=== PATIENT | male | born 1950 | race Caucasian/White ===

== ENCOUNTER 2019-06-02 05:45 | Outpatient (RCR) | payer MEDICARE, MEDICAID, SELFPAY | END 2019-06-15 00:01 | LOC: ONCRAD 05:45 | PROVIDERS: Family Provider Nurse Practitioner; Visit Provider Internal Medicine Hematology & Oncology | DX: Z51.12 Encounter for antineoplastic immunotherapy (principal); C34.11 Malignant neoplasm of upper lobe, right bronchus or lung; C78.7 Secondary malignant neoplasm of liver and intrahepatic bile duct; C77.0 Secondary and unspecified malignant neoplasm of lymph nodes of head, face and neck; C79.51 Secondary malignant neoplasm of bone; J43.9 Emphysema, unspecified; F17.210 Nicotine dependence, cigarettes, uncomplicated | CPT/HCPCS: 36591; 80053; 85025; 96413; 99214; J1642 ×2; J7050 ×2; J9022 ==

== ENCOUNTER 2019-06-23 05:31 | Outpatient (RCR) | payer MEDICARE, MEDICAID, SELFPAY ==
--- NOTE | 2019-06-17 11:19 | CT_ITS ---
WS: [id number] CT CHEST WITH INTRAVENOUS CONTRAST HISTORY: LUNG CA 6 WKS POST RADIATION THERAPY TECHNIQUE: Contiguous 5 mm axial imaging performed on the thorax. Coronal and sagittal reformats are submitted. All CT scans at [facility] use at least one of these dose optimization techniq ues: automated exposure control; mA and/or kV adjustment per patient size (includes targeted exams wh ere dose is matched to clinical indication); or iterative reconstruction. CONTRAST: Omnipaque 300; 95 mL IV. DLP: 648.27 mGy-cm. COMPARISON: 10/12/[address] 01/30/2019 Lungs and central airway: Severe paraseptal and centrilobular emphysema. Significant decrease in size of the RIGHT upper lobe pulmonary mass previously described since 10/12/2018. There is an area of ez ear increased opacification measuring 9 mm now present. No new mass. Pleura: Normal. No pleural effusion. Heart and pericardium: Moderate enlargement the cardiac chambers. There is a diffuse circumferential pericardial effusion which is new since 10/12/2018 and increased since 11/28/2018. Maximum diameter of the effusion along the posterior LEFT ventricle is 14 mm. Mediastinum and michaela: Significant improvement in the mediastinal and hilar adenopathy as described on prior studies. Essentially resolved lymph nodes. There is increased soft tissue thickening in the RI GHT paratracheal and RIGHT hilar and subcarinal region along with fluid in the pericardial recesses. Vessels: Mild atherosclerosis aorta. Origin of the great vessels is normal with mild plaque. Chest wall and lower neck: LEFT subclavian Port-A-Cath. 10 mm lymph node in the RIGHT axilla was not present on prior studies. Margins are slightly irregular. Upper abdomen: No metastatic disease within the liver. No adrenal gland mass. Osseous structures: No osteoblastic or osteolytic bone disease. CT/CT chest w con* [id number] IMPRESSION: 1. Significant decrease in size of the RIGHT upper lobe pulmonary neoplasm wit h near complete resolution. Remaining 9 mm opacification may be residual scar v ersus tumor. 2. Resolved adenopathy in the hilar/mediastinal regions. 3. Severe emphysema. 4. New and slightly enlarged RIGHT axillary lymph node which will need to be c losely followed. Possible metastatic involvement should be considered. 5. No metastatic disease in the liver or adrenal glands. 6. Enlarging pericardial effusion.
[2019-06-17] MEDS: iohexol 300 mg/mL 100 mL Btl IV (11:43)
[2019-06-22] MEDS: sodium chloride 0.9% 100 ML 75 ML (12:10)
[2019-06-23 10:49] LABS: Basophils % 0.4 %; Eosinophils # 0.1 10^3/uL (0.0-0.8); Eosinophils % 1.5 %; Hematocrit 45.9 % (42.0-52.0); Hemoglobin 15.2 g/dL (11.7-16.6); Lymphocytes # 0.7 10^3/uL (0.8-4.8); Lymphocytes % 15.3 %; Mean Corpuscular HGB Conc 33.1 g/dL (30.0-36.0); Mean Corpuscular Hemoglobin 30.5 pg (28.0-34.0); Mean Corpuscular Volume 92.2 fL (80-94); Mean Platelet Volume 9.4 fL (7.4-10.4); Monocytes % 21.8 %; Neutrophils # 2.9 10^3/uL (1.8-7.7); Nucleated Red Blood Cells % 0 %; Platelet Count 274 10^3/cmm (130-400); Red Blood Count 4.98 10^6/uL (4.1-5.3); Red Cell Distribution Width 14.2 % (12.1-15.1); White Blood Count 4.8 10^3/uL (4.0-10.0)
[2019-06-23 11:03] LABS: Alanine Aminotransferase 9 U/L (0-41); Albumin Level 4.7 g/dL (3.5-5.2); Alkaline Phosphatase 53 IU/L (40-130); Anion Gap 15.7 (5-19); Aspartate Amino Transferase 13 U/L (0-40); Blood Urea Nitrogen 11 mg/dL (8-23); Calcium 10.7 mg/Dl (8.8-10.2); Carbon Dioxide 24 mmol/L (22-29); Chloride 103 mmol/L (98-107); Globulin 1.9 g/dL (1.3-4.6); Glomerular Filtration Rate 96.1 mL/min (90-130); Glucose 97 mg/dL (74-106); Potassium 4.7 mmol/L (3.5-5.1); Sodium 138 mmol/L (136-145); Total Bilirubin 0.3 mg/dL (0.15-1.2); Total Protein 6.6 g/dL (6.6-8.7)
[2019-06-23 12:55] LABS: Thyroid Stimulating Hormone 2.49 uIU/mL (0.27-4.20)
--- NOTE | 2019-06-23 15:27 | ONC FU_ITS ---
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 He is a 69-year-old gentleman with recent history of progressive right neck mass. He underwent CT scan of chest on 10/12/2018 showed multifocal neoplasm of right upper lobe and extensive bulky right paratracheal, superior mediastinal, right suprahilar, right supraclavicular lymphadenopathy associated with mild compression of severe vena cava and the right internal jugular vein and additional involvement of AP window and subcarinal azygoesophageal recess. No liver or adrenal involvement. Patient was referred to Dr. 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 And immunohistochemistry was positive for NSE, synaptophysin, CD 56. CT PET scan done on 11/28/2018 showed extensive disease e.g. single metastases to the liver and MRI scan of brain done on 11/25/2018 showed left frontal subcortical metastatic lesion and is any enhancing metastatic lesion in the inferior subcortical white matter of right frontal lobe He began treatment with carboplatin/etoposide and Tecentriq on 11/24/2018. 55+ year history of smoking still active, Follow-up CT PET scan done after3 cycles of carboplatin and etoposide and Tecentriq done On 01/30/2019 Showed good response, marked interval improvement in right upper lobe carcinoma Interval improvement in mediastinal lymphadenopathy Interval improvement in right level IV cervical lymph node Resolution of hepatic metastatic disease MRI head done on 01/15/2019 showed decrease in size left frontal subcortical white matter metastatic lesion when compared with scan done on 11/25/2018 No new enhancing metastatic lesion seen. On 03/12/2019 patient Completed 5 cycles of chemotherapy with carboplatin and etoposide with last two , tecentriq was added. consolidation with radiation therapy to rt chest Was given from 04/07/2019 to 05/04/2019 Followed by brainSRS x1 on 05/06/2019. Came for follow-up, denies any specific complaints, no fever or chills, no nausea vomiting, no headaches blurred vision double vision, no hemoptysis hematemesis, no shortness of breath. Patient has tolerated consolidation radiation therapy to right lung well and recently completed brainSRS ???1. Maintenance therapy with atezolizumab was recommended and he began his first cycle on 06/02/2019. He has tolerated it well. Mr. He is here today for follow-up. He is due for cycle 2 atezolizumab. He is tolerated the first dose well. He states that he is been having some severe lower back pains. He states is a dull pain that radiates towards both hips. He describes it as the middle of the lumbar area. He denies any leg tingling or numbness. He has had no gait changes. He denies any recent falls. His bowel and bladder functions are normal. He states the pain does bother him enough that impairs his mobility at times. He states he has tried aspirin and Tylenol which both dull the pain but did not relieve it completely. He has had no lower extremity edema. He denies any shortness of breath or orthopnea. He denies any fever or chills. His ECOG is 2 due to the back pain. Past Medical History: Ashd Chronic obstructive pulmonary disease History of colon polyps History of [place] Hypertension Osteoarthritis Right bundle branch block Tmj Vitamin D deficiency Past Surgical History: Cataract excision Hernia repair Portacatheter placement dr. muniz in 2019 Colonoscopy in 2018 Allergies: No Known Allergies. Medications: [facility] Tablet, effervescent Oral daily Aspirin 2 (325 mg) Tablet Oral daily Chantix Tablet Oral daily Citalopram Hydrobromide 1 (10 mg) Tablet Oral daily Lisinopril 1 Tablet (of 30 mg) Oral daily Melatonin 1 (10 mg) Capsule Oral at bedtime Nitroglycerin 1 Tablet (of 0.4 mg) Tablet, sublingual Sublingual PRN Prochlorperazine Maleate 1 Tablet (of 10 mg) Oral q 4 hours PRN traZODone HCl 1 (50 mg) Tablet Oral at bedtime PRN Family History: Mr. He's mother at age 75: congestive heart failure. Mr. He's father at age 75: heart disease, and lung cancer. Social History: Mr. He is single and he is retired. He is an occasional smoker who has smoked 1.5 packs/day for 60 years. He is an active drinker.He consumes 3 drinks/day 7 days/week. He has indicated exposure to the following products: cigarettes. Used to smoke 3 packs per day for about 20 years and went down to 2 packs per day until recently. Took the last Chantix yesterday pt is trying to quit smoking, Pt has decreased from 2-3 packs per day to about 2 cigarettes per day. Review Of Symptoms: Constitutional Denies fevers, chills, night sweats, excessive fatigue or weight loss. Intermittent headaches-worse when reading. Allergic/Immunologic No reactions. Eyes Denies significant visual changes. No diplopia. No amaurosis. ENMT Denies changes in hearing, sore throat, mouth sores, difficulty or changes in swallowing ability, and/or sinus drainage. Hematologic/Lymphatic Denies easy bruising or bleeding. The patient denies any tender or palpable lymph nodes. Respiratory Denies worsening dyspnea on exertion. Denies chest pain, cough or hemoptysis. Denies orthopnea. Cardiovascular Denies anginal chest pain, palpitations or orthopnea. Gastrointestinal Denies persistent nausea, vomiting, diarrhea, GI bleeding, or constipation. Denies change in bowel habits and/or stool color, no heartburn or early satiety. Genitourinary (M) Denies hematuria. Musculoskeletal Denies joint pain, swelling or redness. No decreased range of motion. He states he's had some leg cramps when walking. They do ease with rest. He's also had some leg cramps at night. They too resolve with getting up and walking. He is complaining of back pain in the lower part of his back. He indicates lumbar and lower thoracic. He states that there most of the time. He states it is worse if he is trying to do activities. He is not had any numbness or tingling in his lower extremities or bowel or bladder changes. But he states the pain seems to be getting worse. The aspirin and Tylenol dulls the pain but does not relieve it completely. He denies any recent trauma. Integumentary Denies chronic rashes, inflammation, ulcerations or skin changes. Neurologic Denies focal weakness or numbness. Normal gait. No persistent sensory problems Psychiatric Denies insomnia, depression, geovany or mood swings. Constitutional Complains of lack of appetite. Complains of moderate fatigue. Denies fever and night sweats. Eyes Complains of blurred vision with small print. Denies double vision and photophobia. ENMT Complains of dysphagia which occurs later in the day and tinnitus occasionally. Denies ear pain, mouth dryness, stomatitis and altered taste. Neck Denies neck pain. Integumentary Denies rash. Cardiovascular Complains of chest pain in the anterior right chest wall which happens occasionally. Denies arrhythmias and edema. Respiratory Complains of cough which is productive and is worse in the morning. Complains of wheezing occasionally. Denies hemoptysis. Gastrointestinal Complains of nausea which happens once in awhile. Denies abdominal pain, constipation, diarrhea, heartburn / dyspepsia, satiety and vomiting. Genitourinary (M) Complains of nocturia gets up about 3 times per night and urgency. Denies dysuria and frequency. Musculoskeletal Complains of arthritis and joint pain. Denies bone pain. Neurologic Complains of intermittent dizziness. Complains of severe headaches off and on. Complains of sensory problems in a few of his fingertips. Denies abnormal gait. Endocrine Denies diabetes and thyroid disease. Hematologic/Lymphatic Denies tender or enlarged lymph nodes. Vital Signs: Performed on Jun 23, 2019 11:30 Height - 68.00 in Weight - 138.0 lbs BSA - 1.75 sq.m BMI - 20.98 Temperature - 98.4 F Pulse - 84 /min Respiration - 20 /min BP - 143/90 mm(hg) (HIGH) O2 Sat - 97 % Pain - 0 Fatigue - 4 Performed on Jun 23, 2019 11:00 Height - 68.00 in Weight - 138.0 lbs Temperature - 98.4 F Pulse - 84 Respiration - 20 BP - 143/90 mm(hg) (HIGH) O2 Sat - 97 % Pain - 0 Performed on Jun 23, 2019 11:00 BMI - 20.983 kg/m2,1 - No physically strenuous activity, but ambulatory and able to carry out light or sedentary work (e.g. office work, light house work). (ECOG) Physical Examination: Constitutional Alert, oriented, no acute distress. Skin pink, warm and dry. Head Normocephalic; atraumatic. Eyes Conjunctivae and sclerae are clear and without icterus. Pupils are reactive and equal. ENMT No oral exudates, ulcers, masses, thrush or mucositis. Oropharynx clear. Tongue normal. Neck Supple without masses or thyromegaly. No jugular venous distension. Hematologic/Lymphatic No petechiae or purpura. No tender or palpable lymph nodes in the cervical or supraclavicular areas. Respiratory Lungs are clear to auscultation without rhonchi or wheezing. Cardiovascular Regular rate and rhythm of heart without murmurs,clicks, gallops or rubs. Abdomen Non-tender, non-distended, no masses, ascites. Good bowel sounds noted in all quads. No guarding or rebound tenderness. No pulsatile masses. Back/Spine Non-tender to palpation. Extremities No visible deformities, no cyanosis, clubbing or edema. Pulses 4+ and equal bilaterally. Musculoskeletal No tenderness or swelling, normal range of motion without obvious weakness. Integumentary No rashes or lesions. Neurologic No sensory or motor deficits, normal cerebellar function, normal gait. Psychiatric Alert and oriented times three. Coherent speech. Verbalizes understanding of our discussions today. Laboratory:Test performed on Jun 23, 2019 10:18 Sodium 138 mmol/L Potassium 4.7 mmol/L Chloride 103 mmol/L CO2 24 mmol/L Anion Gap 15.7 BUN 11 mg/dL Creatinine 0.8 mg/dL Cr Clearance (Est) 78.25 mL/min eGFR 96.1 mL/min Glucose 97 mg/dL Calcium 10.7 mg/dL Protein, Total 6.6 g/dL Albumin 4.7 g/dL Globulin 1.9 g/dL Bilirubin, Total 0.3 mg/dL ALT (SGPT) 9 Units/L AST (SGOT) 13 Units/L Alkaline Phosphatase 53 IU/L WBC 4.8 10^3/uL RBC 4.98 10^6/uL HGB 15.2 g/dL HCT 45.9 % MCV 92.2 fl MCH 30.5 pg MCHC 33.1 g/dL RDW 14.2 % Platelet Count 274 10^3/uL MPV 9.4 fl Neutrophils 2.9 10^3/uL Lymphocytes 0.7 10^3/uL Monocytes 1.0 10^3/uL Eosinophils 0.1 10^3/uL Basophils 0.0 10^3/uL Neutrophil % 61.0 % Lymphocyte % 15.3 % Monocyte % 21.8 % Eosinophil % 1.5 % Basophils % 0.4 % Test performed on Feb 08, 2019 13:46 Magnesium 2.3 mg/dL Test performed on Jan 11, 2019 08:46 TSH 2.24 uIU/mL Test performed on Jan 05, 2019 08:39 Manual Segs % 28 % Manual Bands % 13.0 % Manual Lymphs % 30.0 % Manual Monos % 19.0 % Metamyelocytes % 9.0 % Myelocytes % 1.0 % CBC Slide Review SLIDE REVIEW PERFORM Platelet Estimate DECREASED Manual Neutrophils Abs 2.1 10 3/cmm Manual Lymphocytes Abs 1.5 10 3/cmm Manual Monocytes Abs 1.0 10 3/cmm Impression: 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 Next CT scan of chest done on 10/12/2018 showed when compared to CT scan done on 10/02/2018, multiple nodular densities are in the posterior segment right upper lobe extending anteriorly and inferiorly towards the right hilum. And the most posterior superior nodular density is in the posterior subpleural region measuring 1.7 x 2.5 x 1.5 cm and elongated nodule extends anteriorly and inferiorly towards the right hilum measures 3.3 x 1.2 x 1.2 cm Bulky, confluent right paratracheal, right suprahilar and precarinal lymphadenopathy measures up to 5.8 cm x 3.5 cm x 10 cm. The adenopathy causes significant narrowing of right upper lobe pulmonary artery branch and a partially compresses the superior vena cava no acute bony abnormality seen no lytic or blastic bony destruction seen. Additional adenopathy extends into AP window and anterior superior mediastinum. And right supraclavicular lymphadenopathy measures 3.1 x 3.6 x 3.5 cm causes severe compression of inferior aspect of right internal jugular vein. No axillary lymphadenopathy. No other pulmonary mass or nodule seen. Liver is normal no adrenal involvement Emphysema COPD, so chronic smoking e.g. 55 year plus history history of myocardial infarction at age 43. Elevated PSA Essential hypertension Mr. He had PET/CT imaging on 11/28/2018. He had hypermetabolic activity in the right upper lobe nodule which measured to be 1.3 cm with SUV of 4.1 there are no other significant pulmonary nodules present there was a 2 widespread lung cyst formation upper lobes consistent with COPD changes matted malignant lymph nodes are present in the mediastinum time him consistent with local metastatic disease also present in the right paratracheal anterior mediastinal, precarinal and right hilar territories the SUV up to 6.2. In the right neck a 4.6 x 2.8 cm nodular mass in the level IV distribution has SUV of 6.8 representing metastasis. There is a solitary hypodensity in the medial right hepatic lobe measuring 2.0 x 1.6 cm with an SUV of 4.5. There are no findings to indicate osseous metastatic disease. MRI of the head from 11/25/2018 reports a oval circumscribed ring-enhancing lesion measuring 7.6 x 8.8 x 10 mm in the right frontal lobe subcortical white matter inferiorly. Per MRI report it is likely metastatic disease. No other Ms. sick lesions were seen and no significant stenosis and with white matter edema. 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 Mr. He was offered treatment with carboplatin/etoposide and Tecentriq. He began his first cycle on 11/24/2018. Completed total 5 cycles of chemotherapy on 03/12/2019. He remained on observation. He completed SRS to the brain to total dose of 2000 cGy on 05/06/2019. He began maintenance Tecentriq on 06/02/2019. Plan: 1. Proceed with cycle 2 Tecentriq (atezolizumab). 2. No premeds required currently. 3. Labs from today were reviewed in detail and discussed with Mr. He and a copy was given to him. WBC 4.8, hemoglobin 15.2, platelets 224,000 ANC is 2900. Potassium 4.7 creatinine 0.8 LFTs are normal alk phos is 53. A TSH was requested on blood in lab. 4. Requested x-rays of the thoracic lumbar sacral spine for evaluation of his back pain. 5. We will plan to see him back in 3 weeks with CBC CMP and follow-up TSH. 6. He was instructed to contact us in the interim should questions or problems arise. Signed By: Nahomy Buitrago-, [facility] Ky Perez MD <<Signature on File>>
== END 2019-06-23 23:59 | disposition home or self-care (01) ==
LOC: ONCMED 05:31
PROVIDERS: Family Provider Nurse Practitioner; PCP Nurse Practitioner; Referring Provider Radiology Radiation Oncology; Visit Provider Nurse Practitioner
DX: Z51.12 Encounter for antineoplastic immunotherapy (principal); C34.11 Malignant neoplasm of upper lobe, right bronchus or lung; C77.1 Secondary and unspecified malignant neoplasm of intrathoracic lymph nodes; C79.31 Secondary malignant neoplasm of brain; J43.9 Emphysema, unspecified; I31.3 Pericardial effusion (noninflammatory); F17.210 Nicotine dependence, cigarettes, uncomplicated; M54.5 Low back pain; I25.2 Old myocardial infarction; I10 Essential (primary) hypertension; M19.90 Unspecified osteoarthritis, unspecified site; E55.9 Vitamin D deficiency, unspecified; Z92.3 Personal history of irradiation; Z79.899 Other long term (current) drug therapy
CPT/HCPCS: 71260; 80053; 84443; 85025; 96413; 99214; J7050; J9022; Q9967

== ENCOUNTER 2019-06-23 13:05 | Outpatient (CLI) | payer MEDICARE, MEDICAID, SELFPAY ==
--- NOTE | 2019-06-23 13:26 | XR_ITS ---
WS: [id number] LUMBAR SPINE TECHNIQUE: 3 views of the lumbar spine CLINICAL INFORMATION: LOWER BACK PAIN/NON SMALL CELL LUNG CANCER COMPARISON: None. FINDINGS: Osteopenia. 5 nonrib-bearing lumbar vertebral bodies. Mild lumbar curve convex left. Slight retrolist hesis L2 on L3. Grade 1 anterolisthesis L5 on S1 measuring 9.5 mm with chronic spondylolysis.. Modera te facet arthropathy L4-L5 and L5-S1. Chronic anterior wedging in the lower thoracic spine. Aortic ca lcification. XR/XR lumbar spine 2-3V* [id number] IMPRESSION: 1. Mild lumbar curve. No acute appearing compression fractures. 2. Grade 1 anterolisthesis L5 on S1 measuring 9.5 mm with chronic spondylolysi s.. 3. Slight retrolisthesis L2 on L3 with disc space narrowing. 4. No visualized lytic or blastic lesions.
--- NOTE | 2019-06-23 13:26 | XR_ITS ---
WS: [id number] THORACIC SPINE TECHNIQUE: 3 views of the thoracic spine CLINICAL INFORMATION: LOWER BACK PAIN/NONSMALL CELL LUNG CANCER COMPARISON: None. FINDINGS: Left Port-A-Cath with tip in SVC. No pneumothorax. Aortic calcification. Visualized lungs are well ae rated. Chronic emphysematous changes. Thoracic curve convex right. Osteopenia. No acute appearing compression fractures. No visualized lytic or blastic lesions indicate metastatic disease. XR/XR thoracic spine 3V* [id number] IMPRESSION: 1. Left Port-A-Cath with tip in the SVC. 2. Mild thoracic curve convex right. No acute appearing compression fractures. 3. No definite evidence of bony metastatic disease.
== END 2019-06-23 13:06 | disposition home or self-care (01) ==
PROVIDERS: Family Provider Nurse Practitioner; PCP Nurse Practitioner; Visit Provider Nurse Practitioner
DX: M43.8X4 Other specified deforming dorsopathies, thoracic region (principal); M54.5 Low back pain; C34.11 Malignant neoplasm of upper lobe, right bronchus or lung
CPT/HCPCS: 72072; 72100

== ENCOUNTER 2019-07-12 05:43 | Outpatient (RCR) | payer MEDICARE, MEDICAID, SELFPAY ==
--- NOTE | 2019-06-25 08:30 | MR_ITS ---
WS: [id number] MRI HEAD WITH CONTRAST TECHNIQUE: Sagittal T1, T2 axial, T2 axial FLAIR, axial susceptibility weighted imaging, axial diffus ion weighted images, and coronal T2 images were obtained. Pre and post-T1 axial and post T1 coronal i mages. ADC and FSPGR images. CLINICAL INFORMATION: RE-STAGING EVAL;PERSISTENT HEADACHE;LUNG CA COMPARISON: MRI FINDINGS: No evidence of restricted diffusion to suggest acute ischemia. Ventricular system and basal cisterns are patent. Significant interval improvement in the previous described metastatic lesion in the right frontal lobe. Today this measures approximately 6 mm significantly improved from previous. Small taina unt of T1 hyperintensity and enhancement. Significant interval improvement in the T2 signal abnormali ty with resolution of the edema. No hemosiderin on the susceptibility weighted images. No new enhancing intracranial metastatic lesion s. No evidence of increasing edema or mass effect. Normal optic chiasm and pituitary infundibulum. No rmal cavernous sinuses. Normal dural venous sinuses. MR/MR head wo/w con [id number] IMPRESSION: 1. Significant interval improvement in the right frontal enhancing metastatic lesion with resolution of the edema. This measures 6 mm today. 2. No new enhancing intracranial metastatic lesions. 3. No restricted diffusion to suggest acute ischemia. 4. No hydrocephalus or mass effect.
--- NOTE | 2019-07-12 | CT_ITS ---
Radation Therapy Planning CT images; total exam DLP: 1776.20 and 474.39 mGy-cm MTDD
--- NOTE | 2019-07-12 | CT_ITS ---
Radation Therapy Planning CT images; total exam DLP: 1776.20 mGy-cm and 474.39 mGy-cm MTDD
== END 2019-07-16 23:59 | disposition home or self-care (01) ==
LOC: ONCMED 05:43
PROVIDERS: Family Provider Nurse Practitioner; PCP Nurse Practitioner; Referring Provider Nurse Practitioner; Visit Provider Radiology Radiation Oncology
DX: C34.11 Malignant neoplasm of upper lobe, right bronchus or lung (principal); C78.7 Secondary malignant neoplasm of liver and intrahepatic bile duct; C79.31 Secondary malignant neoplasm of brain; C77.3 Secondary and unspecified malignant neoplasm of axilla and upper limb lymph nodes; R51 Headache; M54.5 Low back pain; I31.3 Pericardial effusion (noninflammatory); Z79.899 Other long term (current) drug therapy; Z92.21 Personal history of antineoplastic chemotherapy; Z92.3 Personal history of irradiation
CPT/HCPCS: 70553; 77290; 77334; 77470; 99215; A9579; Q9967

== ENCOUNTER 2019-08-03 05:38 | Outpatient (RCR) | payer MEDICARE, MEDICAID, SELFPAY ==
--- NOTE | 2019-07-23 13:14 | ONCRAD TMN_ITS ---
Radiation Oncology Weekly Treatment Management Patient: Jean He MR#: [id number] : 1950> Age: 69> Sex: Male Dictated by: Dr. Terrell Ram Date of Service: 07/23/2019 Referring Physician(s): Ky Perez M.D. Primary Diagnosis: C34.11 - Malignant neoplasm of upper lobe, right bronchus or lung, Diagnosed 10/28/2018 (Active) Radiotherapy to date: Course: Axilla [id number], Treatment Site: R Axilla SBRT, Ref. ID: [id number], Energy: 6X, Dose/Fx (cGy): 1,400, #Fx: 2 / 3, Dose Correction (cGy): 0, Total Dose (cGy): 2,800, Start Date: 07/21/2019, Elapsed Days: 2 Current Complaints/Interval History: Constitutional Complains of moderate fatigue. Complains of rigors / chills. Denies lack of appetite, fever and night sweats. Integumentary No redness or skin irritation to the right axilla Respiratory Moderate productive cough, dyspnea associated with rest or normal activity and wheezing are unchanged from his baseline. Denies hemoptysis. Current Medications: [facility], allopurinol, aspirin, atezolizumab, chantix, chantix, chantix Starting Month , citalopram Hydrobromide, dexamethasone, eMLA, lisinopril, magic Mouthwash, melatonin, nitroglycerin, prochlorperazine Maleate, prochlorperazine Maleate, traZODone HCl. Allergies: No Known Allergies Vital Signs: Performed on 07/23/2019 10:49 AM BMI - 21.317 kg/m2, Height - 68.00 in, Weight - 140.2 lbs, Temperature - 98.4 f, Pulse - 73, Respiration - 18, O2 Sat - 98 %, Pain - 0 and BP - 139/ 93 mm(hg)(/high). Physical Exam: Appears stable, no skin erythema or desquamation. Performance Status: 2 - Ambulatory/capable of all self-care, unable to perform any work activities. Up and about more than 50% of waking hours. (ECOG) Lab: None pending in Radiation Oncology. Imaging: No new diagnostic imaging was performed since the last weekly treatment visit. All radiation therapy related imaging (including but not limited to CBCT generated images) was reviewed. Appropriate changes, if any, were made to assure accurate target localization. Impression/Plan: Tolerating treatment well. Continue treatment as planned. CPT: 97647 Signed by: Dr. Terrell Ram>07/23/2019 1:12:13 PM <<Signature on File>>
--- NOTE | 2019-08-03 14:50 | ONCRAD TMN_ITS ---
Radiation Oncology Weekly Treatment Management/ Summary Patient: Jean He MR#: [id number] : 1950> Age: 69> Sex: Male Dictated by: Dr. 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 ID: AxillaSBRT, Energy: 6X, Dose/Fx (cGy): 1,400, #Fx: 3 / 3, Dose Correction (cGy): 0, Total Dose (cGy): 4,200, Start Date: 07/21/2019, End Date: 07/26/2019, Elapsed Days: 5 Treatment Site: Liver SBRT, Ref. ID: LiverSBRT, Energy: 6X, Dose/Fx (cGy): 1,400, #Fx: 3 / 3, Dose Correction (cGy): 0, Total Dose (cGy): 4,200, Start Date: 07/28/2019, End Date: 08/03/2019, Elapsed Days: 6 Current Complaints/Interval History: Constitutional Complains of lack of appetite and mild fatigue. Denies fever and night sweats. Gastrointestinal Complains of nausea and occasional vomiting. Denies abdominal pain, diarrhea, heartburn / dyspepsia and melena / GI bleeding. Current Medications: [facility], allopurinol, aspirin, atezolizumab, chantix, chantix, chantix Starting Month , citalopram Hydrobromide, dexamethasone, eMLA, lisinopril, magic Mouthwash, melatonin, nitroglycerin, prochlorperazine Maleate, prochlorperazine Maleate, traZODone HCl. Allergies: No Known Allergies Vital Signs: Performed on 08/03/2019 2:26 PM BMI - 20.861 kg/m2, Height - 68.00 in, Weight - 137.2 lbs, Temperature - 97.8 f, Pulse - 88, Respiration - 18, O2 Sat - 97 %, Pain - 0 and BP - 123/ 88 mm(hg). Physical Exam: Appears stable, no skin erythema or desquamation. Performance Status: 2 - Ambulatory/capable of all self-care, unable to perform any work activities. Up and about more than 50% of waking hours. (ECOG) Lab: None pending in Radiation Oncology. Imaging: No new diagnostic imaging was performed since the last weekly treatment visit. All radiation therapy related imaging (including but not limited to CBCT generated images) was reviewed. Appropriate changes, if any, were made to assure accurate target localization. Impression/Plan: Tolerating treatment well with expected side effects. End of treatment today. The patient will undergo a CT of chest/abdomen/pelvis in 6 weeks and follow up with us afterwards. He will follow up with Dr. Perez to discuss about systemic therapy. CPT: 97504 Signed by: Dr. Terrell Ram>08/03/2019 2:48:30 PM <<Signature on File>>
== END 2019-08-14 23:59 | disposition home or self-care (01) ==
LOC: ONCMED 05:38
PROVIDERS: Family Provider Nurse Practitioner; PCP Nurse Practitioner; Referring Provider Nurse Practitioner; Visit Provider Radiology Radiation Oncology
DX: Z51.0 Encounter for antineoplastic radiation therapy (principal); C34.11 Malignant neoplasm of upper lobe, right bronchus or lung; C77.3 Secondary and unspecified malignant neoplasm of axilla and upper limb lymph nodes
CPT/HCPCS: 77014; 77280; 77295; 77300; 77334; 77370; 77373

== ENCOUNTER → 2019-08-24 14:08 | Outpatient (BNVA) | payer MEDICARE, MEDICAID, SELFPAY | PROVIDERS: Family Provider Nurse Practitioner; PCP Nurse Practitioner; Visit Provider Nurse Practitioner Family | DX: I10 Essential (primary) hypertension (principal); G47.00 Insomnia, unspecified; R07.9 Chest pain, unspecified; C34.90 Malignant neoplasm of unspecified part of unspecified bronchus or lung; I25.10 Atherosclerotic heart disease of native coronary artery without angina pectoris | CPT/HCPCS: 80053; 80061; 82550; 84443; 84484; 85025; 85027 ==

== ENCOUNTER 2019-09-10 13:30 | Outpatient (RCR) | payer MEDICARE, MEDICAID, SELFPAY ==
[2019-08-19 09:36] LABS: Basophils % 0.5 %; Eosinophils # 0.1 10^3/uL (0.0-0.8); Eosinophils % 0.8 %; Hematocrit 40.2 % (42.0-52.0); Hemoglobin 13.6 g/dL (11.7-16.6); Lymphocytes # 0.8 10^3/uL (0.8-4.8); Lymphocytes % 13.2 %; Mean Corpuscular HGB Conc 33.8 g/dL (30.0-36.0); Mean Corpuscular Hemoglobin 30.1 pg (28.0-34.0); Mean Corpuscular Volume 88.9 fL (80-94); Mean Platelet Volume 9.3 fL (7.4-10.4); Monocytes # 1.4 10^3/uL (0.2-0.9); Monocytes % 23.4 %; Neutrophils # 3.8 10^3/uL (1.8-7.7); Neutrophils % 61.8 %; Nucleated Red Blood Cells % 0 %; Platelet Count 197 10^3/cmm (130-400); Red Blood Count 4.52 10^6/uL (4.1-5.3); Red Cell Distribution Width 13.4 % (12.1-15.1); White Blood Count 6.1 10^3/uL (4.0-10.0)
[2019-08-19 09:47] LABS: Alanine Aminotransferase 9 U/L (0-41); Albumin Level 4.2 g/dL (3.5-5.2); Alkaline Phosphatase 56 IU/L (40-130); Anion Gap 14.6 (5-19); Aspartate Amino Transferase 12 U/L (0-40); Blood Urea Nitrogen 17 mg/dL (8-23); Calcium 9.9 mg/dL (8.5-10.5); Carbon Dioxide 26 mmol/L (22-29); Chloride 98 mmol/L (98-107); Globulin 2.7 g/dL (1.3-4.6); Glomerular Filtration Rate 96.1 mL/min (90-130); Glucose 101 mg/dL (65-115); Potassium 4.6 mmol/L (3.5-5.1); Sodium 134 mmol/L (136-145); Total Bilirubin 0.2 mg/dL (0.15-1.2); Total Protein 6.9 g/dL (6.6-8.7)
--- NOTE | 2019-08-19 14:13 | ONC FU_ITS ---
Dr. Perez follow up note Patient: Jean He Unit #: [id number]: 1950 Dicatated By: Ky Perez M.D.Date of Visit:Aug 19, 2019 Onc Med Follow-up/Prog Note History of Present Illness: Mr. He is a 69-year-old gentleman with recent history of progressive right neck mass. He underwent CT scan of chest on 10/12/2018 showed multifocal neoplasm of right upper lobe and extensive bulky right paratracheal, superior mediastinal, right suprahilar, right supraclavicular lymphadenopathy associated with mild compression of severe vena cava and the right internal jugular vein and additional involvement of AP window and subcarinal azygoesophageal recess. No liver or adrenal involvement. Patient was referred to Dr. 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 And immunohistochemistry was positive for NSE, synaptophysin, CD 56. CT PET scan done on 11/28/2018 showed extensive disease e.g. single metastases to the liver and MRI scan of brain done on 11/25/2018 showed left frontal subcortical metastatic lesion and is any enhancing metastatic lesion in the inferior subcortical white matter of right frontal lobe He began treatment with carboplatin/etoposide and Tecentriq on 11/24/2018. 55+ year history of smoking still active, Follow-up CT PET scan done after3 cycles of carboplatin and etoposide and Tecentriq done On 01/30/2019 Showed good response, marked interval improvement in right upper lobe carcinoma Interval improvement in mediastinal lymphadenopathy Interval improvement in right level IV cervical lymph node Resolution of hepatic metastatic disease MRI head done on 01/15/2019 showed decrease in size left frontal subcortical white matter metastatic lesion when compared with scan done on 11/25/2018 No new enhancing metastatic lesion seen. On 03/12/2019 patient Completed 5 cycles of chemotherapy with carboplatin and etoposide with last two , tecentriq was added. consolidation with radiation therapy to rt chest Was given from 04/07/2019 to 05/04/2019 Followed by brainSRS x1 on 05/06/2019. Came for follow-up, denies any specific complaints, no fever or chills, no nausea vomiting, no headaches blurred vision double vision, no hemoptysis hematemesis, no shortness of breath. Patient has tolerated consolidation radiation therapy to right lung well and recently completed brainSRS ???1. Maintenance therapy with atezolizumab was recommended and he began his first cycle on 06/02/2019. He has tolerated it well.CT PET scan done on 07/03/2019 showed no change in the FDG negative right upper lobe nodule, consistent with treated primary. Interval resolution of right supra clavicular and mediastinal lymph nodes New malignant appearing right axilla lymph node and recurrence of unifocal hepatic metastatic disease. Patient was seen by radiation oncology at that time radiation recommended SB RT to right axilla which he received from 07/21/2019 till 07/26/2019 and also received SB RT to this solitary liver metastases from 07/28/2019 through 08/03/2019, immunotherapy with any tecentriq was put on hold after second dose which was given on 06/23/2019 because of risk of increased toxicity with concurrent radiation therapy e.g. SB RT. as per radiation oncology recommendation. Next Came for follow-up, denies any specific complaints except generalized weakness and fatigue but no nausea vomiting no fevers chills no headaches no blurred vision no double vision no hemoptysis or hematemesis no jaundice Medications: [facility] Tablet, effervescent Oral daily, Aspirin 2 (325 mg) Tablet Oral daily, Chantix Tablet Oral daily, Citalopram Hydrobromide 1 (10 mg) Tablet Oral daily, Lisinopril 1 Tablet (of 30 mg) Oral daily, Melatonin 1 (10 mg) Capsule Oral at bedtime, Nitroglycerin 1 Tablet (of 0.4 mg) Tablet, sublingual Sublingual PRN, Prochlorperazine Maleate 1 Tablet (of 10 mg) Oral q 4 hours PRN, traZODone HCl 1 (50 mg) Tablet Oral at bedtime PRN Allergies: No Known Allergies. Review of Systems: Review of Systems is not available for this patient. Vital Signs: Performed on Aug 19, 2019 11:11 Height - 68.00 in Weight - 139.6 lbs (HIGH) BSA - 1.75 sq.m BMI - 21.23 Temperature - 97.3 F (LOW) Pulse - 80 /min BP - 120/71 mm(hg) O2 Sat - 99 % Pain - 5 Fatigue - 5 Performance Status: 0 - Fully active, able to carry on all predisease activities without restrictions. (ECOG) Physical Examination: ENMT - No oral exudates, ulcers, masses, thrush or mucositis. Oropharynx clear. Tongue normal, Respiratory - Lungs are clear to auscultation without rhonchi or wheezing, Cardiovascular - Regular rate and rhythm of heart, Abdomen - Non-tender, non-distended, Good bowel sounds. No guarding or rebound tenderness. No pulsatile masses, Extremities - no edema. Lab/Imaging: Test performed on Jun 23, 2019 10:18 Sodium 138 mmol/L Potassium 4.7 mmol/L Chloride 103 mmol/L CO2 24 mmol/L Anion Gap 15.7 BUN 11 mg/dL Creatinine 0.8 mg/dL Cr Clearance (Est) 78.25 mL/min eGFR 96.1 mL/min Glucose 97 mg/dL Calcium 10.7 mg/dL Protein, Total 6.6 g/dL Albumin 4.7 g/dL Globulin 1.9 g/dL Bilirubin, Total 0.3 mg/dL ALT (SGPT) 9 Units/L AST (SGOT) 13 Units/L Alkaline Phosphatase 53 IU/L WBC 4.8 10^3/uL RBC 4.98 10^6/uL HGB 15.2 g/dL HCT 45.9 % MCV 92.2 fl MCH 30.5 pg MCHC 33.1 g/dL RDW 14.2 % Platelet Count 274 10^3/uL MPV 9.4 fl Neutrophils 2.9 10^3/uL Lymphocytes 0.7 10^3/uL Monocytes 1.0 10^3/uL Eosinophils 0.1 10^3/uL Basophils 0.0 10^3/uL Neutrophil % 61.0 % Lymphocyte % 15.3 % Monocyte % 21.8 % Eosinophil % 1.5 % Basophils % 0.4 % Impression: 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 Next CT scan of chest done on 10/12/2018 showed when compared to CT scan done on 10/02/2018, multiple nodular densities are in the posterior segment right upper lobe extending anteriorly and inferiorly towards the right hilum. And the most posterior superior nodular density is in the posterior subpleural region measuring 1.7 x 2.5 x 1.5 cm and elongated nodule extends anteriorly and inferiorly towards the right hilum measures 3.3 x 1.2 x 1.2 cm Bulky, confluent right paratracheal, right suprahilar and precarinal lymphadenopathy measures up to 5.8 cm x 3.5 cm x 10 cm. The adenopathy causes significant narrowing of right upper lobe pulmonary artery branch and a partially compresses the superior vena cava no acute bony abnormality seen no lytic or blastic bony destruction seen. Additional adenopathy extends into AP window and anterior superior mediastinum. And right supraclavicular lymphadenopathy measures 3.1 x 3.6 x 3.5 cm causes severe compression of inferior aspect of right internal jugular vein. No axillary lymphadenopathy. No other pulmonary mass or nodule seen. Liver is normal no adrenal involvement Emphysema COPD, so chronic smoking e.g. 55 year plus history history of myocardial infarction at age 43. Elevated PSA Essential hypertension Mr. He had PET/CT imaging on 11/28/2018. He had hypermetabolic activity in the right upper lobe nodule which measured to be 1.3 cm with SUV of 4.1 there are no other significant pulmonary nodules present there was a 2 widespread lung cyst formation upper lobes consistent with COPD changes matted malignant lymph nodes are present in the mediastinum time him consistent with local metastatic disease also present in the right paratracheal anterior mediastinal, precarinal and right hilar territories the SUV up to 6.2. In the right neck a 4.6 x 2.8 cm nodular mass in the level IV distribution has SUV of 6.8 representing metastasis. There is a solitary hypodensity in the medial right hepatic lobe measuring 2.0 x 1.6 cm with an SUV of 4.5. There are no findings to indicate osseous metastatic disease. MRI of the head from 11/25/2018 reports a oval circumscribed ring-enhancing lesion measuring 7.6 x 8.8 x 10 mm in the right frontal lobe subcortical white matter inferiorly. Per MRI report it is likely metastatic disease. No other Ms. sick lesions were seen and no significant stenosis and with white matter edema. 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 Mr. He was offered treatment with carboplatin/etoposide and Tecentriq. He began his first cycle on 11/24/2018. Completed total 5 cycles of chemotherapy on 03/12/2019. He remained on observation. He completed SRS to the brain to total dose of 2000 cGy on 05/06/2019. He began maintenance Tecentriq on 06/02/2019. Plan: Discussed with patient regarding his labs white blood count 6.1 hemoglobin 13.6 crit 40.2, platelets 197,000 CMP within normal limits Clinically, patient is doing well, now recovering from SB RT to the liver and to the right axilla. At this point treatment options including observation, or continue with maintenance immunotherapy with tecentriq was discussed, patient opted for maintenance immunotherapy. He will return to clinic in 1 week to restart his immunotherapy with tecentriq and as far as generalized weakness and fatigue is concern, his hemoglobin is within normal range other possibility could be low testosterone level or thyroid malfunctioning, we will check his TSH and testosterone level and if needed supplement. Signed By: Ky Perez M.D. <<Signature on File>>
[2019-08-25 08:31] LABS: Basophils % 0.6 %; Eosinophils # 0.1 10^3/uL (0.0-0.8); Eosinophils % 1.1 %; Hematocrit 39.1 % (42.0-52.0); Hemoglobin 13.1 g/dL (11.7-16.6); Lymphocytes # 0.6 10^3/uL (0.8-4.8); Lymphocytes % 10.2 %; Mean Corpuscular HGB Conc 33.5 g/dL (30.0-36.0); Mean Corpuscular Hemoglobin 30.2 pg (28.0-34.0); Mean Corpuscular Volume 90.1 fL (80-94); Mean Platelet Volume 10.2 fL (7.4-10.4); Monocytes # 1.3 10^3/uL (0.2-0.9); Monocytes % 20.6 %; Neutrophils # 4.2 10^3/uL (1.8-7.7); Neutrophils % 67.2 %; Nucleated Red Blood Cells % 0 %; Platelet Count 194 10^3/cmm (130-400); Red Blood Count 4.34 10^6/uL (4.1-5.3); Red Cell Distribution Width 13.4 % (12.1-15.1); White Blood Count 6.3 10^3/uL (4.0-10.0)
[2019-08-25 08:58] LABS: Alanine Aminotransferase 10 U/L (0-41); Albumin Level 4.2 g/dL (3.5-5.2); Alkaline Phosphatase 54 IU/L (40-130); Anion Gap 13.7 (5-19); Aspartate Amino Transferase 11 U/L (0-40); Blood Urea Nitrogen 19 mg/dL (8-23); Calcium 10.2 mg/dL (8.5-10.5); Carbon Dioxide 25 mmol/L (22-29); Chloride 101 mmol/L (98-107); Globulin 2.1 g/dL (1.3-4.6); Glomerular Filtration Rate 112.1 mL/min (90-130); Glucose 90 mg/dL (65-115); Osmolality Calculated 276 mOsm/kg (285-295); Potassium 4.7 mmol/L (3.5-5.1); Sodium 135 mmol/L (136-145); Thyroid Stimulating Hormone 2.45 uIU/mL (0.27-4.20); Total Bilirubin 0.2 mg/dL (0.15-1.2); Total Protein 6.3 g/dL (6.6-8.7)
[2019-08-25 09:17] LABS: Slide Review Slide Review Perform
[2019-08-25] MEDS: sodium chloride 0.9% 250 ML 75 ML IV (10:25)
[2019-08-25] MEDS: pantoprazole 40 mg SDV IV (10:35)
--- NOTE | 2019-08-25 10:54 | ONC FU_ITS ---
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 He is a 69-year-old gentleman with recent history of progressive right neck mass. He underwent CT scan of chest on 10/12/2018 showed multifocal neoplasm of right upper lobe and extensive bulky right paratracheal, superior mediastinal, right suprahilar, right supraclavicular lymphadenopathy associated with mild compression of severe vena cava and the right internal jugular vein and additional involvement of AP window and subcarinal azygoesophageal recess. No liver or adrenal involvement. Patient was referred to Dr. 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 And immunohistochemistry was positive for NSE, synaptophysin, CD 56. CT PET scan done on 11/28/2018 showed extensive disease e.g. single metastases to the liver and MRI scan of brain done on 11/25/2018 showed left frontal subcortical metastatic lesion and is any enhancing metastatic lesion in the inferior subcortical white matter of right frontal lobe He began treatment with carboplatin/etoposide and Tecentriq on 11/24/2018. 55+ year history of smoking still active, Follow-up CT PET scan done after3 cycles of carboplatin and etoposide and Tecentriq done On 01/30/2019 Showed good response, marked interval improvement in right upper lobe carcinoma Interval improvement in mediastinal lymphadenopathy Interval improvement in right level IV cervical lymph node Resolution of hepatic metastatic disease MRI head done on 01/15/2019 showed decrease in size left frontal subcortical white matter metastatic lesion when compared with scan done on 11/25/2018 No new enhancing metastatic lesion seen. On 03/12/2019 patient Completed 5 cycles of chemotherapy with carboplatin and etoposide with last two , tecentriq was added. consolidation with radiation therapy to rt chest Was given from 04/07/2019 to 05/04/2019 Followed by brainSRS x1 on 05/06/2019. Maintenance therapy with atezolizumab was recommended and he began his first cycle on 06/02/2019. He has tolerated it well. CT PET scan done on 07/03/2019 showed no change in the FDG negative right upper lobe nodule, consistent with treated primary; Interval resolution of right supra clavicular and mediastinal lymph nodes; New malignant appearing right axilla lymph node and recurrence of unifocal hepatic metastatic disease. Mr He was seen by radiation oncology in regards to the right axilla lymph node and radiation was recommended- SB RT to right axilla. He received SBRT from 07/21/2019 till 07/26/2019 and also received SB RT to this solitary liver metastases from 07/28/2019 through 08/03/2019. The immunotherapy with any tecentriq was put on hold after second dose which was given on 06/23/2019 because of risk of increased toxicity with concurrent radiation therapy e.g. SB RT. as per radiation oncology recommendation. Mr. He is here post radiation therapy to resume his immunotherapy with Tecentriq. He states overall he is doing pretty good. His appetite is marginal and he kind of eats because I know I need to . However describing what he eats he sounds as if he is eating multiple small meals throughout the day. He states his throat still irritated at times and causes him to cough a little bit but is never productive. He denies any fever or chills. He states his bowels are normal. His activity is good and that he stays busy around the house but does not do a whole lot of manual labor. He states he has been having chest pains . He is has an appointment to see his [employer] programmer analyst this afternoon. He describes the pain is mid epigastric area that comes and goes. He states it does ease with Kaopectate. It is not been severe enough that he is tried nitroglycerin for that pain. He does have a history of MN. He does state that he has been having increased heartburn and had actually had to take a Compazine tablet 1 night because he had such queasiness from what felt like something backing up in my throat . The Compazine did take away the queasiness. He states occasionally with these chest pains that he will take 2 adult aspirins and about for 10 to 15 minutes later his pain is better. He does see the [employer] programmer analyst this afternoon. I discussed with him holding the Tecentriq until he had visited with his [employer] programmer analyst but Mr. He wanted to proceed with the treatment today. We did discuss that immunotherapy can cause myocarditis or pericarditis although I think this is unlikely to be the cause of his current chest pain given the description of his pain. He has not had immunotherapy since June 23, 2019. At that time he only had 2 doses 3 weeks apart. He has symptoms suggestive of gastritis as well. He has no other concerns today. His ECOG is 1. Past Medical History: Ashd Chronic obstructive pulmonary disease History of colon polyps History of MN Hypertension Osteoarthritis Right bundle branch block Tmj Vitamin D deficiency Past Surgical History: Cataract excision Hernia repair Portacatheter placement dr. muniz in 2019 Colonoscopy in 2018 Allergies: No Known Allergies. Medications: [place] Comfort Tablet, effervescent Oral daily Aspirin 2 (325 mg) Tablet Oral daily Chantix Tablet Oral daily Citalopram Hydrobromide 1 (10 mg) Tablet Oral daily Lisinopril 1 Tablet (of 30 mg) Oral daily Melatonin 1 (10 mg) Capsule Oral at bedtime Nitroglycerin 1 Tablet (of 0.4 mg) Tablet, sublingual Sublingual PRN Prochlorperazine Maleate 1 Tablet (of 10 mg) Oral q 4 hours PRN traZODone HCl 1 (100 mg) Tablet Oral at bedtime PRN Family History: Mr. He's mother at age 75: congestive heart failure. Mr. He's father at age 75: heart disease, and lung cancer. Social History: Mr. He is single and he is retired. He is an occasional smoker who has smoked 1.5 packs/day for 60 years. He is an active drinker.He consumes 3 drinks/day 7 days/week. He has indicated exposure to the following products: cigarettes. Used to smoke 3 packs per day for about 20 years and went down to 2 packs per day until recently. Took the last Chantix yesterday pt is trying to quit smoking, Pt has decreased from 2-3 packs per day to about 2 cigarettes per day. Review Of Symptoms: Constitutional Denies fevers, chills, night sweats, excessive fatigue or weight loss. Appetite is marginal. Allergic/Immunologic No reactions. Eyes Denies significant visual changes. No diplopia. No amaurosis. ENMT Denies changes in hearing, sore throat, mouth sores, difficulty or changes in swallowing ability, and/or sinus drainage. Endocrine No diabetes, thyroid disease or hormone replacement. Denies hot flashes or night sweats. Hematologic/Lymphatic Denies easy bruising or bleeding. The patient denies any tender or palpable lymph nodes. Respiratory Denies worsening dyspnea on exertion. Denies chest pain, cough or hemoptysis. Denies orthopnea. Cardiovascular Denies palpitations or orthopnea. Has has some chest pain and seeing [employer] programmer analyst this afternoon. See above for details. Gastrointestinal Denies persistent nausea, vomiting, diarrhea, GI bleeding, or constipation. Denies change in bowel habits and/or stool color or early satiety. Genitourinary (M) Denies hematuria. Musculoskeletal Denies joint pain, swelling or redness. No decreased range of motion. Integumentary Denies chronic rashes, inflammation, ulcerations or skin changes. Neurologic Denies focal weakness or numbness. Normal gait. No persistent sensory problems Psychiatric Denies insomnia, depression, geovany or mood swings. Vital Signs: Performed on Aug 25, 2019 09:25 Height - 68.00 in Weight - 140.8 lbs (HIGH) BSA - 1.76 sq.m BMI - 21.41 Temperature - 98.3 F (LOW) Pulse - 84 /min Respiration - 22 /min BP - 125/86 mm(hg) O2 Sat - 96 % Pain - 0 Fatigue - 5,1 - No physically strenuous activity, but ambulatory and able to carry out light or sedentary work (e.g. office work, light house work). (ECOG) Physical Examination: Constitutional Alert, oriented, no acute distress. Skin pink, warm and dry. Head Normocephalic; atraumatic. Eyes Conjunctivae and sclerae are clear and without icterus. Pupils are reactive and equal. Neck Supple without masses or thyromegaly. No jugular venous distension. Hematologic/Lymphatic No petechiae or purpura. No tender or palpable lymph nodes in the cervical or supraclavicular areas. Respiratory Lungs are clear to auscultation without rhonchi or wheezing. Cardiovascular Regular rate and rhythm of heart without murmurs,clicks, gallops or rubs. Abdomen Non-tender, non-distended, no masses, ascites. Good bowel sounds noted in all quads. No guarding or rebound tenderness. No pulsatile masses. Back/Spine Non-tender to palpation. Extremities No visible deformities, no cyanosis, clubbing or edema. Musculoskeletal No tenderness or swelling, normal range of motion without obvious weakness. Integumentary No rashes or lesions. Neurologic No sensory or motor deficits, normal cerebellar function, normal gait. Psychiatric Alert and oriented times three. Coherent speech. Verbalizes understanding of our discussions today. Laboratory:Test performed on Aug 25, 2019 08:10 Sodium 135 mmol/L Testosterone, Total 687.0 ng/dL TSH 2.45 uIU/mL Potassium 4.7 mmol/L Chloride 101 mmol/L CO2 25 mmol/L Anion Gap 13.7 BUN 19 mg/dL Creatinine 0.7 mg/dL Cr Clearance (Est) 91.24 mL/min eGFR 112.1 mL/min Glucose 90 mg/dL Calcium 10.2 mg/dL Protein, Total 6.3 g/dL Albumin 4.2 g/dL Globulin 2.1 g/dL Bilirubin, Total 0.2 mg/dL ALT (SGPT) 10 U/L AST (SGOT) 11 U/L Alkaline Phosphatase 54 IU/L WBC 6.3 10 3/uL RBC 4.34 10 6/uL HGB 13.1 g/dL HCT 39.1 % MCV 90.1 fL MCH 30.2 pg MCHC 33.5 g/dL RDW 13.4 % Platelet Count 194 10 3/cmm MPV 10.2 fL Neutrophils 4.2 10 3/uL Lymphocytes 0.6 10 3/uL Monocytes 1.3 10 3/uL Eosinophils 0.1 10 3/uL Basophils 0.0 10 3/uL Neutrophil % 67.2 % Lymphocyte % 10.2 % Monocyte % 20.6 % Eosinophil % 1.1 % Basophils % 0.6 % CBC Slide Review Slide Review Perform SLIDE REVIEW AGREES WITH AUTOMATED RESULTS ST Impression: 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 Next CT scan of chest done on 10/12/2018 showed when compared to CT scan done on 10/02/2018, multiple nodular densities are in the posterior segment right upper lobe extending anteriorly and inferiorly towards the right hilum. And the most posterior superior nodular density is in the posterior subpleural region measuring 1.7 x 2.5 x 1.5 cm and elongated nodule extends anteriorly and inferiorly towards the right hilum measures 3.3 x 1.2 x 1.2 cm Bulky, confluent right paratracheal, right suprahilar and precarinal lymphadenopathy measures up to 5.8 cm x 3.5 cm x 10 cm. The adenopathy causes significant narrowing of right upper lobe pulmonary artery branch and a partially compresses the superior vena cava no acute bony abnormality seen no lytic or blastic bony destruction seen. Additional adenopathy extends into AP window and anterior superior mediastinum. And right supraclavicular lymphadenopathy measures 3.1 x 3.6 x 3.5 cm causes severe compression of inferior aspect of right internal jugular vein. No axillary lymphadenopathy. No other pulmonary mass or nodule seen. Liver is normal no adrenal involvement Emphysema COPD, so chronic smoking e.g. 55 year plus history history of myocardial infarction at age 43. Elevated PSA Essential hypertension Mr. He had PET/CT imaging on 11/28/2018. He had hypermetabolic activity in the right upper lobe nodule which measured to be 1.3 cm with SUV of 4.1 there are no other significant pulmonary nodules present there was a 2 widespread lung cyst formation upper lobes consistent with COPD changes matted malignant lymph nodes are present in the mediastinum time him consistent with local metastatic disease also present in the right paratracheal anterior mediastinal, precarinal and right hilar territories the SUV up to 6.2. In the right neck a 4.6 x 2.8 cm nodular mass in the level IV distribution has SUV of 6.8 representing metastasis. There is a solitary hypodensity in the medial right hepatic lobe measuring 2.0 x 1.6 cm with an SUV of 4.5. There are no findings to indicate osseous metastatic disease. MRI of the head from 11/25/2018 reports a oval circumscribed ring-enhancing lesion measuring 7.6 x 8.8 x 10 mm in the right frontal lobe subcortical white matter inferiorly. Per MRI report it is likely metastatic disease. No other Ms. sick lesions were seen and no significant stenosis and with white matter edema. 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 Mr. He was offered treatment with carboplatin/etoposide and Tecentriq. He began his first cycle on 11/24/2018. Completed total 5 cycles of chemotherapy on 03/12/2019. He remained on observation. He completed SRS to the brain to total dose of 2000 cGy on 05/06/2019. He began maintenance Tecentriq on 06/02/2019. Followup PET/CT imaging from 07/03/2019 showed no change in the FDG negative right upper lobe nodule, consistent with treated primary; Interval resolution of right supra clavicular and mediastinal lymph nodes; New malignant appearing right axilla lymph node and recurrence of unifocal hepatic metastatic disease. Mr He was seen by radiation oncology in regards to the right axilla lymph node and radiation was recommended- SB RT to right axilla. He received SBRT from 07/21/2019 till 07/26/2019 and also received SB RT to this solitary liver metastases from 07/28/2019 through 08/03/2019. The immunotherapy with any tecentriq was put on hold after second dose which was given on 06/23/2019 because of risk of increased toxicity with concurrent radiation therapy e.g. SB RT. as per radiation oncology recommendation. After completion of the radiation therapy, Dr Perez discussed treatment options including observation, or continue with maintenance immunotherapy with tecentriq was discussed, patient opted for maintenance immunotherapy. Plan: 1. Proceed with cycle 3 atezolizumab (Tecentriq) @ 1,200 mg. His last dose prior to today was 06/23/2019. He only received 2 doses prior to starting radiation. 2. Add Protonix 40 mg IV today for suspected gastritis 3. Today's labs reviewed in detail discussed with Mr. He and a copy was given to him. WBC 6.3, hemoglobin 13.1, platelets 194,000 ANC is 4200. Creatinine 0.7 LFTs are normal. His TSH is 2.45 and testosterone is normal at 687. 4. I did send in a prescription for Prilosec 40 mg 1 daily to alternate drug for treatment of suspected gastritis. 5. We will have him plan to return in 3 weeks with CBC CMP and TSH. He will be due for cycle 4 Tecentriq at that time. 6. Mr. He was encouraged to contact us in the interim should questions or problems arise. 7. Specific side effects of immunotherapy discussed included but not limited to: ??? pneumonitis: new or worsening cough; chest pain; and shortness of breath. ??? Colitis: diarrhea or more bowel movements than usual; blood in stools or dark, tarry, sticky stools; and severe stomach area (abdomen) pain or tenderness. ??? hepatitis: jaundice; severe nausea or vomiting; pain on the right side of the abdomen; drowsiness; dark urine; bleeding or bruise more easily than normal. ??? nephritis and kidney failure: including decrease in the amount of urine; hematuria; lower extremity edema; and loss of appetite. ??? thyroid and pituitary changes that may include: headaches that will not go away or unusual headaches; extreme tiredness, weight gain or weight loss; changes in mood or behavior, such as decreased sex drive, irritability, or forgetfulness; dizziness or fainting; hair loss; feeling cold; constipation; and voice gets deeper. ???rash; changes in eyesight; severe or persistent muscle or joint pains; and severe muscle weakness. The majority of this visit was time spent face to face in review of plan of care, side effect identification and where to call for questions or concerns. Signed By: Nahomy Buitrago-, [facility] Ky Perez MD <<Signature on File>>
--- NOTE | 2019-09-10 13:19 | CT_ITS ---
WS: [id number] CT scan of the chest With IV contrast, CT scan of the abdomen and pelvis with IV contrast and witho ut oral contrast. Additional two-dimensional coronal and sagittal reconstruction was performed. 2019 Clinical Data: EVALUATION TO RADIATION/LUNG CA Comparison: CT chest, 06/17/2019. CT abdomen and pelvis, 03/25/2018. DLP: 1700.[address] scans at [facility] use at least one of these dose optimization techniques: automat ed exposure control; mA and/or kV adjustment per patient size (includes targeted exams where dose is matched to clinical indication); or iterative reconstruction. Findings: Chest: There is a small residual scar in the posterior aspect of the right upper lobe seen best on axial etienne ge 15 of 158. No new nodules or masses are seen. The changes of diffuse emphysema can be seen through out the lungs. The heart size is normal with no pericardial effusion. The trachea bifurcates normally into the bronc hi. The pulmonary arterial system and thoracic aorta demonstrate no abnormalities or dilatations. There is no axillary or significant mediastinal adenopathy. The thyroid gland is normal. Abdomen/pelvis: The liver, gallbladder, spleen, adrenal glands and pancreas are normal. The kidneys show equal bilateral contrast excretion with no cyst or masses. The abdominal aorta is normal in size with calcification in the wall. No appendicitis or diverticulitis is seen. The stomach, small bowel and colon show only a large amoun t of fecal material in the colon. No abscess, adenopathy, ascites, mass, obstruction or free air is seen. The bladder is unremarkable. The prostate is enlarged. No inguinal hernia is seen. There is osteoarthritic change of the lower thoracic to lower lumbar vertebral bodies. There is a josue ateral cholelithiasis with spondylolisthesis at L5-S1. CT/CT chest abd pel w con* Impression: 1. Right upper lobe lesion is probably residual scar. 2. Diffuse emphysema. 3. No acute intra-abdominal or pelvic abnormalities.
[2019-09-10] MEDS: iohexol 300 mg/mL 50 mL Btl PO (13:56)
[2019-09-10] MEDS: iohexol 300 mg/mL 100 mL Btl IV (15:16)
== END 2019-09-14 23:59 | disposition home or self-care (01) ==
LOC: ONCMED 13:30
PROVIDERS: Internal Medicine Hematology & Oncology; Absent Provider Radiology Radiation Oncology; Family Provider Nurse Practitioner; PCP Nurse Practitioner; Referring Provider Nurse Practitioner; Visit Provider Radiology Radiation Oncology
DX: Z51.12 Encounter for antineoplastic immunotherapy (principal); C34.11 Malignant neoplasm of upper lobe, right bronchus or lung; C78.7 Secondary malignant neoplasm of liver and intrahepatic bile duct; C79.31 Secondary malignant neoplasm of brain; C77.8 Secondary and unspecified malignant neoplasm of lymph nodes of multiple regions; R97.20 Elevated prostate specific antigen [PSA]; E55.9 Vitamin D deficiency, unspecified; K29.70 Gastritis, unspecified, without bleeding; F17.210 Nicotine dependence, cigarettes, uncomplicated; J43.9 Emphysema, unspecified; I10 Essential (primary) hypertension; M19.90 Unspecified osteoarthritis, unspecified site; M26.609 Unspecified temporomandibular joint disorder, unspecified side; I25.2 Old myocardial infarction; F10.20 Alcohol dependence, uncomplicated; Z79.899 Other long term (current) drug therapy; Z92.3 Personal history of irradiation; Z92.21 Personal history of antineoplastic chemotherapy
CPT/HCPCS: 36591; 71260; 74177; 80053; 84403; 84443; 85025; 96375; 96413; 99214; C9113; J7050; J9022; Q9967

== ENCOUNTER 2019-10-05 06:47 | Outpatient (RCR) | payer MEDICARE, MEDICAID, SELFPAY ==
[2019-09-15 08:40] LABS: Basophils % 0.3 %; Eosinophils # 0.1 10^3/uL (0.0-0.8); Hemoglobin 13.1 g/dL (11.7-16.6); Lymphocytes # 0.8 10^3/uL (0.8-4.8); Lymphocytes % 12.8 %; Mean Corpuscular HGB Conc 33.6 g/dL (30.0-36.0); Mean Corpuscular Hemoglobin 31.5 pg (28.0-34.0); Mean Corpuscular Volume 93.8 fL (80-94); Mean Platelet Volume 9.5 fL (7.4-10.4); Monocytes # 1.3 10^3/uL (0.2-0.9); Monocytes % 21.1 %; Neutrophils # 3.9 10^3/uL (1.8-7.7); Neutrophils % 64.3 %; Nucleated Red Blood Cells % 0 %; Platelet Count 187 10^3/cmm (130-400); Red Blood Count 4.16 10^6/uL (4.1-5.3); Red Cell Distribution Width 13.5 % (12.1-15.1)
[2019-09-15 09:09] LABS: Alanine Aminotransferase 18 U/L (0-41); Albumin Level 4.2 g/dL (3.5-5.2); Alkaline Phosphatase 56 IU/L (40-130); Anion Gap 14.7 (5-19); Aspartate Amino Transferase 18 U/L (0-40); Blood Urea Nitrogen 11 mg/dL (8-23); Calcium 9.9 mg/dL (8.5-10.5); Carbon Dioxide 26 mmol/L (22-29); Chloride 101 mmol/L (98-107); Globulin 1.7 g/dL (1.3-4.6); Glomerular Filtration Rate 96.1 mL/min (90-130); Glucose 84 mg/dL (65-115); Osmolality Calculated 279 mOsm/kg (285-295); Potassium 4.7 mmol/L (3.5-5.1); Sodium 137 mmol/L (136-145); Total Bilirubin 0.4 mg/dL (0.15-1.2); Total Protein 5.9 g/dL (6.6-8.7)
[2019-09-15 09:10] LABS: Thyroid Stimulating Hormone 2.22 uIU/mL (0.27-4.20)
[2019-09-15] MEDS: sodium chloride 0.9% 250 ML 75 ML IV (10:35)
[2019-09-15] MEDS: pantoprazole 40 mg SDV IV (10:35)
[2019-10-05 14:44] LABS: Basophils % 0.5 %; Eosinophils # 0.1 10^3/uL (0.0-0.8); Eosinophils % 1.7 %; Hematocrit 42.4 % (42.0-52.0); Lymphocytes # 0.8 10^3/uL (0.8-4.8); Lymphocytes % 12.6 %; Mean Platelet Volume 9.6 fL (7.4-10.4); Monocytes # 1.5 10^3/uL (0.2-0.9); Monocytes % 22.5 %; Neutrophils % 61.9 %; Nucleated Red Blood Cells % 0 %; Platelet Count 249 10^3/cmm (130-400); Red Blood Count 4.51 10^6/uL (4.1-5.3); Red Cell Distribution Width 13.9 % (12.1-15.1); White Blood Count 6.5 10^3/uL (4.0-10.0)
[2019-10-05 14:55] LABS: Alanine Aminotransferase 16 U/L (0-41); Albumin Level 4.7 g/dL (3.5-5.2); Alkaline Phosphatase 70 IU/L (40-130); Anion Gap 16.7 (5-19); Aspartate Amino Transferase 16 U/L (0-40); Blood Urea Nitrogen 21 mg/dL (8-23); Calcium 10.2 mg/dL (8.5-10.5); Carbon Dioxide 25 mmol/L (22-29); Chloride 103 mmol/L (98-107); Glomerular Filtration Rate 83.9 mL/min (90-130); Glucose 93 mg/dL (65-115); Osmolality Calculated 286 mOsm/kg (285-295); Potassium 4.7 mmol/L (3.5-5.1); Sodium 140 mmol/L (136-145); Total Bilirubin 0.3 mg/dL (0.15-1.2); Total Protein 6.7 g/dL (6.6-8.7)
[2019-10-05] MEDS: sodium chloride 0.9% 100 ML 75 ML (15:45)
--- NOTE | 2019-10-05 15:45 | ONC FU_ITS ---
Dr. Perez follow up note Patient: Jean He Unit #: [id number]: 1950 Dicatated By: Ky Perez M.D.Date of Visit:Oct 05, 2019 Onc Med Follow-up/Prog Note History of Present Illness: Mr. He is a 69-year-old gentleman with recent history of progressive right neck mass. He underwent CT scan of chest on 10/12/2018 showed multifocal neoplasm of right upper lobe and extensive bulky right paratracheal, superior mediastinal, right suprahilar, right supraclavicular lymphadenopathy associated with mild compression of severe vena cava and the right internal jugular vein and additional involvement of AP window and subcarinal azygoesophageal recess. No liver or adrenal involvement. Patient was referred to Dr. 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 And immunohistochemistry was positive for NSE, synaptophysin, CD 56. CT PET scan done on 11/28/2018 showed extensive disease e.g. single metastases to the liver and MRI scan of brain done on 11/25/2018 showed left frontal subcortical metastatic lesion and is any enhancing metastatic lesion in the inferior subcortical white matter of right frontal lobe He began treatment with carboplatin/etoposide and Tecentriq on 11/24/2018. 55+ year history of smoking still active, Follow-up CT PET scan done after3 cycles of carboplatin and etoposide and Tecentriq done On 01/30/2019 Showed good response, marked interval improvement in right upper lobe carcinoma Interval improvement in mediastinal lymphadenopathy Interval improvement in right level IV cervical lymph node Resolution of hepatic metastatic disease MRI head done on 01/15/2019 showed decrease in size left frontal subcortical white matter metastatic lesion when compared with scan done on 11/25/2018 No new enhancing metastatic lesion seen. On 03/12/2019 patient Completed 5 cycles of chemotherapy with carboplatin and etoposide with last two , tecentriq was added. consolidation with radiation therapy to rt chest Was given from 04/07/2019 to 05/04/2019 Followed by brainS x1 on 05/06/2019. Maintenance therapy with atezolizumab was recommended and he began his first cycle on 06/02/2019. He has tolerated it well. CT PET scan done on 07/03/2019 showed no change in the FDG negative right upper lobe nodule, consistent with treated primary; Interval resolution of right supra clavicular and mediastinal lymph nodes; New malignant appearing right axilla lymph node and recurrence of unifocal hepatic metastatic disease. Mr He was seen by radiation oncology in regards to the right axilla lymph node and radiation was recommended- SB RT to right axilla. He received SBRT from 07/21/2019 till 07/26/2019 and also received SB RT to this solitary liver metastases from 07/28/2019 through 08/03/2019. The immunotherapy with any tecentriq was put on hold after second dose which was given on 06/23/2019 because of risk of increased toxicity with concurrent radiation therapy e.g. SB RT. as per radiation oncology recommendation. resumed his immunotherapy with 3 weekly Tecentriq 1200 mg , on 08/25/2019. And follow-up CT scan of chest abdomen pelvis ordered by radiation oncology done on 09/10/2019 showed right upper lobe lesion is probably is residual scar. Diffuse emphysema. No acute intra-abdominal or pelvic abnormality. Came for follow-up, denies any specific complaints, no fever no chills, no nausea or vomiting, no diarrhea constipation, generalized weakness and fatigue is improving somewhat. No skin rash, no wheezing no diarrhea or melena hematochezia. Medications: [facility] Tablet, effervescent Oral daily, Aspirin 2 (325 mg) Tablet Oral daily, Chantix Tablet Oral daily, Citalopram Hydrobromide 1 (10 mg) Tablet Oral daily, Isosorbide Dinitrate 0.5 (30 mg) Tablet Oral b.i.d., Lisinopril 1 Tablet (of 30 mg) Oral daily, Melatonin 1 (10 mg) Capsule Oral at bedtime, Metoprolol Succinate 1 (25 mg) Capsule ER 24 Hr Sprinkle Oral daily, Nitroglycerin 1 Tablet (of 0.4 mg) Tablet, sublingual Sublingual PRN, Omeprazole 1 Capsule (of 40 mg) Capsule Delayed Release Oral daily, Pravastatin Sodium 1 Tablet (of 10 mg) Oral daily, Prochlorperazine Maleate 1 Tablet (of 10 mg) Oral q 4 hours PRN, traZODone HCl 1 (100 mg) Tablet Oral at bedtime PRN Allergies: No Known Allergies. Review of Systems: Constitutional - Appetite is fair and weight is stable. No fever, chills, hot flashes, or night sweats. Energy level is good, ENMT - Positive for sinus congestion/drainage and sore throat. No mouth sores. No difficulty swallowing, Hematologic/Lymphatic - No abnormal bruising or bleeding, Respiratory - Positive for shortness of breath and cough, especially in the mornings, Cardiovascular - No angina pain. No palpitations, Gastrointestinal - No nausea or vomiting. No heartburn, no acid reflux. No diarrhea or constipation. No blood in stool, Genitourinary (M) - Positive for urinary frequency, Musculoskeletal - Positive for joint and back pain, Neurologic - Positive for headaches, no dizziness. Positive for numbness/ tingling, Psychiatric - Positive for anxiety and insomnia. Vital Signs: Performed on Oct 05, 2019 15:12 Height - 68.00 in Weight - 146.8 lbs (LOW) BSA - 1.79 sq.m BMI - 22.32 Temperature - 98.4 F Pulse - 82 /min Respiration - 17 /min BP - 89/72 mm(hg) (LOW) O2 Sat - 96 % Pain - 0 Performance Status: 0 - Fully active, able to carry on all predisease activities without restrictions. (ECOG) Physical Examination: ENMT - no mouth sores or thrush, Respiratory - poor air entry, Cardiovascular - Regular rate and rhythm, Abdomen - bowel sounds present,and, nontender, Extremities - no edema or rash. Lab/Imaging: Test performed on Sep 15, 2019 08:15 Sodium 137 mmol/L TSH 2.22 uIU/mL Potassium 4.7 mmol/L Chloride 101 mmol/L CO2 26 mmol/L Anion Gap 14.7 BUN 11 mg/dL Creatinine 0.8 mg/dL Cr Clearance (Est) 83.35 mL/min eGFR 96.1 mL/min Glucose 84 mg/dL Calcium 9.9 mg/dL Protein, Total 5.9 g/dL Albumin 4.2 g/dL Globulin 1.7 g/dL Bilirubin, Total 0.4 mg/dL ALT (SGPT) 18 U/L AST (SGOT) 18 U/L Alkaline Phosphatase 56 IU/L WBC 6.0 10 3/uL RBC 4.16 10 6/uL HGB 13.1 g/dL HCT 39.0 % MCV 93.8 fL MCH 31.5 pg MCHC 33.6 g/dL RDW 13.5 % Platelet Count 187 10 3/cmm MPV 9.5 fL Neutrophils 3.9 10 3/uL Lymphocytes 0.8 10 3/uL Monocytes 1.3 10 3/uL Eosinophils 0.1 10 3/uL Basophils 0.0 10 3/uL Neutrophil % 64.3 % Lymphocyte % 12.8 % Monocyte % 21.1 % Eosinophil % 1.0 % Basophils % 0.3 % Test performed on Aug 25, 2019 08:10 Testosterone, Total 687.0 ng/dL CBC Slide Review Slide Review Perform SLIDE REVIEW AGREES WITH AUTOMATED RESULTS ST Impression: 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 Next CT scan of chest done on 10/12/2018 showed when compared to CT scan done on 10/02/2018, multiple nodular densities are in the posterior segment right upper lobe extending anteriorly and inferiorly towards the right hilum. And the most posterior superior nodular density is in the posterior subpleural region measuring 1.7 x 2.5 x 1.5 cm and elongated nodule extends anteriorly and inferiorly towards the right hilum measures 3.3 x 1.2 x 1.2 cm Bulky, confluent right paratracheal, right suprahilar and precarinal lymphadenopathy measures up to 5.8 cm x 3.5 cm x 10 cm. The adenopathy causes significant narrowing of right upper lobe pulmonary artery branch and a partially compresses the superior vena cava no acute bony abnormality seen no lytic or blastic bony destruction seen. Additional adenopathy extends into AP window and anterior superior mediastinum. And right supraclavicular lymphadenopathy measures 3.1 x 3.6 x 3.5 cm causes severe compression of inferior aspect of right internal jugular vein. No axillary lymphadenopathy. No other pulmonary mass or nodule seen. Liver is normal no adrenal involvement Emphysema COPD, so chronic smoking e.g. 55 year plus history history of myocardial infarction at age 43. Elevated PSA Essential hypertension Mr. He had PET/CT imaging on 11/28/2018. He had hypermetabolic activity in the right upper lobe nodule which measured to be 1.3 cm with SUV of 4.1 there are no other significant pulmonary nodules present there was a 2 widespread lung cyst formation upper lobes consistent with COPD changes matted malignant lymph nodes are present in the mediastinum time him consistent with local metastatic disease also present in the right paratracheal anterior mediastinal, precarinal and right hilar territories the SUV up to 6.2. In the right neck a 4.6 x 2.8 cm nodular mass in the level IV distribution has SUV of 6.8 representing metastasis. There is a solitary hypodensity in the medial right hepatic lobe measuring 2.0 x 1.6 cm with an SUV of 4.5. There are no findings to indicate osseous metastatic disease. MRI of the head from 11/25/2018 reports a oval circumscribed ring-enhancing lesion measuring 7.6 x 8.8 x 10 mm in the right frontal lobe subcortical white matter inferiorly. Per MRI report it is likely metastatic disease. No other Ms. sick lesions were seen and no significant stenosis and with white matter edema. 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 Mr. He was offered treatment with carboplatin/etoposide and Tecentriq. He began his first cycle on 11/24/2018. Completed total 5 cycles of chemotherapy on 03/12/2019. He remained on observation. He completed SRS to the brain to total dose of 2000 cGy on 05/06/2019. He began maintenance Tecentriq on 06/02/2019. Followup PET/CT imaging from 07/03/2019 showed no change in the FDG negative right upper lobe nodule, consistent with treated primary; Interval resolution of right supra clavicular and mediastinal lymph nodes; New malignant appearing right axilla lymph node and recurrence of unifocal hepatic metastatic disease. Mr He was seen by radiation oncology in regards to the right axilla lymph node and radiation was recommended- SB RT to right axilla. He received SBRT from 07/21/2019 till 07/26/2019 and also received SB RT to this solitary liver metastases from 07/28/2019 through 08/03/2019. The immunotherapy with any tecentriq was put on hold after second dose which was given on 06/23/2019 because of risk of increased toxicity with concurrent radiation therapy e.g. SB RT. as per radiation oncology recommendation. After completion of the radiation therapy, discussed treatment options including observation, or continue with maintenance immunotherapy with tecentriq was discussed, patient opted for maintenance immunotherapy. Which was started on 06/02/2019 and then it was held as patient was receiving SB RT to right axilla and to the solitary liver metastases from 07/21/2019 till 08/03/2019. Was restarted on 08/25/2019. Follow-up CT scan of chest abdomen pelvis ordered by radiation oncology done on 09/10/2019 showed no evidence of disease Plan: Discussed with patient regarding his labs white blood count 6.5 hemoglobin 14 crit 42.4 platelets 249,000 CMP within normal limits, TSH 2.22, testosterone level 687 Clinically, patient is doing well, tolerating maintenance therapy with tecentriq 1200 mg every 3 weeks well. We'll proceed with next 3 weekly dose of tecentriq and he will return to clinic in 3 weeks with CBC CMP. Signed By: Ky Perez M.D. <<Signature on File>>
[2019-10-05] MEDS: pantoprazole 40 mg SDV IV (16:47)
== END 2019-10-14 23:59 | disposition home or self-care (01) ==
LOC: ONCMED 06:47
PROVIDERS: Absent Provider Radiology Radiation Oncology; Family Provider Nurse Practitioner; PCP Nurse Practitioner; Referring Provider Nurse Practitioner; Visit Provider Internal Medicine Hematology & Oncology
DX: Z51.12 Encounter for antineoplastic immunotherapy (principal); C34.11 Malignant neoplasm of upper lobe, right bronchus or lung; C77.1 Secondary and unspecified malignant neoplasm of intrathoracic lymph nodes; J44.1 Chronic obstructive pulmonary disease with (acute) exacerbation; J43.8 Other emphysema; F17.210 Nicotine dependence, cigarettes, uncomplicated; I25.2 Old myocardial infarction; I10 Essential (primary) hypertension; R97.20 Elevated prostate specific antigen [PSA]; Z92.3 Personal history of irradiation; Z79.899 Other long term (current) drug therapy
CPT/HCPCS: 80053; 84443; 85025; 96375; 96413; 99214; C9113; J7050; J9022

== ENCOUNTER 2019-10-27 06:53 | Outpatient (RCR) | payer MEDICARE, MEDICAID, SELFPAY ==
[2019-10-27 12:24] LABS: Hematocrit 36.9 % (42.0-52.0); Hemoglobin 12.2 g/dL (11.7-16.6); Mean Corpuscular HGB Conc 33.1 g/dL (30.0-36.0); Mean Corpuscular Hemoglobin 31.9 pg (28.0-34.0); Mean Corpuscular Volume 96.3 fL (80-94); Mean Platelet Volume 9.6 fL (7.4-10.4); Platelet Count 169 10^3/cmm (130-400); Red Blood Count 3.83 10^6/uL (4.1-5.3); Red Cell Distribution Width 13.8 % (12.1-15.1); White Blood Count 4.5 10^3/uL (4.0-10.0)
[2019-10-27 12:52] LABS: Alanine Aminotransferase 13 U/L (0-41); Albumin Level 4.1 g/dL (3.5-5.2); Alkaline Phosphatase 57 IU/L (40-130); Anion Gap 11.6 (5-19); Aspartate Amino Transferase 15 U/L (0-40); Blood Urea Nitrogen 15 mg/dL (8-23); Calcium 9.7 mg/dL (8.5-10.5); Carbon Dioxide 25 mmol/L (22-29); Chloride 102 mmol/L (98-107); Globulin 2.1 g/dL (1.3-4.6); Glomerular Filtration Rate 96.1 mL/min (90-130); Glucose 103 mg/dL (65-115); Osmolality Calculated 275 mOsm/kg (285-295); Potassium 4.6 mmol/L (3.5-5.1); Sodium 134 mmol/L (136-145); Total Bilirubin 0.2 mg/dL (0.15-1.2); Total Protein 6.2 g/dL (6.6-8.7)
[2019-10-27 13:18] LABS: Absolute Segmented Neutrophil 3.2 10/cmm (1.6-7.1); Lymphocytes 9 %; Monocytes Absolute 0.8 10^3/cmm (0.1-0.6); Segmented Neutrophils 72 %; Total Cells Counted 100 (0-100)
[2019-10-27 13:19] LABS: Platelet Estimate Normal (Normal)
--- NOTE | 2019-10-27 13:56 | ONC FU_ITS ---
Dr. Perez follow up note Patient: Jean He Unit #: [id number]: 1950 Dicatated By: Ky Perez M.D.Date of Visit:October 27, 2019 Onc Med Follow-up/Prog Note History of Present Illness: Mr. He is a 69-year-old gentleman with recent history of progressive right neck mass. He underwent CT scan of chest on 10/12/2018 showed multifocal neoplasm of right upper lobe and extensive bulky right paratracheal, superior mediastinal, right suprahilar, right supraclavicular lymphadenopathy associated with mild compression of severe vena cava and the right internal jugular vein and additional involvement of AP window and subcarinal azygoesophageal recess. No liver or adrenal involvement. Patient was referred to Dr. 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 And immunohistochemistry was positive for NSE, synaptophysin, CD 56. CT PET scan done on 11/28/2018 showed extensive disease e.g. single metastases to the liver and MRI scan of brain done on 11/25/2018 showed left frontal subcortical metastatic lesion and is any enhancing metastatic lesion in the inferior subcortical white matter of right frontal lobe He began treatment with carboplatin/etoposide and Tecentriq on 11/24/2018. 55+ year history of smoking still active, Follow-up CT PET scan done after3 cycles of carboplatin and etoposide and Tecentriq done On 01/30/2019 Showed good response, marked interval improvement in right upper lobe carcinoma Interval improvement in mediastinal lymphadenopathy Interval improvement in right level IV cervical lymph node Resolution of hepatic metastatic disease MRI head done on 01/15/2019 showed decrease in size left frontal subcortical white matter metastatic lesion when compared with scan done on 11/25/2018 No new enhancing metastatic lesion seen. On 03/12/2019 patient Completed 5 cycles of chemotherapy with carboplatin and etoposide with last two , tecentriq was added. consolidation with radiation therapy to rt chest Was given from 04/07/2019 to 05/04/2019 Followed by [facility] x1 on 05/06/2019. Maintenance therapy with atezolizumab was recommended and he began his first cycle on 06/02/2019. He has tolerated it well. CT PET scan done on 07/03/2019 showed no change in the FDG negative right upper lobe nodule, consistent with treated primary; Interval resolution of right supra clavicular and mediastinal lymph nodes; New malignant appearing right axilla lymph node and recurrence of unifocal hepatic metastatic disease. Mr He was seen by radiation oncology in regards to the right axilla lymph node and radiation was recommended- SB RT to right axilla. He received SBRT from 07/21/2019 till 07/26/2019 and also received SB RT to this solitary liver metastases from 07/28/2019 through 08/03/2019. The immunotherapy with any tecentriq was put on hold after second dose which was given on 06/23/2019 because of risk of increased toxicity with concurrent radiation therapy e.g. SB RT. as per radiation oncology recommendation. resumed his immunotherapy with 3 weekly Tecentriq 1200 mg , on 08/25/2019. And follow-up CT scan of chest abdomen pelvis ordered by radiation oncology done on 09/10/2019 showed right upper lobe lesion is probably is residual scar. Diffuse emphysema. No acute intra-abdominal or pelvic abnormality. Came for follow-up, denies any specific complaints, no nausea no vomiting no fever or chills, no shortness of breath, no diarrhea or constipation, no skin rash, no jaundice. Tolerating maintenance immunotherapy with tecentriq well Medications: [facility] Tablet, effervescent Oral daily, Aspirin 2 (325 mg) Tablet Oral daily, Chantix Tablet Oral daily, Citalopram Hydrobromide 1 (10 mg) Tablet Oral daily, Isosorbide Dinitrate 0.5 (30 mg) Tablet Oral b.i.d., Lisinopril 1 Tablet (of 30 mg) Oral daily, Melatonin 1 (10 mg) Capsule Oral at bedtime, Metoprolol Succinate 1 (25 mg) Capsule ER 24 Hr Sprinkle Oral daily, Nitroglycerin 1 Tablet (of 0.4 mg) Tablet, sublingual Sublingual PRN, Omeprazole 1 Capsule (of 40 mg) Capsule Delayed Release Oral daily, Pravastatin Sodium 1 Tablet (of 10 mg) Oral daily, Prochlorperazine Maleate 1 Tablet (of 10 mg) Oral q 4 hours PRN, traZODone HCl 1 (100 mg) Tablet Oral at bedtime PRN Allergies: No Known Allergies. Review of Systems: Constitutional - Appetite is fair and weight is stable. No fever, chills, hot flashes, or night sweats. Energy level is good, ENMT - Positive for sinus congestion/drainage and sore throat. No mouth sores. No difficulty swallowing, Hematologic/Lymphatic - No abnormal bruising or bleeding, Respiratory - Positive for shortness of breath and cough, especially in the mornings, Cardiovascular - No angina pain. No palpitations, Gastrointestinal - No nausea or vomiting. No heartburn, no acid reflux. No diarrhea or constipation. No blood in stool, Genitourinary (M) - Positive for urinary frequency, Musculoskeletal - Positive for joint and back pain, Neurologic - Positive for headaches, no dizziness. Positive for numbness/ tingling, Psychiatric - Positive for anxiety and insomnia. Vital Signs: Performed on October 27, 2019 13:10 Height - 68.00 in Weight - 150.6 lbs (HIGH) BSA - 1.81 sq.m BMI - 22.90 Temperature - 98.3 F (LOW) Pulse - 64 /min Respiration - 17 /min BP - 162/92 mm(hg) (HIGH) O2 Sat - 98 % Pain - 8 Performance Status: 1 - No physically strenuous activity, but ambulatory and able to carry out light or sedentary work (e.g. office work, light house work). (ECOG) Physical Examination: ENMT - no mouth sores, Respiratory - Lungs are clear, Cardiovascular - Regular rate and rhythm of heart, Abdomen - soft, bowel sounds present, Extremities - no visible edema. Lab/Imaging: Test performed on October 27, 2019 12:00 Glucose 103 mg/dL BUN 15 mg/dL Creatinine 0.8 mg/dL Cr Clearance (Est) 85.3900 mL/min Sodium 134 mmol/L Potassium 4.6 mmol/L Chloride 102 mmol/L CO2 25 mmol/L Calcium 9.7 mg/dL Protein, Total 6.2 g/dL Albumin 4.1 g/dL Globulin 2.1 g/dL Bilirubin, Total 0.2 mg/dL Alkaline Phosphatase 57 IU/L AST (SGOT) 15 IU/L ALT (SGPT) 13 IU/L Test performed on Oct 05, 2019 14:30 Anion Gap 16.7 eGFR 83.9 mL/min WBC 6.5 10 3/uL RBC 4.51 10 6/uL HGB 14.0 g/dL HCT 42.4 % MCV 94.0 fL MCH 31.0 pg MCHC 33.0 g/dL RDW 13.9 % Platelet Count 249 10 3/cmm MPV 9.6 fL Neutrophils 4.0 10 3/uL Lymphocytes 0.8 10 3/uL Monocytes 1.5 10 3/uL Eosinophils 0.1 10 3/uL Basophils 0.0 10 3/uL Neutrophil % 61.9 % Lymphocyte % 12.6 % Monocyte % 22.5 % Eosinophil % 1.7 % Basophils % 0.5 % Test performed on Sep 15, 2019 08:15 TSH 2.22 uIU/mL Test performed on Aug 25, 2019 08:10 Testosterone, Total 687.0 ng/dL CBC Slide Review Slide Review Perform SLIDE REVIEW AGREES WITH AUTOMATED RESULTS ST Impression: 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 Next CT scan of chest done on 10/12/2018 showed when compared to CT scan done on 10/02/2018, multiple nodular densities are in the posterior segment right upper lobe extending anteriorly and inferiorly towards the right hilum. And the most posterior superior nodular density is in the posterior subpleural region measuring 1.7 x 2.5 x 1.5 cm and elongated nodule extends anteriorly and inferiorly towards the right hilum measures 3.3 x 1.2 x 1.2 cm Bulky, confluent right paratracheal, right suprahilar and precarinal lymphadenopathy measures up to 5.8 cm x 3.5 cm x 10 cm. The adenopathy causes significant narrowing of right upper lobe pulmonary artery branch and a partially compresses the superior vena cava no acute bony abnormality seen no lytic or blastic bony destruction seen. Additional adenopathy extends into AP window and anterior superior mediastinum. And right supraclavicular lymphadenopathy measures 3.1 x 3.6 x 3.5 cm causes severe compression of inferior aspect of right internal jugular vein. No axillary lymphadenopathy. No other pulmonary mass or nodule seen. Liver is normal no adrenal involvement Emphysema COPD, so chronic smoking e.g. 55 year plus history history of myocardial infarction at age 43. Elevated PSA Essential hypertension Mr. He had PET/CT imaging on 11/28/2018. He had hypermetabolic activity in the right upper lobe nodule which measured to be 1.3 cm with SUV of 4.1 there are no other significant pulmonary nodules present there was a 2 widespread lung cyst formation upper lobes consistent with COPD changes matted malignant lymph nodes are present in the mediastinum time him consistent with local metastatic disease also present in the right paratracheal anterior mediastinal, precarinal and right hilar territories the SUV up to 6.2. In the right neck a 4.6 x 2.8 cm nodular mass in the level IV distribution has SUV of 6.8 representing metastasis. There is a solitary hypodensity in the medial right hepatic lobe measuring 2.0 x 1.6 cm with an SUV of 4.5. There are no findings to indicate osseous metastatic disease. MRI of the head from 11/25/2018 reports a oval circumscribed ring-enhancing lesion measuring 7.6 x 8.8 x 10 mm in the right frontal lobe subcortical white matter inferiorly. Per MRI report it is likely metastatic disease. No other Ms. sick lesions were seen and no significant stenosis and with white matter edema. 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 Mr. He was offered treatment with carboplatin/etoposide and Tecentriq. He began his first cycle on 11/24/2018. Completed total 5 cycles of chemotherapy on 03/12/2019. He remained on observation. He completed SRS to the brain to total dose of 2000 cGy on 05/06/2019. He began maintenance Tecentriq on 06/02/2019. Followup PET/CT imaging from 07/03/2019 showed no change in the FDG negative right upper lobe nodule, consistent with treated primary; Interval resolution of right supra clavicular and mediastinal lymph nodes; New malignant appearing right axilla lymph node and recurrence of unifocal hepatic metastatic disease. Mr He was seen by radiation oncology in regards to the right axilla lymph node and radiation was recommended- SB RT to right axilla. He received SBRT from 07/21/2019 till 07/26/2019 and also received SB RT to this solitary liver metastases from 07/28/2019 through 08/03/2019. The immunotherapy with any tecentriq was put on hold after second dose which was given on 06/23/2019 because of risk of increased toxicity with concurrent radiation therapy e.g. SB RT. as per radiation oncology recommendation. After completion of the radiation therapy, discussed treatment options including observation, or continue with maintenance immunotherapy with tecentriq was discussed, patient opted for maintenance immunotherapy. Which was started on 06/02/2019 and then it was held as patient was receiving SB RT to right axilla and to the solitary liver metastases from 07/21/2019 till 08/03/2019. Was restarted on 08/25/2019. Follow-up CT scan of chest abdomen pelvis ordered by radiation oncology done on 09/10/2019 showed no evidence of disease Plan: Discussed with patient regarding his labs white blood count 4.5 hemoglobin 12.2 crit 36.9 platelets [id number], CMP within normal limits Clinically, patient is doing well, tolerating maintenance therapy with tecentriq well but with expected side effects needed we'll proceed with the next 3 weekly dose of tecentriq today and then he will return to clinic in 3 weeks with CBC CMP. And for treatment Signed By: Ky Perez M.D. <<Signature on File>>
[2019-10-27] MEDS: pantoprazole 40 mg SDV IVP (14:05)
[2019-10-27] MEDS: sodium chloride 0.9% 250 ML 75 ML IV (14:05)
== END 2019-11-14 23:59 | disposition home or self-care (01) ==
LOC: ONCMED 06:53
PROVIDERS: PCP Nurse Practitioner; Referring Provider Nurse Practitioner; Visit Provider Internal Medicine Hematology & Oncology
DX: Z51.12 Encounter for antineoplastic immunotherapy (principal); C34.11 Malignant neoplasm of upper lobe, right bronchus or lung; C77.1 Secondary and unspecified malignant neoplasm of intrathoracic lymph nodes; K21.9 Gastro-esophageal reflux disease without esophagitis; I25.10 Atherosclerotic heart disease of native coronary artery without angina pectoris; J44.9 Chronic obstructive pulmonary disease, unspecified; Z86.010 Personal history of colon polyps; I25.2 Old myocardial infarction; I10 Essential (primary) hypertension; M19.90 Unspecified osteoarthritis, unspecified site; I45.10 Unspecified right bundle-branch block; M26.609 Unspecified temporomandibular joint disorder, unspecified side; E55.9 Vitamin D deficiency, unspecified; Z79.899 Other long term (current) drug therapy
CPT/HCPCS: 80053; 85007; 85027; 96375; 96413; 99214; C9113; J7050; J9022

== ENCOUNTER 2019-12-14 06:53 | Outpatient (RCR) | payer MEDICARE, MEDICAID, SELFPAY ==
[2019-11-17 12:07] LABS: Basophils % 0.6 %; Eosinophils # 0.1 10^3/uL (0.0-0.8); Eosinophils % 1.2 %; Hematocrit 40.5 % (42.0-52.0); Hemoglobin 13.7 g/dL (11.7-16.6); Lymphocytes # 0.7 10^3/uL (0.8-4.8); Lymphocytes % 14.7 %; Mean Corpuscular HGB Conc 33.8 g/dL (30.0-36.0); Mean Corpuscular Hemoglobin 32.5 pg (28.0-34.0); Mean Corpuscular Volume 96.2 fL (80-94); Mean Platelet Volume 9.5 fL (7.4-10.4); Monocytes # 1.1 10^3/uL (0.2-0.9); Monocytes % 22.1 %; Nucleated Red Blood Cells % 0 %; Platelet Count 197 10^3/cmm (130-400); Red Blood Count 4.21 10^6/uL (4.1-5.3); Red Cell Distribution Width 13.2 % (12.1-15.1); White Blood Count 4.9 10^3/uL (4.0-10.0)
[2019-11-17 12:48] LABS: Alanine Aminotransferase 13 U/L (0-41); Albumin Level 4.5 g/dL (3.5-5.2); Alkaline Phosphatase 50 IU/L (40-130); Anion Gap 15.5 (5-19); Aspartate Amino Transferase 14 U/L (0-40); Blood Urea Nitrogen 16 mg/dL (8-23); Calcium 9.8 mg/dL (8.5-10.5); Carbon Dioxide 25 mmol/L (22-29); Chloride 102 mmol/L (98-107); Globulin 1.6 g/dL (1.3-4.6); Glomerular Filtration Rate 96.1 mL/min (90-130); Glucose 106 mg/dL (65-115); Osmolality Calculated 283 mOsm/kg (285-295); Potassium 4.5 mmol/L (3.5-5.1); Sodium 138 mmol/L (136-145); Thyroid Stimulating Hormone 0.99 uIU/mL (0.27-4.20); Total Bilirubin 0.3 mg/dL (0.15-1.2); Total Protein 6.1 g/dL (6.6-8.7)
[2019-11-17] MEDS: pantoprazole 40 mg SDV IV (14:15)
[2019-11-17] MEDS: sodium chloride 0.9% 250 ML 75 ML IV (14:15)
--- NOTE | 2019-11-21 16:47 | ONC FU_ITS ---
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 He is a 69-year-old gentleman with recent history of progressive right neck mass. He underwent CT scan of chest on 10/12/2018 showed multifocal neoplasm of right upper lobe and extensive bulky right paratracheal, superior mediastinal, right suprahilar, right supraclavicular lymphadenopathy associated with mild compression of severe vena cava and the right internal jugular vein and additional involvement of AP window and subcarinal azygoesophageal recess. No liver or adrenal involvement. Patient was referred to Dr. 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 And immunohistochemistry was positive for NSE, synaptophysin, CD 56. CT PET scan done on 11/28/2018 showed extensive disease e.g. single metastases to the liver and MRI scan of brain done on 11/25/2018 showed left frontal subcortical metastatic lesion and is any enhancing metastatic lesion in the inferior subcortical white matter of right frontal lobe He began treatment with carboplatin/etoposide and Tecentriq on 11/24/2018. 55+ year history of smoking still active, Follow-up CT PET scan done after3 cycles of carboplatin and etoposide and Tecentriq done On 01/30/2019 Showed good response, marked interval improvement in right upper lobe carcinoma Interval improvement in mediastinal lymphadenopathy Interval improvement in right level IV cervical lymph node Resolution of hepatic metastatic disease MRI head done on 01/15/2019 showed decrease in size left frontal subcortical white matter metastatic lesion when compared with scan done on 11/25/2018 No new enhancing metastatic lesion seen. On 03/12/2019 patient Completed 5 cycles of chemotherapy with carboplatin and etoposide with last two , tecentriq was added. consolidation with radiation therapy to rt chest Was given from 04/07/2019 to 05/04/2019 Followed by brainSRS x1 on 05/06/2019. Maintenance therapy with atezolizumab was recommended and he began his first cycle on 06/02/2019. He has tolerated it well. CT PET scan done on 07/03/2019 showed no change in the FDG negative right upper lobe nodule, consistent with treated primary; Interval resolution of right supra clavicular and mediastinal lymph nodes; New malignant appearing right axilla lymph node and recurrence of unifocal hepatic metastatic disease. Mr He was seen by radiation oncology in regards to the right axilla lymph node and radiation was recommended- SB RT to right axilla. He received SBRT from 07/21/2019 till 07/26/2019 and also received SB RT to this solitary liver metastases from 07/28/2019 through 08/03/2019. The immunotherapy with any tecentriq was put on hold after second dose which was given on 06/23/2019 because of risk of increased toxicity with concurrent radiation therapy e.g. SB RT. as per radiation oncology recommendation. resumed his immunotherapy with 3 weekly Tecentriq 1200 mg , on 08/25/2019. Follow-up CT scan of chest/abdomen/pelvis from 09/10/2019 showed right upper lobe lesion is probably residual scar. Diffuse emphysema. No acute intra-abdominal or pelvic abnormality. He has continued the Tecentriq and has now completed a total of 6 cycles. He is tolerating it well. Mr. He is here today for follow-up. He states overall he feels that he is doing pretty good. He states he has little shortness of breath when he walks or has to do an incline but states that is from minus emphysema . He states he has had some drippy nose of a morning but states that he thinks that seasonal allergies but this was not sure what he could take to help with this. He also states he had one episode of spinning dizziness last week. He states that he had been working around the house in the yard and had just gotten dizzy. He states it resolved within just a few minutes and has had no recurrent episodes. He denies any one-sided weakness, vision changes, headaches any kind of neurological symptoms with the dizziness. He did not feel nauseated or have diarrhea. He states once he rested the spinning/dizziness resolved. He states he is eating pretty good. He states I do not drink as much water as I probably should . He states his breathing is the same for him. He denies any diarrhea or constipation. He has had no UTI type symptoms. He denies any bladder symptoms. He denies any neuropathy. He has had no cough or hemoptysis. He denies any abdominal cramping or severe diarrhea. He denies any episodes of confusion or any altered mental status other than the dizziness he reported above. He states his energy is good. He is able to do all of his ADLs without assistance. His ECOG is 1. Past Medical History: Ashd Chronic obstructive pulmonary disease History of colon polyps History of ID Hypertension Osteoarthritis Right bundle branch block Tmj Vitamin D deficiency Past Surgical History: Cataract excision Hernia repair Portacatheter placement dr. muniz in 2019 Colonoscopy in 2018 Allergies: No Known Allergies. Medications: [facility] Tablet, effervescent Oral daily Aspirin 2 (325 mg) Tablet Oral daily Chantix Tablet Oral daily Citalopram Hydrobromide 1 (10 mg) Tablet Oral daily Isosorbide Dinitrate 0.5 (30 mg) Tablet Oral b.i.d. Lisinopril 1 Tablet (of 30 mg) Oral daily Melatonin 1 (10 mg) Capsule Oral at bedtime Metoprolol Succinate 1 (25 mg) Capsule ER 24 Hr Sprinkle Oral daily Nitroglycerin 1 Tablet (of 0.4 mg) Tablet, sublingual Sublingual PRN Omeprazole 1 Capsule (of 40 mg) Capsule Delayed Release Oral daily Pravastatin Sodium 1 Tablet (of 10 mg) Oral daily Prochlorperazine Maleate 1 Tablet (of 10 mg) Oral q 4 hours PRN traZODone HCl 1 (100 mg) Tablet Oral at bedtime PRN Family History: Mr. He's mother at age 75: congestive heart failure. Mr. He's father at age 75: heart disease, and lung cancer. Social History: Mr. He is single and he is retired. He is an occasional smoker who has smoked 1.0 pack/day for 60 years. He is an active drinker.He consumes 3 drinks/day 7 days/week. He has indicated exposure to the following products: cigarettes. Used to smoke 3 packs per day for about 20 years and went down to 2 packs per day until recently. Took the last Chantix yesterday Review Of Symptoms: Constitutional Denies fevers, chills, night sweats, excessive fatigue or weight loss. Appetite is marginal. He states he has had 1 episode of spinning/dizziness last week . NO syncope and no recurrence. Allergic/Immunologic No reactions. Eyes Denies significant visual changes. No diplopia. No amaurosis. ENMT Denies changes in hearing, sore throat, mouth sores, difficulty or changes in swallowing ability, and/or sinus drainage. Endocrine No diabetes, thyroid disease or hormone replacement. Denies hot flashes or night sweats. Hematologic/Lymphatic Denies easy bruising or bleeding. The patient denies any tender or palpable lymph nodes. Respiratory Denies worsening dyspnea on exertion. Denies chest pain, cough or hemoptysis. Denies orthopnea. He states he has shortness of breath and has to rest at times but states that due to my emphysema . Cardiovascular Denies chest pain, palpitations or orthopnea. Gastrointestinal Denies persistent nausea, vomiting, diarrhea, GI bleeding, or constipation. Denies change in bowel habits and/or stool color or early satiety. Genitourinary (M) Denies hematuria. Musculoskeletal Denies joint pain, swelling or redness. No decreased range of motion. Integumentary Denies chronic rashes, inflammation, ulcerations or skin changes. Neurologic Denies focal weakness or numbness. Normal gait. No persistent sensory problems Psychiatric Denies insomnia, depression, geovany or mood swings. Vital Signs: Performed on Nov 17, 2019 16:00 Height - 68.00 in Temperature - 97.8 F (LOW) Pulse - 68 /min Respiration - 18 /min BP - 146/84 mm(hg) (HIGH) O2 Sat - 98 % Pain - 0 Fatigue - 0 Performed on Nov 17, 2019 13:39 Height - 68.00 in Weight - 150.6 lbs BSA - 1.81 sq.m BMI - 22.90 Temperature - 98.1 F (LOW) Pulse - 75 /min Respiration - 16 /min BP - 116/66 mm(hg) O2 Sat - 98 % Pain - 0,1 - No physically strenuous activity, but ambulatory and able to carry out light or sedentary work (e.g. office work, light house work). (ECOG) Physical Examination: Constitutional Alert, oriented, no acute distress. Skin pink, warm and dry. Head Normocephalic; atraumatic. Eyes Conjunctivae and sclerae are clear and without icterus. Pupils are reactive and equal. ENMT No oral exudates, ulcers, masses, thrush or mucositis. Oropharynx clear. Tongue normal. Neck Supple without masses or thyromegaly. No jugular venous distension. Hematologic/Lymphatic No petechiae or purpura. No tender or palpable lymph nodes in the cervical or supraclavicular areas. Respiratory Lungs are clear to auscultation without rhonchi or wheezing. Cardiovascular Regular rate and rhythm of heart without murmurs,clicks, gallops or rubs. Abdomen Non-tender, non-distended, no masses, ascites. Good bowel sounds noted in all quads. No guarding or rebound tenderness. No pulsatile masses. Back/Spine Non-tender to palpation. Extremities No visible deformities, no cyanosis, clubbing or edema. Musculoskeletal No tenderness or swelling, normal range of motion without obvious weakness. Integumentary No rashes or lesions. Neurologic No sensory or motor deficits, normal cerebellar function, normal gait. Psychiatric Alert and oriented times three. Coherent speech. Verbalizes understanding of our discussions today. Laboratory:Test performed on Nov 17, 2019 11:44 Sodium 138 mmol/L TSH 0.99 uIU/mL Potassium 4.5 mmol/L Chloride 102 mmol/L CO2 25 mmol/L Anion Gap 15.5 BUN 16 mg/dL Creatinine 0.8 mg/dL Cr Clearance (Est) 85.3900 mL/min eGFR 96.1 mL/min Glucose 106 mg/dL Calcium 9.8 mg/dL Protein, Total 6.1 g/dL Albumin 4.5 g/dL Globulin 1.6 g/dL Bilirubin, Total 0.3 mg/dL ALT (SGPT) 13 U/L AST (SGOT) 14 U/L Alkaline Phosphatase 50 IU/L WBC 4.9 10 3/uL RBC 4.21 10 6/uL HGB 13.7 g/dL HCT 40.5 % MCV 96.2 fL MCH 32.5 pg MCHC 33.8 g/dL RDW 13.2 % Platelet Count 197 10 3/cmm MPV 9.5 fL Neutrophils 3.0 10 3/uL Lymphocytes 0.7 10 3/uL Monocytes 1.1 10 3/uL Eosinophils 0.1 10 3/uL Basophils 0.0 10 3/uL Neutrophil % 61.0 % Lymphocyte % 14.7 % Manual Lymphocytes 14.7 % Manual Monocytes 22.1 % Monocyte % 22.1 % Eosinophil % 1.2 % Manual Eosinophils 1.2 % Basophils % 0.6 % Manual Basophils 0.6 % Impression: 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 Next CT scan of chest done on 10/12/2018 showed when compared to CT scan done on 10/02/2018, multiple nodular densities are in the posterior segment right upper lobe extending anteriorly and inferiorly towards the right hilum. And the most posterior superior nodular density is in the posterior subpleural region measuring 1.7 x 2.5 x 1.5 cm and elongated nodule extends anteriorly and inferiorly towards the right hilum measures 3.3 x 1.2 x 1.2 cm Bulky, confluent right paratracheal, right suprahilar and precarinal lymphadenopathy measures up to 5.8 cm x 3.5 cm x 10 cm. The adenopathy causes significant narrowing of right upper lobe pulmonary artery branch and a partially compresses the superior vena cava no acute bony abnormality seen no lytic or blastic bony destruction seen. Additional adenopathy extends into AP window and anterior superior mediastinum. And right supraclavicular lymphadenopathy measures 3.1 x 3.6 x 3.5 cm causes severe compression of inferior aspect of right internal jugular vein. No axillary lymphadenopathy. No other pulmonary mass or nodule seen. Liver is normal no adrenal involvement Emphysema COPD, so chronic smoking e.g. 55 year plus history history of myocardial infarction at age 43. Elevated PSA Essential hypertension Mr. He had PET/CT imaging on 11/28/2018. He had hypermetabolic activity in the right upper lobe nodule which measured to be 1.3 cm with SUV of 4.1 there are no other significant pulmonary nodules present there was a 2 widespread lung cyst formation upper lobes consistent with COPD changes matted malignant lymph nodes are present in the mediastinum time him consistent with local metastatic disease also present in the right paratracheal anterior mediastinal, precarinal and right hilar territories the SUV up to 6.2. In the right neck a 4.6 x 2.8 cm nodular mass in the level IV distribution has SUV of 6.8 representing metastasis. There is a solitary hypodensity in the medial right hepatic lobe measuring 2.0 x 1.6 cm with an SUV of 4.5. There are no findings to indicate osseous metastatic disease. MRI of the head from 11/25/2018 reports a oval circumscribed ring-enhancing lesion measuring 7.6 x 8.8 x 10 mm in the right frontal lobe subcortical white matter inferiorly. Per MRI report it is likely metastatic disease. No other Ms. sick lesions were seen and no significant stenosis and with white matter edema. 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 Mr. He was offered treatment with carboplatin/etoposide and Tecentriq. He began his first cycle on 11/24/2018. Completed total 5 cycles of chemotherapy on 03/12/2019. He remained on observation. He completed SRS to the brain to total dose of 2000 cGy on 05/06/2019. He began maintenance Tecentriq on 06/02/2019. Followup PET/CT imaging from 07/03/2019 showed no change in the FDG negative right upper lobe nodule, consistent with treated primary; Interval resolution of right supra clavicular and mediastinal lymph nodes; New malignant appearing right axilla lymph node and recurrence of unifocal hepatic metastatic disease. Mr He was seen by radiation oncology in regards to the right axilla lymph node and radiation was recommended- SB RT to right axilla. He received SBRT from 07/21/2019 till 07/26/2019 and also received SB RT to this solitary liver metastases from 07/28/2019 through 08/03/2019. The immunotherapy with any tecentriq was put on hold after second dose which was given on 06/23/2019 because of risk of increased toxicity with concurrent radiation therapy e.g. SB RT. as per radiation oncology recommendation. After completion of the radiation therapy, Dr Perez discussed treatment options including observation, or continue with maintenance immunotherapy with tecentriq was discussed, patient opted for maintenance immunotherapy. He befgan atezolizumab on June 02, 2019. Plan: 1. Proceed with cycle 7 atezolizumab (Tecentriq) @ 1,200 mg. 2. He was advised he can use [id number] antihistamines for seasonal allergies if needed for the dripping nose every morning . 3. Today's labs reviewed in detail discussed with Mr. He and a copy was given to him. WBC 4.9, hemoglobin 13.7, platelets 197,000 ANC is 3000. Creatinine 0.7 LFTs are normal. 4. Encouraged him to drink extra water with the summer heat approaching. I suspect he was a little dehydrated with the dizziness spell. He was instructed to call us if he has recurrent dizziness or spinning spells. It is noted that his blood pressure is a little low for him today at 116/66. He may have been orthostatic hypotensive. 5. We will have him plan to return in 3 weeks with CBC CMP and TSH. He will be due for cycle 8 Tecentriq at that time. 6. Mr. He was encouraged to contact us in the interim should questions or problems arise. 7. Specific side effects of immunotherapy discussed included but not limited to: ??? pneumonitis: new or worsening cough; chest pain; and shortness of breath. ??? Colitis: diarrhea or more bowel movements than usual; blood in stools or dark, tarry, sticky stools; and severe stomach area (abdomen) pain or tenderness. ??? hepatitis: jaundice; severe nausea or vomiting; pain on the right side of the abdomen; drowsiness; dark urine; bleeding or bruise more easily than normal. ??? nephritis and kidney failure: including decrease in the amount of urine; hematuria; lower extremity edema; and loss of appetite. ??? thyroid and pituitary changes that may include: headaches that will not go away or unusual headaches; extreme tiredness, weight gain or weight loss; changes in mood or behavior, such as decreased sex drive, irritability, or forgetfulness; dizziness or fainting; hair loss; feeling cold; constipation; and voice gets deeper. ???rash; changes in eyesight; severe or persistent muscle or joint pains; and severe muscle weakness. . Signed By: Neftali Buitrago.-WILBUR, AOCNP [place] ePrez MD <<Signature on File>>
[2019-12-08 12:04] LABS: Basophils % 0.6 %; Eosinophils # 0.1 10^3/uL (0.0-0.8); Eosinophils % 1.6 %; Hematocrit 42.1 % (42.0-52.0); Hemoglobin 14.5 g/dL (11.7-16.6); Lymphocytes # 0.9 10^3/uL (0.8-4.8); Lymphocytes % 18.1 %; Mean Corpuscular HGB Conc 34.4 g/dL (30.0-36.0); Mean Corpuscular Hemoglobin 31.6 pg (28.0-34.0); Mean Corpuscular Volume 91.7 fL (80-94); Mean Platelet Volume 9.6 fL (7.4-10.4); Monocytes # 0.9 10^3/uL (0.2-0.9); Monocytes % 18.7 %; Nucleated Red Blood Cells % 0 %; Platelet Count 215 10^3/cmm (130-400); Red Blood Count 4.59 10^6/uL (4.1-5.3); Red Cell Distribution Width 12.7 % (12.1-15.1)
[2019-12-08 12:29] LABS: Alanine Aminotransferase 20 U/L (0-41); Alkaline Phosphatase 53 IU/L (40-130); Anion Gap 14.9 (5-19); Aspartate Amino Transferase 18 U/L (0-40); Blood Urea Nitrogen 16 mg/dL (8-23); Carbon Dioxide 23 mmol/L (22-29); Chloride 105 mmol/L (98-107); Globulin 1.7 g/dL (1.3-4.6); Glomerular Filtration Rate 74.3 mL/min (90-130); Glucose 79 mg/dL (65-115); Osmolality Calculated 283 mOsm/kg (285-295); Potassium 3.9 mmol/L (3.5-5.1); Sodium 139 mmol/L (136-145); Thyroid Stimulating Hormone 1.34 uIU/mL (0.27-4.20); Total Bilirubin 0.2 mg/dL (0.15-1.2); Total Protein 6.7 g/dL (6.6-8.7)
--- NOTE | 2019-12-08 13:54 | ONC FU_ITS ---
Dr. Perez follow up note Patient: Jean He Unit #: [id number]: 1950 Dicatated By: Ky Perez M.D.Date of Visit:Dec 08, 2019 Onc Med Follow-up/Prog Note History of Present Illness: Mr. He is a 69-year-old gentleman with recent history of progressive right neck mass. He underwent CT scan of chest on 10/12/2018 showed multifocal neoplasm of right upper lobe and extensive bulky right paratracheal, superior mediastinal, right suprahilar, right supraclavicular lymphadenopathy associated with mild compression of severe vena cava and the right internal jugular vein and additional involvement of AP window and subcarinal azygoesophageal recess. No liver or adrenal involvement. Patient was referred to Dr. 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 And immunohistochemistry was positive for NSE, synaptophysin, CD 56. CT PET scan done on 11/28/2018 showed extensive disease e.g. single metastases to the liver and MRI scan of brain done on 11/25/2018 showed left frontal subcortical metastatic lesion and is any enhancing metastatic lesion in the inferior subcortical white matter of right frontal lobe He began treatment with carboplatin/etoposide and Tecentriq on 11/24/2018. 55+ year history of smoking still active, Follow-up CT PET scan done after3 cycles of carboplatin and etoposide and Tecentriq done On 01/30/2019 Showed good response, marked interval improvement in right upper lobe carcinoma Interval improvement in mediastinal lymphadenopathy Interval improvement in right level IV cervical lymph node Resolution of hepatic metastatic disease MRI head done on 01/15/2019 showed decrease in size left frontal subcortical white matter metastatic lesion when compared with scan done on 11/25/2018 No new enhancing metastatic lesion seen. On 03/12/2019 patient Completed 5 cycles of chemotherapy with carboplatin and etoposide with last two , tecentriq was added. consolidation with radiation therapy to rt chest Was given from 04/07/2019 to 05/04/2019 [facility]. Maintenance therapy with atezolizumab was recommended and he began his first cycle on 06/02/2019. He has tolerated it well. CT PET scan done on 07/03/2019 showed no change in the FDG negative right upper lobe nodule, consistent with treated primary; Interval resolution of right supra clavicular and mediastinal lymph nodes; New malignant appearing right axilla lymph node and recurrence of unifocal hepatic metastatic disease. Mr He was seen by radiation oncology in regards to the right axilla lymph node and radiation was recommended- SB RT to right axilla. He received SBRT from 07/21/2019 till 07/26/2019 and also received SB RT to this solitary liver metastases from 07/28/2019 through 08/03/2019. The immunotherapy with any tecentriq was put on hold after second dose which was given on 06/23/2019 because of risk of increased toxicity with concurrent radiation therapy e.g. SB RT. as per radiation oncology recommendation. resumed his immunotherapy with 3 weekly Tecentriq 1200 mg , on 08/25/2019. Follow-up CT scan of chest/abdomen/pelvis from 09/10/2019 showed right upper lobe lesion is probably residual scar. Diffuse emphysema. No acute intra-abdominal or pelvic abnormality. He has continued the Tecentriq and has now completed a total of 6 cycles. He is tolerating it well. Came for follow-up, complaining of lightheaded dizziness for the last 2 weeks also off balance but no fall, off and on nausea vomiting, headache but no focal weakness, no fever chills, denies any trauma to his head. Denies any blurred vision or double vision. Denies any mouth sores or melena or hematochezia, denies any ear problem. Denies any sinus problem. Denies any skin rash, denies any shortness of breath or wheezing, denies any diarrhea or constipation Medications: [facility] Tablet, effervescent Oral daily, Aspirin 2 (325 mg) Tablet Oral daily, Chantix Tablet Oral daily, Citalopram Hydrobromide 1 (10 mg) Tablet Oral daily, Isosorbide Dinitrate 0.5 (30 mg) Tablet Oral b.i.d., Lisinopril 1 Tablet (of 30 mg) Oral daily, Melatonin 1 (10 mg) Capsule Oral at bedtime, Metoprolol Succinate 1 (25 mg) Capsule ER 24 Hr Sprinkle Oral daily, Nitroglycerin 1 Tablet (of 0.4 mg) Tablet, sublingual Sublingual PRN, Omeprazole 1 Capsule (of 40 mg) Capsule Delayed Release Oral daily, Pravastatin Sodium 1 Tablet (of 10 mg) Oral daily, Prochlorperazine Maleate 1 Tablet (of 10 mg) Oral q 4 hours PRN, traZODone HCl 1 (100 mg) Tablet Oral at bedtime PRN Allergies: No Known Allergies. Review of Systems: Constitutional - Appetite is poor and weight has decreased. No fever, chills, hot flashes, or night sweats. Energy level is extremely poor, ENMT - Positive for sinus congestion/drainage and sore throat. No mouth sores. No difficulty swallowing, Hematologic/Lymphatic - No abnormal bruising or bleeding, Respiratory - Positive for shortness of breath and cough, especially in the mornings, Cardiovascular - No angina pain. No palpitations, Gastrointestinal - Positive for nausea and vomiting. No heartburn, no acid reflux. No diarrhea or constipation. No blood in stool, Genitourinary (M) - Positive for urinary frequency, Musculoskeletal - Positive for joint and back pain, Neurologic - Positive for headaches and dizziness. Positive for numbness/ tingling. Pt states that he has been unsteady on his feet for the last couple weeks, Psychiatric - Positive for anxiety and insomnia. Vital Signs: Performed on Dec 08, 2019 13:17 Height - 68.00 in Weight - 143.0 lbs (LOW) BSA - 1.77 sq.m BMI - 21.74 Temperature - 98.3 F (LOW) Pulse - 70 /min Respiration - 24 /min BP - 164/94 mm(hg) (HIGH) O2 Sat - 98 % Pain - 0 Performance Status: 1 - No physically strenuous activity, but ambulatory and able to carry out light or sedentary work (e.g. office work, light house work). (ECOG) Physical Examination: ENMT - No mouth sores, no thrush or jaundice, Respiratory - Lungs are clear, Cardiovascular - Regular rate and rhythm of heart, Abdomen - Soft, bowel sounds present, Extremities - No visible edema or rash, Neurologic - Nonfocal, alert and oriented x3. Lab/Imaging: Test performed on Nov 17, 2019 11:44 Sodium 138 mmol/L TSH 0.99 uIU/mL Potassium 4.5 mmol/L Chloride 102 mmol/L CO2 25 mmol/L Anion Gap 15.5 BUN 16 mg/dL Creatinine 0.8 mg/dL Cr Clearance (Est) 85.3900 mL/min eGFR 96.1 mL/min Glucose 106 mg/dL Calcium 9.8 mg/dL Protein, Total 6.1 g/dL Albumin 4.5 g/dL Globulin 1.6 g/dL Bilirubin, Total 0.3 mg/dL ALT (SGPT) 13 U/L AST (SGOT) 14 U/L Alkaline Phosphatase 50 IU/L WBC 4.9 10 3/uL RBC 4.21 10 6/uL HGB 13.7 g/dL HCT 40.5 % MCV 96.2 fL MCH 32.5 pg MCHC 33.8 g/dL RDW 13.2 % Platelet Count 197 10 3/cmm MPV 9.5 fL Neutrophils 3.0 10 3/uL Lymphocytes 0.7 10 3/uL Monocytes 1.1 10 3/uL Eosinophils 0.1 10 3/uL Basophils 0.0 10 3/uL Neutrophil % 61.0 % Lymphocyte % 14.7 % Manual Lymphocytes 14.7 % Manual Monocytes 22.1 % Monocyte % 22.1 % Eosinophil % 1.2 % Manual Eosinophils 1.2 % Basophils % 0.6 % Manual Basophils 0.6 % Test performed on October 27, 2019 12:00 Manual Bands Abs 0.0 10 3/cmm Manual Monocytes Abs 0.8 10 3/cmm Manual Bands % 1.0 % Total Cells Counted 100 Test performed on Aug 25, 2019 08:10 Testosterone, Total 687.0 ng/dL CBC Slide Review Slide Review Perform SLIDE REVIEW AGREES WITH AUTOMATED RESULTS ST Impression: 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 Next CT scan of chest done on 10/12/2018 showed when compared to CT scan done on 10/02/2018, multiple nodular densities are in the posterior segment right upper lobe extending anteriorly and inferiorly towards the right hilum. And the most posterior superior nodular density is in the posterior subpleural region measuring 1.7 x 2.5 x 1.5 cm and elongated nodule extends anteriorly and inferiorly towards the right hilum measures 3.3 x 1.2 x 1.2 cm Bulky, confluent right paratracheal, right suprahilar and precarinal lymphadenopathy measures up to 5.8 cm x 3.5 cm x 10 cm. The adenopathy causes significant narrowing of right upper lobe pulmonary artery branch and a partially compresses the superior vena cava no acute bony abnormality seen no lytic or blastic bony destruction seen. Additional adenopathy extends into AP window and anterior superior mediastinum. And right supraclavicular lymphadenopathy measures 3.1 x 3.6 x 3.5 cm causes severe compression of inferior aspect of right internal jugular vein. No axillary lymphadenopathy. No other pulmonary mass or nodule seen. Liver is normal no adrenal involvement Emphysema COPD, so chronic smoking e.g. 55 year plus history history of myocardial infarction at age 43. Elevated PSA Essential hypertension Mr. He had PET/CT imaging on 11/28/2018. He had hypermetabolic activity in the right upper lobe nodule which measured to be 1.3 cm with SUV of 4.1 there are no other significant pulmonary nodules present there was a 2 widespread lung cyst formation upper lobes consistent with COPD changes matted malignant lymph nodes are present in the mediastinum time him consistent with local metastatic disease also present in the right paratracheal anterior mediastinal, precarinal and right hilar territories the SUV up to 6.2. In the right neck a 4.6 x 2.8 cm nodular mass in the level IV distribution has SUV of 6.8 representing metastasis. There is a solitary hypodensity in the medial right hepatic lobe measuring 2.0 x 1.6 cm with an SUV of 4.5. There are no findings to indicate osseous metastatic disease. MRI of the head from 11/25/2018 reports a oval circumscribed ring-enhancing lesion measuring 7.6 x 8.8 x 10 mm in the right frontal lobe subcortical white matter inferiorly. Per MRI report it is likely metastatic disease. No other Ms. sick lesions were seen and no significant stenosis and with white matter edema. 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 Mr. He was offered treatment with carboplatin/etoposide and Tecentriq. He began his first cycle on 11/24/2018. Completed total 5 cycles of chemotherapy on 03/12/2019. He remained on observation. He completed SRS to the brain to total dose of 2000 cGy on 05/06/2019. He began maintenance Tecentriq on 06/02/2019. Followup PET/CT imaging from 07/03/2019 showed no change in the FDG negative right upper lobe nodule, consistent with treated primary; Interval resolution of right supra clavicular and mediastinal lymph nodes; New malignant appearing right axilla lymph node and recurrence of unifocal hepatic metastatic disease. Mr He was seen by radiation oncology in regards to the right axilla lymph node and radiation was recommended- SB RT to right axilla. He received SBRT from 07/21/2019 till 07/26/2019 and also received SB RT to this solitary liver metastases from 07/28/2019 through 08/03/2019. The immunotherapy with any tecentriq was put on hold after second dose which was given on 06/23/2019 because of risk of increased toxicity with concurrent radiation therapy e.g. SB RT. as per radiation oncology recommendation. After completion of the radiation therapy, discussed treatment options including observation, or continue with maintenance immunotherapy with tecentriq was discussed, patient opted for maintenance immunotherapy. He befgan atezolizumab on June 02, 2019. Plan: Discussed with patient regarding his labs white blood count 5 hemoglobin 14.5 crit 42.1 platelets 215,000 CMP within normal limits TSH 1.34 Clinically, patient is doing reasonably well now with progressive lightheaded dizziness, headache, feeling off balance but no fall, there is a concern but possibility of brain mets or other neurological issue as no other biochemical abnormality e.g. electrolytes within normal range we will hold his immunotherapy today and then consider CT scan of head to rule out brain mets. If CT scan is normal, will consider this referral to neurology for evaluation and resume his immunotherapy most likely on Friday. On the other hand if CT scan shows brain mets, then will hold his immunotherapy and refer him to radiation oncology. Signed By: Ky Perez M.D. <<Signature on File>>
--- NOTE | 2019-12-08 14:29 | CTR_ITS ---
PROCEDURE INFORMATION: Exam: CT Head Without And With Contrast Exam date and time: 12/08/2019 2:30 PM Age: 69 years old Clinical indication: Pain; Patient HX: Headache with vomiting today. History of small cell lung cancer with metastasis to brain. ; Additional info: Headache/vomiting TECHNIQUE: Imaging protocol: Computed tomography of the head without and with intravenous contrast. Radiation optimization: All CT scans at this facility use at least one of these dose optimization techniques: automated exposure control; mA and/or kV adjustment per patient size (includes targeted exams where dose is matched to clinical indication); or iterative reconstruction. Contrast material: OMNI 300; Contrast volume: 95 ml; Contrast route: INTRAVENOUS (IV); COMPARISON: No relevant prior studies available. RADIATION DOSE METRICS: Total DLP (mGy-cm): 1173.89 FINDINGS: Brain: There are findings of intracranial metastatic disease, consistent with the reported clinical history. The largest lesions are in the cerebellum, largest in the left superior cerebellum measuring 4.5 x 3.7 x 2.4 cm. The right cerebellar lesion measures 2.7 x 2.5 x 2.3 cm. Smaller lesions are seen in the right frontal lobe, measuring 2.4 x 2.4 x 2.1 cm and at the left frontoparietal junction measuring 2.0 x 1.5 x 1.7 cm. Each of these lesions is peripherally enhancing, with central necrosis. Precontrast imaging demonstrates areas of mineralization within the larger lesions. There is no overt intracranial hemorrhage. The dominant lesion in the left cerebellum exhibits mass effect on the left dorsal lateral mark. There is a rightward shift of the cerebellum, with rightward displacement of the 4th ventricle. No abnormal extra-axial fluid collections are identified. Ventricles: No hydrocephalus is seen at this time. Bones/joints: Unremarkable. No acute fracture. Sinuses: The visualized sinuses are unremarkable. Mastoid air cells: There is no mastoid effusion detected. CT/CT head wo/w con [id number] IMPRESSION: Multiple intra-axial metastatic lesions, largest in the left cerebellum, as described above. Radiation Dose CTDIVOL = (mGy): DLP = 1173.89 (mGy-cm)
[2019-12-08] MEDS: iohexol 300 mg/mL 100 mL Btl IV (14:55)
--- NOTE | 2019-12-09 | CT_ITS ---
Radiation Therapy Planning CT images; total exam DLP: 522.38 mGy-cm MTDD
--- NOTE | 2019-12-13 09:03 | ONCRAD EPV_ITS ---
Radiation Oncology Established Patient Visit Patient: Tung MR#: [id number] : 1950> Age: 69> Sex: Male> Dictated by: Dr. Jacob Mccall Date of Service: 12/09/2019 Referring Physician(s) : Ky Perez M.D. Diagnosis: C77.1 - Secondary and unspecified malignant neoplasm of intrathoracic lymph nodes, Diagnosed 10/05/2019 (Active) C34.11 - Malignant neoplasm of upper lobe, right bronchus or lung, Diagnosed 10/28/2018 (Active) Radiotherapy to Date: Course: Axilla [id number], Treatment Site: R [facility] SBRT, Ref. ID: [id number], Energy: 6X, Dose/Fx (cGy): 1,400, #Fx: 3 / 3, Dose Correction (cGy): 0, Total Dose (cGy): 4,200,Start Date: 07/21/2019, End Date: 07/26/2019, Elapsed Days: 5 Treatment Site: BrainSRS, Ref. ID: [email or web address], Energy: 6X, Dose/Fx (cGy): 2,000, #Fx: 1 / 1, Dose Correction (cGy): 0, Total Dose (cGy): 2,000, Start Date: 05/06/2019, End Date: 05/06/2019, Elapsed Days: 0 Treatment Site: Liver SBRT, Ref. ID: [id number], Energy: 6X, Dose/Fx (cGy): 1,400, #Fx: 3 / 3, Dose Correction (cGy): 0, Total Dose (cGy): 4,200, Start Date: 07/28/2019, End Date: 08/03/2019, Elapsed Days: 6 Treatment Site: RT [id number], Ref. ID: [id number], Energy: 15X/6X, Dose/Fx (cGy): 250, #Fx: 20 / 20, Dose Correction (cGy): 0, Total Dose (cGy): 5,000, Start Date: 04/07/2019, End Date: 05/04/2019, Elapsed Days: 27 Chief Complaint / History of Present Illness: Mr. He is a 69-year-old man with extensive stage small cell carcinoma of the lung. He has had extensive treatment, both with chemotherapy and radiation therapy. He has received SRS to a single right frontal lobe brain metastasis, thorax radiation, SBRT to the liver, and SBRT to the axilla. About 2 weeks ago Mr. He began experiencing headaches, nausea, and altered gait. He had a CT of the head performed 12/08/2019. He has 4 brain metastases. There are 2 in the cerebellum, one measuring 4.5 x 3.7 x 2.4 cm and another measuring 2.7 x 2.5 x 2.3 cm. There is a lesion in the right frontal lobe that measures 2.4 x 2.4 x 2.1 cm. There is mass in the left frontoparietal area that measures 2.0 x 1.7 x 1.5 cm. In reviewing the patient's prior MR and the current CT, the right frontal lobe brain metastasis that was previously treated with SRS appears controlled. The lesion seen now appears new. A prescription for dexamethasone has been called to the patient's pharmacy. He has not picked up the medication yet. He comes in for discussion of the situation and simulation for whole brain treatment. Current Medications: [facility], allopurinol, aspirin, atezolizumab, chantix, chantix, chantix Starting Month , citalopram Hydrobromide, dexamethasone, eMLA, isosorbide Dinitrate, lisinopril, magic Mouthwash, melatonin, metoprolol Succinate, nitroglycerin, omeprazole, omeprazole, pravastatin Sodium, prochlorperazine Maleate, prochlorperazine Maleate, traZODone HCl. Allergies: No Known Allergies Current Complaints / Review of Systems: . Vital Signs: Performed on 12/09/2019 9:27 AM Height - 68.00 in, Weight - 143.8 lbs (high), BSA - 1.78 sq.m, BMI - 21.86, Temperature - 98.3 f (low), Pulse - 70 /min, Respiration - 17 /min, O2 Sat - 99 %, Pain - 2 and BP - 162/ 103 mm(hg)(high). Physical Exam: General: Alert and oriented x 3. No acute distress. HEENT: Normocephalic, atraumatic. Extraocular Movements Intact: Oral cavity is clear without lesions, masses or ulcers. NECK: Supple without supraclavicular or jugular lymphadenopathy. LUNGS: Clear to auscultation bilaterally without rales, rhonchi or wheeze. HEART: Regular rate and rhythm, normal S1 and S2 without murmur, gallop or rub. MUSCULOSKELETAL: No tenderness or percussion pain over the axial skeleton, scapulae or pelvis. Abdomen soft, nontender. No organomegaly or mass. NEUROLOGIC: Cranial nerves II ???XII are grossly intact. Normal sensation, strength 5/5 in all extremities, altered gait, using a walking stick. He needed assistance to get on the exam table.. Performance Status: KPS: 60 Lab: None pending. Test performed on 10/27/2019 12:00 PM Manual Monocytes Abs - 0.8 10 3/cmm (high), Test performed on 11/17/2019 11:44 AM HCT - 40.5 % (low), MCV - 96.2 fl (high), Lymphocytes - 0.7 10 3/ul (low), Monocytes - 1.1 10 3/ul (high), Manual Monocytes - 22.1 % (high) and Protein, Total - 6.1 g/dl (low). 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 Imaging: See HPI Impression: Multiple new brain metastases secondary to extensive stage small cell carcinoma of the lung. I emphasized to Mr. He that he needs to get started on the dexamethasone which was called to his pharmacy. He said he would get it today. I discussed palliative whole brain radiation. I discussed the side effects such as fatigue, decreased appetite, skin reaction, and hair loss. Also discussed with him loss of memory and delayed thought processing, such as being slower and making decisions. There is no evidence of radiation necrosis in the area where he had prior SRS. Therefore, adding whole brain radiation at this time should not increase the risk of complications. Mr. He wishes to proceed with treatment. Simulation will be formed performed today. He will get his dexamethasone from the drugstore and get started on it today. He may need assistance with transportation. Signed by: 12/13/2019 9:02:11 AM <<Signature on File>> Time spent with patient: CPT Code: CPT Code:
--- NOTE | 2019-12-14 16:15 | ONCRAD TMN_ITS ---
Radiation Oncology Weekly Treatment Management Patient: Jean He MR#: [id number] : 1950> Age: 69> Sex: Male Dictated by: Dr. Marck Mccall Date of Service: 12/14/2019 Referring Physician(s) : Ky Perez M.D. Diagnosis: C79.31 - Secondary malignant neoplasm of brain, Diagnosed 12/09/2019 (Active) C77.1 - Secondary and unspecified malignant neoplasm of intrathoracic lymph nodes, Diagnosed 10/05/2019 (Active) C34.11 - Malignant neoplasm of upper lobe, right bronchus or lung, Diagnosed 10/28/2018 (Active) Radiotherapy to date: Course: [id number], Treatment Site: WholeBrain, Ref. 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 got his dexamethasone and is taking it every 6 hours. He has had some improvement in his headaches. He is having some episodes of nausea, frequently in the morning. This may be related to the posterior fossa metastases. He has 2 different nausea medications to use if needed. He walks with a walking stick. He is off balance without it. He states he has no problem in his home because it is small and he can reach various items of furniture to help balance himself if needed. He is eating well since starting the steroids. His weight is up 3.2 pounds. He has had no sore mouth or sore throat. He mentioned to our nurse sadness and anger over the diagnosis. I discussed that with him. He does seem somewhat sad. His spiritual matters are private with God. He does not desire to be involved in orthodoxy. He has a friend less than 1/4 mile away that he talks to frequently. He has no family in the area. The only family he mentioned was his sister near [facility]. He is sad, but I do not feel that he needs any intervention at this time. Mr. He is a 69-year-old gentleman with recent history of progressive right neck mass. He underwent CT scan of chest on 10/12/2018 showed multifocal neoplasm of right upper lobe and extensive bulky right paratracheal, superior mediastinal, right suprahilar, right supraclavicular lymphadenopathy associated with mild compression of severe vena cava and the right internal jugular vein and additional involvement of AP window and subcarinal azygoesophageal recess. No liver or adrenal involvement. Patient was referred to Dr. 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 And immunohistochemistry was positive for NSE, synaptophysin, CD 56. CT PET scan done on 11/28/2018 showed extensive disease e.g. single metastases to the liver and MRI scan of brain done on 11/25/2018 showed left frontal subcortical metastatic lesion and is any enhancing metastatic lesion in the inferior subcortical white matter of right frontal lobe He began treatment with carboplatin/etoposide and Tecentriq on 11/24/2018. 55+ year history of smoking still active, Follow-up CT PET scan done after3 cycles of carboplatin and etoposide and Tecentriq done On 01/30/2019 Showed good response, marked interval improvement in right upper lobe carcinoma Interval improvement in mediastinal lymphadenopathy Interval improvement in right level IV cervical lymph node Resolution of hepatic metastatic disease MRI head done on 01/15/2019 showed decrease in size left frontal subcortical white matter metastatic lesion when compared with scan done on 11/25/2018 No new enhancing metastatic lesion seen. On 03/12/2019 patient Completed 5 cycles of chemotherapy with carboplatin and etoposide with last two , tecentriq was added. consolidation with radiation therapy to rt chest Was given from 04/07/2019 to 05/04/2019 [facility]. Maintenance therapy with atezolizumab was recommended and he began his first cycle on 06/02/2019. He has tolerated it well. CT PET scan done on 07/03/2019 showed no change in the FDG negative right upper lobe nodule, consistent with treated primary; Interval resolution of right supra clavicular and mediastinal lymph nodes; New malignant appearing right axilla lymph node and recurrence of unifocal hepatic metastatic disease. Mr He was seen by radiation oncology in regards to the right axilla lymph node and radiation was recommended- SB RT to right axilla. He received SBRT from 07/21/2019 till 07/26/2019 and also received SB RT to this solitary liver metastases from 07/28/2019 through 08/03/2019. The immunotherapy with any tecentriq was put on hold after second dose which was given on 06/23/2019 because of risk of increased toxicity with concurrent radiation therapy e.g. SB RT. as per radiation oncology recommendation. resumed his immunotherapy with 3 weekly Tecentriq 1200 mg , on 08/25/2019. Follow-up CT scan of chest/abdomen/pelvis from 09/10/2019 showed right upper lobe lesion is probably residual scar. Diffuse emphysema. No acute intra-abdominal or pelvic abnormality. He has continued the Tecentriq and has now completed a total of 6 cycles. He is tolerating it well. Came for follow-up, complaining of lightheaded dizziness for the last 2 weeks also off balance but no fall, off and on nausea vomiting, headache but no focal weakness, no fever chills, denies any trauma to his head. Denies any blurred vision or double vision. Denies any mouth sores or melena or hematochezia, denies any ear problem. Denies any sinus problem. Denies any skin rash, denies any shortness of breath or wheezing, denies any diarrhea or constipation Current Medications: [facility], allopurinol, aspirin, atezolizumab, chantix, chantix, chantix Starting Month [place], citalopram Hydrobromide, dexamethasone, eMLA, isosorbide Dinitrate, lisinopril, magic Mouthwash, melatonin, metoprolol Succinate, nitroglycerin, omeprazole, omeprazole, pravastatin Sodium, prochlorperazine Maleate, prochlorperazine Maleate, traZODone HCl. Allergies: No Known Allergies Current Complaints/Review of Systems: Constitutional - Complains of fatigue. Denies lack of appetite, fever, night sweats and rigors / chills. Eyes - Complains of blurred vision in both eyes off and on. Denies double vision. ENMT - Complains of altered taste. Denies stomatitis. Gastrointestinal - Complains of nausea and vomiting. Neurologic - Complains of intermittent dizziness. Complains of abnormal gait in which he feels off balanced with walking. Complains of headaches occurring intermittently throughout the day but they are improving. Complains of insomnia. Psychiatric - Complains of depression related to the CA diagnosis. Vital Signs: Performed on 12/14/2019 3:36 PM BMI - 22.351 kg/m2, Height - 68.00 in, Weight - 147.0 lbs, Temperature - 98.6 f, Pulse - 69, Respiration - 20, O2 Sat - 97 %, Pain - 2 and BP - 163/ 92 mm(hg)(high). Physical Exam: Appears stable, no skin erythema or desquamation. Alert oriented in no acute distress. He has no yeast in the oral cavity. He arises from a chair without difficulty and is steady walking with a walking stick. Performance Status: 1 - No physically strenuous activity, but ambulatory and able to carry out light or sedentary work (e.g. office work, light house work). (ECOG) Lab: None pending in Radiation Oncology. Test performed on 10/27/2019 12:00 PM Manual Monocytes Abs - 0.8 10 3/cmm (high), Test performed on 11/17/2019 11:44 AM Manual Monocytes - 22.1 % (high), Test performed on 12/08/2019 11:52 AM Cr Clearance (Est) - 65.23 ml/min (low) and eGFR - 74.3 ml/min (low). Imaging: No new diagnostic imaging was performed since the last weekly treatment visit. All radiation therapy related imaging (including but not limited to kV, MV, and CBCT generated images) was reviewed. Appropriate changes, if any, were made to assure accurate target localization. Impression/Plan: Tolerating treatment well with expected side effects. Continue treatment as planned. Continue the dexamethasone. He was told to speak up with the staff if he develops a sore mouth. He already has nausea medicine to take if needed. CPT: 61342 Signed by: Dr. Marck Mccall>12/14/2019 4:13:49 PM <<Signature on File>>
== END 2019-12-14 23:59 | disposition home or self-care (01) ==
LOC: ONCMED 06:53
PROVIDERS: Internal Medicine Hematology & Oncology; PCP Nurse Practitioner; Referring Provider Nurse Practitioner; Visit Provider Specialist
DX: Z51.12 Encounter for antineoplastic immunotherapy (principal); Z51.0 Encounter for antineoplastic radiation therapy; C34.11 Malignant neoplasm of upper lobe, right bronchus or lung; C77.1 Secondary and unspecified malignant neoplasm of intrathoracic lymph nodes; C79.31 Secondary malignant neoplasm of brain; E78.2 Mixed hyperlipidemia; G47.00 Insomnia, unspecified; I10 Essential (primary) hypertension; I25.10 Atherosclerotic heart disease of native coronary artery without angina pectoris
CPT/HCPCS: 36591; 70470; 77290; 77307; 77334; 77387; 77412; 80053; 84443; 85025; 96375; 96413; 99213; 99214; C9113; J7050; J9022

== ENCOUNTER 2019-12-28 06:49 | Outpatient (RCR) | payer MEDICARE, MEDICAID, SELFPAY ==
--- NOTE | 2019-12-15 | USCV_ITS ---
Jean He Age: 69 Gender: M : 1950 Exam Date: 12/15/2019 14:08 Ordering Phys: Karlee Jamil NP Technologist: Exam Location: [facility] [place]_ Indication: leg pain RIGHT LEFT Brachial 166.00 mmHg Brachial 153.00 mmHg Pressure (mmHg) Waveform Pressure (mmHg) Waveform 139.00 HOSPITAL FELLOW 142.00 136.00 DPA 131.00 0.84 Ankle/Brachial Index 0.86 0.39 Post-Exercise Ankle Brachial Index 0.51 FINDINGS Diminished resting ABIs bilaterally Significantly diminished post exercise ABIs bilaterally, more so on the right side CONCLUSIONS 1. Features of possibly severe peripheral artery disease on the right side 2. Features of moderate peripheral artery disease on the left side Dr Noel Pena MD [facility] (Electronically Signed) Final Date: 16 December 2019 09:19 S
--- NOTE | 2019-12-21 19:47 | ONCRAD TMN_ITS ---
Radiation Oncology Weekly Treatment Management Patient: Jean He MR#: [id number] : 1950 Age: 69 Sex: Male Dictated by: Dr. Ramy Cervantes Date of Service: 12/21/2019 Referring Physician(s) : Ky Perez M.D. Diagnosis: C79.31 - Secondary malignant neoplasm of brain, Diagnosed 12/09/2019 (Active) C77.1 - Secondary and unspecified malignant neoplasm of intrathoracic lymph nodes, Diagnosed 10/05/2019 (Active) C34.11 - Malignant neoplasm of upper lobe, right bronchus or lung, Diagnosed 10/28/2018 (Active) Radiotherapy to date: Course: [id number], Treatment Site: WholeBrain, Ref. ID: WholeBrain, Energy: 15X/6X, Dose/Fx (cGy): 300, #Fx: , Dose Correction (cGy): 0, Total Dose (cGy): 1,800, Start Date: 12/13/2019, Elapsed Days: 8 Chief Complaint/History of Present Illness: The patient reports persistent moderate fatigue, but no progressive headache or diminished vision. Current Medications: [facility], allopurinol, aspirin, atezolizumab, chantix Starting Month , citalopram Hydrobromide, dexamethasone, eMLA, isosorbide Dinitrate, lisinopril, magic Mouthwash, melatonin, metoprolol Succinate, nitroglycerin, omeprazole, omeprazole, pravastatin Sodium, prochlorperazine Maleate, prochlorperazine Maleate, traZODone HCl. Allergies: No Known Allergies Current Complaints/Review of Systems: Constitutional - Complains of moderate fatigue. Denies lack of appetite, fever and night sweats. Eyes - Complains of blurred vision occasionally in both eyes. Complains of photophobia associated with all bright light sources. Denies double vision. ENMT - Complains of altered taste. Denies ear pain and stomatitis. Gastrointestinal - Complains of nausea off and on. Denies heartburn / dyspepsia and vomiting. Neurologic - Complains of disorientation. Complains of intermittent dizziness. Complains of abnormal gait in which he feels unsteady with walking. Complains of mild headaches occurring intermittently throughout the day which is improving. Denies insomnia. Vital Signs: Performed on 12/21/2019 3:42 PM BMI - 22.747 kg/m2, Height - 68.00 in, Weight - 149.6 lbs, Temperature - 98.8 f, Pulse - 61, Respiration - 18, O2 Sat - 97 %, Pain - 2 and BP - 158/ 84 mm(hg)(high/). Physical Exam: Appears stable, no skin erythema or desquamation. Performance Status: 2 - Ambulatory/capable of all self-care, unable to perform any work activities. Up and about more than 50% of waking hours. (ECOG) Lab: None pending in Radiation Oncology. Imaging: No new diagnostic imaging was performed since the last weekly treatment visit. All radiation therapy related imaging (including but not limited to kV, MV, and CBCT generated images) was reviewed. Appropriate changes, if any, were made to assure accurate target localization. Impression/Plan: Tolerating treatment well with expected side effects. Continue treatment as planned. CPT: 79348 Signed by: Dr. Ramy Cervantes>12/21/2019 7:45:26 PM <<Signature on File>>
== END 2020-01-14 23:59 | disposition home or self-care (01) ==
LOC: ONCMED 06:49
PROVIDERS: PCP Nurse Practitioner; Referring Provider Nurse Practitioner; Visit Provider Radiology Radiation Oncology
DX: Z51.0 Encounter for antineoplastic radiation therapy (principal); C79.31 Secondary malignant neoplasm of brain; C77.1 Secondary and unspecified malignant neoplasm of intrathoracic lymph nodes; C34.11 Malignant neoplasm of upper lobe, right bronchus or lung; M79.604 Pain in right leg; I73.9 Peripheral vascular disease, unspecified
CPT/HCPCS: 77336; 77387; 77412; 93922

== ENCOUNTER → 2020-02-01 10:32 | Outpatient (BNVA) | payer MEDICARE, MEDICAID, SELFPAY | PROVIDERS: PCP Nurse Practitioner; Visit Provider Nurse Practitioner Family | DX: E78.2 Mixed hyperlipidemia (principal); I10 Essential (primary) hypertension; F41.9 Anxiety disorder, unspecified; F32.9 Major depressive disorder, single episode, unspecified; G47.00 Insomnia, unspecified; I25.10 Atherosclerotic heart disease of native coronary artery without angina pectoris; C34.90 Malignant neoplasm of unspecified part of unspecified bronchus or lung | CPT/HCPCS: 80053; 80061; 84443; 85025 ==

== ENCOUNTER 2020-02-02 05:56 | Outpatient (RCR) | payer MEDICARE, MEDICAID, SELFPAY ==
--- NOTE | 2020-01-26 15:39 | ONCRAD EPV_ITS ---
Radiation Oncology Established Patient Visit Patient: Neri Pena [id number] : 1950> Age: 69> Sex: Male> Dictated by: Dr. Ramy Cervantes Date of Service: 01/26/2020 Referring Physician(s) : Ky Perez M.D. Diagnosis: The patient has extensive stage anaplastic small cell lung cancer originating in the right upper lobe of lung (first diagnosed 10/2018). He is status post extensive chemotherapy and radiation therapy to multiple sites. Radiotherapy to Date: Treatment Site: R Axilla SBRT, Ref. ID: AxillaSBRT, Energy: 6X, Dose/Fx (cGy): 1,400, #Fx: 3 / 3, Dose, Total Dose (cGy): 4,200, Start Date: 07/21/2019, End Date: 07/26/2019, Elapsed Days: 5 Treatment Site: BrainSRS, Ref. ID: BrainSRS, Energy: 6X, Dose/Fx (cGy): 2,000, #Fx: 1 / 1, Total Dose (cGy): 2,000, Start Date: 05/06/2019, End Date: 05/06/2019, Elapsed Days: 0 Treatment Site: Liver SBRT, Ref. ID: LiverSBRT, Energy: 6X, Dose/Fx (cGy): 1,400, #Fx: 3 / 3, Total Dose (cGy): 4,200, Start Date: 07/28/2019, End Date: 08/03/2019, Elapsed Days: 6 Treatment Site: RT [id number], Ref. ID: [id number], Energy: 15X/6X, Dose/Fx (cGy): 250, #Fx: 20 / 20, Total Dose (cGy): 5,000, Start Date: 04/07/2019, End Date: 05/04/2019, Elapsed Days: 27 Treatment Site: WholeBrain, Ref. ID: WholeBrain, Energy: 15X/6X, Dose/Fx (cGy): 300, #Fx: 10 / 10, Total Dose (cGy): 3,000, Start Date: 12/13/2019, End Date: 12/28/2019,Elapsed Days: 15 Current History: The patient reports no progressive headaches, no seizures and no persistent blurred vision (i.e., only when reading). The patient noted no nausea, headaches, or numbness/tingling after discontinuing dexamethasone therapy last month. However, he does report nausea with his morning coffe (relieved with an izabella-seltzer tablet and +/- anti-emetics). Furthermore, he also has new low back pain after picking up is small lap dog. Current Medications: [place], allopurinol, aspirin, atezolizumab, chantix Starting Month , citalopram Hydrobromide, dexamethasone, eMLA, isosorbide Dinitrate, lisinopril, magic Mouthwash, melatonin, metoprolol Succinate, nitroglycerin, omeprazole, omeprazole, pravastatin Sodium, prochlorperazine Maleate, prochlorperazine Maleate, traZODone HCl. Allergies: No Known Allergies Current Complaints / Review of Systems: Constitutional - Complains of a moderate appetite Grazing appetite, not full meals.. Complains of fatigue and this condition is improving Rates 4 to 6 out of 10.. Denies fever, night sweats and rigors / chills. Eyes - Complains of blurred vision Blurred with reading only.. Denies double vision and photophobia. 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 Complains of mouth dryness Gums are tender with chewing, eating soft foods.. Denies dysphagia, ear pain, epistaxis, oral bleeding, sputum production, stomatitis, altered taste and tinnitus. Integumentary - Complains of bruising Bruises easily.. Complains of moderately dry skin. Complains of rash Rash to forehead since brain radiation started, rash is improving, flares up off and on, using Aquaphor cream.. Denies urticaria. Cardiovascular - Denies arrhythmias, chest pain, dyspnea, edema, orthopnea and palpitations. Gastrointestinal - Complains of heartburn / dyspepsia Managed with medication. and nausea Reports nausea most mornings with dry heaves while drinking his morning coffee.. Denies abdominal pain, change in bowel habits, constipation, diarrhea, hematochezia, hemorrhoids, melena / GI bleeding, pain / cramping and vomiting. Neurologic - Complains of dizziness Occurs off and on with activity and occasional upon standing., abnormal gait Gait is slow, unable to stand up straight today due to bakc discomfort started last night., headaches Occuring mild or moderate, two or three times per week., insomnia Reports taking evening medications plus melatonin to help with sleep. May also use a, shot of whiskey if I have it available. Sleeping 3 to 4 hours at a time, wakes up frequently. and motor weakness Numbness across the left hand first three digits.. Denies disorientation, sensory problems, paralysis, seizure and stroke.. Vital Signs: Performed on 01/26/2020 2:04 PM BMI - 21.713 kg/m2, Height - 68.00 in, Weight - 142.8 lbs, Temperature - 98.3 f, Pulse - 66, Respiration - 17, O2 Sat - 98 %, Pain - 6, Fatigue - 6 and BP - 119/ 82 mm(hg). Physical Exam: General: Alert and oriented x 3. No acute distress. HEENT: Normocephalic, atraumatic. Extraocular Movements Intact: Pupils Equal, Round, Reactive to Light and Accommodation: Sclerae anicteric. Oral cavity is clear without lesions, masses or ulcers. NECK: Supple without supraclavicular or jugular lymphadenopathy. LUNGS: Clear to auscultation bilaterally without rales, rhonchi or wheeze. Point tenderness in the L/S spine is appreciated. HEART: Regular rate and rhythm, normal S1 and S2 without murmur, gallop or rub. MUSCULOSKELETAL: No tenderness or percussion pain over the axial skeleton, scapulae or pelvis. ABDOMEN: Soft, nontender, nondistended without masses or organomegaly. Bowell sounds are present. EXTREMITIES: No peripheral edema is identified. Limited motor and sensory examination are grossly intact and symmetric bilaterally. NEUROLOGIC: Cranial nerves II ???XII are grossly intact. Normal sensation, strength 5/5 in all extremities, normal gait, no ataxia. Performance Status: 2 - Ambulatory/capable of all self-care, unable to perform any work activities. Up and about more than 50% of waking hours. (ECOG) Lab: None pending. Test performed on 10/27/2019 12:00 PM Manual Monocytes Abs - 0.8 10 3/cmm (high), Test performed on 11/17/2019 11:44 AM Manual Monocytes - 22.1 % (high), Test performed on 12/08/2019 11:52 AM Cr Clearance (Est) - 65.23 ml/min (low) and eGFR - 74.3 ml/min (low). 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 Imaging: See HPI Impression: The patient is a 69-year-old male with extensive stage anaplastic small cell carcinoma of the lung which was diagnosed 10/2018. He has had extension treatment with systemic therapy as well as receiving palliative radiation therapy to multiple site. Specifically, he has received SRS to a single right frontal lobe brain metastasis, consolidative radiation to the lung, SBRT to the liver, SBRT to the right axilla, and most recently he completed whole brain radiation therapy (see above for details). He was weaned off of dexamethasone without difficulty. His most prominent complaint today is back pain that he experienced while picking up his small dog. A pathologic fracture is suspected. I offered pain medication and the patient reluctantly accepted. Plan: -) MRI brain to evaluate treatment response. -) MRI L/S spine due to new pain in his low back - rule out metastasis. [place] 7.5/325 was prescribed. -) Follow up with Radiation Oncology after the above studies are complete. Signed by: 01/26/2020 3:37:51 PM <<Signature on File>> Time spent with patient: CPT Code: CPT Code:
--- NOTE | 2020-01-31 10:19 | MR_ITS ---
WS: [id number] MRI LUMBAR SPINE WITH AND WITHOUT CONTRAST HISTORY: Malignant NEOPLASM UPPER LOBE RT BRONCHUS LUNG, back pain. COMPARISON: None available. TECHNIQUE: Sagittal and axial multisequence imaging is submitted. Low signal in the superior endplate of T11 does not enhance. On the STIR sequence this is of low sign al and may be from a remote Schmorl's node. L5 anterolisthesis by 6 mm. L3 retrolisthesis by 4 mm. Mild disc space narrowing and osteophytes. Conus terminates normally at T12-L1. L1-L2: Mild osteophytic ridging and annular disc bulging. Mild subarticular recess encroachment with no significant stenosis. L2-L3: Mild osteophytic ridging and annular disc bulging. Mild ligamentum flavum arthritis and facet arthropathy. Mild encroachment upon the subarticular recesses and foramen. Mild facet joint arthritis . L3-L4: Diffuse annular disc bulging with a central disc protrusion and annular fissure. There is mild contact on the RIGHT L4 nerve root in the subarticular recess. Lesser contact on the LEFT L4 nerve r oot. Mild central and bilateral subarticular recess and foraminal stenosis. L4-L5: Mild facet arthritis. No significant stenosis. L5-S1: Mild annular disc bulging and facet arthritis. Facet joint arthritis and osteophytes encroach into the foramen bilaterally along with the anterolisthesis of L5. Moderate bilateral foraminal steno sis. Atherosclerosis throughout the abdominal aorta with no aneurysm. Postcontrast images are negative for enhancement in the vertebral bodies. No epidural abscess. No met astatic disease is identified within the bones. There is mild facet joint arthritis on the LEFT at L1 -2 with enhancement. Mild LEFT facet joint enhancement on the LEFT at L4-5. Prostate gland enlargement encroaching into the posterior urinary bladder is incompletely visualized. MR/MR lumbar spine wo/w con [id number] IMPRESSION: 1. There is no evidence for metastatic disease to the lumbar spine. 2. Mild synovial enhancement involving the LEFT facet joints at L1-2 and L4-5. 3. Grade 1 anterolisthesis of L5 resulting in moderate bilateral foraminal elizabeth nosis at L5-S1. 4. No significant central stenosis. 5. Mild central and bilateral subarticular recess and foraminal stenosis at L3 -4.
--- NOTE | 2020-01-31 10:19 | MR_ITS ---
WS: [id number] MRI BRAIN WITH AND WITHOUT CONTRAST HISTORY: Malignant NEOPLASM UPPER LOBE, RIGHT BRONCHUS/LUNG COMPARISON: 06/25/2019 and 12/08/2019 TECHNIQUE: Multiplanar imaging performed through the brain with Prohance 13 ml's IV. Significant improvement in the intracranial metastatic lesions since 2019 and 06/25/2019. The larges t metastatic lesion in the LEFT cerebellum is ovoid in shape and measures 2.8 x 1.6 x 3.1 cm. On the precontrast sequences there is there is increased signal in the periphery. On the postcontrast sequen ce there is enhancement within the wall/periphery most significant anteriorly. No significant progres poncho. There is a smaller lesion with increased signal on the precontrast examination with a maximum d iameter 1.0 cm in the RIGHT inferior cerebellum. Significant decrease in size since 12/08/2019. There is less mass effect upon the midline structures and the fourth ventricle. Additional area of very sub tle enhancement in the cortex of the posterior LEFT parietal occipital junction has significantly dec reased in size and there is very minimal enhancement in this lesion. Residual metastatic lesion witho ut enhancement cortex of the RIGHT frontal lobe. Minimal persistent enhancement 6 mm metastatic lesio n in the RIGHT frontal lobe, inferior. No acute infarcts. There is a small hemorrhagic components to the cerebellar lesions. Paranasal sinuses: Well aerated with no significant disease. Mastoid air cells: Normal. Calvarium and scalp: Normal. MR/MR head wo/w con [id number] IMPRESSION: 1. Overall there has been a significant improvement in the metastatic lesions bilaterally. 2. Mild peripheral enhancement in the LEFT cerebellar metastatic lesion remain s. No enhancement within the RIGHT cerebellar lesion. 3. Minimal enhancement but significant decrease in size of the LEFT parieto-oc cipital junction metastatic site. 4. Minimal persistent enhancement metastatic lesion inferior RIGHT frontal lob e measures 6 mm. 5. Significant decrease in size of the RIGHT frontal lobe metastatic lesion wi thout enhancement.
== END 2020-02-14 23:59 | disposition home or self-care (01) ==
LOC: ONCMED 05:56
PROVIDERS: PCP Nurse Practitioner; Referring Provider Nurse Practitioner; Visit Provider Radiology Radiation Oncology
DX: C79.31 Secondary malignant neoplasm of brain (principal); C34.11 Malignant neoplasm of upper lobe, right bronchus or lung; M48.07 Spinal stenosis, lumbosacral region
CPT/HCPCS: 70553; 72158; A9579

== ENCOUNTER 2020-05-05 09:03 | Outpatient (RCR) | payer MEDICARE, MEDICAID, SELFPAY ==
--- NOTE | 2020-05-05 09:07 | MR_ITS ---
WS: [id number] MRI BRAIN WITH AND WITHOUT CONTRAST HISTORY: RE-STAGING Evaluation; lung CA; malignant NEOPLASM OF BRAIN COMPARISON: 01/31/2020 TECHNIQUE: Multiplanar imaging performed through the brain with MultiHance 20 ml's IV. No acute infarcts are seen. Weavre-white matter differentiation is well preserved. RIGHT cerebellar mass is unchanged in size. No enhancement. There is increased signal in the peripher y on the T1 and T2 sequences. No enhancement. The large cystic mass with peripheral enhancement in th e LEFT cerebellum is unchanged in size. The extent of the peripheral enhancement has decreased. There is also a small amount of peripheral nodularity with the largest nodule medially measuring 8 mm. Persistent and peripheral enhancement in the RIGHT frontal lobe metastatic lesion measures 7 mm. Very minimal increase in size since 01/31/2020. Mild persistent enhancement in the posterior LEFT parietal cortex but overall decreased in intensity. No mass effect. No new lesions are identified. No enhance ment within the previously described necrotic metastatic lesion towards the RIGHT frontal vertex. Paranasal sinuses: Well aerated with no significant disease. Mastoid air cells: Mild bilateral mastoid air cell effusions. Calvarium and scalp: Normal. MR/MR head wo/w con [id number] IMPRESSION: 1. No new enhancing metastatic lesions. 2. Improved but persistent nodular peripheral enhancement in the LEFT cerebell ar metastatic lesion. 3. Minimal persistent enhancement in the RIGHT frontal lobe lesion with very s light increase in size since 01/31/2020. 4. Persistent but improved enhancement posterior LEFT parietal cortex metastat ic lesion.
== END 2020-05-15 23:59 | disposition home or self-care (01) ==
LOC: ONCMED 09:03
PROVIDERS: PCP Nurse Practitioner; Referring Provider Nurse Practitioner; Visit Provider Radiology Radiation Oncology
DX: C34.11 Malignant neoplasm of upper lobe, right bronchus or lung (principal); C79.31 Secondary malignant neoplasm of brain; C77.1 Secondary and unspecified malignant neoplasm of intrathoracic lymph nodes; Z45.2 Encounter for adjustment and management of vascular access device; Z79.899 Other long term (current) drug therapy
CPT/HCPCS: 70553; 96523

== ENCOUNTER 2020-06-06 11:44 | Inpatient (IN) | payer MEDICARE, MEDICAID, SELFPAY ==
[2020-06-06] VITALS (27 sets, daily range): BP systolic 93–125; BP diastolic 60–88; PULSE 77–111; RESP 15–27; TEMP 36.4–37.1; O2SAT 95–100; BMI 20.2
--- NOTE | 2020-06-06 11:53 | ECG_ITS ---
[facility] Test Date: 2020-06-06 Pat Name: Jean He Department: Room: Gender: Male [employer]: : 1950 Requested By: Brit Benitez Order Number: [id number] Tucker MD: Dusty Jara M.D. Measurements Intervals [place] Rate: 101 P: 68 NE: 178 QRS: 52 QRSD: 141 T: 1 QT: 350 QTc: 455 Interpretive Statements SINUS TACHYCARDIA INTRAVENTRICULAR CONDUCTION DELAY [130+ ms QRS DURATION] Compared to ECG 10/28/2018 08:28:40 Intraventricular conduction delay now present Sinus rhythm no longer present Right bundle-branch block no longer present Electronically Signed On 06-06-2020 18:35:32 SPOT WELDER LINE by Dusty Jara M.D. [id number]
--- NOTE | 2020-06-06 11:53 | XRR_ITS ---
PROCEDURE INFORMATION: Exam: XR Chest, 1 View Exam date and time: 06/06/2020 11:57 AM Age: 70 years old Clinical indication: Dyspnea TECHNIQUE: Imaging protocol: XR of the chest Views: 1 view. COMPARISON: CT chest abd pel w con* 09/10/2019 3:14 PM FINDINGS: Lungs: Emphysema and Lungs are well aerated without a focal area of consolidation. Pleural space: Unremarkable. No pleural effusion. No pneumothorax. Heart/Mediastinum: Unremarkable. No cardiomegaly. Vasculature: Chest port via the left subclavian approach with the tip overlying the superior vena cava. Bones/joints: Unremarkable. XR/XR chest 1V portable [id number] IMPRESSION: Lungs are well aerated without a focal area of consolidation.
--- NOTE | 2020-06-06 12:24 | W.ED.SOB ---
HPI - SOB/Dyspnea General: Chief Complaint: Shortness of Breath/Dyspnea Stated Complaint: SOB/ FATIGUE/ BACK PAIN Time Seen by Provider: 06/06/20 11:47 Source: patient and EMS Mode of arrival: EMS History of Present Illness: HPI Narrative: Jean is a nice 70-year-old male who comes in with fatigue, generalized malaise, shortness of breath and cough. Patient has known lung cancer but he states it has been quite sometime since he had any treatment for this. He is not in hospice and is not in remission. Patient states his cough is productive of ahumada to brown sputum but he denies any hemoptysis. He is having urinary symptoms with dysuria. Patient denies any fevers or chills. Denies chest pain or other complaint. Patient states he is overall very weak. It was because of the combination of all the symptoms that he elected to come into the hospital to be evaluated. Patient also complains of lower abdominal pain that is made worse when he walks. Associated symptoms: Deny abdominal pain, chest congestion, chest pain, diaphoresis, dizziness, extremity pain, fever(s), hemoptysis, lightheadedness, nausea, orthopnea, palpitations, syncope or vomiting Review of Systems Const: Reports: body aches, fatigue and malaise; Denies: fever(s), chills or diaphoresis Eyes: Denies: change in vision, blurry vision, photophobia, eye discomfort, eye discharge, eye redness or yellow eyes ENMT: Denies: throat pain, odynophagia, hoarseness, swelling of lips/tongue, ear or mastoid pain, ear discharge, change in hearing or nasal discharge Card: Denies: chest pain, palpitations, irregular heart rhythm, edema, lightheadedness, syncope, pre-syncope, dyspnea on exertion or orthopnea Resp: Reports: dyspnea and productive cough; Denies: non-productive cough, wheezing, hemoptysis or chest congestion GI: Denies: abdominal pain, nausea, vomiting, hematemesis, coffee ground emesis, heartburn, diarrhea, constipation, GI cramping, hematochezia or melena : Denies: flank pain, dysuria, urinary frequency, urinary urgency or hematuria Musc: Reports: back pain; Denies: neck pain, extremity pain, extremity swelling, joint pain, joint swelling, joint redness, joint warmth or joint stiffness Skin/Breast: Denies: rash, pruritus, erythema, skin pain or skin tenderness Neuro: Denies: headache(s), numbness in extremities, weakness in extremities, sensory changes, lack of coordination, difficulty walking, dizziness, vertigo, confusion, Slurred speech present or seizure-like activity Abdirizak/Lymph: Denies: easy bruising, easy bleeding, petechiae, purpura or enlarged lymph nodes All/Imm: Denies: urticaria, throat swelling, tongue swelling, facial swelling or acute wheezing PFSH ED PFSH: Medical History Anxiety and depression ASHD (arteriosclerotic heart disease) Essential hypertension Insomnia Lung cancer Mixed hyperlipidemia Surgical History History of ankle surgery History of cranial surgery S/P hernia surgery S/P PICC central line placement Social History Smoking and tobacco status: current every day smoker cigarettes Packs smoked per day: 1 Alcohol intake: never Lives independently: Yes Housing: House Marital status: History of recent travel: No Physical Exam Const: COMMON NORMALS: no acute distress, patient oriented x3, no limitations and alert GENERAL APPEARANCE: cooperative HENMT: COMMON NORMALS: normocephalic, atraumatic, external ears normal, EAC's normal and Normal external nose present HEAD & SCALP: normal to inspection, normocephalic and atraumatic FACE & SINUS: normal facial exam and face symmetric NOSE: Normal external nose present and Normal nares present EXTERNAL EAR: Yes external ears normal EXTERNAL AUDITORY CANAL: EAC's normal MOUTH: Normal oral and palatal mucosa present, lip normal and tongue normal Eye: COMMON NORMALS: Equal, round and reactive pupils present and conjunctivae normal GENERAL EYE: appearance normal, both eyes and all related structures ALIGNMENT: Yes alignment normal PERIORBITAL: periorbital findings normal EYELID: eyelids normal CONJUNCTIVA: Yes conjunctivae normal SCLERA: sclerae normal PUPIL: Yes Equal, round and reactive pupils present Neck/C-Spine: COMMON NORMALS: full ROM, no lymphadenopathy, supple, no meningeal signs and no JVD GENERAL: Yes normal visual inspection and Yes trachea midline Chest: COMMONS NORMALS: normal inspection of the chest and normal palpation of entire chest wall Resp: COMMON NORMALS: normal respiratory effort, No retractions and No use of accessory muscles EFFORT & INSPECTION: Yes able to speak in complete sentences and Yes symmetric chest movement AUSCULTATION: no crackles, no rales, rhonchi, wheezes and diminished lung sounds Cardio: COMMON NORMALS: no JVD, regular rate, regular rhythm, S1 normal heart sound present and S2 normal heart sound present RATE: regular rate RHYTHM: regular rhythm HEART SOUNDS: S1 normal heart sound present, S2 normal heart sound present, no click, no gallops, no murmurs and no rubs GI: COMMON NORMALS: No hepatosplenomegaly present PALPATION: Yes Tenderness to palpation present (GI) (Severe diffusely with signs of peritonitis.), No Guarding due to palpation present (GI), No Rigid due to palpation, Yes No hepatosplenomegaly present, No Hernia present, No Palpable mass present and No Pulsatile mass present : COMMON NORMALS: Yes no CVA tenderness BLADDER/KIDNEY EXAM: Yes no CVA tenderness Back/Pelvis: COMMON NORMALS: no CVA tenderness, thoracic and lumbar spine normal to inspection, no thoracic nor lumbar tenderness and thoraco-lumbar ROM normal Extremity: COMMON NORMALS: normal to inspection, full ROM, capillary refill normal, no joint enlargement, no clubbing, cyanosis or edema and no calf tenderness Neuro: COMMON NORMALS: patient oriented x3, CN's II-XII intact bilaterally, moves all extremities, no focal motor deficits and no sensory deficits noted SENSORIUM/ORIENTATION: Yes alert MENINGEAL SIGNS: Yes no meningeal signs SPEECH: speech normal Psych: COMMON NORMALS: mental status grossly normal, Normal thought process present, cooperative, normal affect, speech normal and activity/motor behavior normal SPEECH: Yes normal speech THOUGHT PROCESS: Normal thought process present Skin: COMMON NORMALS: no rashes or lesions noted, turgor normal, no jaundice, no petechiae and no mottling GENERAL SKIN EXAM: no rashes or lesions noted and turgor normal Course Vital Signs: Vital signs: Vital Signs Temperature 98.1 F 06/06/20 11:53 Pulse Rate 111 H 06/06/20 13:52 Respiratory Rate 18 06/06/20 13:52 Blood Pressure 93/60 06/06/20 11:53 Pulse Oximetry 98 06/06/20 13:52 MDM - SOB/Dyspnea MDM Narrative: Medical decision making narrative: Case reviewed with Drs. Herring and Shana, they will come and consult and admit respectively. Lab Data: Attestation: I reviewed the patient's lab results. Labs: Lab Results 06/06/20 06/06/20 06/06/20 Range/Units 12:17 12:25 12:25 WBC 9.9 (4.0-10.0) 10^3/ uL RBC 4.13 (4.1-5.3) 10^6/u L Hgb 12.8 (11.7-16.6) g/dL Hct 39.0 L (42.0-52.0) % MCV 94.4 H (80-94) fL MCH 31.0 (28.0-34.0) pg MCHC 32.8 (30.0-36.0) g/dL RDW 13.0 (12.1-15.1) % Plt Count 170 (130-400) 10^3/c mm MPV 10.2 (7.4-10.4) fL Neut % (Auto) 81.5 % Lymph % (Auto) 1.1 % Reynolds % (Auto) 16.8 % Eos % (Auto) 0.0 % Baso % (Auto) 0.1 % Neut # (Auto) 8.04 H (1.8-7.7) 10^3/u L Lymph # (Auto) 0.1 L (0.8-4.8) 10^3/u L Reynolds # (Auto) 1.7 H (0.2-0.9) 10^3/u L Eos # (Auto) 0.0 (0.0-0.8) 10^3/u L Baso # (Auto) 0.0 (0.0-0.1) 10^3/u L Nucleated RBC % (a uto) 0 % Nucleated RBCs # 0.0 /100WBC PT 15.60 H (12.1-14.9) SECO NDS INR 1.20 (0.8-1.2) APTT (23.9-36.7) SECO NDS D-Dimer 5.52 H (0-0.59) ug/mIFE U Specimen Type Arterial Sample Site Brachial, right ABG pH 7.45 (7.35-7.45) ABG pCO2 30.8 L (35-45) mmHg ABG pO2 76.4 L (80.0-100.0) mmH g ABG HCO3 21.4 L (22-26) mmol/L ABG Base Excess -1.7 (-2.0-2.0) mmol/ L John Test N/a Hematocrit 38.3 L (42-52) % O2 Delivery Device Room air FiO2 21.0 % Spray Drier Operator ID Amh Sodium (136-145) mmol/L Potassium (3.5-5.1) mmol/L Chloride (98-107) mmol/L Carbon Dioxide (22-29) mmol/L Anion Gap (5-19) BUN (8-23) mg/dL Creatinine (0.7-1.2) mg/dL GFR Calculation (90-130) mL/min Glucose (65-115) mg/dL Calculated Osmolal ity (285-295) mOsm/k g Lactic Acid (0.5-2.2) mmol/L Lactic Acid (Sepsi s) (0.5-2.2) mmol/L Calcium (8.5-10.5) mg/dL Magnesium (1.7-2.3) mg/dL Total Bilirubin (0.15-1.2) mg/dL AST (0-40) U/L ALT (0-41) U/L Alkaline Phosphata se (40-130) IU/L Troponin T Baselin e (0-15) ng/L Troponin T 120 Min [place] (0-15) ng/L Delta Troponin T (0-10) ABS# NT-Pro-B Natriuret Pep (0-125) pg/mL Total Protein (6.6-8.7) g/dL Albumin (3.5-5.2) g/dL Globulin (1.3-4.6) g/dL Urine Color (Yellow) Urine Appearance (CLEAR) Urine pH (5-7) Ur Specific Gravit y (1.005-1.030) Urine Protein (Negative) Urine Glucose (UA) (Normal) Urine Ketones (Negative) Urine Blood (Negative) Urine Nitrate (Negative) Urine Bilirubin (Negative) Urine Urobilinogen (Negative) mg/dL Ur Leukocyte Magda ase (Negative) Amorphous Sediment Acetaminophen (10-30) ug/mL Hepatitis A IgM Ab (Nonreactive) Hep Bs Antigen (Nonreactive) Hep Bs Antibody (0-8.5) Hep B Core Total A b (Nonreactive) Hepatitis C Antibo dy (Nonreactive) Influenza Type A A g (Negative) Influenza Type B A g (Negative) SARS-CoV-2 Ag (Rap id) (Negative) 06/06/20 06/06/20 06/06/20 Range/Units 12:25 12:25 12:25 WBC (4.0-10.0) 10^3/ uL RBC (4.1-5.3) 10^6/u L Hgb (11.7-16.6) g/dL Hct (42.0-52.0) % MCV (80-94) fL MCH (28.0-34.0) pg MCHC (30.0-36.0) g/dL RDW (12.1-15.1) % Plt Count (130-400) 10^3/c mm MPV (7.4-10.4) fL Neut % (Auto) % Lymph % (Auto) % Reynolds % (Auto) % Eos % (Auto) % Baso % (Auto) % Neut # (Auto) (1.8-7.7) 10^3/u L Lymph # (Auto) (0.8-4.8) 10^3/u L Reynolds # (Auto) (0.2-0.9) 10^3/u L Eos # (Auto) (0.0-0.8) 10^3/u L Baso # (Auto) (0.0-0.1) 10^3/u L Nucleated RBC % (a uto) % Nucleated RBCs # /100WBC PT (12.1-14.9) SECO NDS INR (0.8-1.2) APTT (23.9-36.7) SECO NDS D-Dimer (0-0.59) ug/mIFE U Specimen Type Sample Site ABG pH (7.35-7.45) ABG pCO2 (35-45) mmHg ABG pO2 (80.0-100.0) mmH g ABG HCO3 (22-26) mmol/L ABG Base Excess (-2.0-2.0) mmol/ L John Test Hematocrit (42-52) % O2 Delivery Device FiO2 % Spray Drier Operator ID Sodium 132 L (136-145) mmol/L Potassium 3.9 (3.5-5.1) mmol/L Chloride 96 L (98-107) mmol/L Carbon Dioxide 22 (22-29) mmol/L Anion Gap 17.9 (5-19) BUN 20 (8-23) mg/dL Creatinine 1.1 (0.7-1.2) mg/dL GFR Calculation 66.4 L (90-130) mL/min Glucose 81 (65-115) mg/dL Calculated Osmolal ity 276 L (285-295) mOsm/k g Lactic Acid 3.8 H (0.5-2.2) mmol/L Lactic Acid (Sepsi s) (0.5-2.2) mmol/L Calcium 9.0 (8.5-10.5) mg/dL Magnesium 1.9 (1.7-2.3) mg/dL Total Bilirubin 1.6 H (0.15-1.2) mg/dL AST 153 H (0-40) U/L ALT 93 H (0-41) U/L Alkaline Phosphata se 201 H (40-130) IU/L Troponin T Baselin e 17 H (0-15) ng/L Troponin T 120 Min [place] (0-15) ng/L Delta Troponin T (0-10) ABS# NT-Pro-B Natriuret Pep 336 H (0-125) pg/mL Total Protein 6.0 L (6.6-8.7) g/dL Albumin 3.7 (3.5-5.2) g/dL Globulin 2.3 (1.3-4.6) g/dL Urine Color (Yellow) Urine Appearance (CLEAR) Urine pH (5-7) Ur Specific Gravit y (1.005-1.030) Urine Protein (Negative) Urine Glucose (UA) (Normal) Urine Ketones (Negative) Urine Blood (Negative) Urine Nitrate (Negative) Urine Bilirubin (Negative) Urine Urobilinogen (Negative) mg/dL Ur Leukocyte Magda ase (Negative) Amorphous Sediment Acetaminophen (10-30) ug/mL Hepatitis A IgM Ab (Nonreactive) Hep Bs Antigen (Nonreactive) Hep Bs Antibody (0-8.5) Hep B Core Total A b (Nonreactive) Hepatitis C Antibo dy (Nonreactive) Influenza Type A A g (Negative) Influenza Type B A g (Negative) SARS-CoV-2 Ag (Rap id) (Negative) 06/06/20 06/06/20 06/06/20 Range/Units 12:25 12:25 12:25 WBC (4.0-10.0) 10^3/ uL RBC (4.1-5.3) 10^6/u L Hgb (11.7-16.6) g/dL Hct (42.0-52.0) % MCV (80-94) fL MCH (28.0-34.0) pg MCHC (30.0-36.0) g/dL RDW (12.1-15.1) % Plt Count (130-400) 10^3/c mm MPV (7.4-10.4) fL Neut % (Auto) % Lymph % (Auto) % Reynolds % (Auto) % Eos % (Auto) % Baso % (Auto) % Neut # (Auto) (1.8-7.7) 10^3/u L Lymph # (Auto) (0.8-4.8) 10^3/u L Reynolds # (Auto) (0.2-0.9) 10^3/u L Eos # (Auto) (0.0-0.8) 10^3/u L Baso # (Auto) (0.0-0.1) 10^3/u L Nucleated RBC % (a uto) % Nucleated RBCs # /100WBC PT (12.1-14.9) SECO NDS INR (0.8-1.2) APTT 32.8 (23.9-36.7) SECO NDS D-Dimer (0-0.59) ug/mIFE U Specimen Type Sample Site ABG pH (7.35-7.45) ABG pCO2 (35-45) mmHg ABG pO2 (80.0-100.0) mmH g ABG HCO3 (22-26) mmol/L ABG Base Excess (-2.0-2.0) mmol/ L John Test Hematocrit (42-52) % O2 Delivery Device FiO2 % Spray Drier Operator ID Sodium (136-145) mmol/L Potassium (3.5-5.1) mmol/L Chloride (98-107) mmol/L Carbon Dioxide (22-29) mmol/L Anion Gap (5-19) BUN (8-23) mg/dL Creatinine (0.7-1.2) mg/dL GFR Calculation (90-130) mL/min Glucose (65-115) mg/dL Calculated Osmolal ity (285-295) mOsm/k g Lactic Acid (0.5-2.2) mmol/L Lactic Acid (Sepsi s) (0.5-2.2) mmol/L Calcium (8.5-10.5) mg/dL Magnesium (1.7-2.3) mg/dL Total Bilirubin (0.15-1.2) mg/dL AST (0-40) U/L ALT (0-41) U/L Alkaline Phosphata se (40-130) IU/L Troponin T Baselin e (0-15) ng/L Troponin T 120 Min [place] (0-15) ng/L Delta Troponin T (0-10) ABS# NT-Pro-B Natriuret Pep (0-125) pg/mL Total Protein (6.6-8.7) g/dL Albumin (3.5-5.2) g/dL Globulin (1.3-4.6) g/dL Urine Color (Yellow) Urine Appearance (CLEAR) Urine pH (5-7) Ur Specific Gravit y (1.005-1.030) Urine Protein (Negative) Urine Glucose (UA) (Normal) Urine Ketones (Negative) Urine Blood (Negative) Urine Nitrate (Negative) Urine Bilirubin (Negative) Urine Urobilinogen (Negative) mg/dL Ur Leukocyte Magda ase (Negative) Amorphous Sediment Acetaminophen < 5.0 L (10-30) ug/mL Hepatitis A IgM Ab Non-reactive (Nonreactive) Hep Bs Antigen Non-reactive (Nonreactive) Hep Bs Antibody 10.2 H (0-8.5) Hep B Core Total A b Non-reactive (Nonreactive) Hepatitis C Antibo dy Non-reactive (Nonreactive) Influenza Type A A g (Negative) Influenza Type B A g (Negative) SARS-CoV-2 Ag (Rap id) (Negative) 06/06/20 06/06/20 06/06/20 Range/Units 12:28 12:28 13:48 WBC (4.0-10.0) 10^3/ uL RBC (4.1-5.3) 10^6/u L Hgb (11.7-16.6) g/dL Hct (42.0-52.0) % MCV (80-94) fL MCH (28.0-34.0) pg MCHC (30.0-36.0) g/dL RDW (12.1-15.1) % Plt Count (130-400) 10^3/c mm MPV (7.4-10.4) fL Neut % (Auto) % Lymph % (Auto) % Reynolds % (Auto) % Eos % (Auto) % Baso % (Auto) % Neut # (Auto) (1.8-7.7) 10^3/u L Lymph # (Auto) (0.8-4.8) 10^3/u L Reynolds # (Auto) (0.2-0.9) 10^3/u L Eos # (Auto) (0.0-0.8) 10^3/u L Baso # (Auto) (0.0-0.1) 10^3/u L Nucleated RBC % (a uto) % Nucleated RBCs # /100WBC PT (12.1-14.9) SECO NDS INR (0.8-1.2) APTT (23.9-36.7) SECO NDS D-Dimer (0-0.59) ug/mIFE U Specimen Type Sample Site ABG pH (7.35-7.45) ABG pCO2 (35-45) mmHg ABG pO2 (80.0-100.0) mmH g ABG HCO3 (22-26) mmol/L ABG Base Excess (-2.0-2.0) mmol/ L John Test Hematocrit (42-52) % O2 Delivery Device FiO2 % Spray Drier Operator ID Sodium (136-145) mmol/L Potassium (3.5-5.1) mmol/L Chloride (98-107) mmol/L Carbon Dioxide (22-29) mmol/L Anion Gap (5-19) BUN (8-23) mg/dL Creatinine (0.7-1.2) mg/dL GFR Calculation (90-130) mL/min Glucose (65-115) mg/dL Calculated Osmolal ity (285-295) mOsm/k g Lactic Acid (0.5-2.2) mmol/L Lactic Acid (Sepsi s) (0.5-2.2) mmol/L Calcium (8.5-10.5) mg/dL Magnesium (1.7-2.3) mg/dL Total Bilirubin (0.15-1.2) mg/dL AST (0-40) U/L ALT (0-41) U/L Alkaline Phosphata se (40-130) IU/L Troponin T Baselin e (0-15) ng/L Troponin T 120 Min [place] (0-15) ng/L Delta Troponin T (0-10) ABS# NT-Pro-B Natriuret Pep (0-125) pg/mL Total Protein (6.6-8.7) g/dL Albumin (3.5-5.2) g/dL Globulin (1.3-4.6) g/dL Urine Color Yellow (Yellow) Urine Appearance Clear (CLEAR) Urine pH 5.0 (5-7) Ur Specific Gravit y 1.015 (1.005-1.030) Urine Protein 1+ H (Negative) Urine Glucose (UA) Norm (Normal) Urine Ketones Negative (Negative) Urine Blood 2+ H (Negative) Urine Nitrate Negative (Negative) Urine Bilirubin 1+ H (Negative) Urine Urobilinogen 4 H (Negative) mg/dL Ur Leukocyte Magda ase Negative (Negative) Amorphous Sediment Not Reportable Acetaminophen (10-30) ug/mL Hepatitis A IgM Ab (Nonreactive) Hep Bs Antigen (Nonreactive) Hep Bs Antibody (0-8.5) Hep B Core Total A b (Nonreactive) Hepatitis C Antibo dy (Nonreactive) Influenza Type A A g Negative (Negative) Influenza Type B A g Negative (Negative) SARS-CoV-2 Ag (Rap id) Negative (Negative) 06/06/20 06/06/20 Range/Units 14:43 14:48 WBC (4.0-10.0) 10^3/ uL RBC (4.1-5.3) 10^6/u L Hgb (11.7-16.6) g/dL Hct (42.0-52.0) % MCV (80-94) fL MCH (28.0-34.0) pg MCHC (30.0-36.0) g/dL RDW (12.1-15.1) % Plt Count (130-400) 10^3/c mm MPV (7.4-10.4) fL Neut % (Auto) % Lymph % (Auto) % Reynolds % (Auto) % Eos % (Auto) % Baso % (Auto) % Neut # (Auto) (1.8-7.7) 10^3/u L Lymph # (Auto) (0.8-4.8) 10^3/u L Reynolds # (Auto) (0.2-0.9) 10^3/u L Eos # (Auto) (0.0-0.8) 10^3/u L Baso # (Auto) (0.0-0.1) 10^3/u L Nucleated RBC % (a uto) % Nucleated RBCs # /100WBC PT (12.1-14.9) SECO NDS INR (0.8-1.2) APTT (23.9-36.7) SECO NDS D-Dimer (0-0.59) ug/mIFE U Specimen Type Sample Site ABG pH (7.35-7.45) ABG pCO2 (35-45) mmHg ABG pO2 (80.0-100.0) mmH g ABG HCO3 (22-26) mmol/L ABG Base Excess (-2.0-2.0) mmol/ L John Test Hematocrit (42-52) % O2 Delivery Device FiO2 % Spray Drier Operator ID Sodium (136-145) mmol/L Potassium (3.5-5.1) mmol/L Chloride (98-107) mmol/L Carbon Dioxide (22-29) mmol/L Anion Gap (5-19) BUN (8-23) mg/dL Creatinine (0.7-1.2) mg/dL GFR Calculation (90-130) mL/min Glucose (65-115) mg/dL Calculated Osmolal ity (285-295) mOsm/k g Lactic Acid (0.5-2.2) mmol/L Lactic Acid (Sepsi s) 3.9 H (0.5-2.2) mmol/L Calcium (8.5-10.5) mg/dL Magnesium (1.7-2.3) mg/dL Total Bilirubin (0.15-1.2) mg/dL AST (0-40) U/L ALT (0-41) U/L Alkaline Phosphata se (40-130) IU/L Troponin T Baselin e (0-15) ng/L Troponin T 120 Min [place] 16.55 H (0-15) ng/L Delta Troponin T -0.45 L (0-10) ABS# NT-Pro-B Natriuret Pep (0-125) pg/mL Total Protein (6.6-8.7) g/dL Albumin (3.5-5.2) g/dL Globulin (1.3-4.6) g/dL Urine Color (Yellow) Urine Appearance (CLEAR) Urine pH (5-7) Ur Specific Gravit y (1.005-1.030) Urine Protein (Negative) Urine Glucose (UA) (Normal) Urine Ketones (Negative) Urine Blood (Negative) Urine Nitrate (Negative) Urine Bilirubin (Negative) Urine Urobilinogen (Negative) mg/dL Ur Leukocyte Magda ase (Negative) Amorphous Sediment Acetaminophen (10-30) ug/mL Hepatitis A IgM Ab (Nonreactive) Hep Bs Antigen (Nonreactive) Hep Bs Antibody (0-8.5) Hep B Core Total A b (Nonreactive) Hepatitis C Antibo dy (Nonreactive) Influenza Type A A g (Negative) Influenza Type B A g (Negative) SARS-CoV-2 Ag (Rap id) (Negative) Imaging Data^: CXR: Attestation: I personally reviewed and interpreted this imaging study as follows: My impression: No acute cardiopulmonary findings. EKG Data^: EKG 1: Attestation: I personally reviewed and interpreted this EKG as follows: EKG Interpretation Date: 06/06/20 EKG interpretation time: 12:06 Interpretation: Sinus tachycardia 101 beats a minute, right bundle branch block, no other acute ST or T wave changes. EKG 2: Attestation: I personally reviewed and interpreted this EKG as follows: EKG Interpretation Date: 06/06/20 EKG interpretation time: 14:45 Interpretation: Normal sinus rhythm 105 beats a minute, right bundle branch block. Unchanged from previous. Discharge Plan Discharge Patient Disposition: Admitted As Inpatient Condition: Stable Coding Level of Care Code ED Medical Claims Assistant for Chg Fwd Exam Comprehensive
[2020-06-06 12:28] LABS: ABG PCO2 30.8 mmHg (35-45); ABG PH Result 7.45 (7.35-7.45); Arterial Blood Gas Hematocrit 38.3 % (42-52); Base Excess ABG -1.7 mmol/L (-2.0-2.0); Blood Gas Operator Identificat AMH; Blood Gas Sample Site Brachial, right; Blood Gas Sample Type Arterial; HCO3 ABG 21.4 mmol/L (22-26); Oxygen Device ROOM AIR; PO2 ABG 76.4 mmHg (80.0-100.0)
[2020-06-06 12:52] LABS: Basophils % 0.1 %; Hemoglobin 12.8 g/dL (11.7-16.6); Lymphocytes # 0.1 10^3/uL (0.8-4.8); Lymphocytes % 1.1 %; Mean Corpuscular HGB Conc 32.8 g/dL (30.0-36.0); Mean Corpuscular Volume 94.4 fL (80-94); Mean Platelet Volume 10.2 fL (7.4-10.4); Monocytes # 1.7 10^3/uL (0.2-0.9); Monocytes % 16.8 %; Neutrophils # 8.04 10^3/uL (1.8-7.7); Neutrophils % 81.5 %; Nucleated Red Blood Cells % 0 %; Platelet Count 170 10^3/cmm (130-400); Red Blood Count 4.13 10^6/uL (4.1-5.3); White Blood Count 9.9 10^3/uL (4.0-10.0)
[2020-06-06 13:06] LABS: Troponin(5th) Baseline 17 ng/L (0-15)
[2020-06-06 13:13] LABS: Influenza A by IFA Negative (Negative); Influenza B by IFA Negative (Negative); SARS Covid-2 Antigen Negative (Negative)
[2020-06-06 13:14] LABS: Alanine Aminotransferase 93 U/L (0-41); Albumin Level 3.7 g/dL (3.5-5.2); Alkaline Phosphatase 201 IU/L (40-130); Aspartate Amino Transferase 153 U/L (0-40); Blood Urea Nitrogen 20 mg/dL (8-23); Carbon Dioxide 22 mmol/L (22-29); Chloride 96 mmol/L (98-107); Globulin 2.3 g/dL (1.3-4.6); Glomerular Filtration Rate 66.4 mL/min (90-130); Glucose 81 mg/dL (65-115); Magnesium 1.9 mg/dL (1.7-2.3); NT Pro B Type Natriuretic Pept 336 pg/mL (0-125); Osmolality Calculated 276 mOsm/kg (285-295); Sodium 132 mmol/L (136-145); Total Bilirubin 1.6 mg/dL (0.15-1.2)
[2020-06-06 13:19] LABS: Anion Gap 17.9 (5-19); Potassium 3.9 mmol/L (3.5-5.1)
--- NOTE | 2020-06-06 13:21 | US_ITS ---
WS: [id number] Complete ABDOMINAL ULTRASOUND HISTORY: Abdominal Pain COMPARISON: None available. Liver: 13.5 cm in length. Liver is normal size and echogenicity with no mass or intrahepatic dilatati on. Gallbladder: Normally distended with no gallstones, wall thickening or pericholecystic fluid. Gallbladder wall thickness: 0.3 cm. Pancreas: Normal size and echogenicity. CBD: 0.4 cm. Right kidney: 11.5 cm x 4.9 cm x 5.3 cm. No mass, cortical thickening or hydronephrosis. Left kidney: 12.0 cm x 4.7 cm x 5.0 cm. No mass, cortical thickening or hydronephrosis. Spleen: Normal size and echogenicity. Abdominal aorta and IVC are within normal limits. Small amount of free fluid adjacent to the liver. US/US abdomen complete* [id number] IMPRESSION: 1. No bile duct dilatation or cholelithiasis. 2. Negative liver. 3. Small amount of ascites.
[2020-06-06 13:34] LABS: Partial Thromboplastin Time 32.8 SECONDS (23.9-36.7)
[2020-06-06 13:38] LABS: Lactic Sepsis W/Reflex 3.8 mmol/L (0.5-2.2)
[2020-06-06] MEDS: piperacillin-tazobactam 3.375 GM in sodium chloride 0.9% (plus) 50 ML IV ×2 (13:42→22:17)
[2020-06-06 13:43] LABS: D Dimer 5.52 ug/mIFEU (0-0.59)
[2020-06-06] MEDS: ipratropium-albuterol 3 mL Neb INHALATION (13:46)
[2020-06-06] MEDS: ondansetron 2 mg/ML SDV 2 mL 4 MG IVP (13:49)
[2020-06-06] MEDS: morphine 4 mg/mL SDV 1 mL IVP ×2 (13:49→22:06)
--- NOTE | 2020-06-06 13:53 | ECG_ITS ---
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 Measurements Intervals [place] Rate: 105 P: 58 KS: 132 QRS: 52 QRSD: 138 T: 39 QT: 344 QTc: 455 Interpretive Statements SINUS TACHYCARDIA RIGHT BUNDLE BRANCH BLOCK [120+ ms QRS DURATION, UPRIGHT V1, 40+ ms S IN I/aVL/V4/V5/V6] Compared to ECG 06/06/2020 12:06:14 Right bundle-branch block now present Intraventricular conduction delay no longer present Electronically Signed On 06-06-2020 18:37:26 JOINERY PATTERNMAKER by Dusty Jara M.D. [id number]
--- NOTE | 2020-06-06 13:53 | CT_ITS ---
WS: [id number] CTA CHEST WITH CT ABDOMEN AND PELVIS. HISTORY: Short of breath with fatigue and back pain. TECHNIQUE: CT angiogram is performed through the chest. Additional imaging is performed through the a bdomen and pelvis with IV contrast. Sagittal and coronal reformats have been submitted. MIP imaging also reviewed. All CT scans at [facility] use at least one of these dose optimization tech niques: automated exposure control; mA and/or kV adjustment per patient size (includes targeted exams where dose is matched to clinical indication); or iterative reconstruction. Contrast: Omnipaque 350; 95 cc IV. DLP: 1138.37 mGy.cm COMPARISON: 09/10/2019 Chest CTA: Good opacification of the pulmonary artery. No filling defects or pulmonary emboli. Mild a therosclerosis aorta with no aneurysm. Enlargement of the heart. No pericardial or pleural effusions. There are a few small mediastinal and hilar lymph nodes which are slightly more prominent on the kg or study and may be reactive. Mild fluid distention of the distal esophagus. Chronic emphysema. Area of focal scarring in the posterior RIGHT upper lobe. No pneumonia. Dependent changes at the lung base s. Abdomen CT: Normal size liver and spleen. Normal gallbladder. Atrophied pancreas. No adrenal mass. No renal obstruction. Moderate atherosclerosis aorta. There is a small amount of free air in the peritoneal cavity. There is extensive inflammatory process throughout the abdomen. Pneumatosis is noted involving a large segment of the colon. Particularly th e RIGHT colon and transverse colon. Marked thickening and hyperemia of the distal small bowel. There are a few foci of free air and developing abscess in the RIGHT lower quadrant. Abscess measures at le ast 3.5 x 2.3 cm. There is free fluid and mesenteric edema. The remaining small bowel is also hyperem ic suggesting ischemia with wall thickening. Pelvic CT: Free fluid in the pelvis. Urinary bladder is minimally well distended. Prostate gland is e nlarged encroaching into the urinary bladder. Bladder wall is diffusely thickened. L5 anterolisthesis by 6 mm. Bilateral L5 pars defects. CT/CT angio chest w abd pel w con IMPRESSION: 1. Intraperitoneal free air with pneumatosis involving the significant portion of the RIGHT colon and transverse colon. There is a large inflammatory process centered in the RIGHT lower quadrant with an abscess formation and significant wall thickening involving the small bowel and adjacent colon. Suspect neoplast ic or infectious process. 2. No pulmonary embolism. 3. Chronic emphysema. Notified Brit Balderrama at 06/06/2020 2:40 PM.
[2020-06-06] MEDS: iohexol 350 mg/mL 100 mL Btl IV (14:22)
[2020-06-06 14:28] LABS: Reflex Lactate Order REFLEX LACTIC ORDERD
[2020-06-06 14:33] LABS: Acetaminophen < 5.0 ug/mL (10-30)
[2020-06-06 14:54] LABS: Hepatitis A Antibody IgM Non-Reactive (Nonreactive); Hepatitis B Core AB, Total Non-Reactive (Nonreactive); Hepatitis B Surface AB 10.2 (0-8.5); Hepatitis B Surface Antigen Non-Reactive (Nonreactive); Hepatitis C Virus Antibody Non-Reactive (Nonreactive)
[2020-06-06 15:26] LABS: Lactic Acid level (Lactate) 3.9 mmol/L (0.5-2.2)
[2020-06-06 15:30] LABS: Troponin 5 2HR 16.55 ng/L (0-15)
[2020-06-06 15:34] LABS: Troponin 5 2HR Delta -0.45 ABS# (0-10)
[2020-06-06 15:40] LABS: Bilirubin Urine 1+ (Negative); Blood Urine 2+ (Negative); Glucose Urine UA Norm (Normal); Ketones Urine Negative (Negative); Leukocyte Esterase Urine Negative (Negative); Nitrate Urine Negative (Negative); Protein Urine 1+ (Negative); Specific Gravity, Urine 1.015 (1.005-1.030); Urine Appearance Clear (CLEAR); Urine Color Yellow (Yellow); Urobilinogen Urine 4 mg/dL (Negative)
[2020-06-06 15:47] LABS: Add Urine Culture? No; Bacteria Urine 1+ /hpf; Hyaline Casts Urine 0-4 /lpf; Mucus Urine 3+ /hpf; RBC Urine 0-4 /hpf (0-2)
--- NOTE | 2020-06-06 16:30 | PM.CONSULT ---
Providers/Reason For Consult Consulting Physican/Specialty*: General Surgery Bienvenido Herring MD Reason for Consult*: Right lower quadrant abscess, peritonitis, pneumatosis intestinalis. Primary Care Provider: CHRISTIAN Quintana History of Present Illness History of Present Illness Jean He is a 70 year old male who says he began feeling poorly about a week and a half or 2 weeks ago. He describes abdominal discomfort, shortness of breath, some productivity to his cough, malaise, just not feeling well. He has had a poor appetite and says that his bowel movements have slowed down. He was not having any difficulty with bowel movements prior to this. He has had some chills but it does not sound like he ever really took his temperature. He has had some nausea but no vomiting. He finally came to the emergency room today after admitting that I do not really like to see doctors. A CAT scan revealed an abscess in the lower abdomen with some evidence of free air, most likely representing perforation of the appendix with pneumatosis intestinalis of the ascending and transverse colon. Of note, the patient has metastatic anaplastic small cell lung cancer for which she has been treated with immunotherapy/chemotherapy and radiation, but it sounds like it has been a while since the patient has had any specific treatment. Review of Systems General: Reports: 10 or more systems reviewed and unremarkable except in HPI and below Const: Reports: chills GI: Reports: abdominal pain, nausea and change in bowel habits Meds/Allergies Home Medications and Allergies Home Medications Medication Instructions Recorded Confirmed Last Taken Type aspirin 325 mg tablet 650 mg PO DAILY tab 08/25/19 06/06/20 Unknown History melatonin 10 mg capsule 10 mg PO DAILY 08/25/19 06/06/20 Unknown History prochlorperazine maleate 10 mg 10 mg PO Q4H PRN tab 08/25/19 06/06/20 Unknown History tablet miscellaneous medical supply 1 each MISCELLANEOUS DIRECTED 08/26/19 06/06/20 Unknown Rx 360 Days #1 each lisinopril 10 mg tablet 10 mg PO DAILY #90 tab 01/05/20 06/06/20 Unknown Rx metoprolol succinate 25 mg 37.5 mg PO DAILY #135 tab 01/05/20 06/06/20 Unknown Rx tablet,extended release 24 hr citalopram 10 mg tablet 10 mg PO DAILY 30 Days #30 tab 02/01/20 06/06/20 Unknown Rx nitroglycerin 0.4 mg sublingual 0.4 mg SUBLINGUAL Q5M PRN 30 Days 02/01/20 06/06/20 Unknown Rx tablet #30 tab pravastatin 10 mg tablet 10 mg PO DAILY 30 Days #30 tab 02/01/20 06/06/20 Unknown Rx trazodone 100 mg tablet 100 mg PO .hs 30 Days #30 tab 02/01/20 06/06/20 Unknown Rx isosorbide mononitrate 30 mg 30 mg PO BID #180 tab 03/23/20 06/06/20 Unknown Rx tablet,extended release 24 hr hydrocodone-acetaminophen 1 tab PO Q4H PRN 06/06/20 06/06/20 Unknown History lidocaine-prilocaine See Rx Instructions .ROUTE .COMPLEX 06/06/20 06/06/20 Unknown History omeprazole 40 mg PO DAILY 06/06/20 06/06/20 Unknown History Allergies Allergy/AdvReac Type Severity Reaction Status Date / Time No Known Allergies Allergy Unverified 06/06/20 10:32 PFSH Acute PFSH: Medical History (Updated 06/06/20 @ 16:37 by Bienvenido Herring MD) Anxiety and depression Arthritis ASHD (arteriosclerotic heart disease) / [place] / R bundle branch block Colon polyps COPD (chronic obstructive pulmonary disease) Essential hypertension Insomnia Lung cancer 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, right paratracheal, superior mediastinal, right suprahilar, right supraclavicular lymph nodes, single metastasis to liver and left frontal subcortical lesion Mixed hyperlipidemia Surgical History (Updated 06/06/20 @ 16:32 by Bienvenido Herring MD) History of ankle surgery L fracture History of bronchoscopy / Right neck mass biopsy History of colonoscopy 03/2018 -- polyps Hx of cataract surgery S/P hernia surgery S/P PICC central line placement Port-A-Cath placement left subclavian vein Family History (Updated 06/06/20 @ 16:34 by Bienvenido Herring MD) Father Lung disease Lung cancer Social History (Updated 06/06/20 @ 16:33 by Bienvenido Herring MD) Smoking and tobacco status: current every day smoker cigarettes Packs smoked per day: 0.5 Years cigarettes smoked: 52 [ Other cigarette details: Used to smoke 2 to 3 packs a day at one point ] Alcohol intake: current Alcohol intake frequency: few times a week Alcohol type: beer Lives independently: Yes Housing: House Marital status: History of recent travel: No Vitals/I&O/Wt Last Vital Signs Temp 98.1 F 06/06/20 11:53 Pulse 110 H 06/06/20 14:18 Resp 27 H 06/06/20 14:18 BP 116/76 06/06/20 14:18 Pulse Ox 99 06/06/20 14:18 Weight last 48 hrs Weight 133 lb Physical Exam Narrative: EXAM NARRATIVE: The patient was encountered in the his room in the emergency department. He does not appear to be in any acute distress and is sitting on the edge of his gurney. The pupils seem equal. No carotid bruits are heard. The lungs are clear. The heart seems regular. The abdomen reveals hypoactive bowel sounds but the patient has exquisite tenderness over the lower abdomen with peritoneal signs. No obvious masses are palpated. The extremities reveal no edema. Neurologically the patient appears to be grossly intact. Data Micro: Micro: Microbiology 06/06/20 14:43 Blood Culture - Pr eliminary Blood SPECIMEN [facility] 06/06/20 14:48 Blood Culture - Pr eliminary Blood SPECIMEN [facility] Imaging^: Other CT: Radiologist's impression: CT chest/abdomen/pelvis 06/06/2020 IMPRESSION: 1. Intraperitoneal free air with pneumatosis involving the significant portion of the RIGHT colon and transverse colon. There is a large inflammatory process centered in the RIGHT lower quadrant with an abscess formation and significant wall thickening involving the small bowel and adjacent colon. Suspect neoplastic or infectious process. 2. No pulmonary embolism. 3. Chronic emphysema. A&P Assessment and plan (1) Pelvic abscess: The patient has a significant inflammatory process involving the right lower quadrant and lower abdomen. Most of this seems to be centered around the right lower quadrant and this probably most consistent with a perforated appendix. The patient has been ill for about a week and a half. I discussed surgical and medical methods of management. Given the fact that the patient has peritonitis and some evidence of pneumatosis involving the ascending/transverse colon I have recommended that we consider exploration. Details of surgery surgery was discussed with the patient including the risks of bleeding, infection, internal organ injury, possible need for bowel resection, etc. He seems to understand and is agreeable to proceeding. Status: Acute (2) Perforated viscus: Status: Acute Consult Attestations Medical Necessity Statement: See admitting service's notation. Coding Level of Care Code Acute [employer] Equipment Operator for Kelle Maciel Diagnoses Pelvic abscess Perforated viscus R19.8
--- NOTE | 2020-06-06 17:07 | ANES.PREANE2 ---
Pre-Anesthetic Assessment Pre-Anesthetic Assessment: Height/Weight: Height 1.73 m Weight 60.328 kg Temp Pulse Resp BP Pulse Ox 98.1 F 102 H 19 H 116/84 100 06/06/20 11:53 06/06/20 16:18 06/06/20 16:18 06/06/20 16:18 06/06/20 16:18 Proposed Procedure: Operation Date: 06/06/20 17:45 Proposed Procedures p Exploratory Laparotomy(Not Applicable) - Bienvenido Herring MD s Colon Resection(Not Applicable) - Bienvenido Herring MD Social: Social History: Alcohol (3 x per week) and Tobacco Exam: Pre-Anes Outpt Exam: alert, oriented x 3, clear to auscultation bilaterally and regular rate & rhythm Airway: Submandibular: WNL Cervical ROM: WNL MP: 1 Dentition: False (upper and lower) History/ROS: No significant history except as noted Pulmonary: Pulmonary: COPD and HERNANDEZ Comments: small cell ca CV/HEM: CV/HEM: CAD, HTN and VA : : None reported Hepatic: Comments: liver mets GI: GI: GERD and None reported Metabolic: Metabolic: Hyperlipidemia Anesthetic Plan: ASA status: 4 Anesthesia: Anesthesia Evaluation and General Risk of > 500 ml blood loss (7ml/kg in children): Yes, adequate IV access and fluids planned PFSH Anesthesia PFSH: Medical History (Updated 06/06/20 @ 16:37 by Bienvenido Herring MD) Anxiety and depression Arthritis ASHD (arteriosclerotic heart disease) / [place] / R bundle branch block Colon polyps COPD (chronic obstructive pulmonary disease) Essential hypertension Insomnia Lung cancer 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, right paratracheal, superior mediastinal, right suprahilar, right supraclavicular lymph nodes, single metastasis to liver and left frontal subcortical lesion Mixed hyperlipidemia Surgical History (Updated 06/06/20 @ 16:32 by Bienvenido Herring MD) History of ankle surgery L fracture History of bronchoscopy / Right neck mass biopsy History of colonoscopy 03/2018 -- polyps Hx of cataract surgery S/P hernia surgery S/P PICC central line placement Port-A-Cath placement left subclavian vein Family History (Updated 06/06/20 @ 16:34 by Bienvenido Herring MD) Father Lung disease Lung cancer Social History (Updated 06/06/20 @ 16:33 by Bienvenido Herring MD) Smoking and tobacco status: current every day smoker cigarettes Packs smoked per day: 0.5 Years cigarettes smoked: 52 [ Other cigarette details: Used to smoke 2 to 3 packs a day at one point ] Alcohol intake: current Alcohol intake frequency: few times a week Alcohol type: beer Lives independently: Yes Housing: House Marital status: History of recent travel: No Data Anesthesia CBC & Chem 7: 06/06/20 12:25 06/06/20 12:25 Other Labs: Laboratory Results - last 48 hr 06/06/20 06/06/20 06/06/20 12:17 12:25 12:25 WBC 9.9 RBC 4.13 Hgb 12.8 Hct 39.0 L MCV 94.4 H MCH 31.0 MCHC 32.8 RDW 13.0 Plt Count 170 MPV 10.2 Neut % (Auto) 81.5 Lymph % (Auto) 1.1 [place] % (Auto) 16.8 Eos % (Auto) 0.0 Baso % (Auto) 0.1 Neut # (Auto) 8.04 H Lymph # (Auto) 0.1 L [place] # (Auto) 1.7 H Eos # (Auto) 0.0 Baso # (Auto) 0.0 Nucleated RBC % (auto) 0 Nucleated RBCs # 0.0 PT 15.60 H INR 1.20 APTT D-Dimer 5.52 H Specimen Type Arterial Sample Site Brachial, right ABG pH 7.45 ABG pCO2 30.8 L ABG pO2 76.4 L ABG HCO3 21.4 L ABG Base Excess -1.7 John Test N/a Hematocrit 38.3 L O2 Delivery Device Room air FiO2 21.0 Information Systems Project Manager ID Amh Sodium Potassium Chloride Carbon Dioxide Anion Gap BUN Creatinine GFR Calculation Glucose Calculated Osmolality Lactic Acid Lactic Acid (Sepsis) Calcium Magnesium Total Bilirubin AST ALT Alkaline Phosphatase Troponin T Baseline Troponin T 120 Minute Delta Troponin T NT-Pro-B Natriuret Pep Total Protein Albumin Globulin Urine Color Urine Appearance Urine pH Ur Specific [place] Urine Protein Urine Glucose (UA) Urine Ketones Urine Blood Urine Nitrate Urine Bilirubin Urine Urobilinogen Ur Leukocyte Esterase Urine RBC Urine WBC Ur Squamous Epith Cells Amorphous Sediment Urine Bacteria Hyaline Casts Urine Mucus Acetaminophen Hepatitis A IgM Ab Hep Bs Antigen Hep Bs Antibody Hep B Core Total Ab Hepatitis C Antibody Influenza Type A Ag Influenza Type B Ag SARS-CoV-2 Ag (Rapid) 06/06/20 06/06/20 06/06/20 12:25 12:25 12:25 WBC RBC Hgb Hct MCV MCH MCHC RDW Plt Count MPV Neut % (Auto) Lymph % (Auto) [place] % (Auto) Eos % (Auto) Baso % (Auto) Neut # (Auto) Lymph # (Auto) [place] # (Auto) Eos # (Auto) Baso # (Auto) Nucleated RBC % (auto) Nucleated RBCs # PT INR APTT D-Dimer Specimen Type Sample Site ABG pH ABG pCO2 ABG pO2 ABG HCO3 ABG Base Excess John Test Hematocrit O2 Delivery Device FiO2 Information Systems Project Manager ID Sodium 132 L Potassium 3.9 Chloride 96 L Carbon Dioxide 22 Anion Gap 17.9 BUN 20 Creatinine 1.1 GFR Calculation 66.4 L Glucose 81 Calculated Osmolality 276 L Lactic Acid 3.8 H Lactic Acid (Sepsis) Calcium 9.0 Magnesium 1.9 Total Bilirubin 1.6 H AST 153 H ALT 93 H Alkaline Phosphatase 201 H Troponin T Baseline 17 H Troponin T 120 Minute Delta Troponin T NT-Pro-B Natriuret Pep 336 H Total Protein 6.0 L Albumin 3.7 Globulin 2.3 Urine Color Urine Appearance Urine pH Ur Specific [place] Urine Protein Urine Glucose (UA) Urine Ketones Urine Blood Urine Nitrate Urine Bilirubin Urine Urobilinogen Ur Leukocyte Esterase Urine RBC Urine WBC Ur Squamous Epith Cells Amorphous Sediment Urine Bacteria Hyaline Casts Urine Mucus Acetaminophen Hepatitis A IgM Ab Hep Bs Antigen Hep Bs Antibody Hep B Core Total Ab Hepatitis C Antibody Influenza Type A Ag Influenza Type B Ag SARS-CoV-2 Ag (Rapid) 06/06/20 06/06/20 06/06/20 12:25 12:25 12:25 WBC RBC Hgb Hct MCV MCH MCHC RDW Plt Count MPV Neut % (Auto) Lymph % (Auto) [place] % (Auto) Eos % (Auto) Baso % (Auto) Neut # (Auto) Lymph # (Auto) [place] # (Auto) Eos # (Auto) Baso # (Auto) Nucleated RBC % (auto) Nucleated RBCs # PT INR APTT 32.8 D-Dimer Specimen Type Sample Site ABG pH ABG pCO2 ABG pO2 ABG HCO3 ABG Base Excess John Test Hematocrit O2 Delivery Device FiO2 Information Systems Project Manager ID Sodium Potassium Chloride Carbon Dioxide Anion Gap BUN Creatinine GFR Calculation Glucose Calculated Osmolality Lactic Acid Lactic Acid (Sepsis) Calcium Magnesium Total Bilirubin AST ALT Alkaline Phosphatase Troponin T Baseline Troponin T 120 Minute [place] Troponin T NT-Pro-B Natriuret Pep Total Protein Albumin Globulin Urine Color Urine Appearance Urine pH Ur Specific [place] Urine Protein Urine Glucose (UA) Urine Ketones Urine Blood Urine Nitrate Urine Bilirubin Urine Urobilinogen Ur Leukocyte Esterase Urine RBC Urine WBC Ur Squamous Epith Cells Amorphous Sediment Urine Bacteria Hyaline Casts Urine Mucus Acetaminophen < 5.0 L Hepatitis A IgM Ab Non-reactive Hep Bs Antigen Non-reactive Hep Bs Antibody 10.2 H Hep B Core Total Ab Non-reactive Hepatitis C Antibody Non-reactive Influenza Type A Ag Influenza Type B Ag SARS-CoV-2 Ag (Rapid) 06/06/20 06/06/20 06/06/20 12:28 12:28 13:48 WBC RBC Hgb Hct MCV MCH MCHC RDW Plt Count MPV Neut % (Auto) Lymph % (Auto) [place] % (Auto) Eos % (Auto) Baso % (Auto) Neut # (Auto) Lymph # (Auto) [place] # (Auto) Eos # (Auto) Baso # (Auto) Nucleated RBC % (auto) Nucleated RBCs # PT INR APTT D-Dimer Specimen Type Sample Site ABG pH ABG pCO2 ABG pO2 ABG HCO3 ABG Base Excess John Test Hematocrit O2 Delivery Device FiO2 Information Systems Project Manager ID Sodium Potassium Chloride Carbon Dioxide Anion Gap BUN Creatinine GFR Calculation Glucose Calculated Osmolality Lactic Acid Lactic Acid (Sepsis) Calcium Magnesium Total Bilirubin AST ALT Alkaline Phosphatase Troponin T Baseline Troponin T 120 Minute Delta Troponin T NT-Pro-B Natriuret Pep Total Protein Albumin Globulin Urine Color Yellow Urine Appearance Clear Urine pH 5.0 Ur Specific [place] 1.015 Urine Protein 1+ H Urine Glucose (UA) Norm Urine Ketones Negative Urine Blood 2+ H Urine Nitrate Negative Urine Bilirubin 1+ H Urine Urobilinogen 4 H Ur Leukocyte Esterase Negative Urine RBC 0-4 H Urine WBC None Ur Squamous Epith Cells 5-10 H Amorphous Sediment Not Reportable Urine Bacteria 1+ H Hyaline Casts 0-4 H Urine Mucus 3+ Acetaminophen Hepatitis A IgM Ab Hep Bs Antigen Hep Bs Antibody Hep B Core Total Ab Hepatitis C Antibody Influenza Type A Ag Negative Influenza Type B Ag Negative SARS-CoV-2 Ag (Rapid) Negative 06/06/20 06/06/20 14:43 14:48 WBC RBC Hgb Hct MCV MCH MCHC RDW Plt Count MPV Neut % (Auto) Lymph % (Auto) [place] % (Auto) Eos % (Auto) Baso % (Auto) Neut # (Auto) Lymph # (Auto) [place] # (Auto) Eos # (Auto) Baso # (Auto) Nucleated RBC % (auto) Nucleated RBCs # PT INR APTT D-Dimer Specimen Type Sample Site ABG pH ABG pCO2 ABG pO2 ABG HCO3 ABG Base Excess John Test Hematocrit O2 Delivery Device FiO2 Information Systems Project Manager ID Sodium Potassium Chloride Carbon Dioxide Anion Gap BUN Creatinine GFR Calculation Glucose Calculated Osmolality Lactic Acid Lactic Acid (Sepsis) 3.9 H Calcium Magnesium Total Bilirubin AST ALT Alkaline Phosphatase Troponin T Baseline Troponin T 120 Minute 16.55 H Delta Troponin T -0.45 L NT-Pro-B Natriuret Pep Total Protein Albumin Globulin Urine Color Urine Appearance Urine pH Ur Specific [place] Urine Protein Urine Glucose (UA) Urine Ketones Urine Blood Urine Nitrate Urine Bilirubin Urine Urobilinogen Ur Leukocyte Esterase Urine RBC Urine WBC Ur Squamous Epith Cells Amorphous Sediment Urine Bacteria Hyaline Casts Urine Mucus Acetaminophen Hepatitis A IgM Ab Hep Bs Antigen Hep Bs Antibody Hep B Core Total Ab Hepatitis C Antibody Influenza Type A Ag Influenza Type B Ag SARS-CoV-2 Ag (Rapid) Micro: Microbiology 06/06/20 14:43 Blood Culture - Preliminary Blood SPECIMEN COLLECTED 06/06/20 14:48 Blood Culture - Preliminary Blood SPECIMEN COLLECTED Cardiac Studies: No Data to Display
[2020-06-06] MEDS: sodium chloride 0.9% 1,809.84 ML 1809.8 ML IV (17:09)
[2020-06-06] MEDS: famotidine 20 mg/2 mL INJ IVP (17:11)
--- NOTE | 2020-06-06 17:46 | P.HP_ITS ---
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 Patient stated this has been progressivley worsening for past 3 days. Feel as if it started in right lower quadrants and radiated to left side and back. has been fairly constant with nausea and dry heaving. Has not been able to tolerate oral intake. Noted constipation as well. Denied fever or chills as well as chest pain. Did however not sightly worsening respiratory distess from baseline Upon arrival to ER his initial laboratory workup showed a WBC of 9.9, hemoglobin of 12.8, hematocrit 39.0 and a platelet count of 170. INR 1.2 and D-dimer of 5.52. Arterial blood gases showed a pH of 7.45, pCO2 of 30.8, PO2 of 76.4 and bicarb of 21.4. Sodium of 132, potassium 3.9, chloride 96, bicarb 22, BUN 20 and creatinine of 1.1. Lactic acid was elevated at 3.8. AST of 153, ALT of 93, alkaline phosphatase of 201 and a total bilirubin of 1.6. Delta troponin T was negative 0.45. ProBNP of 336. urinalysis showed negative nitrite and leukocyte esterase. HBsAb was 10.2, Influenza A/B and rapid CoV-2 ag was negative. Imaging studies included chest x-ray which showed no acute cardiopulmonary abnormality. Abdominal ultrasound was then performed which showed small amount of ascites without any acute abnormalities within the biliary system or liver. CT of chest abdomen pelvis with contrast was then performed which showed intraperitoneal free air with pneumatosis involving a significant portion of the right colon and transverse colon, large right lower quadrant inflammatory process with abscess formation and significant bowel wall thickening. No PE however chronic emphysema was noted. In ER patient was given IV fluids, Zosyn 3.375 g x 1, morphine 4 mg IV x1, Solu-Medrol 125 mg IV x1 and DuoNeb treatment. General surgery was consulted, kept npo and agreed to proceed with exploratory laparotomy. Review of Systems General: Reports: 10 or more systems reviewed and unremarkable except in HPI and below Medications/Allergies Home Medications Medication Instructions Recorded Confirmed Last Taken Type aspirin 325 mg tablet 650 mg PO DAILY tab 08/25/19 06/06/20 Unknown History melatonin 10 mg capsule 10 mg PO DAILY 08/25/19 06/06/20 Unknown History prochlorperazine maleate 10 mg 10 mg PO Q4H PRN tab 08/25/19 06/06/20 Unknown History tablet miscellaneous medical supply 1 each MISCELLANEOUS DIRECTED 08/26/19 06/06/20 Unknown Rx 360 Days #1 each lisinopril 10 mg tablet 10 mg PO DAILY #90 tab 01/05/20 06/06/20 Unknown Rx metoprolol succinate 25 mg 37.5 mg PO DAILY #135 tab 01/05/20 06/06/20 Unknown Rx tablet,extended release 24 hr citalopram 10 mg tablet 10 mg PO DAILY 30 Days #30 tab 02/01/20 06/06/20 Unknown Rx nitroglycerin 0.4 mg sublingual 0.4 mg SUBLINGUAL Q5M PRN 30 Days 02/01/20 06/06/20 Unknown Rx tablet #30 tab pravastatin 10 mg tablet 10 mg PO DAILY 30 Days #30 tab 02/01/20 06/06/20 Unknown Rx trazodone 100 mg tablet 100 mg PO .hs 30 Days #30 tab 02/01/20 06/06/20 Unknown Rx isosorbide mononitrate 30 mg 30 mg PO BID #180 tab 03/23/20 06/06/20 Unknown Rx tablet,extended release 24 hr hydrocodone-acetaminophen 1 tab PO Q4H PRN 06/06/20 06/06/20 Unknown History lidocaine-prilocaine See Rx Instructions .ROUTE .COMPLEX 06/06/20 06/06/20 Unknown History omeprazole 40 mg PO DAILY 06/06/20 06/06/20 Unknown History Allergies Allergy/AdvReac Type Severity Reaction Status Date / Time No Known Allergies Allergy Unverified 06/06/20 10:32 PFSH Acute PFSH: Medical History Anxiety and depression Arthritis ASHD (arteriosclerotic heart disease) / [place] / R bundle branch block Colon polyps COPD (chronic obstructive pulmonary disease) Essential hypertension Insomnia Lung cancer 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, right paratracheal, superior mediastinal, right suprahilar, right supraclavicular lymph nodes, single metastasis to liver and left frontal subcortical lesion Mixed hyperlipidemia Surgical History History of ankle surgery L fracture History of bronchoscopy / Right neck mass biopsy History of colonoscopy 03/2018 -- polyps Hx of cataract surgery S/P hernia surgery S/P PICC central line placement Port-A-Cath placement left subclavian vein Family History Father Lung disease Lung cancer Social History Smoking and tobacco status: current every day smoker cigarettes Packs smoked per day: 0.5 Years cigarettes smoked: 52 [ Other cigarette details: Used to smoke 2 to 3 packs a day at one point ] Alcohol intake: current Alcohol intake frequency: few times a week Alcohol type: beer Lives independently: Yes Housing: House Marital status: History of recent travel: No Vitals/I&O/Wt Last Vital Signs Temp 98.1 F 06/06/20 11:53 Pulse 102 H 06/06/20 16:18 Resp 19 H 06/06/20 16:18 BP 116/84 06/06/20 16:18 Pulse Ox 100 06/06/20 16:18 Weight last 48 hrs Weight 60.328 kg Physical Exam Narrative: EXAM NARRATIVE: General-chronically ill-appearing HEENT -grossly unremarkable Chest- non-labored respiration CVS- normal sinus rhythm Abdomen- guarding with diffuse tenderness Extremities-no edema Data : 06/06/20 12:25 06/06/20 12:25 Micro: Microbiology 06/06/20 14:43 Blood Culture - Preliminary Blood SPECIMEN COLLECTED 06/06/20 14:48 Blood Culture - Preliminary Blood SPECIMEN COLLECTED A&P Assessment and plan (1) Perforated viscus: Status: Acute (2) Pelvic abscess: Status: Acute (3) Transaminitis: Status: Acute (4) Elevated troponin: Status: Acute (5) Lung cancer: Status: Chronic Qualifiers: Laterality: unspecified laterality Lung location: unspecified part of lung Qualified Code(s): C34.90 - Malignant neoplasm of unspecified part of unspecified bronchus or lung (6) Essential hypertension: Status: Chronic (7) Mixed hyperlipidemia: Status: Acute (8) Anxiety and depression: Status: Chronic (9) COPD (chronic obstructive pulmonary disease): Status: Acute Abdominal pain with intra-peritoneal free air with pneumatosis and possible developing abscess / Peritonitis - NPO no exceptions - S/p Zosyn 3.375g IV x1 - continued q8hr - Blood culture x 2 obtained - Flagyl 500 mg IV x1 / Cefazolin 2g IV x 1 given pre-op - IV pain control and antiemetics - NS at 75 cc/hr - Further plan based on surgical findings - Lactic acid 3.8 - repeat in AM - General surgery on consult Transaminitis - AST 153 - ALT - 93 - Alk.phos - 201 - Total bili 1.6 - Hx of liver meds - RUQ US - normal liver/bilary - Hepatitis panel negative - Possibly due to sepsis / peritonitis - Continue to trend LFTs Elevated troponin with hx of CAD - Delta Troponin - negative 0.45 - Likely due to sepsis - No further cardiac work up - Chest pain free. Hyponatremia - NA 132 - Likely hypovolemic - Repeat BMP in am - Possible component of SIADH Advanced Anaplastic Small cell carcinoma with mets to Liver and brain - Competed chemoradiation however recent brain mri did show slight increase in side of right frontal lesion. - Follow up outpatient with radiation oncology - No neurological deficits. Chronic obstructive pulmonary disease w/o exacerbation - Noted baseline - S/p solu-medrol 125 mg iV x 1 in ER - Will hold off on additional steroids - DuoNeb q6hr PRN for dyspnea - CTA chest - no PE ( D-dimer 5.52) - Supplemental o2 as needed. Hypertension / Dyslipidemia - Holding meds for now - NPO GI ppx - Pepcid 20 mg IV BID DVT ppx - SCD only due to planned invasive procedure. Attestations Medical Necessity Statement*: Will likely require over 2 midnight stay in hospital for evaluation and treatment of intraperitoneal abscess requiring surgery and IV antibiotics Time Spent in Patient Care: Greater than 35 minutes (>than 50% of time spent in counselling and/or direct pt care on unit) . 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
--- NOTE | 2020-06-06 18:44 | P.OP_ITS ---
Operative Report Date of procedure: June 06, 2020 Pre-op Diagnosis: Right lower quadrant abscess, probable perforated appendicitis. Post-op Diagnosis: Perforated appendicitis with surrounding phlegmon, diffuse peritonitis. Procedure Done: Exploratory laparotomy with appendectomy. Specimens removed/disposition: 1. Aerobic and anaerobic cultures of peritoneal fluid. 2. Appendix. Surgeon: Bienvenido Herring Estimated blood loss (mL): 10 Complications: None. Condition: stable Disposition: PACU Procedure: The patient was brought to the operating room and was placed in a supine position on the operating room table. Some light sedation was initiated by anesthesia and they passed a nasogastric tube. General endotracheal anesthesia was then induced. A Chilel catheter was inserted. The abdomen was prepped and draped in the sterile fashion. A midline incision was carried out over the lower abdomen. Cautery was used to divide the subcutaneous tissue and the midline fascia and the peritoneal cavity was entered. The patient had some diffuse light yellow cloudy/purulent fluid throughout the pelvis. Both aerobic and anaerobic cultures were taken. The abdomen was then extensively irrigated. Palpation revealed a phlegmon in the right lower quadrant and was found at the appendix was surrounded with loops of small bowel as well as the cecum. Upon identifying the appendix, it was clearly necrotic about a third of the way from its base and had perforated with several fecaliths sitting in the phlegmon abscess. The distal portion of the appendix was simply freed from the surrounding tissue and was removed. The base of the appendix proximal to the perforation was then ligated with 2 separate ties of 2- 0 Vicryl. The excess stump was excised and the appendiceal mucosa at the stump was cauterized. The abdominal cavity was then extensively irrigated with saline, into every quadrant until the suctioned fluid was clear on return. A final look at the cecum revealed no issues. The ascending and transverse colon appeared normal other than being somewhat dilated consistent with an ileus. The nasogastric tube was confirmed to be in good position in the gastric lumen by palpation. Attention was directed towards closure. The midline fascia was closed using a running looped suture of 0 PDS. The subcutaneous tissue was irrigated and the skin was loosely approximated using skin rizwan. A sterile dressing was placed over the wound and the patient was taken to the recovery area in stable condition postoperatively.
--- NOTE | 2020-06-06 19:11 | ANE.PACU2 ---
Inpatient post-anesthesia follow up: Airway intact: Yes Vital signs: Temperature 98.1 F Pulse Rate [Left R adial] 104 Pulse Rate 102 Respiratory Rate 19 Blood Pressure [Ri ght Arm] 93/60 Blood Pressure 116/84 Pulse Oximetry 100 Oxygen Delivery Me thod Room Air Oxygen Flow Rate Fraction of Inspir ed Oxygen
--- NOTE | 2020-06-06 19:13 | PM.PACU ---
PACU note PACU note: Good resp effort, VSS Post-Anesthesia Exam: awake and vital signs stable Disposition: admitted
[2020-06-06] MEDS: heparin 5,000 unit/mL INJ 1 mL 5000 UNIT SUBCUT (22:06)
[2020-06-06] MEDS: D5-NS 0.45% + KCL 20 mEq 20 MEQ/1,000 ML BAG 100 MEQ IV ×2 (22:25→22:40)
[2020-06-06] MEDS: levalbuterol 0.63 mg/3 mL Neb INHALATION ×2 (23:58→23:59)
[2020-06-07] VITALS (16 sets, daily range): BP systolic 105–160; BP diastolic 67–88; PULSE 78–93; RESP 16–20; TEMP 36.3–36.7; O2SAT 94–98
--- NOTE | 2020-06-07 00:28 | PC.NURSE ---
The patient has a port placed to left chest that can be used for IV access. The patient said he would prefer the port be used for blood draws instead of venous blood draw. The patient said he uses lidocaine jelly over the access area. He prefers the lidocaine jelly be in place for one hour before blood draws.
[2020-06-07] MEDS: levalbuterol 0.63 mg/3 mL Neb INHALATION ×3 (03:18→15:32)
[2020-06-07] MEDS: piperacillin-tazobactam 3.375 GM in sodium chloride 0.9% (plus) 50 ML IV ×3 (05:00→20:15)
[2020-06-07] MEDS: famotidine 20 mg/2 mL INJ IVP ×2 (05:00→18:20)
[2020-06-07 07:53] LABS: Basophils % 0.1 %; Hematocrit 33.9 % (42.0-52.0); Hemoglobin 11.4 g/dL (11.7-16.6); Lymphocytes # 0.2 10^3/uL (0.8-4.8); Lymphocytes % 1.3 %; Mean Corpuscular HGB Conc 33.6 g/dL (30.0-36.0); Mean Corpuscular Hemoglobin 31.3 pg (28.0-34.0); Mean Corpuscular Volume 93.1 fL (80-94); Mean Platelet Volume 9.8 fL (7.4-10.4); Monocytes # 1.1 10^3/uL (0.2-0.9); Monocytes % 8.5 %; Neutrophils # 11.98 10^3/uL (1.8-7.7); Neutrophils % 89.6 %; Nucleated Red Blood Cells % 0 %; Platelet Count 167 10^3/cmm (130-400); Red Blood Count 3.64 10^6/uL (4.1-5.3); Red Cell Distribution Width 12.9 % (12.1-15.1); White Blood Count 13.4 10^3/uL (4.0-10.0)
--- NOTE | 2020-06-07 07:53 | PC.RESP ---
Pharmacy called about medication being unavailable, no pharmacist available either. Will return to schedule next treatment.
[2020-06-07 08:42] LABS: Alanine Aminotransferase 93 U/L (0-41); Albumin Level 3.3 g/dL (3.5-5.2); Alkaline Phosphatase 161 IU/L (40-130); Aspartate Amino Transferase 58 U/L (0-40); Blood Urea Nitrogen 14 mg/dL (8-23); Calcium 8.8 mg/dL (8.5-10.5); Carbon Dioxide 24 mmol/L (22-29); Chloride 103 mmol/L (98-107); Globulin 2.3 g/dL (1.3-4.6); Glomerular Filtration Rate 95.8 mL/min (90-130); Glucose 126 mg/dL (65-115); Osmolality Calculated 282 mOsm/kg (285-295); Sodium 135 mmol/L (136-145); Total Bilirubin 0.8 mg/dL (0.15-1.2); Total Protein 5.6 g/dL (6.6-8.7)
[2020-06-07 08:43] LABS: Lactate (Lactic Acid level) 1.3 mmol/L (0.5-2.2)
--- NOTE | 2020-06-07 09:56 | PM.PN ---
Subjective Subjective: Interval history: The patient says his abdomen feels much better today. He did not even recall that we did surgery last night. He would like to try to get up and sit in a chair. Vitals/I&O/Wt Last Vital Signs Temp 98.0 F 06/07/20 07:54 Pulse 80 06/07/20 07:54 Resp 17 06/07/20 07:54 BP 118/72 06/07/20 07:54 Pulse Ox 98 06/07/20 07:54 06/06/20 06/07/20 06/07/20 22:59 06:59 14:59 Intake Total 25 / 75 50 / 75 Output Total 525 / 1775 1250 / 1775 Balance -500 / -1700 -1200 / -1700 Weight last 48 hrs Weight 133 lb Physical Exam Narrative: EXAM NARRATIVE: The patient ran one low-grade fever last night. He actually has some bowel sounds already this morning. The dressing is intact. Urinary Catheter Management^: f: Cath Placed During This Visit: yes Reason for Continuing Indwelling Catheter: Acute Urinary Retention or Obstruction Urinary Catheter Date of Insertion: 06/06/20 Urinary Catheter Time of Insertion: 18:05 Data : 06/07/20 07:22 06/07/20 07:22 Micro: Microbiology 06/06/20 18:15 Gram Stain - Final Peritoneal Fluid 06/06/20 14:43 Blood Culture - Preliminary Blood SPECIMEN COLLECTED 06/06/20 14:48 Blood Culture - Preliminary Blood SPECIMEN COLLECTED A&P Assessment and plan (1) Perforated appendicitis: Status post exploratory laparotomy with appendectomy on 06/06/2020. The patient already feels better. The Gram stain of his peritoneal fluid shows gram-negative rods. Continue intravenous antibiotics. Up in chair today. Status: Acute Attestations Medical Necessity Statement*: See admitting service's notation. Coding Level of Care Code Acute Financial Business Analyst for [facility] Janell Diagnoses Perforated appendicitis K35.32
[2020-06-07] MEDS: D5-NS 0.45% + KCL 20 mEq 20 MEQ/1,000 ML BAG 100 MEQ IV ×2 (11:00→20:15)
[2020-06-07] MEDS: heparin 5,000 unit/mL INJ 1 mL 5000 UNIT SUBCUT ×2 (11:01→22:53)
--- NOTE | 2020-06-07 12:43 | P.PN_ITS ---
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 Patient stated this has been progressivley worsening for past 3 days. Feel as if it started in right lower quadrants and radiated to left side and back. has been fairly constant with nausea and dry heaving. Has not been able to tolerate oral intake. Noted constipation as well. Denied fever or chills as well as chest pain. Did however not sightly worsening respiratory distess from baseline Upon arrival to ER his initial laboratory workup showed a WBC of 9.9, hemoglobin of 12.8, hematocrit 39.0 and a platelet count of 170. INR 1.2 and D- dimer of 5.52. Arterial blood gases showed a pH of 7.45, pCO2 of 30.8, PO2 of 76.4 and bicarb of 21.4. Sodium of 132, potassium 3.9, chloride 96, bicarb 22, BUN 20 and creatinine of 1.1. Lactic acid was elevated at 3.8. AST of 153, ALT of 93, alkaline phosphatase of 201 and a total bilirubin of 1.6. Delta troponin T was negative 0.45. ProBNP of 336. urinalysis showed negative nitrite and leukocyte esterase. HBsAb was 10.2, Influenza A/B and rapid CoV-2 ag was negative. Imaging studies included chest x-ray which showed no acute cardiopulmonary abnormality. Abdominal ultrasound was then performed which showed small amount of ascites without any acute abnormalities within the biliary system or liver. CT of chest abdomen pelvis with contrast was then performed which showed intraperitoneal free air with pneumatosis involving a significant portion of the right colon and transverse colon, large right lower quadrant inflammatory process with abscess formation and significant bowel wall thickening. No PE however chronic emphysema was noted. In ER patient was given IV fluids, Zosyn 3.375 g x 1, morphine 4 mg IV x1, Solu- Medrol 125 mg IV x1 and DuoNeb treatment. General surgery was consulted and patient was taken emergent exploratory laparotomy. He was found to have perforated appendicitis with surrounding phlegmon and diffuse peritonitis. Operative peritoneal fluids were sent for cultures. He was continued on zosyn. Subjective: 06/07/2020 Overnight patient remained stable postoperatively. Stated pain was under control. Nasogastric tube was in place to suction. did not have any significant fever or chills. Medications: Reviewed: Yes Vitals/I&O/Wt Last Vital Signs Temp 98.7 F 06/08/20 15:28 Pulse 89 06/08/20 19:39 Resp 16 06/08/20 19:30 BP 148/88 06/08/20 15:28 Pulse Ox 98 06/08/20 19:30 06/08/20 06/08/20 06/08/20 06:59 14:59 22:59 Intake Total 1050 / 2085 410 / 410 Output Total 450 / 1350 600 / 600 Balance 600 / 735 -190 / -190 Physical Exam Narrative: EXAM NARRATIVE: Generally: Alert, awake in NAD HEENT Grossly unremarkable - NJ in place Chest : non-labored respiration CVS : NSR ABD : midline lower abdominal incision - C/D/i Ext : no edema Urinary Catheter Management^: f: Cath Placed During This Visit: yes Reason for Continuing Indwelling Catheter: Acute Urinary Retention or Obstruction Urinary Catheter Date of Insertion: 06/06/20 Urinary Catheter Time of Insertion: 18:05 Data : 06/08/20 05:16 06/08/20 05:16 Micro: Microbiology 06/06/20 18:15 Anaerobic Culture - Preliminary Peritoneal Fluid 06/06/20 18:15 Gram Stain - Final Peritoneal Fluid Body Fluid Culture - Preliminary Gram Negative Rods Gram Negative Rods#2 06/06/20 14:48 Blood Culture - Preliminary Blood NEGATIVE TO DATE 06/06/20 14:43 Blood Culture - Preliminary Blood NEGATIVE TO DATE A&P Assessment and plan (1) Perforated viscus: Status: Acute (2) Pelvic abscess: Status: Acute (3) Transaminitis: Status: Acute (4) Elevated troponin: Status: Acute (5) Lung cancer: Status: Chronic Qualifiers: Laterality: unspecified laterality Lung location: unspecified part of lung Qualified Code(s): C34.90 - Malignant neoplasm of unspecified part of unspecified bronchus or lung (6) Essential hypertension: Status: Chronic (7) Mixed hyperlipidemia: Status: Acute (8) Anxiety and depression: Status: Chronic (9) COPD (chronic obstructive pulmonary disease): Status: Acute Abdominal pain secondary to perforated appendicitis/phegmon/peritonitis - POD #1 - NG tube in place to LIS - Pain control - To remain NPO - 12/22 blood culture x 2 - NGTD - 12/22 peritoneal fluid culute - > Gram negative rods - Follow up on final organism and suseptabilities - Continue IV zosyn 3.375g I V q8hr - Increasing wbc today - will continue to trend - Continue maintence fluids Transaminitis - AST 153 -> 58 - ALT - 93 - > 93 - Alk.phos - 201 -> 161 - Total bili 1.6 - > 0.8 - Hx of liver meds - RUQ US - normal liver/bilary - Hepatitis panel negative - Possibly due to sepsis / peritonitis - Continue to trend LFTs - Improving Elevated troponin with hx of CAD - Delta Troponin - negative 0.45 - Likely due to sepsis - No further cardiac work up - Chest pain free. Hyponatremia - NA 132 - 135 - Likely hypovolemic - Repeat BMP in am - Possible component of SIADH - Continue IVF Advanced Anaplastic Small cell carcinoma with mets to Liver and brain - Competed chemoradiation however recent brain mri did show slight increase in side of right frontal lesion. - Follow up outpatient with radiation oncology - No neurological deficits. Chronic obstructive pulmonary disease w/o exacerbation - Noted baseline - S/p solu-medrol 125 mg iV x 1 in ER - Will hold off on additional steroids - DuoNeb q6hr PRN for dyspnea - CTA chest - no PE ( D-dimer 5.52) - Supplemental o2 as needed. Hypertension / Dyslipidemia - Holding meds for now - NPO GI ppx - Pepcid 20 mg IV BID DVT ppx - SCD only due to planned invasive procedure. Attestations Medical Necessity Statement*: Will require further hospitalization for post operative management and Iv abx Time Spent in Patient Care: Greater than 35 minutes (>than 50% of time spent in counselling and/or direct pt care on unit) . 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
--- NOTE | 2020-06-07 17:36 | PC.RESP ---
Smoking Cessation and Pulmonary Rehab information sent to patient.
[2020-06-07] MEDS: morphine 4 mg/mL SDV 1 mL IVP (23:16)
[2020-06-08] VITALS (15 sets, daily range): BP systolic 148–178; BP diastolic 88–98; PULSE 70–89; RESP 16–20; TEMP 36.3–37.4; O2SAT 94–99
[2020-06-08] MEDS: famotidine 20 mg/2 mL INJ IVP ×2 (05:32→19:19)
[2020-06-08] MEDS: piperacillin-tazobactam 3.375 GM in sodium chloride 0.9% (plus) 50 ML IV ×3 (05:50→21:55)
[2020-06-08 06:00] LABS: Basophils % 0.1 %; Hematocrit 36.4 % (42.0-52.0); Hemoglobin 12.3 g/dL (11.7-16.6); Lymphocytes # 0.2 10^3/uL (0.8-4.8); Lymphocytes % 1.6 %; Mean Corpuscular HGB Conc 33.8 g/dL (30.0-36.0); Mean Corpuscular Hemoglobin 31.3 pg (28.0-34.0); Mean Corpuscular Volume 92.6 fL (80-94); Mean Platelet Volume 10.1 fL (7.4-10.4); Monocytes # 1.7 10^3/uL (0.2-0.9); Monocytes % 11.5 %; Neutrophils # 12.66 10^3/uL (1.8-7.7); Neutrophils % 85.5 %; Nucleated Red Blood Cells % 0 %; Platelet Count 207 10^3/cmm (130-400); Red Blood Count 3.93 10^6/uL (4.1-5.3); Red Cell Distribution Width 13.3 % (12.1-15.1); White Blood Count 14.8 10^3/uL (4.0-10.0)
[2020-06-08 06:31] LABS: Alanine Aminotransferase 72 U/L (0-41); Albumin Level 3.4 g/dL (3.5-5.2); Alkaline Phosphatase 185 IU/L (40-130); Chloride 103 mmol/L (98-107); Potassium 4.3 mmol/L (3.5-5.1); Sodium 136 mmol/L (136-145)
[2020-06-08 07:33] LABS: Anion Gap 14.3 (5-19); Aspartate Amino Transferase 45 U/L (0-40); Blood Urea Nitrogen 14 mg/dL (8-23); Calcium 9.1 mg/dL (8.5-10.5); Carbon Dioxide 23 mmol/L (22-29); Globulin 2.4 g/dL (1.3-4.6); Glomerular Filtration Rate 133.6 mL/min (90-130); Glucose 104 mg/dL (65-115); Osmolality Calculated 283 mOsm/kg (285-295); Total Bilirubin 0.6 mg/dL (0.15-1.2); Total Protein 5.8 g/dL (6.6-8.7)
--- NOTE | 2020-06-08 08:15 | PM.PN ---
Subjective Subjective: Interval history: The patient says he is doing well. He feels like he is about to pass flatus. Vitals/I&O/Wt Last Vital Signs Temp 97.4 F L 06/08/20 07:40 Pulse 80 06/08/20 07:40 Resp 16 06/08/20 07:40 BP 162/92 06/08/20 07:40 Pulse Ox 99 06/08/20 07:40 06/07/20 06/08/20 06/08/20 22:59 06:59 14:59 Intake Total 975 / 1085 50 / 1085 Output Total 900 / 1450 450 / 1450 100 / 100 Balance 75 / -365 -400 / -365 -100 / -100 Weight last 48 hrs Weight 133 lb Physical Exam Narrative: EXAM NARRATIVE: The incision looks excellent. Bowel sounds are present. Urinary Catheter Management^: f: Cath Placed During This Visit: yes Reason for Continuing Indwelling Catheter: Acute Urinary Retention or Obstruction Urinary Catheter Date of Insertion: 06/06/20 Urinary Catheter Time of Insertion: 18:05 Data : 06/08/20 05:16 06/08/20 05:16 Micro: Microbiology 06/06/20 14:48 Blood Culture - Preliminary Blood NEGATIVE TO DATE 06/06/20 14:43 Blood Culture - Preliminary Blood NEGATIVE TO DATE A&P Assessment and plan (1) Perforated appendicitis: Status post exploratory laparotomy with appendectomy on 06/06/2020. Gram stain of peritoneal fluid shows a few gram-negative rods, identification pending. Discontinue nasogastric tube and Chilel catheter. Clear liquid diet. Ambulate. Continue intravenous antibiotics. Status: Acute Attestations Medical Necessity Statement*: See admitting service's notation. Coding Level of Care Code Acute Sleeping Car Porter for Kelle Maciel Diagnoses Perforated appendicitis K35.32
[2020-06-08] MEDS: levalbuterol 0.63 mg/3 mL Neb INHALATION ×4 (08:27→19:30)
[2020-06-08] MEDS: heparin 5,000 unit/mL INJ 1 mL 5000 UNIT SUBCUT ×2 (09:09→21:55)
[2020-06-08] MEDS: HYDROcodone-acetaminophen 5-325 mg Tablet PO ×2 (09:13→21:56)
[2020-06-08] MEDS: D5-NS 0.45% + KCL 20 mEq 20 MEQ/1,000 ML BAG 100 MEQ IV ×2 (09:18→21:55)
--- NOTE | 2020-06-08 14:01 | P.PN_ITS ---
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 Patient stated this has been progressivley worsening for past 3 days. Feel as if it started in right lower quadrants and radiated to left side and back. has been fairly constant with nausea and dry heaving. Has not been able to tolerate oral intake. Noted constipation as well. Denied fever or chills as well as chest pain. Did however not sightly worsening respiratory distess from baseline Upon arrival to ER his initial laboratory workup showed a WBC of 9.9, hemoglobin of 12.8, hematocrit 39.0 and a platelet count of 170. INR 1.2 and D- dimer of 5.52. Arterial blood gases showed a pH of 7.45, pCO2 of 30.8, PO2 of 76.4 and bicarb of 21.4. Sodium of 132, potassium 3.9, chloride 96, bicarb 22, BUN 20 and creatinine of 1.1. Lactic acid was elevated at 3.8. AST of 153, ALT of 93, alkaline phosphatase of 201 and a total bilirubin of 1.6. Delta troponin T was negative 0.45. ProBNP of 336. urinalysis showed negative nitrite and leukocyte esterase. HBsAb was 10.2, Influenza A/B and rapid CoV-2 ag was negative. Imaging studies included chest x-ray which showed no acute cardiopulmonary abnormality. Abdominal ultrasound was then performed which showed small amount of ascites without any acute abnormalities within the biliary system or liver. CT of chest abdomen pelvis with contrast was then performed which showed intraperitoneal free air with pneumatosis involving a significant portion of the right colon and transverse colon, large right lower quadrant inflammatory process with abscess formation and significant bowel wall thickening. No PE however chronic emphysema was noted. In ER patient was given IV fluids, Zosyn 3.375 g x 1, morphine 4 mg IV x1, Solu- Medrol 125 mg IV x1 and DuoNeb treatment. General surgery was consulted and patient was taken emergent exploratory laparotomy. He was found to have perforated appendicitis with surrounding phlegmon and diffuse peritonitis. Operative peritoneal fluids were sent for cultures. He was continued on zosyn. Subjective: 06/07/2020 Overnight patient remained stable postoperatively. Stated pain was under control. Nasogastric tube was in place to suction. did not have any significant fever or chills. 06/08/2020 Doing well overnight, Was seen by surgery, minimal output from NG awaiting for NG tube removal. no fever, chills overnight. Pain under control. Denied chest pain or dsypnea. Medications: Reviewed: Yes Vitals/I&O/Wt Last Vital Signs Temp 98.7 F 06/08/20 15:28 Pulse 89 06/08/20 19:39 Resp 16 06/08/20 19:30 BP 148/88 06/08/20 15:28 Pulse Ox 98 06/08/20 19:30 06/08/20 06/08/20 06/08/20 06:59 14:59 22:59 Intake Total 1050 / 2085 410 / 410 Output Total 450 / 1350 600 / 600 700 / 1300 Balance 600 / 735 -190 / -190 -700 / -890 Physical Exam Narrative: EXAM NARRATIVE: General : alert awake no distress. HEENT Grossly unremarkable - NJ in place Chest : non-labored respiration CVS : NSR ABD : midline lower abdominal incision - C/D/i Ext : no edema Urinary Catheter Management^: f: Cath Placed During This Visit: yes Reason for Continuing Indwelling Catheter: Acute Urinary Retention or Obstructi on Urinary Catheter Date of Insertion: 06/06/20 Urinary Catheter Time of Insertion: 18:05 Data : 06/08/20 05:16 06/08/20 05:16 Micro: Microbiology 06/06/20 18:15 Anaerobic Culture - Preliminary Peritoneal Fluid 06/06/20 18:15 Gram Stain - Final Peritoneal Fluid Body Fluid Culture - Preliminary Gram Negative Rods Gram Negative Rods#2 06/06/20 14:48 Blood Culture - Preliminary Blood NEGATIVE TO DATE 06/06/20 14:43 Blood Culture - Preliminary Blood NEGATIVE TO DATE A&P Assessment and plan (1) Perforated viscus: Status: Acute (2) Pelvic abscess: Status: Acute (3) Transaminitis: Status: Acute (4) Elevated troponin: Status: Acute (5) Lung cancer: Status: Chronic Qualifiers: Laterality: unspecified laterality Lung location: unspecified part of lung Qualified Code(s): C34.90 - Malignant neoplasm of unspecified part of unspecified bronchus or lung (6) Essential hypertension: Status: Chronic (7) Mixed hyperlipidemia: Status: Acute (8) Anxiety and depression: Status: Chronic (9) COPD (chronic obstructive pulmonary disease): Status: Acute Abdominal pain secondary to perforated appendicitis/phegmon/peritonitis - POD #2 - NG tube in place to LIS - Discontinued today - D/C briones - Voiding trials - Pain control - Advance diet per surgery - 06/06 blood culture x 2 - NGTD - 06/06 peritoneal fluid culute - > Gram negative rods - Follow up on final organism and susceptibilities - Continue IV Zosyn 3.375g I V q8hr - Increasing wbc today to 14.8 - may broaden coverage if continues ( also could be related to solu-medrol received in ER) - Trend procalcitonin - Continue maintenance fluids Transaminitis - AST 153 -> 58 -> 45 - ALT - 93 - > 93 -> 72 - Alk.phos - 201 -> 161 - 185 - Total bili 1.6 - > 0.8 - Hx of liver meds - RUQ US - normal liver/bilary - Hepatitis panel negative - Possibly due to sepsis / peritonitis - Continue to trend LFTs - Improving Elevated troponin with hx of CAD - Delta Troponin - negative 0.45 - Likely due to sepsis - No further cardiac work up - Chest pain free. Hyponatremia - Resolved - NA 132 - 135 - 136 - Likely hypovolemic - Repeat BMP in am - Possible component of SIADH - Continue IVF - decrease as diet is advanced. 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 - Follow up outpatient with radiation oncology - No neurological deficits. Chronic obstructive pulmonary disease w/o exacerbation - Noted baseline - S/p solu-medrol 125 mg iV x 1 in ER - Will hold off on additional steroids - DuoNeb q6hr PRN for dyspnea - CTA chest - no PE ( D-dimer 5.52) - Supplemental o2 as needed. - Stable respiratory status. Hypertension / Dyslipidemia - Holding meds for now - NPO GI ppx - Pepcid 20 mg IV BID DVT ppx - SCD only due to planned invasive procedure. Attestations Medical Necessity Statement*: Will require additional day in hospital for IV abx and post op management. Time Spent in Patient Care: Greater than 35 minutes (>than 50% of time spent in counselling and/or direct pt care on unit) . Coding Level of Care Code Acute Parts Specialist for Chg Fwd Diagnoses Perforated viscus R19.8 Pelvic abscess Transaminitis R74.01 Elevated troponin R77.8 Lung cancer C34.90 Laterality: unspecified laterality Lung location: unspecified part of lung Essential hypertension I10 Mixed hyperlipidemia E78.2 Anxiety and depression F41.9; F32.9 COPD (chronic obstructive pulmonary disease) J44.9
[2020-06-08] MEDS: lidocaine-prilocaine cream 5 gm 1 APPLIC TOPICAL (20:37)
[2020-06-09] VITALS (12 sets, daily range): BP systolic 163–170; BP diastolic 91–105; PULSE 68–105; RESP 16–18; TEMP 36.1–37.1; O2SAT 96–99
[2020-06-09 03:18] LABS: Basophils % 0.1 %; Hematocrit 35.8 % (42.0-52.0); Hemoglobin 12.2 g/dL (11.7-16.6); Lymphocytes # 0.3 10^3/uL (0.8-4.8); Lymphocytes % 2.6 %; Mean Corpuscular HGB Conc 34.1 g/dL (30.0-36.0); Mean Corpuscular Volume 91.1 fL (80-94); Mean Platelet Volume 9.8 fL (7.4-10.4); Monocytes # 1.5 10^3/uL (0.2-0.9); Monocytes % 12.6 %; Neutrophils # 10.15 10^3/uL (1.8-7.7); Neutrophils % 83.1 %; Nucleated Red Blood Cells % 0 %; Platelet Count 195 10^3/cmm (130-400); Red Blood Count 3.93 10^6/uL (4.1-5.3); Red Cell Distribution Width 13.2 % (12.1-15.1); White Blood Count 12.2 10^3/uL (4.0-10.0)
[2020-06-09 03:41] LABS: Alanine Aminotransferase 63 U/L (0-41); Albumin Level 3.2 g/dL (3.5-5.2); Alkaline Phosphatase 138 IU/L (40-130); Anion Gap 11.9 (5-19); Aspartate Amino Transferase 28 U/L (0-40); Blood Urea Nitrogen 9 mg/dL (8-23); Carbon Dioxide 23 mmol/L (22-29); Chloride 103 mmol/L (98-107); Globulin 2.3 g/dL (1.3-4.6); Glomerular Filtration Rate 133.6 mL/min (90-130); Glucose 102 mg/dL (65-115); Osmolality Calculated 277 mOsm/kg (285-295); Potassium 3.9 mmol/L (3.5-5.1); Sodium 134 mmol/L (136-145); Total Bilirubin 0.6 mg/dL (0.15-1.2); Total Protein 5.5 g/dL (6.6-8.7)
[2020-06-09] MEDS: famotidine 20 mg/2 mL INJ IVP (05:41)
[2020-06-09] MEDS: piperacillin-tazobactam 3.375 GM in sodium chloride 0.9% (plus) 50 ML IV ×2 (05:41→13:05)
[2020-06-09] MEDS: levalbuterol 0.63 mg/3 mL Neb INHALATION ×3 (07:26→16:00)
[2020-06-09] MEDS: D5-NS 0.45% + KCL 20 mEq 20 MEQ/1,000 ML BAG 100 MEQ IV (09:13)
[2020-06-09] MEDS: heparin 5,000 unit/mL INJ 1 mL 5000 UNIT SUBCUT (09:25)
[2020-06-09] MEDS: amoxicillin-clav 875-125 mg Tablet 1 TAB PO (10:39)
--- NOTE | 2020-06-09 10:56 | DCPLANNER ---
Pg 2 of IM updated and reviewed with pt. He doubts he'll ever use it but appreciates the information. Copy provided.
--- NOTE | 2020-06-09 10:56 | PM.PN ---
Subjective Subjective: Interval history: The patient says he is doing well, but got full very quickly when he drank some juice for breakfast. He continues to pass flatus. He is very anxious to try to go home today. Vitals/I&O/Wt Last Vital Signs Temp 98.0 F 06/09/20 07:52 Pulse 76 06/09/20 07:52 Resp 18 06/09/20 07:52 BP 170/91 06/09/20 04:00 Pulse Ox 96 06/09/20 07:52 06/08/20 06/09/20 06/09/20 22:59 06:59 14:59 Intake Total 1050 / 1510 50 / 1510 1360 / 1360 Output Total 800 / 2875 1475 / 2875 200 / 200 Balance 250 / -1365 -1425 / -1365 1160 / 1160 Physical Exam Narrative: EXAM NARRATIVE: The patient is afebrile. Bowel sounds are present. The incision looks good. Urinary Catheter Management^: f: Cath Placed During This Visit: yes Reason for Continuing Indwelling Catheter: Acute Urinary Retention or Obstruction Urinary Catheter Date of Insertion: 06/06/20 Urinary Catheter Time of Insertion: 18:05 Data : 06/09/20 03:03 06/09/20 03:03 Micro: Microbiology 06/06/20 18:15 Anaerobic Culture - Preliminary Peritoneal Fluid 06/06/20 18:15 Gram Stain - Final Peritoneal Fluid Body Fluid Culture - Preliminary Gram Negative Rods Gram Negative Rods#2 A&P Assessment and plan (1) Perforated appendicitis: Status post exploratory laparotomy with appendectomy on 06/06/2020. Gram stain of peritoneal fluid shows a few gram-negative rods, identification pending. Advance diet to see how he does. I discussed the peritoneal fluid cultures with the patient. I told him that I would like to see sensitivities on the gram-negative rods that are growing in his cultures presently, but we could cut a corner and to start him on some oral antibiotics to continue as an outpatient if he is very anxious to be discharged, if that is the only thing that is keeping him in the hospital. I told him I would return later today for discussions regarding discharge. I am going to start the patient on Augmentin in the interim in anticipation of discharge, to make sure it is tolerated. Status: Acute Attestations Medical Necessity Statement*: Patient requires continued inpatient care for intravenous antibiotics following surgery for perforated appendicitis. Coding Level of Care Code Acute Colorer Hides And Skins for [facility] Fwd Diagnoses Perforated appendicitis K35.32
--- NOTE | 2020-06-09 12:41 | PM.DCS ---
Discharge Providers Date of Admission: 06/06/20 19:19 Date of Discharge: June 09, 2020 Attending Provider at Admission: Bienvenido Herring MD Attending Provider at Discharge: Bienvenido Herring MD Primary Care Provider: CHRISTIAN Quintana Diagnoses at Discharge Discharge Diagnosis (1) Perforated appendicitis: Status: Acute Reason for Visit Reason for Visit: SOB/ FATIGUE/ BACK PAIN Hospital Course Hospital Course This is a 70-year-old white male who was feeling poorly for approximately 10 days before presenting to the emergency department where a CAT scan showed a right lower quadrant abdominal abscess consistent with perforated appendicitis. The patient was taken to the operating room the same day and a phlegmon was found surrounding a perforated appendix. He underwent extensive intraperitoneal irrigation. Cultures were taken of the peritoneal fluid which eventually grew some gram-negative rods, identification and sensitivities still pending at the time of discharge. The patient did well after surgery. The hospitalist team was consulted for medical management postoperatively. Broad-spectrum antibiotics were continued postoperatively. His white blood cell count defervesced. His nasogastric tube and [place] catheter were removed on the second postoperative day after his return of bowel function. He was started on a diet which was advanced and he tolerated this well. He was very anxious to go home by 06/09/2020. We discussed awaiting the culture results but he was willing to get started on a oral antibiotic and to follow-up or have that changed as needed. He was started on Augmentin in the hospital and was discharged on the same. The incision looked very good at the time of discharge. He was instructed with respect to wound care, activity limitations, diet, etc. Arrangements will be made for the patient to follow-up with me in the office as an outpatient. Physical Exam Urinary Catheter Management^: f: Cath Placed During This Visit: yes Reason for Continuing Indwelling Catheter: Acute Urinary Retention or Obstruction Urinary Catheter Date of Insertion: 06/06/20 Urinary Catheter Time of Insertion: 18:05 Discharge Data Data Completed and Pending: Completed Studies During Hospitalization Category Date Time Status CT angio chest w abd pel w con Stat Cat Scan 06/06/20 13:53 Completed XR chest 1V molly ble [id number] Stat Exams 06/06/20 11:53 Completed US abdomen comple te* [id number] Urgent Ultrasound 06/06/20 13:21 Completed Pending at discharge Category Date Time Status Anaerobic Culture Routine Lab 06/06/20 18:15 Results Blood Culture Sta t Lab 06/06/20 14:43 Results Body Fluid Cultur e & GS Routine Lab 06/06/20 18:15 Results Pathology: Surgic al [PTH] Routine Pth 06/06/20 18:53 Received Labs from last 24 hours 06/09/20 06/09/20 03:03 03:03 WBC 12.2 H RBC 3.93 L Hgb 12.2 Hct 35.8 L MCV 91.1 MCH 31.0 MCHC 34.1 RDW 13.2 Plt Count 195 MPV 9.8 Neut % (Auto) 83.1 Lymph % (Auto) 2.6 [place] % (Auto) 12.6 Eos % (Auto) 0.0 Baso % (Auto) 0.1 Neut # (Auto) 10.15 H Lymph # (Auto) 0.3 L [place] # (Auto) 1.5 H Eos # (Auto) 0.0 Baso # (Auto) 0.0 Nucleated RBC % (a uto) 0 Nucleated RBCs # 0.0 Sodium 134 L Potassium 3.9 Chloride 103 Carbon Dioxide 23 Anion Gap 11.9 BUN 9 Creatinine 0.6 L GFR Calculation 133.6 H Glucose 102 Calculated Osmolal ity 277 L Calcium 9.0 Total Bilirubin 0.6 AST 28 ALT 63 H Alkaline Phosphata se 138 H Total Protein 5.5 L Albumin 3.2 L Globulin 2.3 Vitals: Last Vital Signs Temp 98.1 F 06/09/20 11:30 Pulse 76 06/09/20 11:30 Resp 18 06/09/20 11:30 BP 164/100 06/09/20 11:30 Pulse Ox 98 06/09/20 11:30 Discharge Plan Discharge Patient Disposition: Home Condition: Stable Prescriptions: New hydrocodone-acetaminophen 5-325 mg tablet 1 - 2 tab PO Q5H PRN (Reason: pain) Qty: 30 RF: 0 amoxicillin-pot clavulanate 875-125 mg Tablet 1 tab PO BID Qty: 10 RF: 0 Continued melatonin 10 mg capsule 10 mg PO DAILY RF: 0 prochlorperazine maleate 10 mg tablet 10 mg PO Q4H PRN (Reason: nausea/vomiting) RF: 0 lisinopril 10 mg tablet 10 mg PO DAILY Qty: 90 RF: 3 metoprolol succinate 25 mg tablet extended release 24 hr 37.5 mg PO DAILY Qty: 135 RF: 3 pravastatin 10 mg tablet 10 mg PO DAILY 30 Days Qty: 30 RF: 5 citalopram [Celexa] 10 mg tablet 10 mg PO DAILY 30 Days Qty: 30 RF: 5 trazodone 100 mg tablet 100 mg PO .hs 30 Days Qty: 30 RF: 5 nitroglycerin [Nitrostat] 0.4 mg tablet, sublingual 0.4 mg SUBLINGUAL Q5M PRN (Reason: chest pain) 30 Days Qty: 30 RF: 5 aspirin 325 mg tablet 650 mg PO DAILY RF: 0 Blood Pressure Cuff Misc 1 each miscellaneous DIRECTED 360 Days Qty: 1 RF: 0 isosorbide mononitrate 30 mg tablet extended release 24 hr 30 mg PO BID Qty: 180 RF: 3 omeprazole 40 mg capsule,delayed release(DR/EC) 40 mg PO DAILY RF: 0 lidocaine-prilocaine 2.5-2.5 % cream See Rx Instructions .ROUTE .COMPLEX RF: 0 hydrocodone-acetaminophen 7.5-325 mg tablet 1 tab PO Q4H PRN (Reason: Pain) RF: 0 Discharge Orders: Discharge Order (Routine); Ordered 06/09/20 Ordered By: Bienvenido Herring Referrals: Bienvenido Herring MD [Physician] - 2 weeks (Nursing: Please have the patient / family call Dr. Herring's office on Friday ([phone]) and make an appointment for the patient to be seen in 7-10 days.) Haley Sánchez, CREATIVE ARTS THERAPIST-C [Primary Care Provider] - Discharge Diet: Advance as tolerated Discharge Activity: Limit activity as instructed Activity Restrictions/Additional Instructions: 1. Discharge to home today. 2. Appointment to see Dr. Herring in 10-14 days as above. 3. May shower at home, okay to get incision wet. 4. [place] 5/325 1-2 tablets by mouth every 5 hours as needed for pain. #30, no refills. No lifting over 20 pounds, no repetitive bending or twisting, no strenuous pushing / pulling or other heavy activity. Ambulate regularly. May go up and down steps if needed. Discharge Attestations Time Spent in Discharge Care*: less than 30 min Quality Metrics Clinical Quality Measures During this hospital stay, did patient experience: None Coding Level of Care Code Acute Cloth Weaver for Chg Fwd Diagnoses Perforated appendicitis K35.32
--- NOTE | 2020-06-09 13:25 | PC.PT ---
Pt states he is tired after already walking this mrning so he just wants to rest
--- NOTE | 2020-06-09 15:33 | PM.PN ---
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 Patient stated this has been progressivley worsening for past 3 days. Feel as if it started in right lower quadrants and radiated to left side and back. has been fairly constant with nausea and dry heaving. Has not been able to tolerate oral intake. Noted constipation as well. Denied fever or chills as well as chest pain. Did however not sightly worsening respiratory distess from baseline Upon arrival to ER his initial laboratory workup showed a WBC of 9.9, hemoglobin of 12.8, hematocrit 39.0 and a platelet count of 170. INR 1.2 and D-dimer of 5.52. Arterial blood gases showed a pH of 7.45, pCO2 of 30.8, PO2 of 76.4 and bicarb of 21.4. Sodium of 132, potassium 3.9, chloride 96, bicarb 22, BUN 20 and creatinine of 1.1. Lactic acid was elevated at 3.8. AST of 153, ALT of 93, alkaline phosphatase of 201 and a total bilirubin of 1.6. Delta troponin T was negative 0.45. ProBNP of 336. urinalysis showed negative nitrite and leukocyte esterase. HBsAb was 10.2, Influenza A/B and rapid CoV-2 ag was negative. Imaging studies included chest x-ray which showed no acute cardiopulmonary abnormality. Abdominal ultrasound was then performed which showed small amount of ascites without any acute abnormalities within the biliary system or liver. CT of chest abdomen pelvis with contrast was then performed which showed intraperitoneal free air with pneumatosis involving a significant portion of the right colon and transverse colon, large right lower quadrant inflammatory process with abscess formation and significant bowel wall thickening. No PE however chronic emphysema was noted. In ER patient was given IV fluids, Zosyn 3.375 g x 1, morphine 4 mg IV x1, Solu-Medrol 125 mg IV x1 and DuoNeb treatment. General surgery was consulted and patient was taken emergent exploratory laparotomy. He was found to have perforated appendicitis with surrounding phlegmon and diffuse peritonitis. Operative peritoneal fluids were sent for cultures. He was continued on zosyn. Subjective: 06/07/2020 Overnight patient remained stable postoperatively. Stated pain was under control. Nasogastric tube was in place to suction. did not have any significant fever or chills. 06/08/2020 Doing well overnight, Was seen by surgery, minimal output from NG awaiting for NG tube removal. no fever, chills overnight. Pain under control. Denied chest pain or dsypnea. 06/09/2020 No new clinical events overnight No fever, or chills No nausea or vomiting Tolerated CLD Wanting to go home Medications: Reviewed: Yes Vitals/I&O/Wt Last Vital Signs Temp 98.1 F 06/09/20 11:30 Pulse 76 06/09/20 11:30 Resp 18 06/09/20 11:30 BP 164/100 06/09/20 11:30 Pulse Ox 98 06/09/20 11:30 06/09/20 06/09/20 06/09/20 06:59 14:59 22:59 Intake Total 50 / 1510 1610 / 1610 Output Total 1475 / 2875 200 / 200 Balance -1425 / -1365 1410 / 1410 Physical Exam Narrative: EXAM NARRATIVE: General : alert awake no distress. HEENT Grossly unremarkable Chest : non-labored respiration CVS : NSR ABD : midline lower abdominal incision - C/D/i Ext : no edema Urinary Catheter Management^: f: Cath Placed During This Visit: yes Reason for Continuing Indwelling Catheter: Acute Urinary Retention or Obstruction Urinary Catheter Date of Insertion: 06/06/20 Urinary Catheter Time of Insertion: 18:05 Data : 06/09/20 03:03 06/09/20 03:03 Micro: Microbiology 06/06/20 18:15 Gram Stain - Final Peritoneal Fluid Body Fluid Culture - Final Escherichia coli Pseudo fluorescens/putida 06/06/20 18:15 Anaerobic Culture - Preliminary Peritoneal Fluid Anaerobic gram negative rods A&P Assessment and plan (1) Perforated viscus: Status: Acute (2) Pelvic abscess: Status: Acute (3) Transaminitis: Status: Acute (4) Elevated troponin: Status: Acute (5) Lung cancer: Status: Chronic Qualifiers: Laterality: unspecified laterality Lung location: unspecified part of lung Qualified Code(s): C34.90 - Malignant neoplasm of unspecified part of unspecified bronchus or lung (6) Essential hypertension: Status: Chronic (7) Mixed hyperlipidemia: Status: Acute (8) Anxiety and depression: Status: Chronic (9) COPD (chronic obstructive pulmonary disease): Status: Acute Abdominal pain secondary to perforated appendicitis/phegmon/peritonitis - NG removed - D/C briones - Voiding trials - Pain control - Advance diet per surgery - 06/06 blood culture x 2 - NGTD - 06/06 peritoneal fluid culute - > Gram negative rods - Follow up on final organism and susceptibilities - Continue IV Zosyn 3.375g I V q8hr - changed to augmentin at discharge Transaminitis - stable - AST 153 -> 58 -> 45 - ALT - 93 - > 93 -> 72 - Alk.phos - 201 -> 161 - 185 - Total bili 1.6 - > 0.8 - Hx of liver meds - RUQ US - normal liver/bilary - Hepatitis panel negative - Possibly due to sepsis / peritonitis - Continue to trend LFTs - Improving Elevated troponin with hx of CAD - Delta Troponin - negative 0.45 - Likely due to sepsis - No further cardiac work up - Chest pain free. Hyponatremia - Resolved - NA 132 - 135 - 136 - Likely hypovolemic - Repeat BMP in am - Possible component of SIADH - Continue IVF - decrease as diet is advanced. 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 - Follow up outpatient with radiation oncology - No neurological deficits. Chronic obstructive pulmonary disease w/o exacerbation - Noted baseline - S/p solu-medrol 125 mg iV x 1 in ER - Will hold off on additional steroids - DuoNeb q6hr PRN for dyspnea - CTA chest - no PE ( D-dimer 5.52) - Supplemental o2 as needed. - Stable respiratory status. Hypertension / Dyslipidemia - Holding meds for now - NPO Disposition: Ok to discharge from medical stand point. d/w Dr. Herring Hospitalist service will sign-off Attestations Medical Necessity Statement*: Per primary- plan to dc today Time Spent in Patient Care: Greater than 35 minutes Coding Level of Care Code Acute Pointing Machine Operator for g Fwd Diagnoses Perforated viscus R19.8 Pelvic abscess Transaminitis R74.01 Elevated troponin R77.8 Lung cancer C34.90 Laterality: unspecified laterality Lung location: unspecified part of lung Essential hypertension I10 Mixed hyperlipidemia E78.2 Anxiety and depression F41.9; F32.9 COPD (chronic obstructive pulmonary disease) J44.9
--- NOTE | 2020-06-09 16:55 | PC.NURSE ---
DC instruction given to patient, voiced full understanding. Port deacessed by Tee NEWSOME. Patient to main entrance via wheelchair to private vehicle with zero difficulty
== END 2020-06-09 16:55 | disposition home or self-care (01) | DRG 339 ==
LOC: ER 15:41 → OPS 17:36 → MEDSURG 19:20
PROVIDERS: Hospitalist; Admitting Provider Surgery; Emergency Provider Emergency Medicine; PCP Nurse Practitioner; Visit Provider Surgery
PROC: 0DTJ0ZZ Resection of Appendix, Open Approach (ICD-10-PCS; CPT 49000; principal; 2020-06-06 17:45)
PROC: 0DTJ0ZZ Resection of Appendix, Open Approach (ICD-10-PCS; CPT 44950; 2020-06-06 17:45)
DX: K35.33 Acute appendicitis with perforation, localized peritonitis, and gangrene, with abscess (principal); C34.11 Malignant neoplasm of upper lobe, right bronchus or lung; C78.7 Secondary malignant neoplasm of liver and intrahepatic bile duct; C77.1 Secondary and unspecified malignant neoplasm of intrathoracic lymph nodes; C79.31 Secondary malignant neoplasm of brain; R18.8 Other ascites; E87.1 Hypo-osmolality and hyponatremia; Z92.25 Personal history of immunosuppression therapy; Z92.3 Personal history of irradiation; Z92.21 Personal history of antineoplastic chemotherapy; F41.8 Other specified anxiety disorders; M19.90 Unspecified osteoarthritis, unspecified site; I25.10 Atherosclerotic heart disease of native coronary artery without angina pectoris; J43.9 Emphysema, unspecified; I10 Essential (primary) hypertension; G47.00 Insomnia, unspecified; F17.210 Nicotine dependence, cigarettes, uncomplicated; F10.10 Alcohol abuse, uncomplicated; E78.2 Mixed hyperlipidemia; Z79.891 Long term (current) use of opiate analgesic; Z79.82 Long term (current) use of aspirin
CPT/HCPCS: 12345; 36415; 36591; 36600; 51702; 71045; 71275; 74177; 76700; 80053; 80307; 81001; 82803; 83605; 83735; 83880; 84484; 85025; 85378; 85610; 85730; 86705; 86706; 86709; 86803; 87040; 87070; 87075; 87077; 87186; 87205; 87340; 87426; 87804; 88304; 93005; 94640; 96372; 96375; 97110; 97116; 97161; 97530; 99281; J0330; J1644; J2270; J2405; J2543; J2704; J2930; J3010; J3490; J7030; J7614; Q9967

== ENCOUNTER 2020-06-13 13:06 | Outpatient (RCR) | payer MEDICARE, MEDICAID, SELFPAY ==
[2020-06-13 13:51] LABS: Basophils % 0.4 %; Eosinophils % 0.3 %; Hematocrit 33.1 % (42.0-52.0); Hemoglobin 11.1 g/dL (11.7-16.6); Lymphocytes # 0.6 10^3/uL (0.8-4.8); Lymphocytes % 5.6 %; Mean Corpuscular HGB Conc 33.5 g/dL (30.0-36.0); Mean Corpuscular Volume 92.5 fL (80-94); Mean Platelet Volume 9.2 fL (7.4-10.4); Monocytes # 1.8 10^3/uL (0.2-0.9); Monocytes % 17.3 %; Neutrophils % 67.6 %; Nucleated Red Blood Cells % 0 %; Platelet Count 292 10^3/cmm (130-400); Red Blood Count 3.58 10^6/uL (4.1-5.3); Red Cell Distribution Width 13.6 % (12.1-15.1); White Blood Count 10.5 10^3/uL (4.0-10.0)
[2020-06-13 14:24] LABS: Alanine Aminotransferase 28 U/L (0-41); Albumin Level 3.4 g/dL (3.5-5.2); Alkaline Phosphatase 116 IU/L (40-130); Anion Gap 13.3 (5-19); Aspartate Amino Transferase 17 U/L (0-40); Blood Urea Nitrogen 9 mg/dL (8-23); Calcium 9.1 mg/dL (8.5-10.5); Carbon Dioxide 27 mmol/L (22-29); Chloride 100 mmol/L (98-107); Globulin 2.5 g/dL (1.3-4.6); Glomerular Filtration Rate 111.8 mL/min (90-130); Glucose 131 mg/dL (65-115); Osmolality Calculated 282 mOsm/kg (285-295); Potassium 4.3 mmol/L (3.5-5.1); Sodium 136 mmol/L (136-145); Total Bilirubin 0.4 mg/dL (0.15-1.2); Total Protein 5.9 g/dL (6.6-8.7)
[2020-06-13 14:30] LABS: Slide Review Slide Review Perform
== END 2020-06-15 23:59 | disposition home or self-care (01) ==
LOC: ONCMED 13:06
PROVIDERS: PCP Nurse Practitioner; Visit Provider Internal Medicine Hematology & Oncology
DX: C79.31 Secondary malignant neoplasm of brain (principal); C77.1 Secondary and unspecified malignant neoplasm of intrathoracic lymph nodes; C34.11 Malignant neoplasm of upper lobe, right bronchus or lung; Z79.899 Other long term (current) drug therapy; R59.9 Enlarged lymph nodes, unspecified
CPT/HCPCS: 36591; 80053; 85025

== ENCOUNTER → 2020-06-26 14:03 | Outpatient (BNVA) | payer MEDICARE, MEDICAID, SELFPAY | PROVIDERS: PCP Nurse Practitioner; Visit Provider Nurse Practitioner | DX: J44.9 Chronic obstructive pulmonary disease, unspecified (principal); Z90.49 Acquired absence of other specified parts of digestive tract; E78.2 Mixed hyperlipidemia; F41.9 Anxiety disorder, unspecified; F32.9 Major depressive disorder, single episode, unspecified; G47.00 Insomnia, unspecified | CPT/HCPCS: 74018; 80053; 85025 ==

== ENCOUNTER 2020-07-07 08:28 | Outpatient (RCR) | payer MEDICARE, MEDICAID, SELFPAY ==
[2020-07-07 09:07] LABS: Basophils % 0.7 %; Eosinophils % 0.7 %; Hematocrit 34.7 % (42.0-52.0); Hemoglobin 11.3 g/dL (11.7-16.6); Lymphocytes # 0.4 10^3/uL (0.8-4.8); Mean Corpuscular HGB Conc 32.6 g/dL (30.0-36.0); Mean Corpuscular Hemoglobin 30.6 pg (28.0-34.0); Mean Platelet Volume 9.7 fL (7.4-10.4); Monocytes # 0.9 10^3/uL (0.2-0.9); Monocytes % 34.2 %; Neutrophils % 48.4 %; Nucleated Red Blood Cells % 0 %; Platelet Count 216 10^3/cmm (130-400); Red Blood Count 3.69 10^6/uL (4.1-5.3); White Blood Count 2.7 10^3/uL (4.0-10.0)
[2020-07-07 09:34] LABS: Alanine Aminotransferase 8 U/L (0-41); Alkaline Phosphatase 90 IU/L (40-130); Anion Gap 11.2 (5-19); Aspartate Amino Transferase 12 U/L (0-40); Blood Urea Nitrogen 8 mg/dL (8-23); Calcium 9.4 mg/dL (8.5-10.5); Carbon Dioxide 28 mmol/L (22-29); Chloride 100 mmol/L (98-107); Globulin 2.2 g/dL (1.3-4.6); Glomerular Filtration Rate 111.8 mL/min (90-130); Glucose 122 mg/dL (65-115); Osmolality Calculated 280 mOsm/kg (285-295); Potassium 4.2 mmol/L (3.5-5.1); Sodium 135 mmol/L (136-145); Total Bilirubin 0.2 mg/dL (0.15-1.2); Total Protein 6.2 g/dL (6.6-8.7)
--- NOTE | 2020-07-07 12:21 | ONC FU_ITS ---
Dr. Perez follow up note Patient: Jean He Unit #: [id number]: 1950 Dicatated By: Ky Perez M.D.Date of Visit:Jul 07, 2020 Onc Med Follow-up/Prog Note History of Present Illness: Mr. He is a 69-year-old gentleman with recent history of progressive right neck mass. He underwent CT scan of chest on 10/12/2018 showed multifocal neoplasm of right upper lobe and extensive bulky right paratracheal, superior mediastinal, right suprahilar, right supraclavicular lymphadenopathy associated with mild compression of severe vena cava and the right internal jugular vein and additional involvement of AP window and subcarinal azygoesophageal recess. No liver or adrenal involvement. Patient was referred to Dr. 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 And immunohistochemistry was positive for NSE, synaptophysin, CD 56. CT PET scan done on 11/28/2018 showed extensive disease e.g. single metastases to the liver and MRI scan of brain done on 11/25/2018 showed left frontal subcortical metastatic lesion and is any enhancing metastatic lesion in the inferior subcortical white matter of right frontal lobe He began treatment with carboplatin/etoposide and Tecentriq on 11/24/2018. 55+ year history of smoking still active, Follow-up CT PET scan done after3 cycles of carboplatin and etoposide and Tecentriq done On 01/30/2019 Showed good response, marked interval improvement in right upper lobe carcinoma Interval improvement in mediastinal lymphadenopathy Interval improvement in right level IV cervical lymph node Resolution of hepatic metastatic disease MRI head done on 01/15/2019 showed decrease in size left frontal subcortical white matter metastatic lesion when compared with scan done on 11/25/2018 No new enhancing metastatic lesion seen. On 03/12/2019 patient Completed 5 cycles of chemotherapy with carboplatin and etoposide with last two , tecentriq was added. consolidation with radiation therapy to rt chest Was given from 04/07/2019 to 05/04/2019 Followed by brainSRS x1 on 05/06/2019. Maintenance therapy with atezolizumab was recommended and he began his first cycle on 06/02/2019. He has tolerated it well. CT PET scan done on 07/03/2019 showed no change in the FDG negative right upper lobe nodule, consistent with treated primary; Interval resolution of right supra clavicular and mediastinal lymph nodes; New malignant appearing right axilla lymph node and recurrence of unifocal hepatic metastatic disease. Mr He was seen by radiation oncology in regards to the right axilla lymph node and radiation was recommended- SB RT to right axilla. He received SBRT from 07/21/2019 till 07/26/2019 and also received SB RT to this solitary liver metastases from 07/28/2019 through 08/03/2019. The immunotherapy with any tecentriq was put on hold after second dose which was given on 06/23/2019 because of risk of increased toxicity with concurrent radiation therapy e.g. SB RT. as per radiation oncology recommendation. resumed his immunotherapy with 3 weekly Tecentriq 1200 mg , on 08/25/2019.Continued till November 17, 2019, Follow-up CT scan of chest/abdomen/pelvis from 09/10/2019 showed right upper lobe lesion is probably residual scar. Diffuse emphysema. No acute intra-abdominal or pelvic abnormality. at that time, he was complaining of headaches and balance problem, CT scan of head was ordered which was done in November 2019 which confirmed brain mets for which she was referred to radiation oncology and patient received whole brain radiation therapy from December 13, 2019 till December 28, 2019, then he was following radiation oncology had follow-up MRI scan of brain done on January 31, 2020 showed significant improvement in metastatic lesions and also had MRI scan of lumbar spine done on January 31, 2020 which showed no evidence of osseous metastatic disease and it was considered most likely due to grade 1 anterolisthesis of L5 resulting in moderate bilateral foraminal stenosis at L5 -S1, and mild foraminal stenosis at L3-L4. And again radiation oncology ordered follow-up MRI scan of brain which was done on May 05, 2020 shows no new enhancing metastatic lesions. Improved but persistent nodular peripheral enhancement of left cerebellar metastatic lesion. Minimal persistent enhancement in the right frontal lobe lesion with a very slight increase in size since January 31, 2020. Persistent but improved enhancement posterior left parietal cortex metastatic lesion. Patient did not make follow-up appointment with medical oncology as he was following radiation oncology on regular basis and also decided not to continue with immunotherapy at least for the time being. And then as per patient when he decided to come back in May 2020, he developed abdominal pain and was diagnosed with ruptured appendix on June 06, 2020 and underwent appendicectomy. Came for follow-up, denies any specific complaint except persistent chronic lower back pain not being controlled with the current pain medication but patient take hydrocodone 1 in the morning and 1 or 2 in the evening denies any pain radiating to lower extremity denies any lower extremity numbness or weakness, denies any urine or stool, incontinence. Denies any dysuria or hematuria denies any hemoptysis or hematemesis denies any headaches or blurred vision but poor appetite no fever chills, no nausea or vomiting, no diarrhea or constipation. Medications: Aspirin 2 (325 mg) Tablet Oral daily, Citalopram Hydrobromide 1 (10 mg) Tablet Oral daily, Isosorbide Dinitrate 1 (30 mg) Tablet Oral b.i.d., Lisinopril 1 Tablet (of 10 mg) Oral daily, Melatonin 1 (10 mg) Capsule Oral at bedtime, Metoprolol Succinate 1.5 Tablet Oral daily, Nitroglycerin 1 Tablet (of 0.4 mg) Tablet, sublingual Sublingual PRN, Omeprazole 1 Capsule (of 40 mg) Capsule Delayed Release Oral daily, Pravastatin Sodium 1 Tablet (of 10 mg) Oral daily, Prochlorperazine Maleate 1 Tablet (of 10 mg) Oral q 4 hours PRN, traZODone HCl 1 (100 mg) Tablet Oral at bedtime PRN Allergies: No Known Allergies. Review of Systems: Constitutional - Appetite is poor and weight has decreased. No fever, chills, hot flashes, or night sweats. Energy level is extremely poor, ENMT - Positive for sinus congestion/drainage and sore throat. No mouth sores. No difficulty swallowing, Hematologic/Lymphatic - No abnormal bruising or bleeding, Respiratory - Positive for shortness of breath and cough, especially in the mornings, Cardiovascular - No angina pain. No palpitations, Gastrointestinal - Positive for nausea and vomiting. No heartburn, no acid reflux. No diarrhea or constipation. No blood in stool, Genitourinary (M) - Positive for urinary frequency, Musculoskeletal - Positive for joint and back pain, Neurologic - Positive for headaches and dizziness. Positive for numbness/ tingling. Pt states that he has been unsteady on his feet for the last couple weeks, Psychiatric - Positive for anxiety and insomnia. Vital Signs: Performed on Jul 07, 2020 10:35 Height - 68.00 in Weight - 124.2 lbs (LOW) BSA - 1.67 sq.m BMI - 18.88 Temperature - 98 F (LOW) Pulse - 61 /min BP - 123/72 mm(hg) O2 Sat - 100 % Pain - 10 Performance Status: 2 - Ambulatory/capable of all self-care, unable to perform any work activities. Up and about more than 50% of waking hours. (ECOG) Physical Examination: ENMT - No mouth sores, no thrush, no jaundice but poor oral hygiene, Respiratory - Poor air entry otherwise clear, Cardiovascular - Regular rate and rhythm of heart, Abdomen - Soft, bowel sounds present, Extremities - No visible edema. Lab/Imaging: Test performed on Jun 13, 2020 13:07 Sodium 136 mmol/L Potassium 4.3 mmol/L Chloride 100 mmol/L CO2 27 mmol/L Anion Gap 13.3 BUN 9 mg/dL Creatinine 0.7 mg/dL Cr Clearance (Est) 90.7400 mL/min eGFR 111.8 mL/min Glucose 131 mg/dL Osmolality - Calculated 282 mOsm/kg Calcium 9.1 mg/dL Protein, Total 5.9 g/dL Albumin 3.4 g/dL Globulin 2.5 g/dL Bilirubin, Total 0.4 mg/dL ALT (SGPT) 28 U/L AST (SGOT) 17 U/L Alkaline Phosphatase 116 IU/L WBC 10.5 10 3/uL RBC 3.58 10 6/uL HGB 11.1 g/dL HCT 33.1 % MCV 92.5 fL MCH 31.0 pg MCHC 33.5 g/dL RDW 13.6 % Platelet Count 292 10 3/cmm MPV 9.2 fL Neutrophils 7.10 10 3/uL Lymphocytes 0.6 10 3/uL Monocytes 1.8 10 3/uL Eosinophils 0.0 10 3/uL Basophils 0.0 10 3/uL Neutrophil % 67.6 % Lymphocyte % 5.6 % Monocyte % 17.3 % Eosinophil % 0.3 % Basophils % 0.4 % NRBC % 0 % CBC Slide Review Slide Review Perform SLIDE REVIEW AGREES WITH AUTOMATED RESULTS ST Impression: 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 Next CT scan of chest done on 10/12/2018 showed when compared to CT scan done on 10/02/2018, multiple nodular densities are in the posterior segment right upper lobe extending anteriorly and inferiorly towards the right hilum. And the most posterior superior nodular density is in the posterior subpleural region measuring 1.7 x 2.5 x 1.5 cm and elongated nodule extends anteriorly and inferiorly towards the right hilum measures 3.3 x 1.2 x 1.2 cm Bulky, confluent right paratracheal, right suprahilar and precarinal lymphadenopathy measures up to 5.8 cm x 3.5 cm x 10 cm. The adenopathy causes significant narrowing of right upper lobe pulmonary artery branch and a partially compresses the superior vena cava no acute bony abnormality seen no lytic or blastic bony destruction seen. Additional adenopathy extends into AP window and anterior superior mediastinum. And right supraclavicular lymphadenopathy measures 3.1 x 3.6 x 3.5 cm causes severe compression of inferior aspect of right internal jugular vein. No axillary lymphadenopathy. No other pulmonary mass or nodule seen. Liver is normal no adrenal involvement Emphysema COPD, so chronic smoking e.g. 55 year plus history history of myocardial infarction at age 43. Elevated PSA Essential hypertension Mr. He had PET/CT imaging on 11/28/2018. He had hypermetabolic activity in the right upper lobe nodule which measured to be 1.3 cm with SUV of 4.1 there are no other significant pulmonary nodules present there was a 2 widespread lung cyst formation upper lobes consistent with COPD changes matted malignant lymph nodes are present in the mediastinum time him consistent with local metastatic disease also present in the right paratracheal anterior mediastinal, precarinal and right hilar territories the SUV up to 6.2. In the right neck a 4.6 x 2.8 cm nodular mass in the level IV distribution has SUV of 6.8 representing metastasis. There is a solitary hypodensity in the medial right hepatic lobe measuring 2.0 x 1.6 cm with an SUV of 4.5. There are no findings to indicate osseous metastatic disease. MRI of the head from 11/25/2018 reports a oval circumscribed ring-enhancing lesion measuring 7.6 x 8.8 x 10 mm in the right frontal lobe subcortical white matter inferiorly. Per MRI report it is likely metastatic disease. No other Ms. sick lesions were seen and no significant stenosis and with white matter edema. 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 Mr. He was offered treatment with carboplatin/etoposide and Tecentriq. He began his first cycle on 11/24/2018. Completed total 5 cycles of chemotherapy on 03/12/2019. He remained on observation. He completed SRS to the brain to total dose of 2000 cGy on 05/06/2019. He began maintenance Tecentriq on 06/02/2019. Followup PET/CT imaging from 07/03/2019 showed no change in the FDG negative right upper lobe nodule, consistent with treated primary; Interval resolution of right supra clavicular and mediastinal lymph nodes; New malignant appearing right axilla lymph node and recurrence of unifocal hepatic metastatic disease. Mr He was seen by radiation oncology in regards to the right axilla lymph node and radiation was recommended- SB RT to right axilla. He received SBRT from 07/21/2019 till 07/26/2019 and also received SB RT to this solitary liver metastases from 07/28/2019 through 08/03/2019. The immunotherapy with any tecentriq was put on hold after second dose which was given on 06/23/2019 because of risk of increased toxicity with concurrent radiation therapy e.g. SB RT. as per radiation oncology recommendation. After completion of the radiation therapy, discussed treatment options including observation, or continue with maintenance immunotherapy with tecentriq was discussed, patient opted for maintenance immunotherapy.Which she resumed on August 25, 2019, total November 17, 2019, at that time patient was diagnosed with progressive brain mets, he was referred to radiation oncology and patient underwent whole brain radiation therapy from December 13, 2019 through December 28, 2019 and follow-up MRI scan done on January 31, 2020 shows significant improvement in multiple brain mets, patient continue to follow with radiation oncology and another follow-up MRI scan of brain done on May 05, 2020 shows further improvement but persistent multiple brain lesion and no new lesion was seen, patient on his own decided not to continue with immunotherapy rather follow-up with radiation oncology History of chronic back pain MRI scan of the lumbar spine ordered by radiation oncology done on January 31, 2020 showed no evidence of osseous metastatic disease. At that time it was concluded his back pain was most likely due to grade 1 anterolisthesis of L5 resulting in moderate bilateral foraminal stenosis at L5-S1 and mild foraminal stenosis at L3-L4. Plan: Discussed with patient regarding his labs white blood count 2.7 hemoglobin 11.3 hematocrit 34.7 platelets 216,000 ANC 1300 CMP within normal limits Clinically, patient doing reasonably well except concerned about progressive lower back pain but not taking his pain medication as directed e.g. take hydrocodone 7.5 mg 1 in the morning and 1 or 2 in the evening. And his MRI scan of lumbar spine done in January 2020 showed no evidence of metastatic disease rather bilateral foraminal stenosis at L5-S1 and L3-L4. Patient was advised to take hydrocodone 7.5 mg/acetaminophen 1 to 2 tablet 4 to 6-hour. In the meantime we will consider follow-up CT PET scan to assess disease status and if there is no evidence of recurrence of disease then we will continue to monitor on the other hand if there is recurrence of disease, will consider treatment options. Patient return to clinic after CT PET scan Mild/moderate leukopenia etiology unclear, will monitor Signed By: Ky Perez M.D. <<Signature on File>>
== END 2020-07-16 23:59 | disposition home or self-care (01) ==
LOC: ONCMED 08:28
PROVIDERS: PCP Nurse Practitioner; Visit Provider Internal Medicine Hematology & Oncology
DX: C34.11 Malignant neoplasm of upper lobe, right bronchus or lung (principal); C79.31 Secondary malignant neoplasm of brain; C77.1 Secondary and unspecified malignant neoplasm of intrathoracic lymph nodes; J43.9 Emphysema, unspecified; F17.210 Nicotine dependence, cigarettes, uncomplicated; I25.2 Old myocardial infarction; R97.20 Elevated prostate specific antigen [PSA]; I10 Essential (primary) hypertension; D72.819 Decreased white blood cell count, unspecified; Z79.899 Other long term (current) drug therapy
CPT/HCPCS: 36591; 80053; 85025; 99214

== ENCOUNTER 2020-07-27 05:52 | Outpatient (RCR) | payer MEDICARE, MEDICAID, SELFPAY ==
[2020-07-27 09:04] LABS: Basophils % 0.3 %; Hematocrit 36.3 % (42.0-52.0); Hemoglobin 11.8 g/dL (11.7-16.6); Lymphocytes # 0.6 10^3/uL (0.8-4.8); Lymphocytes % 18.2 %; Mean Corpuscular HGB Conc 32.5 g/dL (30.0-36.0); Mean Corpuscular Hemoglobin 31.3 pg (28.0-34.0); Mean Corpuscular Volume 96.3 fL (80-94); Mean Platelet Volume 10.2 fL (7.4-10.4); Monocytes # 0.8 10^3/uL (0.2-0.9); Monocytes % 26.4 %; Neutrophils # 1.69 10^3/uL (1.8-7.7); Neutrophils % 53.8 %; Nucleated Red Blood Cells % 0 %; Platelet Count 176 10^3/cmm (130-400); Red Blood Count 3.77 10^6/uL (4.1-5.3); Red Cell Distribution Width 13.8 % (12.1-15.1); White Blood Count 3.1 10^3/uL (4.0-10.0)
[2020-07-27 09:30] LABS: Alanine Aminotransferase 9 U/L (0-41); Albumin Level 4.2 g/dL (3.5-5.2); Alkaline Phosphatase 60 IU/L (40-130); Anion Gap 11.2 (5-19); Aspartate Amino Transferase 9 U/L (0-40); Blood Urea Nitrogen 10 mg/dL (8-23); Calcium 9.3 mg/dL (8.5-10.5); Carbon Dioxide 28 mmol/L (22-29); Chloride 102 mmol/L (98-107); Globulin 1.8 g/dL (1.3-4.6); Glomerular Filtration Rate 111.8 mL/min (90-130); Glucose 87 mg/dL (65-115); Osmolality Calculated 282 mOsm/kg (285-295); Potassium 4.2 mmol/L (3.5-5.1); Sodium 137 mmol/L (136-145); Total Bilirubin 0.2 mg/dL (0.15-1.2)
--- NOTE | 2020-07-28 09:09 | ONC FU_ITS ---
Dr. Perez follow up note Patient: Jean He Unit #: [id number]: 1950 Dicatated By: Ky Perez M.D.Date of Visit:Jul 27, 2020 Onc Med Follow-up/Prog Note History of Present Illness: Mr. He is a 70-year-old gentleman with recent history of progressive right neck mass. He underwent CT scan of chest on 10/12/2018 showed multifocal neoplasm of right upper lobe and extensive bulky right paratracheal, superior mediastinal, right suprahilar, right supraclavicular lymphadenopathy associated with mild compression of severe vena cava and the right internal jugular vein and additional involvement of AP window and subcarinal azygoesophageal recess. No liver or adrenal involvement. Patient was referred to Dr. 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 And immunohistochemistry was positive for NSE, synaptophysin, CD 56. CT PET scan done on 11/28/2018 showed extensive disease e.g. single metastases to the liver and MRI scan of brain done on 11/25/2018 showed left frontal subcortical metastatic lesion and is any enhancing metastatic lesion in the inferior subcortical white matter of right frontal lobe He began treatment with carboplatin/etoposide and Tecentriq on 11/24/2018. 55+ year history of smoking still active, Follow-up CT PET scan done after3 cycles of carboplatin and etoposide and Tecentriq done On 01/30/2019 Showed good response, marked interval improvement in right upper lobe carcinoma Interval improvement in mediastinal lymphadenopathy Interval improvement in right level IV cervical lymph node Resolution of hepatic metastatic disease MRI head done on 01/15/2019 showed decrease in size left frontal subcortical white matter metastatic lesion when compared with scan done on 11/25/2018 No new enhancing metastatic lesion seen. On 03/12/2019 patient Completed 5 cycles of chemotherapy with carboplatin and etoposide with last two , tecentriq was added. consolidation with radiation therapy to rt chest Was given from 04/07/2019 to 05/04/2019 Followed by brainSRS x1 on 05/06/2019. Maintenance therapy with atezolizumab was recommended and he began his first cycle on 06/02/2019. He has tolerated it well. CT PET scan done on 07/03/2019 showed no change in the FDG negative right upper lobe nodule, consistent with treated primary; Interval resolution of right supra clavicular and mediastinal lymph nodes; New malignant appearing right axilla lymph node and recurrence of unifocal hepatic metastatic disease. Mr He was seen by radiation oncology in regards to the right axilla lymph node and radiation was recommended- SB RT to right axilla. He received SBRT from 07/21/2019 till 07/26/2019 and also received SB RT to this solitary liver metastases from 07/28/2019 through 08/03/2019. The immunotherapy with any tecentriq was put on hold after second dose which was given on 06/23/2019 because of risk of increased toxicity with concurrent radiation therapy e.g. SB RT. as per radiation oncology recommendation. resumed his immunotherapy with 3 weekly Tecentriq 1200 mg , on 08/25/2019.Continued till November 17, 2019, Follow-up CT scan of chest/abdomen/pelvis from 09/10/2019 showed right upper lobe lesion is probably residual scar. Diffuse emphysema. No acute intra-abdominal or pelvic abnormality. at that time, he was complaining of headaches and balance problem, CT scan of head was ordered which was done in November 2019 which confirmed brain mets for which she was referred to radiation oncology and patient received whole brain radiation therapy from December 13, 2019 till December 28, 2019, then he was following radiation oncology had follow-up MRI scan of brain done on January 31, 2020 showed significant improvement in metastatic lesions and also had MRI scan of lumbar spine done on January 31, 2020 which showed no evidence of osseous metastatic disease and it was considered most likely due to grade 1 anterolisthesis of L5 resulting in moderate bilateral foraminal stenosis at L5 -S1, and mild foraminal stenosis at L3-L4. And again radiation oncology ordered follow-up MRI scan of brain which was done on May 05, 2020 shows no new enhancing metastatic lesions. Improved but persistent nodular peripheral enhancement of left cerebellar metastatic lesion. Minimal persistent enhancement in the right frontal lobe lesion with a very slight increase in size since January 31, 2020. Persistent but improved enhancement posterior left parietal cortex metastatic lesion. Patient did not make follow-up appointment with medical oncology as he was following radiation oncology on regular basis and also decided not to continue with immunotherapy at least for the time being. And then as per patient when he decided to come back in May 2020, he developed abdominal pain and was diagnosed with ruptured appendix on June 06, 2020 and underwent appendicectomy. persistent chronic lower back pain not being controlled with the current pain medication but patient take hydrocodone 1 in the morning and 1 or 2 in the evening denies any pain radiating to lower extremity denies any lower extremity numbness or weakness, Follow-up CT PET scan done on July 22, 2020 showed posterior right upper lobe nodule seen previously now has SUV of 1.3 consistent with a minimal inflammatory uptake, indicating sterilized malignancy. The recurrent hepatic lesion in the segment 6 is now FDG negative. The right axillary lymph node seen on previous study is no longer present. Came for follow-up, denies any specific complaint except chronic persistent lower back pain which is being controlled with hydrocodone otherwise no nausea or vomiting no diarrhea or constipation, no fever chills no hemoptysis or hematemesis, no headaches or blurred vision, appetite is good. Medications: Aspirin 2 (325 mg) Tablet Oral daily, Citalopram Hydrobromide 1 (10 mg) Tablet Oral daily, Isosorbide Dinitrate 1 (30 mg) Tablet Oral b.i.d., Lisinopril 1 Tablet (of 10 mg) Oral daily, Melatonin 1 (10 mg) Capsule Oral at bedtime, Metoprolol Succinate 1.5 Tablet Oral daily, Nitroglycerin 1 Tablet (of 0.4 mg) Tablet, sublingual Sublingual PRN, Omeprazole 1 Capsule (of 40 mg) Capsule Delayed Release Oral daily, Pravastatin Sodium 1 Tablet (of 10 mg) Oral daily, Prochlorperazine Maleate 1 Tablet (of 10 mg) Oral q 4 hours PRN, traZODone HCl 1 (100 mg) Tablet Oral at bedtime PRN Allergies: No Known Allergies. Review of Systems: Constitutional - Appetite is poor and weight has decreased. No fever, chills, hot flashes, or night sweats. Energy level is extremely poor, ENMT - Positive for sinus congestion/drainage and sore throat. No mouth sores. No difficulty swallowing, Hematologic/Lymphatic - No abnormal bruising or bleeding, Respiratory - Positive for shortness of breath and cough, especially in the mornings, Cardiovascular - No angina pain. No palpitations, Gastrointestinal - Positive for nausea and vomiting. No heartburn, no acid reflux. No diarrhea or constipation. No blood in stool, Genitourinary (M) - Positive for urinary frequency, Musculoskeletal - Positive for joint and back pain, Neurologic - Positive for headaches and dizziness. Positive for numbness/ tingling. Pt states that he has been unsteady on his feet for the last couple weeks, Psychiatric - Positive for anxiety and insomnia. Vital Signs: Performed on Jul 27, 2020 09:11 Height - 68.00 in Weight - 124.8 lbs (HIGH) BSA - 1.67 sq.m BMI - 18.98 Temperature - 97.6 F (LOW) Pulse - 56 /min (LOW) Respiration - 18 /min BP - 125/75 mm(hg) O2 Sat - 100 % Pain - 3 Performance Status: 2 - Ambulatory/capable of all self-care, unable to perform any work activities. Up and about more than 50% of waking hours. (ECOG) Physical Examination: ENMT - No mouth sores, no thrush, no jaundice, Respiratory - Poor air entry otherwise clear, Cardiovascular - Regular rate and rhythm of heart, Abdomen - Soft, bowel sounds present, Extremities - No visible edema. Lab/Imaging: Test performed on Jun 13, 2020 13:07 Sodium 136 mmol/L Potassium 4.3 mmol/L Chloride 100 mmol/L CO2 27 mmol/L Anion Gap 13.3 BUN 9 mg/dL Creatinine 0.7 mg/dL Cr Clearance (Est) 90.7400 mL/min eGFR 111.8 mL/min Glucose 131 mg/dL Osmolality - Calculated 282 mOsm/kg Calcium 9.1 mg/dL Protein, Total 5.9 g/dL Albumin 3.4 g/dL Globulin 2.5 g/dL Bilirubin, Total 0.4 mg/dL ALT (SGPT) 28 U/L AST (SGOT) 17 U/L Alkaline Phosphatase 116 IU/L WBC 10.5 10 3/uL RBC 3.58 10 6/uL HGB 11.1 g/dL HCT 33.1 % MCV 92.5 fL MCH 31.0 pg MCHC 33.5 g/dL RDW 13.6 % Platelet Count 292 10 3/cmm MPV 9.2 fL Neutrophils 7.10 10 3/uL Lymphocytes 0.6 10 3/uL Monocytes 1.8 10 3/uL Eosinophils 0.0 10 3/uL Basophils 0.0 10 3/uL Neutrophil % 67.6 % Lymphocyte % 5.6 % Monocyte % 17.3 % Eosinophil % 0.3 % Basophils % 0.4 % NRBC % 0 % CBC Slide Review Slide Review Perform SLIDE REVIEW AGREES WITH AUTOMATED RESULTS ST Impression: 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 Next CT scan of chest done on 10/12/2018 showed when compared to CT scan done on 10/02/2018, multiple nodular densities are in the posterior segment right upper lobe extending anteriorly and inferiorly towards the right hilum. And the most posterior superior nodular density is in the posterior subpleural region measuring 1.7 x 2.5 x 1.5 cm and elongated nodule extends anteriorly and inferiorly towards the right hilum measures 3.3 x 1.2 x 1.2 cm Bulky, confluent right paratracheal, right suprahilar and precarinal lymphadenopathy measures up to 5.8 cm x 3.5 cm x 10 cm. The adenopathy causes significant narrowing of right upper lobe pulmonary artery branch and a partially compresses the superior vena cava no acute bony abnormality seen no lytic or blastic bony destruction seen. Additional adenopathy extends into AP window and anterior superior mediastinum. And right supraclavicular lymphadenopathy measures 3.1 x 3.6 x 3.5 cm causes severe compression of inferior aspect of right internal jugular vein. No axillary lymphadenopathy. No other pulmonary mass or nodule seen. Liver is normal no adrenal involvement Emphysema COPD, so chronic smoking e.g. 55 year plus history history of myocardial infarction at age 43. Elevated PSA Essential hypertension Mr. He had PET/CT imaging on 11/28/2018. He had hypermetabolic activity in the right upper lobe nodule which measured to be 1.3 cm with SUV of 4.1 there are no other significant pulmonary nodules present there was a 2 widespread lung cyst formation upper lobes consistent with COPD changes matted malignant lymph nodes are present in the mediastinum time him consistent with local metastatic disease also present in the right paratracheal anterior mediastinal, precarinal and right hilar territories the SUV up to 6.2. In the right neck a 4.6 x 2.8 cm nodular mass in the level IV distribution has SUV of 6.8 representing metastasis. There is a solitary hypodensity in the medial right hepatic lobe measuring 2.0 x 1.6 cm with an SUV of 4.5. There are no findings to indicate osseous metastatic disease. MRI of the head from 11/25/2018 reports a oval circumscribed ring-enhancing lesion measuring 7.6 x 8.8 x 10 mm in the right frontal lobe subcortical white matter inferiorly. Per MRI report it is likely metastatic disease. No other Ms. sick lesions were seen and no significant stenosis and with white matter edema. 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 Mr. He was offered treatment with carboplatin/etoposide and Tecentriq. He began his first cycle on 11/24/2018. Completed total 5 cycles of chemotherapy on 03/12/2019. He remained on observation. He completed SRS to the brain to total dose of 2000 cGy on 05/06/2019. He began maintenance Tecentriq on 06/02/2019. Followup PET/CT imaging from 07/03/2019 showed no change in the FDG negative right upper lobe nodule, consistent with treated primary; Interval resolution of right supra clavicular and mediastinal lymph nodes; New malignant appearing right axilla lymph node and recurrence of unifocal hepatic metastatic disease. Mr He was seen by radiation oncology in regards to the right axilla lymph node and radiation was recommended- SB RT to right axilla. He received SBRT from 07/21/2019 till 07/26/2019 and also received SB RT to this solitary liver metastases from 07/28/2019 through 08/03/2019. The immunotherapy with any tecentriq was put on hold after second dose which was given on 06/23/2019 because of risk of increased toxicity with concurrent radiation therapy e.g. SB RT. as per radiation oncology recommendation. After completion of the radiation therapy, discussed treatment options including observation, or continue with maintenance immunotherapy with tecentriq was discussed, patient opted for maintenance immunotherapy.Which she resumed on August 25, 2019, total November 17, 2019, at that time patient was diagnosed with progressive brain mets, he was referred to radiation oncology and patient underwent whole brain radiation therapy from December 13, 2019 through December 28, 2019 and follow-up MRI scan done on January 31, 2020 shows significant improvement in multiple brain mets, patient continue to follow with radiation oncology and another follow-up MRI scan of brain done on May 05, 2020 shows further improvement but persistent multiple brain lesion and no new lesion was seen, patient on his own decided not to continue with immunotherapy rather follow-up with radiation oncology History of chronic back pain MRI scan of the lumbar spine ordered by radiation oncology done on January 31, 2020 showed no evidence of osseous metastatic disease. At that time it was concluded his back pain was most likely due to grade 1 anterolisthesis of L5 resulting in moderate bilateral foraminal stenosis at L5-S1 and mild foraminal stenosis at L3-L4. Follow-up CT PET scan done in July 22, 2020 showed minimal inflammatory activity in the right upper lobe pulmonary nodule, consistent with sterilization of malignancy. Resolution of activity in the unifocal hepatic metastasis consistent with sterilization of malignancy. Resolution of right axillary lymph node. Plan: Discussed with patient regarding his labs white blood count 3.1 compared to 2.7 on July 07, 2020, hemoglobin 11.8 hematocrit 36.3 platelets 176,000, neutrophil 1690 Follow-up CT PET scan done on July 22, 2020 shows no evidence of disease Clinically, patient is doing well with no new signs symptom except persistent lower back pain which could be musculoskeletal or arthritis as CT PET scan done recently showed no abnormality in the lower spine. But his pain is under control with hydrocodone and at this point will refer him to pain clinic for pain management Mild leukopenia, etiology unclear could be multifactorial including considering his age underlying myelodysplasia but, now improving, will continue to monitor Mild anemia, now improving, will continue to monitor Patient still smoking actively, he was advised to quit and was offered any assistance he may need. At this point, patient preferred observation, will continue to monitor and he will return to clinic in 3 months with CBC CMP and CT scan of chest abdomen in the meantime continue with monthly port maintenance Signed By: Ky Perez M.D. <<Signature on File>>
== END 2020-08-13 23:59 | disposition home or self-care (01) ==
LOC: ONCMED 05:52
PROVIDERS: PCP Nurse Practitioner; Visit Provider Internal Medicine Hematology & Oncology
DX: C34.11 Malignant neoplasm of upper lobe, right bronchus or lung (principal); C77.1 Secondary and unspecified malignant neoplasm of intrathoracic lymph nodes; C79.31 Secondary malignant neoplasm of brain; J43.9 Emphysema, unspecified; F17.210 Nicotine dependence, cigarettes, uncomplicated; I25.2 Old myocardial infarction; R97.20 Elevated prostate specific antigen [PSA]; I10 Essential (primary) hypertension; M54.5 Low back pain; D64.9 Anemia, unspecified; Z79.899 Other long term (current) drug therapy
CPT/HCPCS: 36593; 80053; 85025; 96374; 99214; J2997

== ENCOUNTER → 2020-08-15 09:08 | Outpatient (BNVA) | payer MEDICARE, MEDICAID, SELFPAY | PROVIDERS: PCP Nurse Practitioner; Referring Provider Internal Medicine Hematology & Oncology; Visit Provider Anesthesiology Pain Medicine | DX: M54.9 Dorsalgia, unspecified (principal); C34.90 Malignant neoplasm of unspecified part of unspecified bronchus or lung; M51.16 Intervertebral disc disorders with radiculopathy, lumbar region; F17.210 Nicotine dependence, cigarettes, uncomplicated; Z79.891 Long term (current) use of opiate analgesic | CPT/HCPCS: 99205 ==

== ENCOUNTER 2020-08-25 05:53 | Outpatient (CLI) | payer MEDICARE, MEDICAID, SELFPAY | END 2020-08-25 05:54 | disposition home or self-care (01) | LOC: ONCMED 05:58 | PROVIDERS: PCP Nurse Practitioner; Visit Provider Nurse Practitioner | DX: Z45.2 Encounter for adjustment and management of vascular access device (principal) | CPT/HCPCS: 96523 ==

== ENCOUNTER 2020-09-29 10:06 | Outpatient (CLI) | payer MEDICARE, MEDICAID, SELFPAY | END 2020-09-29 10:07 | disposition home or self-care (01) | PROVIDERS: PCP Nurse Practitioner; Visit Provider Internal Medicine Hematology & Oncology | DX: Z45.2 Encounter for adjustment and management of vascular access device (principal) | CPT/HCPCS: 96523 ==

== ENCOUNTER → 2020-10-03 08:57 | Outpatient (BNVA) | payer MEDICARE, MEDICAID, SELFPAY | PROVIDERS: PCP Nurse Practitioner; Visit Provider Anesthesiology Pain Medicine | DX: C34.90 Malignant neoplasm of unspecified part of unspecified bronchus or lung (principal); M51.16 Intervertebral disc disorders with radiculopathy, lumbar region; M54.9 Dorsalgia, unspecified; F17.210 Nicotine dependence, cigarettes, uncomplicated; Z79.891 Long term (current) use of opiate analgesic | CPT/HCPCS: 99214 ==

== ENCOUNTER 2020-10-19 11:50 | Outpatient (CLI) | payer MEDICARE, MEDICAID, SELFPAY ==
--- NOTE | 2020-10-19 12:00 | CT_ITS ---
WS: [id number] CT CHEST AND ABDOMEN TECHNIQUE: Contrast-enhanced CT of the chest and abdomen with coronal and sagittal reformatted images . CLINICAL INFORMATION: RESTAGING EVALUATION-LUNG CA COMPARISON: PET/CT July 22, 2020, CTA June 06, 2020. CT chest abdomen pelvis September 10, 2019 DLP: 907.[address] scans at [facility] use at least one of these dose optimization techniques: automat ed exposure control; mA and/or kV adjustment per patient size (includes targeted exams where dose is matched to clinical indication); or iterative reconstruction. CT CHEST: Moderate chronic emphysematous changes with bulla formation in the lung apices. No acute pulmonary in filtrates. No consolidation or pleural fluid. Normal caliber thoracic aorta. Proximal main pulmonary arteries are normal. No mediastinal or hilar lymphadenopathy. No axillary lymphadenopathy. Semisolid right upper lobe posterior medial pulmonary opacity measuring 1.6 x 1.3 cm is unchanged since the kg or PET/CT. No other suspicious pulmonary parenchymal opacities. Mild narrowing of the right upper lob e bronchus is unchanged. CT ABDOMEN: Liver is normal in appearance. Normal portal vein and splenic vein. Previously described FDG active h epatic metastasis in the inferior right hepatic lobe is no longer visualized. No suspicious hepatic l esions. Adrenal glands are normal. Normal renal parenchymal enhancement. No hydronephrosis. Fatty atrophy of the pancreas. Normal spleen. Normal caliber abdominal aorta. Aortic calcification. Grade 1 anterolisthesis L5 on S1 bilateral pars defects. CT/CT chest abdomen w con* IMPRESSION: 1. No evidence of new or progressed disease in the chest or abdomen. 2. No adenopathy in the chest or abdomen. 3. Semisolid right upper lobe opacity is stable since the recent PET/CT 2020. 4. No suspicious hepatic lesions. 5. Grade 1 anterolisthesis L5 on S1 with spondylolysis.
[2020-10-19 12:51] LABS: Blood Urea Nitrogen 10 mg/dL (8-23); Glomerular Filtration Rate 95.8 mL/min (90-130)
[2020-10-19] MEDS: iohexol 300 mg/mL 100 mL Btl IV (13:52)
== END 2020-10-19 11:51 | disposition home or self-care (01) ==
LOC: RAD 11:52
PROVIDERS: PCP Nurse Practitioner; Visit Provider Internal Medicine Hematology & Oncology
DX: C34.11 Malignant neoplasm of upper lobe, right bronchus or lung (principal); M47.817 Spondylosis without myelopathy or radiculopathy, lumbosacral region
CPT/HCPCS: 36415; 71260; 74160; 82565; 84520

== ENCOUNTER 2020-10-25 12:48 | Outpatient (CLI) | payer MEDICARE, MEDICAID, SELFPAY ==
[2020-10-25 13:29] LABS: Basophils % 0.7 %; Eosinophils # 0.1 10^3/uL (0.0-0.8); Eosinophils % 1.4 %; Hematocrit 38.8 % (42.0-52.0); Hemoglobin 13.1 g/dL (11.7-16.6); Lymphocytes # 0.7 10^3/uL (0.8-4.8); Lymphocytes % 17.6 %; Mean Corpuscular HGB Conc 33.8 g/dL (30.0-36.0); Mean Corpuscular Hemoglobin 30.8 pg (28.0-34.0); Mean Corpuscular Volume 91.1 fL (80-94); Mean Platelet Volume 9.9 fL (7.4-10.4); Monocytes # 1.1 10^3/uL (0.2-0.9); Monocytes % 25.4 %; Neutrophils # 2.25 10^3/uL (1.8-7.7); Neutrophils % 54.4 %; Nucleated Red Blood Cells % 0 %; Platelet Count 183 10^3/cmm (130-400); Red Blood Count 4.26 10^6/uL (4.1-5.3); Red Cell Distribution Width 12.9 % (12.1-15.1); White Blood Count 4.1 10^3/uL (4.0-10.0)
--- NOTE | 2020-10-25 14:00 | ONC FU_ITS ---
Dr. Perez follow up note Patient: Jean He Unit #: [id number]: 1950 Dicatated By: Ky Perez M.D.Date of Visit:October 25, 2020 Onc Med Follow-up/Prog Note History of Present Illness: Mr. He is a 70-year-old gentleman with recent history of progressive right neck mass. He underwent CT scan of chest on 10/12/2018 showed multifocal neoplasm of right upper lobe and extensive bulky right paratracheal, superior mediastinal, right suprahilar, right supraclavicular lymphadenopathy associated with mild compression of severe vena cava and the right internal jugular vein and additional involvement of AP window and subcarinal azygoesophageal recess. No liver or adrenal involvement. Patient was referred to Dr. 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 And immunohistochemistry was positive for NSE, synaptophysin, CD 56. CT PET scan done on 11/28/2018 showed extensive disease e.g. single metastases to the liver and MRI scan of brain done on 11/25/2018 showed left frontal subcortical metastatic lesion and is any enhancing metastatic lesion in the inferior subcortical white matter of right frontal lobe He began treatment with carboplatin/etoposide and Tecentriq on 11/24/2018. 55+ year history of smoking still active, Follow-up CT PET scan done after3 cycles of carboplatin and etoposide and Tecentriq done On 01/30/2019 Showed good response, marked interval improvement in right upper lobe carcinoma Interval improvement in mediastinal lymphadenopathy Interval improvement in right level IV cervical lymph node Resolution of hepatic metastatic disease MRI head done on 01/15/2019 showed decrease in size left frontal subcortical white matter metastatic lesion when compared with scan done on 11/25/2018 No new enhancing metastatic lesion seen. On 03/12/2019 patient Completed 5 cycles of chemotherapy with carboplatin and etoposide with last two , tecentriq was added. consolidation with radiation therapy to rt chest Was given from 04/07/2019 to 05/04/2019 Followed by brainSRS x1 on 05/06/2019. Maintenance therapy with atezolizumab was recommended and he began his first cycle on 06/02/2019. He has tolerated it well. CT PET scan done on 07/03/2019 showed no change in the FDG negative right upper lobe nodule, consistent with treated primary; Interval resolution of right supra clavicular and mediastinal lymph nodes; New malignant appearing right axilla lymph node and recurrence of unifocal hepatic metastatic disease. Mr He was seen by radiation oncology in regards to the right axilla lymph node and radiation was recommended- SB RT to right axilla. He received SBRT from 07/21/2019 till 07/26/2019 and also received SB RT to this solitary liver metastases from 07/28/2019 through 08/03/2019. The immunotherapy with any tecentriq was put on hold after second dose which was given on 06/23/2019 because of risk of increased toxicity with concurrent radiation therapy e.g. SB RT. as per radiation oncology recommendation. resumed his immunotherapy with 3 weekly Tecentriq 1200 mg , on 08/25/2019.Continued till November 17, 2019, Follow-up CT scan of chest/abdomen/pelvis from 09/10/2019 showed right upper lobe lesion is probably residual scar. Diffuse emphysema. No acute intra-abdominal or pelvic abnormality. at that time, he was complaining of headaches and balance problem, CT scan of head was ordered which was done in November 2019 which confirmed brain mets for which she was referred to radiation oncology and patient received whole brain radiation therapy from December 13, 2019 till December 28, 2019, then he was following radiation oncology had follow-up MRI scan of brain done on January 31, 2020 showed significant improvement in metastatic lesions and also had MRI scan of lumbar spine done on January 31, 2020 which showed no evidence of osseous metastatic disease and it was considered most likely due to grade 1 anterolisthesis of L5 resulting in moderate bilateral foraminal stenosis at L5 -S1, and mild foraminal stenosis at L3-L4. And again radiation oncology ordered follow-up MRI scan of brain which was done on May 05, 2020 shows no new enhancing metastatic lesions. Improved but persistent nodular peripheral enhancement of left cerebellar metastatic lesion. Minimal persistent enhancement in the right frontal lobe lesion with a very slight increase in size since January 31, 2020. Persistent but improved enhancement posterior left parietal cortex metastatic lesion. Patient did not make follow-up appointment with medical oncology as he was following radiation oncology on regular basis and also decided not to continue with immunotherapy at least for the time being. And then as per patient when he decided to come back in May 2020, he developed abdominal pain and was diagnosed with ruptured appendix on June 06, 2020 and underwent appendicectomy. persistent chronic lower back pain not being controlled with the current pain medication but patient take hydrocodone 1 in the morning and 1 or 2 in the evening denies any pain radiating to lower extremity denies any lower extremity numbness or weakness, Follow-up CT PET scan done on July 22, 2020 showed posterior right upper lobe nodule seen previously now has SUV of 1.3 consistent with a minimal inflammatory uptake, indicating sterilized malignancy. The recurrent hepatic lesion in the segment 6 is now FDG negative. The right axillary lymph node seen on previous study is no longer present. Follow-up CT scan of chest abdomen done on October 19, 2020 showed no evidence of new or progressive disease in the chest or abdomen. No adenopathy in the chest or abdomen. Semisolid right upper lobe opacity stable since recent PET scan done in July 2020. Grade 1 anterolisthesis L5 on S1 with spondylosis Came for follow-up, denies any specific complaint except chronic back pain for which he is being evaluated by his physician and orthopedics. Otherwise no fever chills, no nausea or vomiting, no diarrhea constipation, no abdominal pain, no jaundice, no headaches blurred vision double vision, no hemoptysis or hematemesis. Medications: Aspirin 2 (325 mg) Tablet Oral daily, Citalopram Hydrobromide 1 (10 mg) Tablet Oral daily, Isosorbide Dinitrate 1 (30 mg) Tablet Oral b.i.d., Lisinopril 1 Tablet (of 10 mg) Oral daily, Melatonin 1 (10 mg) Capsule Oral at bedtime, Metoprolol Succinate 1.5 Tablet Oral daily, Nitroglycerin 1 Tablet (of 0.4 mg) Tablet, sublingual Sublingual PRN, Omeprazole 1 Capsule (of 40 mg) Capsule Delayed Release Oral daily, Pravastatin Sodium 1 Tablet (of 10 mg) Oral daily, Prochlorperazine Maleate 1 Tablet (of 10 mg) Oral q 4 hours PRN, traZODone HCl 1 (100 mg) Tablet Oral at bedtime PRN Allergies: No Known Allergies. Review of Systems: Review of Systems is not available for this patient. Vital Signs: Performed on October 25, 2020 13:26 Height - 68.00 in Weight - 127.4 lbs (HIGH) BSA - 1.69 sq.m BMI - 19.37 Temperature - 97.6 F (LOW) Pulse - 58 /min (LOW) Respiration - 18 /min BP - 138/69 mm(hg) O2 Sat - 99 % Pain - 6 Fatigue - 4 Performance Status: 1 - No physically strenuous activity, but ambulatory and able to carry out light or sedentary work (e.g. office work, light house work). (ECOG) Physical Examination: ENMT - No mouth sores, no thrush, no jaundice, Respiratory - Lungs are clear to auscultation, Cardiovascular - Regular rate and rhythm of heart, Abdomen - Soft, bowel sounds present, Extremities - No visible edema or rash. Lab/Imaging: Test performed on Jul 27, 2020 08:37 Sodium 137 mmol/L Potassium 4.2 mmol/L Chloride 102 mmol/L CO2 28 mmol/L Anion Gap 11.2 BUN 10 mg/dL Creatinine 0.7 mg/dL Cr Clearance (Est) 79.7500 mL/min eGFR 111.8 mL/min Glucose 87 mg/dL Osmolality - Calculated 282 mOsm/kg Calcium 9.3 mg/dL Protein, Total 6.0 g/dL Albumin 4.2 g/dL Globulin 1.8 g/dL Bilirubin, Total 0.2 mg/dL ALT (SGPT) 9 U/L AST (SGOT) 9 U/L Alkaline Phosphatase 60 IU/L WBC 3.1 10 3/uL RBC 3.77 10 6/uL HGB 11.8 g/dL HCT 36.3 % MCV 96.3 fL MCH 31.3 pg MCHC 32.5 g/dL RDW 13.8 % Platelet Count 176 10 3/cmm MPV 10.2 fL Neutrophils 1.69 10 3/uL Lymphocytes 0.6 10 3/uL Monocytes 0.8 10 3/uL Eosinophils 0.0 10 3/uL Basophils 0.0 10 3/uL Neutrophil % 53.8 % Lymphocyte % 18.2 % Monocyte % 26.4 % Eosinophil % 1.0 % Basophils % 0.3 % NRBC % 0 % Test performed on Jun 13, 2020 13:07 CBC Slide Review Slide Review Perform SLIDE REVIEW AGREES WITH AUTOMATED RESULTS ST Impression: 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 Next CT scan of chest done on 10/12/2018 showed when compared to CT scan done on 10/02/2018, multiple nodular densities are in the posterior segment right upper lobe extending anteriorly and inferiorly towards the right hilum. And the most posterior superior nodular density is in the posterior subpleural region measuring 1.7 x 2.5 x 1.5 cm and elongated nodule extends anteriorly and inferiorly towards the right hilum measures 3.3 x 1.2 x 1.2 cm Bulky, confluent right paratracheal, right suprahilar and precarinal lymphadenopathy measures up to 5.8 cm x 3.5 cm x 10 cm. The adenopathy causes significant narrowing of right upper lobe pulmonary artery branch and a partially compresses the superior vena cava no acute bony abnormality seen no lytic or blastic bony destruction seen. Additional adenopathy extends into AP window and anterior superior mediastinum. And right supraclavicular lymphadenopathy measures 3.1 x 3.6 x 3.5 cm causes severe compression of inferior aspect of right internal jugular vein. No axillary lymphadenopathy. No other pulmonary mass or nodule seen. Liver is normal no adrenal involvement Emphysema COPD, so chronic smoking e.g. 55 year plus history history of myocardial infarction at age 43. Elevated PSA Essential hypertension Mr. He had PET/CT imaging on 11/28/2018. He had hypermetabolic activity in the right upper lobe nodule which measured to be 1.3 cm with SUV of 4.1 there are no other significant pulmonary nodules present there was a 2 widespread lung cyst formation upper lobes consistent with COPD changes matted malignant lymph nodes are present in the mediastinum time him consistent with local metastatic disease also present in the right paratracheal anterior mediastinal, precarinal and right hilar territories the SUV up to 6.2. In the right neck a 4.6 x 2.8 cm nodular mass in the level IV distribution has SUV of 6.8 representing metastasis. There is a solitary hypodensity in the medial right hepatic lobe measuring 2.0 x 1.6 cm with an SUV of 4.5. There are no findings to indicate osseous metastatic disease. MRI of the head from 11/25/2018 reports a oval circumscribed ring-enhancing lesion measuring 7.6 x 8.8 x 10 mm in the right frontal lobe subcortical white matter inferiorly. Per MRI report it is likely metastatic disease. No other Ms. sick lesions were seen and no significant stenosis and with white matter edema. 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 Mr. He was offered treatment with carboplatin/etoposide and Tecentriq. He began his first cycle on 11/24/2018. Completed total 5 cycles of chemotherapy on 03/12/2019. He remained on observation. He completed SRS to the brain to total dose of 2000 cGy on 05/06/2019. He began maintenance Tecentriq on 06/02/2019. Followup PET/CT imaging from 07/03/2019 showed no change in the FDG negative right upper lobe nodule, consistent with treated primary; Interval resolution of right supra clavicular and mediastinal lymph nodes; New malignant appearing right axilla lymph node and recurrence of unifocal hepatic metastatic disease. Mr He was seen by radiation oncology in regards to the right axilla lymph node and radiation was recommended- SB RT to right axilla. He received SBRT from 07/21/2019 till 07/26/2019 and also received SB RT to this solitary liver metastases from 07/28/2019 through 08/03/2019. The immunotherapy with any tecentriq was put on hold after second dose which was given on 06/23/2019 because of risk of increased toxicity with concurrent radiation therapy e.g. SB RT. as per radiation oncology recommendation. After completion of the radiation therapy, discussed treatment options including observation, or continue with maintenance immunotherapy with tecentriq was discussed, patient opted for maintenance immunotherapy.Which she resumed on August 25, 2019, total November 17, 2019, at that time patient was diagnosed with progressive brain mets, he was referred to radiation oncology and patient underwent whole brain radiation therapy from December 13, 2019 through December 28, 2019 and follow-up MRI scan done on January 31, 2020 shows significant improvement in multiple brain mets, patient continue to follow with radiation oncology and another follow-up MRI scan of brain done on May 05, 2020 shows further improvement but persistent multiple brain lesion and no new lesion was seen, patient on his own decided not to continue with immunotherapy rather follow-up with radiation oncology History of chronic back pain MRI scan of the lumbar spine ordered by radiation oncology done on January 31, 2020 showed no evidence of osseous metastatic disease. At that time it was concluded his back pain was most likely due to grade 1 anterolisthesis of L5 resulting in moderate bilateral foraminal stenosis at L5-S1 and mild foraminal stenosis at L3-L4. Follow-up CT PET scan done in July 22, 2020 showed minimal inflammatory activity in the right upper lobe pulmonary nodule, consistent with sterilization of malignancy. Resolution of activity in the unifocal hepatic metastasis consistent with sterilization of malignancy. Resolution of right axillary lymph node. Follow-up CT scan of chest abdomen done on October 19, 2020 showed no evidence of new or progressive disease in the chest and abdomen. No adenopathy in the chest or abdomen. No suspicious hepatic lesions. Grade 1 anterolisthesis L5 on S1 with spondylosis Plan: Discussed with patient regarding his labs white blood count 4.1 hemoglobin 13.1 hematocrit 38.8 platelets 183,000 with a normal differential and CMP is pending, follow-up CT scan of chest which showed no evidence of recurrence of disease Clinically, patient doing well with no new signs symptom suggestive of progressive disease his follow-up CBC shows resolution of mild leukopenia. And follow-up CT scan chest shows no evidence of recurrence of disease. At this point we will continue to monitor, patient will return to clinic in 3 months with CBC CMP and follow-up CT scan of chest in the meantime he will continue monthly port maintenance Signed By: Ky Perez M.D. <<Signature on File>>
[2020-10-25 14:31] LABS: Alanine Aminotransferase 17 U/L (0-41); Albumin Level 4.5 g/dL (3.5-5.2); Alkaline Phosphatase 57 IU/L (40-130); Anion Gap 11.9 (5-19); Aspartate Amino Transferase 17 U/L (0-40); Blood Urea Nitrogen 9 mg/dL (8-23); Carbon Dioxide 28 mmol/L (22-29); Chloride 99 mmol/L (98-107); Globulin 1.6 g/dL (1.3-4.6); Glomerular Filtration Rate 111.8 mL/min (90-130); Glucose 98 mg/dL (65-115); Osmolality Calculated 277 mOsm/kg (285-295); Potassium 4.9 mmol/L (3.5-5.1); Sodium 134 mmol/L (136-145); Total Bilirubin 0.2 mg/dL (0.15-1.2); Total Protein 6.1 g/dL (6.6-8.7)
== END 2020-10-25 12:49 | disposition home or self-care (01) ==
LOC: ONCMED 12:50
PROVIDERS: PCP Nurse Practitioner; Visit Provider Internal Medicine Hematology & Oncology
DX: Z08 Encounter for follow-up examination after completed treatment for malignant neoplasm (principal); Z85.118 Personal history of other malignant neoplasm of bronchus and lung; J43.9 Emphysema, unspecified; F17.210 Nicotine dependence, cigarettes, uncomplicated; I25.2 Old myocardial infarction; R97.20 Elevated prostate specific antigen [PSA]; I10 Essential (primary) hypertension; Z79.899 Other long term (current) drug therapy; Z92.21 Personal history of antineoplastic chemotherapy
CPT/HCPCS: 36591; 80053; 85025; 99215

== ENCOUNTER → 2020-10-31 10:22 | Outpatient (BNVA) | payer MEDICARE, MEDICAID, SELFPAY | PROVIDERS: PCP Nurse Practitioner; Visit Provider Anesthesiology Pain Medicine | DX: M51.16 Intervertebral disc disorders with radiculopathy, lumbar region (principal); M47.816 Spondylosis without myelopathy or radiculopathy, lumbar region; M54.9 Dorsalgia, unspecified; C34.90 Malignant neoplasm of unspecified part of unspecified bronchus or lung; F17.210 Nicotine dependence, cigarettes, uncomplicated; Z79.891 Long term (current) use of opiate analgesic | CPT/HCPCS: 99214 ==

== ENCOUNTER → 2020-11-07 13:27 | Outpatient (BNVA) | payer MEDICARE, MEDICAID, SELFPAY | PROVIDERS: PCP Nurse Practitioner; Visit Provider Anesthesiology Pain Medicine | DX: M47.816 Spondylosis without myelopathy or radiculopathy, lumbar region (principal); M54.9 Dorsalgia, unspecified; F17.210 Nicotine dependence, cigarettes, uncomplicated; Z79.891 Long term (current) use of opiate analgesic | CPT/HCPCS: 64493; 64494; 64495; J3490 ==

== ENCOUNTER → 2020-11-21 10:19 | Outpatient (BNVA) | payer MEDICARE, MEDICAID, SELFPAY | PROVIDERS: PCP Nurse Practitioner; Visit Provider Anesthesiology Pain Medicine | DX: M51.16 Intervertebral disc disorders with radiculopathy, lumbar region (principal); M47.816 Spondylosis without myelopathy or radiculopathy, lumbar region; M54.9 Dorsalgia, unspecified; C34.90 Malignant neoplasm of unspecified part of unspecified bronchus or lung; M25.551 Pain in right hip; M25.552 Pain in left hip; M79.605 Pain in left leg; M79.661 Pain in right lower leg; M79.662 Pain in left lower leg; F17.210 Nicotine dependence, cigarettes, uncomplicated; Z79.891 Long term (current) use of opiate analgesic | CPT/HCPCS: 99214 ==

== ENCOUNTER 2020-12-01 09:31 | Outpatient (CLI) | payer MEDICARE, MEDICAID, SELFPAY | END 2020-12-01 09:32 | disposition home or self-care (01) | LOC: ONCMED 09:34 | PROVIDERS: PCP Nurse Practitioner; Visit Provider Internal Medicine Hematology & Oncology | DX: Z45.2 Encounter for adjustment and management of vascular access device (principal) | CPT/HCPCS: 96523 ==

== ENCOUNTER → 2020-12-13 09:37 | Outpatient (BNVA) | payer MEDICARE, MEDICAID, SELFPAY | PROVIDERS: PCP Nurse Practitioner; Visit Provider Nurse Practitioner Family | DX: I95.9 Hypotension, unspecified (principal); E86.0 Dehydration | CPT/HCPCS: 80053; 85025 ==

== ENCOUNTER → 2020-12-19 12:44 | Outpatient (BNVA) | payer MEDICARE, MEDICAID, SELFPAY | PROVIDERS: PCP Nurse Practitioner; Visit Provider Anesthesiology Pain Medicine | DX: M47.816 Spondylosis without myelopathy or radiculopathy, lumbar region (principal); M54.9 Dorsalgia, unspecified; F17.210 Nicotine dependence, cigarettes, uncomplicated; Z79.891 Long term (current) use of opiate analgesic | CPT/HCPCS: 64635; 64636; J1030 ==

== ENCOUNTER → 2020-12-25 09:32 | Outpatient (BNVA) | payer MEDICARE, MEDICAID, SELFPAY | PROVIDERS: PCP Nurse Practitioner; Visit Provider Nurse Practitioner | DX: C34.90 Malignant neoplasm of unspecified part of unspecified bronchus or lung (principal) | CPT/HCPCS: 85025 ==

== ENCOUNTER → 2021-01-02 12:53 | Outpatient (BNVA) | payer MEDICARE, MEDICAID, SELFPAY | PROVIDERS: PCP Nurse Practitioner; Visit Provider Anesthesiology Pain Medicine | DX: M47.816 Spondylosis without myelopathy or radiculopathy, lumbar region (principal); Z79.891 Long term (current) use of opiate analgesic | CPT/HCPCS: 64635; 64636; J1030 ==

== ENCOUNTER 2021-01-05 09:47 | Outpatient (CLI) | payer MEDICARE, MEDICAID, SELFPAY | END 2021-01-05 09:48 | disposition home or self-care (01) | LOC: ONCMED 09:52 | PROVIDERS: PCP Nurse Practitioner; Visit Provider Nurse Practitioner | DX: Z45.2 Encounter for adjustment and management of vascular access device (principal) | CPT/HCPCS: 96523 ==

== ENCOUNTER 2021-01-29 12:48 | Outpatient (CLI) | payer MEDICARE, MEDICAID, SELFPAY ==
--- NOTE | 2021-01-29 12:54 | CT_ITS ---
WS: [id number] CT CHEST TECHNIQUE: Contrast enhanced CT of the chest with coronal and sagittal reformatted images. CLINICAL INFORMATION: LUNG CANCER, BRAIN CANCER COMPARISON: CT chest October 19, 2020 and PET/CT December 03, 2020 and CTA chest June 06, 2020 DLP: 657.[address] scans at [facility] use at least one of these dose optimization techniques: automat ed exposure control; mA and/or kV adjustment per patient size (includes targeted exams where dose is matched to clinical indication); or iterative reconstruction. FINDINGS: Moderate chronic emphysematous changes with bulla formation lung apices. The previously described erick isolid right upper lobe opacity in the posterior medial right upper lobe measures 1.6 x 1.3 cm unchan ged from previous. This is stable in size the prior PET/CT. However, there is a more solid central no dular component today measuring 7 x 5 mm. Otherwise no new pulmonary parenchymal opacities. Mild narr owing of the right upper lobe bronchus is unchanged. Normal caliber thoracic aorta. Proximal pulmonary arteries are normal. No mediastinal or hilar lympha denopathy. No axillary lymphadenopathy. Adrenal glands are normal. Diffuse fatty infiltration the liver. Mild thoracic curve. Mild thoracic k yphosis with a few endplate Schmorl's nodes. CT/CT chest w con* [id number] IMPRESSION: 1. Right upper lobe opacity measuring 1.6 x 1.3 cm is unchanged in size but ap pears more solid today. Solid central component measures 7 x 5 mm Recommend 3 m onth follow-up chest CT. 2. No mediastinal or hilar lymphadenopathy. 3. No other change from previous.
[2021-01-29] MEDS: iohexol 300 mg/mL 100 mL Btl IV (13:20)
== END 2021-01-29 12:49 | disposition home or self-care (01) ==
PROVIDERS: PCP Nurse Practitioner; Visit Provider Internal Medicine Hematology & Oncology
DX: C34.11 Malignant neoplasm of upper lobe, right bronchus or lung (principal); C79.31 Secondary malignant neoplasm of brain
CPT/HCPCS: 71260; Q9967

== ENCOUNTER → 2021-01-30 09:15 | Outpatient (BNVA) | payer MEDICARE, MEDICAID, SELFPAY | PROVIDERS: PCP Nurse Practitioner; Visit Provider Anesthesiology Pain Medicine | DX: M51.16 Intervertebral disc disorders with radiculopathy, lumbar region (principal); M47.816 Spondylosis without myelopathy or radiculopathy, lumbar region; M25.551 Pain in right hip; M25.552 Pain in left hip; C34.91 Malignant neoplasm of unspecified part of right bronchus or lung; F17.210 Nicotine dependence, cigarettes, uncomplicated; Z79.891 Long term (current) use of opiate analgesic | CPT/HCPCS: 99214 ==

== ENCOUNTER 2021-02-01 14:33 | Outpatient (CLI) | payer MEDICARE, MEDICAID, SELFPAY ==
[2021-02-01 15:08] LABS: Basophils % 0.8 %; Eosinophils # 0.1 10^3/uL (0.0-0.8); Eosinophils % 1.5 %; Hematocrit 40.4 % (42.0-52.0); Hemoglobin 13.4 g/dL (11.7-16.6); Lymphocytes # 1.5 10^3/uL (0.8-4.8); Lymphocytes % 37.8 %; Mean Corpuscular HGB Conc 33.2 g/dL (30.0-36.0); Mean Corpuscular Hemoglobin 31.5 pg (28.0-34.0); Mean Corpuscular Volume 95.1 fl (80-94); Mean Platelet Volume 10.1 fL (7.4-10.4); Monocytes % 25.9 %; Neutrophils # 1.33 10^3/uL (1.8-7.7); Neutrophils % 33.5 %; Nucleated Red Blood Cells % 0 %; Platelet Count 198 10^3/cmm (130-400); Red Blood Count 4.25 10^6/uL (4.1-5.3); Red Cell Distribution Width 12.6 % (12.1-15.1)
[2021-02-01 15:36] LABS: Alanine Aminotransferase 10 U/L (0-41); Albumin Level 4.2 g/dL (3.5-5.2); Alkaline Phosphatase 57 IU/L (40-130); Anion Gap 9.6 (5-19); Aspartate Amino Transferase 12 U/L (0-40); Blood Urea Nitrogen 8 mg/dL (8-23); Calcium 8.7 mg/dL (8.5-10.5); Carbon Dioxide 25 mmol/L (22-29); Chloride 103 mmol/L (98-107); Globulin 1.7 g/dL (1.3-4.6); Glomerular Filtration Rate 111.8 mL/min (90-130); Glucose 82 mg/dL (65-115); Osmolality Calculated 273 mOsm/kg (285-295); Potassium 4.6 mmol/L (3.5-5.1); Sodium 133 mmol/L (136-145); Total Bilirubin 0.2 mg/dL (0.15-1.2); Total Protein 5.9 g/dL (6.6-8.7)
== END 2021-02-01 14:34 | disposition home or self-care (01) ==
PROVIDERS: PCP Nurse Practitioner; Visit Provider Internal Medicine Hematology & Oncology
DX: Z85.118 Personal history of other malignant neoplasm of bronchus and lung (principal)
CPT/HCPCS: 36591; 80053; 85025

== ENCOUNTER 2021-02-08 05:47 | Outpatient (CLI) | payer MEDICARE, MEDICAID, SELFPAY ==
--- NOTE | 2021-02-08 15:09 | ONC FU_ITS ---
Dr. Perez follow up note Patient: Jean He Unit #: [id number]: 1950 Dicatated By: Ky Perez M.D.Date of Visit:Feb 08, 2021 Onc Med Follow-up/Prog Note History of Present Illness: Mr. He is a 71-year-old gentleman with recent history of progressive right neck mass. He underwent CT scan of chest on 10/12/2018 showed multifocal neoplasm of right upper lobe and extensive bulky right paratracheal, superior mediastinal, right suprahilar, right supraclavicular lymphadenopathy associated with mild compression of severe vena cava and the right internal jugular vein and additional involvement of AP window and subcarinal azygoesophageal recess. No liver or adrenal involvement. Patient was referred to Dr. 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 And immunohistochemistry was positive for NSE, synaptophysin, CD 56. CT PET scan done on 11/28/2018 showed extensive disease e.g. single metastases to the liver and MRI scan of brain done on 11/25/2018 showed left frontal subcortical metastatic lesion and is any enhancing metastatic lesion in the inferior subcortical white matter of right frontal lobe He began treatment with carboplatin/etoposide and Tecentriq on 11/24/2018. 55+ year history of smoking still active, Follow-up CT PET scan done after3 cycles of carboplatin and etoposide and Tecentriq done On 01/30/2019 Showed good response, marked interval improvement in right upper lobe carcinoma Interval improvement in mediastinal lymphadenopathy Interval improvement in right level IV cervical lymph node Resolution of hepatic metastatic disease MRI head done on 01/15/2019 showed decrease in size left frontal subcortical white matter metastatic lesion when compared with scan done on 11/25/2018 No new enhancing metastatic lesion seen. On 03/12/2019 patient Completed 5 cycles of chemotherapy with carboplatin and etoposide with last two , tecentriq was added. consolidation with radiation therapy to rt chest Was given from 04/07/2019 to 05/04/2019 Followed by brainSRS x1 on 05/06/2019. Maintenance therapy with atezolizumab was recommended and he began his first cycle on 06/02/2019. He has tolerated it well. CT PET scan done on 07/03/2019 showed no change in the FDG negative right upper lobe nodule, consistent with treated primary; Interval resolution of right supra clavicular and mediastinal lymph nodes; New malignant appearing right axilla lymph node and recurrence of unifocal hepatic metastatic disease. Mr He was seen by radiation oncology in regards to the right axilla lymph node and radiation was recommended- SB RT to right axilla. He received SBRT from 07/21/2019 till 07/26/2019 and also received SB RT to this solitary liver metastases from 07/28/2019 through 08/03/2019. The immunotherapy with any tecentriq was put on hold after second dose which was given on 06/23/2019 because of risk of increased toxicity with concurrent radiation therapy e.g. SB RT. as per radiation oncology recommendation. resumed his immunotherapy with 3 weekly Tecentriq 1200 mg , on 08/25/2019.Continued till November 17, 2019, Follow-up CT scan of chest/abdomen/pelvis from 09/10/2019 showed right upper lobe lesion is probably residual scar. Diffuse emphysema. No acute intra-abdominal or pelvic abnormality. at that time, he was complaining of headaches and balance problem, CT scan of head was ordered which was done in November 2019 which confirmed brain mets for which she was referred to radiation oncology and patient received whole brain radiation therapy from December 13, 2019 till December 28, 2019, then he was following radiation oncology had follow-up MRI scan of brain done on January 31, 2020 showed significant improvement in metastatic lesions and also had MRI scan of lumbar spine done on January 31, 2020 which showed no evidence of osseous metastatic disease and it was considered most likely due to grade 1 anterolisthesis of L5 resulting in moderate bilateral foraminal stenosis at L5 -S1, and mild foraminal stenosis at L3-L4. And again radiation oncology ordered follow-up MRI scan of brain which was done on May 05, 2020 shows no new enhancing metastatic lesions. Improved but persistent nodular peripheral enhancement of left cerebellar metastatic lesion. Minimal persistent enhancement in the right frontal lobe lesion with a very slight increase in size since January 31, 2020. Persistent but improved enhancement posterior left parietal cortex metastatic lesion. Patient did not make follow-up appointment with medical oncology as he was following radiation oncology on regular basis and also decided not to continue with immunotherapy at least for the time being. And then as per patient when he decided to come back in May 2020, he developed abdominal pain and was diagnosed with ruptured appendix on June 06, 2020 and underwent appendicectomy. persistent chronic lower back pain not being controlled with the current pain medication but patient take hydrocodone 1 in the morning and 1 or 2 in the evening denies any pain radiating to lower extremity denies any lower extremity numbness or weakness, Follow-up CT PET scan done on July 22, 2020 showed posterior right upper lobe nodule seen previously now has SUV of 1.3 consistent with a minimal inflammatory uptake, indicating sterilized malignancy. The recurrent hepatic lesion in the segment 6 is now FDG negative. The right axillary lymph node seen on previous study is no longer present. Follow-up CT scan of chest abdomen done on October 19, 2020 showed no evidence of new or progressive disease in the chest or abdomen. No adenopathy in the chest or abdomen. Semisolid right upper lobe opacity stable since recent PET scan done in July 2020. Grade 1 anterolisthesis L5 on S1 with spondylosis Follow-up CT scan of chest done on January 29, 2021 showed right upper lobe opacity measuring 1.6 x 1.3 cm unchanged besides but appears more solid. Solid central component measures 5 x 7 mm. No mediastinal or hilar lymphadenopathy, no other changes from previous. Came for follow-up, denies any specific complaint except generalized weakness and fatigue, patient has chronic back pain for which is being managed by pain clinic, as per patient he received injection to his back but without much improvement now being treated with current pain medication, denies any hemoptysis or hematemesis denies any fever chills denies any nausea or vomiting denies any diarrhea or constipation Medications: Aspirin 2 (325 mg) Tablet Oral daily, Citalopram Hydrobromide 1 (10 mg) Tablet Oral daily, Isosorbide Dinitrate 1 (30 mg) Tablet Oral b.i.d., Melatonin 1 (10 mg) Capsule Oral at bedtime, Nitroglycerin 1 Tablet (of 0.4 mg) Tablet, sublingual Sublingual PRN, Omeprazole 1 Capsule (of 40 mg) Capsule Delayed Release Oral daily, Pravastatin Sodium 1 Tablet (of 10 mg) Oral daily, Prochlorperazine Maleate 1 Tablet (of 10 mg) Oral q 4 hours PRN, traZODone HCl 1 (100 mg) Tablet Oral at bedtime PRN Allergies: No Known Allergies. Review of Systems: Review of Systems is not available for this patient. Vital Signs: Performed on Feb 08, 2021 14:19 Height - 68.00 in Weight - 129.8 lbs (HIGH) BSA - 1.70 sq.m BMI - 19.74 Temperature - 98.9 F (HIGH) Pulse - 62 /min Respiration - 18 /min BP - 146/83 mm(hg) (HIGH) O2 Sat - 98 % Pain - 4 Fatigue - 8 Performance Status: 1 - No physically strenuous activity, but ambulatory and able to carry out light or sedentary work (e.g. office work, light house work). (ECOG) Physical Examination: ENMT - No mouth sores, no thrush, no jaundice, Respiratory - Lungs are clear to auscultation, Cardiovascular - Regular rate and rhythm of heart, Abdomen - Soft, bowel sounds present, Extremities - No visible edema. Lab/Imaging: Most recent lab results are not available for this patient. Impression: 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 Next CT scan of chest done on 10/12/2018 showed when compared to CT scan done on 10/02/2018, multiple nodular densities are in the posterior segment right upper lobe extending anteriorly and inferiorly towards the right hilum. And the most posterior superior nodular density is in the posterior subpleural region measuring 1.7 x 2.5 x 1.5 cm and elongated nodule extends anteriorly and inferiorly towards the right hilum measures 3.3 x 1.2 x 1.2 cm Bulky, confluent right paratracheal, right suprahilar and precarinal lymphadenopathy measures up to 5.8 cm x 3.5 cm x 10 cm. The adenopathy causes significant narrowing of right upper lobe pulmonary artery branch and a partially compresses the superior vena cava no acute bony abnormality seen no lytic or blastic bony destruction seen. Additional adenopathy extends into AP window and anterior superior mediastinum. And right supraclavicular lymphadenopathy measures 3.1 x 3.6 x 3.5 cm causes severe compression of inferior aspect of right internal jugular vein. No axillary lymphadenopathy. No other pulmonary mass or nodule seen. Liver is normal no adrenal involvement Emphysema COPD, so chronic smoking e.g. 55 year plus history history of myocardial infarction at age 43. Elevated PSA Essential hypertension Mr. He had PET/CT imaging on 11/28/2018. He had hypermetabolic activity in the right upper lobe nodule which measured to be 1.3 cm with SUV of 4.1 there are no other significant pulmonary nodules present there was a 2 widespread lung cyst formation upper lobes consistent with COPD changes matted malignant lymph nodes are present in the mediastinum time him consistent with local metastatic disease also present in the right paratracheal anterior mediastinal, precarinal and right hilar territories the SUV up to 6.2. In the right neck a 4.6 x 2.8 cm nodular mass in the level IV distribution has SUV of 6.8 representing metastasis. There is a solitary hypodensity in the medial right hepatic lobe measuring 2.0 x 1.6 cm with an SUV of 4.5. There are no findings to indicate osseous metastatic disease. MRI of the head from 11/25/2018 reports a oval circumscribed ring-enhancing lesion measuring 7.6 x 8.8 x 10 mm in the right frontal lobe subcortical white matter inferiorly. Per MRI report it is likely metastatic disease. No other Ms. sick lesions were seen and no significant stenosis and with white matter edema. 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 Mr. He was offered treatment with carboplatin/etoposide and Tecentriq. He began his first cycle on 11/24/2018. Completed total 5 cycles of chemotherapy on 03/12/2019. He remained on observation. He completed SRS to the brain to total dose of 2000 cGy on 05/06/2019. He began maintenance Tecentriq on 06/02/2019. Followup PET/CT imaging from 07/03/2019 showed no change in the FDG negative right upper lobe nodule, consistent with treated primary; Interval resolution of right supra clavicular and mediastinal lymph nodes; New malignant appearing right axilla lymph node and recurrence of unifocal hepatic metastatic disease. Mr He was seen by radiation oncology in regards to the right axilla lymph node and radiation was recommended- SB RT to right axilla. He received SBRT from 07/21/2019 till 07/26/2019 and also received SB RT to this solitary liver metastases from 07/28/2019 through 08/03/2019. The immunotherapy with any tecentriq was put on hold after second dose which was given on 06/23/2019 because of risk of increased toxicity with concurrent radiation therapy e.g. SB RT. as per radiation oncology recommendation. After completion of the radiation therapy, discussed treatment options including observation, or continue with maintenance immunotherapy with tecentriq was discussed, patient opted for maintenance immunotherapy.Which she resumed on August 25, 2019, total November 17, 2019, at that time patient was diagnosed with progressive brain mets, he was referred to radiation oncology and patient underwent whole brain radiation therapy from December 13, 2019 through December 28, 2019 and follow-up MRI scan done on January 31, 2020 shows significant improvement in multiple brain mets, patient continue to follow with radiation oncology and another follow-up MRI scan of brain done on May 05, 2020 shows further improvement but persistent multiple brain lesion and no new lesion was seen, patient on his own decided not to continue with immunotherapy rather follow-up with radiation oncology History of chronic back pain MRI scan of the lumbar spine ordered by radiation oncology done on January 31, 2020 showed no evidence of osseous metastatic disease. At that time it was concluded his back pain was most likely due to grade 1 anterolisthesis of L5 resulting in moderate bilateral foraminal stenosis at L5-S1 and mild foraminal stenosis at L3-L4. Follow-up CT PET scan done in July 22, 2020 showed minimal inflammatory activity in the right upper lobe pulmonary nodule, consistent with sterilization of malignancy. Resolution of activity in the unifocal hepatic metastasis consistent with sterilization of malignancy. Resolution of right axillary lymph node. Follow-up CT scan of chest abdomen done on October 19, 2020 showed no evidence of new or progressive disease in the chest and abdomen. No adenopathy in the chest or abdomen. No suspicious hepatic lesions. Grade 1 anterolisthesis L5 on S1 with spondylosis Plan: Discussed with patient regarding his labs white blood count four hemoglobin 13.4 hematocrit 40.4 platelets 198,000 CMP within normal limits and CT scan of chest which shows no evidence of disease progression but persistent right upper lobe nodule which is stable Clinically, patient doing well with no new signs symptoms history of recurrence of disease his follow-up CT scan chest shows no evidence of disease progression but persistent right upper lobe nodule which is stable, at this point we will continue to monitor his lab work-up is within normal range, patient will continue monthly port maintenance return to clinic in 3 months with CBC CMP and follow-up CT scan of chest Signed By: Ky Perez M.D. <<Signature on File>>
== END 2021-02-08 05:48 | disposition home or self-care (01) ==
PROVIDERS: PCP Nurse Practitioner; Visit Provider Internal Medicine Hematology & Oncology
DX: C34.11 Malignant neoplasm of upper lobe, right bronchus or lung (principal); C77.1 Secondary and unspecified malignant neoplasm of intrathoracic lymph nodes; C79.31 Secondary malignant neoplasm of brain; J43.9 Emphysema, unspecified; F17.210 Nicotine dependence, cigarettes, uncomplicated; R97.20 Elevated prostate specific antigen [PSA]; I10 Essential (primary) hypertension; I25.2 Old myocardial infarction; Z79.899 Other long term (current) drug therapy; Z92.21 Personal history of antineoplastic chemotherapy
CPT/HCPCS: 99214

== ENCOUNTER 2021-03-09 10:49 | Outpatient (CLI) | payer MEDICARE, MEDICAID, SELFPAY | END 2021-03-09 10:50 | disposition home or self-care (01) | PROVIDERS: PCP Nurse Practitioner; Visit Provider Internal Medicine Hematology & Oncology | DX: Z45.2 Encounter for adjustment and management of vascular access device (principal) | CPT/HCPCS: 96523 ==

== ENCOUNTER → 2021-04-04 08:32 | Outpatient (BNVA) | payer MEDICARE, MEDICAID, SELFPAY | PROVIDERS: PCP Nurse Practitioner; Visit Provider Anesthesiology Pain Medicine | DX: M47.816 Spondylosis without myelopathy or radiculopathy, lumbar region (principal); M51.16 Intervertebral disc disorders with radiculopathy, lumbar region; F41.9 Anxiety disorder, unspecified; F32.9 Major depressive disorder, single episode, unspecified; C34.90 Malignant neoplasm of unspecified part of unspecified bronchus or lung; M25.552 Pain in left hip; M25.551 Pain in right hip; M79.604 Pain in right leg; M79.605 Pain in left leg; F17.210 Nicotine dependence, cigarettes, uncomplicated; Z79.891 Long term (current) use of opiate analgesic | CPT/HCPCS: 99214 ==

== ENCOUNTER → 2021-04-30 08:58 | Outpatient (BNVA) | payer MEDICARE, MEDICAID, SELFPAY | PROVIDERS: PCP Nurse Practitioner; Visit Provider Anesthesiology Pain Medicine | DX: M51.16 Intervertebral disc disorders with radiculopathy, lumbar region (principal); M47.816 Spondylosis without myelopathy or radiculopathy, lumbar region; F41.9 Anxiety disorder, unspecified; M25.551 Pain in right hip; M25.552 Pain in left hip; F32.9 Major depressive disorder, single episode, unspecified; C34.90 Malignant neoplasm of unspecified part of unspecified bronchus or lung; Z79.891 Long term (current) use of opiate analgesic; F17.200 Nicotine dependence, unspecified, uncomplicated | CPT/HCPCS: 99214 ==

== ENCOUNTER 2021-05-03 10:07 | Outpatient (CLI) | payer MEDICARE, MEDICAID, SELFPAY ==
--- NOTE | 2021-05-03 10:39 | CT_ITS ---
WS: [id number] CT CHEST WITH INTRAVENOUS CONTRAST HISTORY: LUNG CANCER TECHNIQUE: Contiguous 5 mm axial imaging performed on the thorax. Coronal and sagittal reformats are submitted. All CT scans at [facility] use at least one of these dose optimization techniques: automated exposure control; mA and/or kV adjustment per patient size (includes targeted exams where dose is matched to clinical indication); or iterative reconstruction. CONTRAST: Visipaque 320; 95 mL IV. DLP: 652.02 mGycm COMPARISON: 01/29/2021, 10/19/2020, PET/CT 07/22/2020 Lungs and central airway: Continued slow increase in consolidation of the spiculated airspace disease in the posterior RIGHT upper lung field. This is in the area of a previously sterilized neoplasm as seen on a PET/CT from 07/22/2020. Soft tissue component measures 11 x 10 mm today surrounded by mild in terstitial thickening and groundglass opacification which may be scar. No additional pulmonary mass o r nodule. Extensive paraseptal emphysema. Pleura: Normal. No pleural effusion. Heart and pericardium: Mild enlargement of the heart. All 4 chambers are enlarged with no pericardial effusion. Mediastinum and michaela: No adenopathy or progression of lymphoid tissue in the hilar regions. There is mild diffuse thickening of the esophagus. Similar to prior studies. Vessels: Mildly ectatic thoracic aorta with mild atherosclerotic plaque. Pulmonary arteries are sligh tly prominent. Chest wall and lower neck: LEFT subclavian Port-A-Cath is present with tip in the distal SVC. Upper abdomen: Hepatic steatosis. No adrenal mass. Osseous structures: No destructive process. CT/CT chest w con* [id number] IMPRESSION: 1. Mild continued increase in size of the solid component of the posterior RIG HT upper lobe opacification. Solid component now measures 11 x 10 mm as compare d to 7 x 5 mm. Recommend continue close follow-up. Recurrence at the site of th e previously sterilized neoplasm is not completely excluded. 2. No adenopathy. 3. Mild diffuse esophageal wall thickening. 4. Chronic emphysema.
[2021-05-03 11:58] LABS: Blood Urea Nitrogen 6 mg/dL (8-23)
[2021-05-03 11:59] LABS: Glomerular Filtration Rate 111.5 mL/min (90-130)
[2021-05-03] MEDS: iodixanol 320 mg/mL 100mL Btl IV (12:01)
== END 2021-05-03 10:08 | disposition home or self-care (01) ==
PROVIDERS: PCP Nurse Practitioner; Visit Provider Internal Medicine Hematology & Oncology
DX: C34.11 Malignant neoplasm of upper lobe, right bronchus or lung (principal); J43.9 Emphysema, unspecified
CPT/HCPCS: 71260; 82565; 84520; Q9967

== ENCOUNTER 2021-05-04 11:01 | Outpatient (CLI) | payer MEDICARE, MEDICAID, SELFPAY | END 2021-05-04 11:02 | disposition home or self-care (01) | PROVIDERS: PCP Nurse Practitioner; Visit Provider Internal Medicine Hematology & Oncology | DX: Z45.2 Encounter for adjustment and management of vascular access device (principal) | CPT/HCPCS: 96523 ==

== ENCOUNTER 2021-05-15 11:01 | Outpatient (CLI) | payer MEDICARE, MEDICAID, SELFPAY ==
[2021-05-15 11:56] LABS: Basophils % 0.5 %; Hematocrit 37.5 % (42.0-52.0); Hemoglobin 13.1 g/dL (11.7-16.6); Lymphocytes # 1.3 10^3/uL (0.8-4.8); Lymphocytes % 31.2 %; Mean Corpuscular HGB Conc 34.9 g/dL (30.0-36.0); Mean Corpuscular Hemoglobin 31.3 pg (28.0-34.0); Mean Corpuscular Volume 89.7 fl (80-94); Mean Platelet Volume 9.9 fL (7.4-10.4); Monocytes # 0.7 10^3/uL (0.2-0.9); Monocytes % 16.1 %; Neutrophils # 2.07 10^3/uL (1.8-7.7); Neutrophils % 50.5 %; Nucleated Red Blood Cells % 0 %; Platelet Count 170 10^3/cmm (130-400); Red Blood Count 4.18 10^6/uL (4.1-5.3); Red Cell Distribution Width 13.1 % (12.1-15.1); White Blood Count 4.1 10^3/uL (4.0-10.0)
[2021-05-15 12:44] LABS: Alanine Aminotransferase 12 U/L (0-41); Albumin Level 4.6 g/dL (3.5-5.2); Alkaline Phosphatase 44 IU/L (40-130); Anion Gap 18.1 (5-19); Aspartate Amino Transferase 11 U/L (0-40); Blood Urea Nitrogen 12 mg/dL (8-23); Calcium 8.8 mg/dL (8.5-10.5); Carbon Dioxide 21 mmol/L (22-29); Chloride 102 mmol/L (98-107); Globulin 1.2 g/dL (1.3-4.6); Glomerular Filtration Rate 95.6 mL/min (90-130); Glucose 115 mg/dL (65-115); Osmolality Calculated 285 mOsm/kg (285-295); Potassium 4.1 mmol/L (3.5-5.1); Sodium 137 mmol/L (136-145); Total Bilirubin 0.3 mg/dL (0.15-1.2); Total Protein 5.8 g/dL (6.6-8.7)
--- NOTE | 2021-05-15 16:13 | ONC FU_ITS ---
Dr. Perez follow up note Patient: Jean He Unit #: [id number]: 1950 Dicatated By: Ky Perez M.D.Date of Visit:May 15, 2021 Onc Med Follow-up/Prog Note History of Present Illness: Mr. He is a 71-year-old gentleman with recent history of progressive right neck mass. He underwent CT scan of chest on 10/12/2018 showed multifocal neoplasm of right upper lobe and extensive bulky right paratracheal, superior mediastinal, right suprahilar, right supraclavicular lymphadenopathy associated with mild compression of severe vena cava and the right internal jugular vein and additional involvement of AP window and subcarinal azygoesophageal recess. No liver or adrenal involvement. Patient was referred to Dr. 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 And immunohistochemistry was positive for NSE, synaptophysin, CD 56. CT PET scan done on 11/28/2018 showed extensive disease e.g. single metastases to the liver and MRI scan of brain done on 11/25/2018 showed left frontal subcortical metastatic lesion and is any enhancing metastatic lesion in the inferior subcortical white matter of right frontal lobe He began treatment with carboplatin/etoposide and Tecentriq on 11/24/2018. 55+ year history of smoking still active, Follow-up CT PET scan done after3 cycles of carboplatin and etoposide and Tecentriq done On 01/30/2019 Showed good response, marked interval improvement in right upper lobe carcinoma Interval improvement in mediastinal lymphadenopathy Interval improvement in right level IV cervical lymph node Resolution of hepatic metastatic disease MRI head done on 01/15/2019 showed decrease in size left frontal subcortical white matter metastatic lesion when compared with scan done on 11/25/2018 No new enhancing metastatic lesion seen. On 03/12/2019 patient Completed 5 cycles of chemotherapy with carboplatin and etoposide with last two , tecentriq was added. consolidation with radiation therapy to rt chest Was given from 04/07/2019 to 05/04/2019 Followed by brainSRS x1 on 05/06/2019. Maintenance therapy with atezolizumab was recommended and he began his first cycle on 06/02/2019. He has tolerated it well. CT PET scan done on 07/03/2019 showed no change in the FDG negative right upper lobe nodule, consistent with treated primary; Interval resolution of right supra clavicular and mediastinal lymph nodes; New malignant appearing right axilla lymph node and recurrence of unifocal hepatic metastatic disease. Mr He was seen by radiation oncology in regards to the right axilla lymph node and radiation was recommended- SB RT to right axilla. He received SBRT from 07/21/2019 till 07/26/2019 and also received SB RT to this solitary liver metastases from 07/28/2019 through 08/03/2019. The immunotherapy with any tecentriq was put on hold after second dose which was given on 06/23/2019 because of risk of increased toxicity with concurrent radiation therapy e.g. SB RT. as per radiation oncology recommendation. resumed his immunotherapy with 3 weekly Tecentriq 1200 mg , on 08/25/2019.Continued till November 17, 2019, Follow-up CT scan of chest/abdomen/pelvis from 09/10/2019 showed right upper lobe lesion is probably residual scar. Diffuse emphysema. No acute intra-abdominal or pelvic abnormality. at that time, he was complaining of headaches and balance problem, CT scan of head was ordered which was done in November 2019 which confirmed brain mets for which she was referred to radiation oncology and patient received whole brain radiation therapy from December 13, 2019 till December 28, 2019, then he was following radiation oncology had follow-up MRI scan of brain done on January 31, 2020 showed significant improvement in metastatic lesions and also had MRI scan of lumbar spine done on January 31, 2020 which showed no evidence of osseous metastatic disease and it was considered most likely due to grade 1 anterolisthesis of L5 resulting in moderate bilateral foraminal stenosis at L5 -S1, and mild foraminal stenosis at L3-L4. And again radiation oncology ordered follow-up MRI scan of brain which was done on May 05, 2020 shows no new enhancing metastatic lesions. Improved but persistent nodular peripheral enhancement of left cerebellar metastatic lesion. Minimal persistent enhancement in the right frontal lobe lesion with a very slight increase in size since January 31, 2020. Persistent but improved enhancement posterior left parietal cortex metastatic lesion. Patient did not make follow-up appointment with medical oncology as he was following radiation oncology on regular basis and also decided not to continue with immunotherapy at least for the time being. And then as per patient when he decided to come back in May 2020, he developed abdominal pain and was diagnosed with ruptured appendix on June 06, 2020 and underwent appendicectomy. persistent chronic lower back pain not being controlled with the current pain medication but patient take hydrocodone 1 in the morning and 1 or 2 in the evening denies any pain radiating to lower extremity denies any lower extremity numbness or weakness, Follow-up CT PET scan done on July 22, 2020 showed posterior right upper lobe nodule seen previously now has SUV of 1.3 consistent with a minimal inflammatory uptake, indicating sterilized malignancy. The recurrent hepatic lesion in the segment 6 is now FDG negative. The right axillary lymph node seen on previous study is no longer present. Follow-up CT scan of chest abdomen done on October 19, 2020 showed no evidence of new or progressive disease in the chest or abdomen. No adenopathy in the chest or abdomen. Semisolid right upper lobe opacity stable since recent PET scan done in July 2020. Grade 1 anterolisthesis L5 on S1 with spondylosis Follow-up CT scan of chest done on January 29, 2021 showed right upper lobe opacity measuring 1.6 x 1.3 cm unchanged besides but appears more solid. Solid central component measures 5 x 7 mm. No mediastinal or hilar lymphadenopathy, no other changes from previous. Follow-up CT scan of chest done on May 03, 2021 showed mild continued increase in size of solid component of posterior right upper lobe opacification. Now 11 x 10 mm compared to 7 x 5 mm on previous scan. No lymphadenopathy, mild diffuse esophageal wall thickening. Chronic emphysema Came for follow-up, denies any specific complaint except generalized weakness and fatigue but no fever chills, no nausea or vomiting, no diarrhea or constipation, no hemoptysis hematemesis, no new bony pains, no weight loss, no headaches blurred vision or double vision. No jaundice. Still smoking about pack a day Medications: Aspirin 2 (325 mg) Tablet Oral daily, Citalopram Hydrobromide 1 (10 mg) Tablet Oral daily, Isosorbide Dinitrate 1 (30 mg) Tablet Oral b.i.d., Melatonin 1 (10 mg) Capsule Oral at bedtime, Nitroglycerin 1 Tablet (of 0.4 mg) Tablet, sublingual Sublingual PRN, Omeprazole 1 Capsule (of 40 mg) Capsule Delayed Release Oral daily, Pravastatin Sodium 1 Tablet (of 10 mg) Oral daily, Prochlorperazine Maleate 1 Tablet (of 10 mg) Oral q 4 hours PRN, traZODone HCl 1 (100 mg) Tablet Oral at bedtime PRN Allergies: No Known Allergies. Review of Systems: Review of Systems is not available for this patient. Vital Signs: Performed on May 15, 2021 15:18 Height - 68.00 in Weight - 131.2 lbs (HIGH) BSA - 1.71 sq.m BMI - 19.95 Temperature - 97.9 F (LOW) Pulse - 64 /min Respiration - 16 /min BP - 108/75 mm(hg) O2 Sat - 97 % Pain - 6 Fatigue - 6 Performance Status: 1 - No physically strenuous activity, but ambulatory and able to carry out light or sedentary work (e.g. office work, light house work). (ECOG) Physical Examination: ENMT - No mouth sores, no thrush, no jaundice, Respiratory - Poor air entry otherwise clear, Cardiovascular - Regular rate and rhythm of heart, Abdomen - Soft, bowel sounds present, Extremities - No visible edema. Lab/Imaging: Most recent lab results are not available for this patient. Impression: 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 Next CT scan of chest done on 10/12/2018 showed when compared to CT scan done on 10/02/2018, multiple nodular densities are in the posterior segment right upper lobe extending anteriorly and inferiorly towards the right hilum. And the most posterior superior nodular density is in the posterior subpleural region measuring 1.7 x 2.5 x 1.5 cm and elongated nodule extends anteriorly and inferiorly towards the right hilum measures 3.3 x 1.2 x 1.2 cm Bulky, confluent right paratracheal, right suprahilar and precarinal lymphadenopathy measures up to 5.8 cm x 3.5 cm x 10 cm. The adenopathy causes significant narrowing of right upper lobe pulmonary artery branch and a partially compresses the superior vena cava no acute bony abnormality seen no lytic or blastic bony destruction seen. Additional adenopathy extends into AP window and anterior superior mediastinum. And right supraclavicular lymphadenopathy measures 3.1 x 3.6 x 3.5 cm causes severe compression of inferior aspect of right internal jugular vein. No axillary lymphadenopathy. No other pulmonary mass or nodule seen. Liver is normal no adrenal involvement Emphysema COPD, so chronic smoking e.g. 55 year plus history history of myocardial infarction at age 43. Elevated PSA Essential hypertension Mr. He had PET/CT imaging on 11/28/2018. He had hypermetabolic activity in the right upper lobe nodule which measured to be 1.3 cm with SUV of 4.1 there are no other significant pulmonary nodules present there was a 2 widespread lung cyst formation upper lobes consistent with COPD changes matted malignant lymph nodes are present in the mediastinum time him consistent with local metastatic disease also present in the right paratracheal anterior mediastinal, precarinal and right hilar territories the SUV up to 6.2. In the right neck a 4.6 x 2.8 cm nodular mass in the level IV distribution has SUV of 6.8 representing metastasis. There is a solitary hypodensity in the medial right hepatic lobe measuring 2.0 x 1.6 cm with an SUV of 4.5. There are no findings to indicate osseous metastatic disease. MRI of the head from 11/25/2018 reports a oval circumscribed ring-enhancing lesion measuring 7.6 x 8.8 x 10 mm in the right frontal lobe subcortical white matter inferiorly. Per MRI report it is likely metastatic disease. No other Ms. sick lesions were seen and no significant stenosis and with white matter edema. 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 Mr. He was offered treatment with carboplatin/etoposide and Tecentriq. He began his first cycle on 11/24/2018. Completed total 5 cycles of chemotherapy on 03/12/2019. He remained on observation. He completed SRS to the brain to total dose of 2000 cGy on 05/06/2019. He began maintenance Tecentriq on 06/02/2019. Followup PET/CT imaging from 07/03/2019 showed no change in the FDG negative right upper lobe nodule, consistent with treated primary; Interval resolution of right supra clavicular and mediastinal lymph nodes; New malignant appearing right axilla lymph node and recurrence of unifocal hepatic metastatic disease. Mr He was seen by radiation oncology in regards to the right axilla lymph node and radiation was recommended- SB RT to right axilla. He received SBRT from 07/21/2019 till 07/26/2019 and also received SB RT to this solitary liver metastases from 07/28/2019 through 08/03/2019. The immunotherapy with any tecentriq was put on hold after second dose which was given on 06/23/2019 because of risk of increased toxicity with concurrent radiation therapy e.g. SB RT. as per radiation oncology recommendation. After completion of the radiation therapy, discussed treatment options including observation, or continue with maintenance immunotherapy with tecentriq was discussed, patient opted for maintenance immunotherapy.Which she resumed on August 25, 2019, total November 17, 2019, at that time patient was diagnosed with progressive brain mets, he was referred to radiation oncology and patient underwent whole brain radiation therapy from December 13, 2019 through December 28, 2019 and follow-up MRI scan done on January 31, 2020 shows significant improvement in multiple brain mets, patient continue to follow with radiation oncology and another follow-up MRI scan of brain done on May 05, 2020 shows further improvement but persistent multiple brain lesion and no new lesion was seen, patient on his own decided not to continue with immunotherapy rather follow-up with radiation oncology History of chronic back pain MRI scan of the lumbar spine ordered by radiation oncology done on January 31, 2020 showed no evidence of osseous metastatic disease. At that time it was concluded his back pain was most likely due to grade 1 anterolisthesis of L5 resulting in moderate bilateral foraminal stenosis at L5-S1 and mild foraminal stenosis at L3-L4. Follow-up CT PET scan done in July 22, 2020 showed minimal inflammatory activity in the right upper lobe pulmonary nodule, consistent with sterilization of malignancy. Resolution of activity in the unifocal hepatic metastasis consistent with sterilization of malignancy. Resolution of right axillary lymph node. Follow-up CT scan of chest abdomen done on October 19, 2020 showed no evidence of new or progressive disease in the chest and abdomen. No adenopathy in the chest or abdomen. No suspicious hepatic lesions. Grade 1 anterolisthesis L5 on S1 with spondylosis Plan: Discussed with patient regarding his labs white blood count 4.1 hemoglobin 13.1 hematocrit 37.5 platelets 170,000 CMP within normal limits and follow-up CT scan of chest which was done on May 03, 2021 showed no old mediastinal lymphadenopathy, solid component in the right upper lobe normalized 11 x 10 mm compared to 7 x 5 mm previously Clinically, patient doing well with no signs symptom suggestive of disease progression but his follow-up CT scan shows slight increase in solid component in the right upper lobe of the lung. At this point we will continue to monitor and repeat CT scan of chest in 3 months Patient return to clinic in 3 months with CBC CMP and follow-up CT scan of chest with special attention to right upper lobe abnormality in the meantime we will continue with monthly port maintenance Patient was advised to quit smoking and was offered any assistance he may need Signed By: Ky Perez M.D. <<Signature on File>>
== END 2021-05-15 11:02 | disposition home or self-care (01) ==
LOC: ONCMED 11:06
PROVIDERS: PCP Nurse Practitioner; Visit Provider Internal Medicine Hematology & Oncology
DX: Z08 Encounter for follow-up examination after completed treatment for malignant neoplasm (principal); Z85.89 Personal history of malignant neoplasm of other organs and systems; J43.9 Emphysema, unspecified; F17.210 Nicotine dependence, cigarettes, uncomplicated; I25.2 Old myocardial infarction; R97.20 Elevated prostate specific antigen [PSA]; I10 Essential (primary) hypertension; Z92.21 Personal history of antineoplastic chemotherapy; Z92.3 Personal history of irradiation
CPT/HCPCS: 36591; 80053; 85025; 99214

== ENCOUNTER → 2021-05-28 09:54 | Outpatient (BNVA) | payer MEDICARE, MEDICAID, SELFPAY | PROVIDERS: PCP Nurse Practitioner; Visit Provider Anesthesiology Pain Medicine | DX: M47.816 Spondylosis without myelopathy or radiculopathy, lumbar region (principal); M51.16 Intervertebral disc disorders with radiculopathy, lumbar region; M79.604 Pain in right leg; M79.605 Pain in left leg; M25.551 Pain in right hip; M25.552 Pain in left hip; C34.90 Malignant neoplasm of unspecified part of unspecified bronchus or lung; F41.9 Anxiety disorder, unspecified; F32.9 Major depressive disorder, single episode, unspecified; Z79.891 Long term (current) use of opiate analgesic | CPT/HCPCS: 99214 ==

== ENCOUNTER 2021-06-04 15:35 | Outpatient (CLI) | payer MEDICARE, MEDICAID, SELFPAY | END 2021-06-04 15:36 | disposition home or self-care (01) | PROVIDERS: PCP Nurse Practitioner; Visit Provider Internal Medicine Medical Oncology | DX: Z45.2 Encounter for adjustment and management of vascular access device (principal) | CPT/HCPCS: 96523 ==

== ENCOUNTER 2021-07-09 13:57 | Outpatient (CLI) | payer MEDICARE, MEDICAID, SELFPAY | END 2021-07-09 13:58 | disposition home or self-care (01) | LOC: ONCMED 14:02 | PROVIDERS: PCP Nurse Practitioner; Visit Provider Internal Medicine Hematology & Oncology | DX: Z45.2 Encounter for adjustment and management of vascular access device (principal) | CPT/HCPCS: 96523 ==

== ENCOUNTER 2021-08-22 10:50 | Outpatient (CLI) | payer MEDICARE, MEDICAID, SELFPAY ==
[2021-08-22 11:36] LABS: Basophils % 0.7 %; Eosinophils % 0.5 %; Hematocrit 40.4 % (42.0-52.0); Hemoglobin 13.4 g/dL (11.7-16.6); Lymphocytes # 1.2 10^3/uL (0.8-4.8); Lymphocytes % 21.5 %; Mean Corpuscular HGB Conc 33.2 g/dL (30.0-36.0); Mean Corpuscular Hemoglobin 30.9 pg (28.0-34.0); Mean Corpuscular Volume 93.3 fl (80-94); Mean Platelet Volume 9.4 fL (7.4-10.4); Monocytes # 1.6 10^3/uL (0.2-0.9); Monocytes % 26.9 %; Neutrophils # 2.85 10^3/uL (1.8-7.7); Neutrophils % 49.4 %; Nucleated Red Blood Cells % 0 %; Platelet Count 205 10^3/cmm (130-400); Red Blood Count 4.33 10^6/uL (4.1-5.3); White Blood Count 5.8 10^3/uL (4.0-10.0)
[2021-08-22 11:53] LABS: Alanine Aminotransferase 34 U/L (0-41); Albumin Level 4.7 g/dL (3.5-5.2); Alkaline Phosphatase 81 IU/L (40-130); Anion Gap 12.8 (5-19); Aspartate Amino Transferase 29 U/L (0-40); Blood Urea Nitrogen 14 mg/dL (8-23); Calcium 9.9 mg/dL (8.5-10.5); Carbon Dioxide 24 mmol/L (22-29); Chloride 103 mmol/L (98-107); Globulin 2.1 g/dL (1.3-4.6); Glomerular Filtration Rate 133.2 mL/min (90-130); Glucose 81 mg/dL (65-115); Osmolality Calculated 280 mOsm/kg (285-295); Potassium 4.8 mmol/L (3.5-5.1); Sodium 135 mmol/L (136-145); Total Bilirubin 0.2 mg/dL (0.15-1.2); Total Protein 6.8 g/dL (6.6-8.7)
== END 2021-08-22 10:51 | disposition home or self-care (01) ==
PROVIDERS: PCP Nurse Practitioner; Visit Provider Internal Medicine Hematology & Oncology
DX: C34.11 Malignant neoplasm of upper lobe, right bronchus or lung (principal); C79.31 Secondary malignant neoplasm of brain; C77.1 Secondary and unspecified malignant neoplasm of intrathoracic lymph nodes; Z79.899 Other long term (current) drug therapy; J43.9 Emphysema, unspecified; I51.7 Cardiomegaly
CPT/HCPCS: 36591; 71260; 80053; 85025

== ENCOUNTER 2021-08-22 11:45 | Outpatient (CLI) | payer MEDICARE, MEDICAID, SELFPAY ==
--- NOTE | 2021-08-22 11:53 | CT_ITS ---
WS: [id number] CT CHEST WITH INTRAVENOUS CONTRAST HISTORY: LUNG CANCER TECHNIQUE: Contiguous 5 mm axial imaging performed on the thorax. Coronal and sagittal reformats are submitted. All CT scans at [facility] use at least one of these dose optimization techniques: automated exposure control; mA and/or kV adjustment per patient size (includes targeted exams where dose is matched to clinical indication); or iterative reconstruction. CONTRAST: Omnipaque 300; 95 mL IV. DLP: 578.47 mGy.cm COMPARISON: 05/03/2021, 01/29/2021 Lungs and central airway: Hyperinflated lungs from emphysema. Paraseptal emphysematous changes. Some irregular nodule with adjacent groundglass attenuation in the posterior RIGHT upper lobe is reidentif ied. The solid component slightly more spiculated measuring 10 x 8 mm. No improvement. Continued very mild progression since 01/29/2021. Mild dependent changes at the RIGHT lung base. Pleura: Normal. No pleural effusion. Heart and pericardium: Moderate enlargement of all 4 chambers. No pericardial effusion. Mediastinum and michaela: Very mild increase in soft tissue in the inferior RIGHT paratracheal region. No nodules are identified. Vessels: Normal aorta with atherosclerotic plaque. Normal size pulmonary artery. LEFT subclavian Medi port with tip in the distal SVC. Chest wall and lower neck: Negative. Upper abdomen: Mild hyperplasia of the LEFT adrenal gland. Small hiatal hernia. No metastatic disease in the liver. 4 mm stable low-attenuation nodule in the LEFT lobe. Osseous structures: Small Schmorl's node at T8. CT/CT chest w con* [id number] IMPRESSION: 1. Very slight increase in the mixed consolidation with spiculated nodule in t he RIGHT upper lobe with adjacent groundglass attenuation. Not significantly in creased in size but does appear more consolidated and spiculated. This solid no dule measures 10 x 8 mm. Continued close follow-up to exclude slow-growing neop lasm. 2. Chronic emphysema. No adenopathy. 3. Cardiomegaly.
[2021-08-22] MEDS: iohexol 300 mg/mL 100 mL Btl IV (12:09)
== END 2021-08-22 11:46 | disposition home or self-care (01) ==
LOC: RAD 11:46
PROVIDERS: PCP Nurse Practitioner; Visit Provider Internal Medicine Hematology & Oncology
DX: C34.11 Malignant neoplasm of upper lobe, right bronchus or lung (principal); J43.9 Emphysema, unspecified; I51.7 Cardiomegaly
CPT/HCPCS: 71260

== ENCOUNTER 2021-08-24 09:00 | Outpatient (CLI) | payer MEDICARE, MEDICAID, SELFPAY ==
--- NOTE | 2021-08-24 11:33 | ONC FU_ITS ---
Dr. Perez follow up note Patient: Jean He Unit #: [id number]: 1950 Dicatated By: Ky Perez M.D.Date of Visit:Aug 24, 2021 Onc Med Follow-up/Prog Note History of Present Illness: Mr. He is a 71-year-old gentleman with recent history of progressive right neck mass. He underwent CT scan of chest on 10/12/2018 showed multifocal neoplasm of right upper lobe and extensive bulky right paratracheal, superior mediastinal, right suprahilar, right supraclavicular lymphadenopathy associated with mild compression of severe vena cava and the right internal jugular vein and additional involvement of AP window and subcarinal azygoesophageal recess. No liver or adrenal involvement. Patient was referred to Dr. 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 And immunohistochemistry was positive for NSE, synaptophysin, CD 56. CT PET scan done on 11/28/2018 showed extensive disease e.g. single metastases to the liver and MRI scan of brain done on 11/25/2018 showed left frontal subcortical metastatic lesion and is any enhancing metastatic lesion in the inferior subcortical white matter of right frontal lobe He began treatment with carboplatin/etoposide and Tecentriq on 11/24/2018. 55+ year history of smoking still active, Follow-up CT PET scan done after3 cycles of carboplatin and etoposide and Tecentriq done On 01/30/2019 Showed good response, marked interval improvement in right upper lobe carcinoma Interval improvement in mediastinal lymphadenopathy Interval improvement in right level IV cervical lymph node Resolution of hepatic metastatic disease MRI head done on 01/15/2019 showed decrease in size left frontal subcortical white matter metastatic lesion when compared with scan done on 11/25/2018 No new enhancing metastatic lesion seen. On 03/12/2019 patient Completed 5 cycles of chemotherapy with carboplatin and etoposide with last two , tecentriq was added. consolidation with radiation therapy to rt chest Was given from 04/07/2019 to 05/04/2019 Followed by brainSRS x1 on 05/06/2019. Maintenance therapy with atezolizumab was recommended and he began his first cycle on 06/02/2019. He has tolerated it well. CT PET scan done on 07/03/2019 showed no change in the FDG negative right upper lobe nodule, consistent with treated primary; Interval resolution of right supra clavicular and mediastinal lymph nodes; New malignant appearing right axilla lymph node and recurrence of unifocal hepatic metastatic disease. Mr He was seen by radiation oncology in regards to the right axilla lymph node and radiation was recommended- SB RT to right axilla. He received SBRT from 07/21/2019 till 07/26/2019 and also received SB RT to this solitary liver metastases from 07/28/2019 through 08/03/2019. The immunotherapy with any tecentriq was put on hold after second dose which was given on 06/23/2019 because of risk of increased toxicity with concurrent radiation therapy e.g. SB RT. as per radiation oncology recommendation. resumed his immunotherapy with 3 weekly Tecentriq 1200 mg , on 08/25/2019.Continued till November 17, 2019, Follow-up CT scan of chest/abdomen/pelvis from 09/10/2019 showed right upper lobe lesion is probably residual scar. Diffuse emphysema. No acute intra-abdominal or pelvic abnormality. at that time, he was complaining of headaches and balance problem, CT scan of head was ordered which was done in November 2019 which confirmed brain mets for which she was referred to radiation oncology and patient received whole brain radiation therapy from December 13, 2019 till December 28, 2019, then he was following radiation oncology had follow-up MRI scan of brain done on January 31, 2020 showed significant improvement in metastatic lesions and also had MRI scan of lumbar spine done on January 31, 2020 which showed no evidence of osseous metastatic disease and it was considered most likely due to grade 1 anterolisthesis of L5 resulting in moderate bilateral foraminal stenosis at L5 -S1, and mild foraminal stenosis at L3-L4. And again radiation oncology ordered follow-up MRI scan of brain which was done on May 05, 2020 shows no new enhancing metastatic lesions. Improved but persistent nodular peripheral enhancement of left cerebellar metastatic lesion. Minimal persistent enhancement in the right frontal lobe lesion with a very slight increase in size since January 31, 2020. Persistent but improved enhancement posterior left parietal cortex metastatic lesion. Patient did not make follow-up appointment with medical oncology as he was following radiation oncology on regular basis and also decided not to continue with immunotherapy at least for the time being. And then as per patient when he decided to come back in May 2020, he developed abdominal pain and was diagnosed with ruptured appendix on June 06, 2020 and underwent appendicectomy. persistent chronic lower back pain not being controlled with the current pain medication but patient take hydrocodone 1 in the morning and 1 or 2 in the evening denies any pain radiating to lower extremity denies any lower extremity numbness or weakness, Follow-up CT PET scan done on July 22, 2020 showed posterior right upper lobe nodule seen previously now has SUV of 1.3 consistent with a minimal inflammatory uptake, indicating sterilized malignancy. The recurrent hepatic lesion in the segment 6 is now FDG negative. The right axillary lymph node seen on previous study is no longer present. Follow-up CT scan of chest abdomen done on October 19, 2020 showed no evidence of new or progressive disease in the chest or abdomen. No adenopathy in the chest or abdomen. Semisolid right upper lobe opacity stable since recent PET scan done in July 2020. Grade 1 anterolisthesis L5 on S1 with spondylosis Follow-up CT scan of chest done on January 29, 2021 showed right upper lobe opacity measuring 1.6 x 1.3 cm unchanged besides but appears more solid. Solid central component measures 5 x 7 mm. No mediastinal or hilar lymphadenopathy, no other changes from previous. Follow-up CT scan of chest done on May 03, 2021 showed mild continued increase in size of solid component of posterior right upper lobe opacification. Now 11 x 10 mm compared to 7 x 5 mm on previous scan. No lymphadenopathy, mild diffuse esophageal wall thickening. Chronic emphysema Follow-up CT scan of chest done on August 22, 2021 showed very slight increase in the mixed consolidation with spiculated nodule in the right upper lobe with adjacent groundglass attenuation. Not significantly increased in size but does appear more consolidated and spiculated and measures 10 x 8 mm. Chronic emphysema. No lymphadenopathy. Cardiomegaly Came for follow-up, denies any specific complaint except chronic back pain for which she is being followed by orthopedics as per patient he underwent surgical procedure where 'they' put 'cement' in his vertebra. As per patient orthopedic physician was giving him hydrocodone 7.5 mg, initially as needed but later on told him to take 3 times a day, with which his back pain was under control but recently when he went back to see his orthopedic physician, as per patient he was not given another prescription as there was a misunderstanding about drug abuse. Now he is taking [id number] pain medication but without much relief. Denies any lower extremity numbness denies any focal weakness denies any dysuria or hematuria denies any fever chills denies any nausea or vomiting denies any hemoptysis hematemesis still smoking about a pack a day Medications: Aspirin 2 (325 mg) Tablet Oral daily, Citalopram Hydrobromide 1 (10 mg) Tablet Oral daily, Isosorbide Dinitrate 1 (30 mg) Tablet Oral b.i.d., Melatonin 1 (10 mg) Capsule Oral at bedtime, Nitroglycerin 1 Tablet (of 0.4 mg) Tablet, sublingual Sublingual PRN, Omeprazole 1 Capsule (of 40 mg) Capsule Delayed Release Oral daily, Pravastatin Sodium 1 Tablet (of 10 mg) Oral daily, Prochlorperazine Maleate 1 Tablet (of 10 mg) Oral q 4 hours PRN, traZODone HCl 1 (100 mg) Tablet Oral at bedtime PRN Allergies: No Known Allergies. Review of Systems: Review of Systems is not available for this patient. Vital Signs: Performed on Aug 24, 2021 08:16 Height - 68.00 in Weight - 137.2 lbs (HIGH) BSA - 1.74 sq.m BMI - 20.86 Temperature - 97.4 F (LOW) Pulse - 69 /min Respiration - 18 /min BP - 143/79 mm(hg) (HIGH) O2 Sat - 98 % Pain - 3 Fatigue - 8 Performance Status: 1 - No physically strenuous activity, but ambulatory and able to carry out light or sedentary work (e.g. office work, light house work). (ECOG) Physical Examination: ENMT - No mouth sores, no thrush, no jaundice, Respiratory - Poor air entry otherwise clear, Cardiovascular - Regular rate and rhythm of heart, Abdomen - Soft, bowel sounds present, Extremities - No visible edema. Lab/Imaging: Most recent lab results are not available for this patient. Impression: 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 Next CT scan of chest done on 10/12/2018 showed when compared to CT scan done on 10/02/2018, multiple nodular densities are in the posterior segment right upper lobe extending anteriorly and inferiorly towards the right hilum. And the most posterior superior nodular density is in the posterior subpleural region measuring 1.7 x 2.5 x 1.5 cm and elongated nodule extends anteriorly and inferiorly towards the right hilum measures 3.3 x 1.2 x 1.2 cm Bulky, confluent right paratracheal, right suprahilar and precarinal lymphadenopathy measures up to 5.8 cm x 3.5 cm x 10 cm. The adenopathy causes significant narrowing of right upper lobe pulmonary artery branch and a partially compresses the superior vena cava no acute bony abnormality seen no lytic or blastic bony destruction seen. Additional adenopathy extends into AP window and anterior superior mediastinum. And right supraclavicular lymphadenopathy measures 3.1 x 3.6 x 3.5 cm causes severe compression of inferior aspect of right internal jugular vein. No axillary lymphadenopathy. No other pulmonary mass or nodule seen. Liver is normal no adrenal involvement Emphysema COPD, so chronic smoking e.g. 55 year plus history history of myocardial infarction at age 43. Elevated PSA Essential hypertension Mr. He had PET/CT imaging on 11/28/2018. He had hypermetabolic activity in the right upper lobe nodule which measured to be 1.3 cm with SUV of 4.1 there are no other significant pulmonary nodules present there was a 2 widespread lung cyst formation upper lobes consistent with COPD changes matted malignant lymph nodes are present in the mediastinum time him consistent with local metastatic disease also present in the right paratracheal anterior mediastinal, precarinal and right hilar territories the SUV up to 6.2. In the right neck a 4.6 x 2.8 cm nodular mass in the level IV distribution has SUV of 6.8 representing metastasis. There is a solitary hypodensity in the medial right hepatic lobe measuring 2.0 x 1.6 cm with an SUV of 4.5. There are no findings to indicate osseous metastatic disease. MRI of the head from 11/25/2018 reports a oval circumscribed ring-enhancing lesion measuring 7.6 x 8.8 x 10 mm in the right frontal lobe subcortical white matter inferiorly. Per MRI report it is likely metastatic disease. No other Ms. sick lesions were seen and no significant stenosis and with white matter edema. 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 Mr. He was offered treatment with carboplatin/etoposide and Tecentriq. He began his first cycle on 11/24/2018. Completed total 5 cycles of chemotherapy on 03/12/2019. He remained on observation. He completed SRS to the brain to total dose of 2000 cGy on 05/06/2019. He began maintenance Tecentriq on 06/02/2019. Followup PET/CT imaging from 07/03/2019 showed no change in the FDG negative right upper lobe nodule, consistent with treated primary; Interval resolution of right supra clavicular and mediastinal lymph nodes; New malignant appearing right axilla lymph node and recurrence of unifocal hepatic metastatic disease. Mr He was seen by radiation oncology in regards to the right axilla lymph node and radiation was recommended- SB RT to right axilla. He received SBRT from 07/21/2019 till 07/26/2019 and also received SB RT to this solitary liver metastases from 07/28/2019 through 08/03/2019. The immunotherapy with any tecentriq was put on hold after second dose which was given on 06/23/2019 because of risk of increased toxicity with concurrent radiation therapy e.g. SB RT. as per radiation oncology recommendation. After completion of the radiation therapy, discussed treatment options including observation, or continue with maintenance immunotherapy with tecentriq was discussed, patient opted for maintenance immunotherapy.Which she resumed on August 25, 2019, total November 17, 2019, at that time patient was diagnosed with progressive brain mets, he was referred to radiation oncology and patient underwent whole brain radiation therapy from December 13, 2019 through December 28, 2019 and follow-up MRI scan done on January 31, 2020 shows significant improvement in multiple brain mets, patient continue to follow with radiation oncology and another follow-up MRI scan of brain done on May 05, 2020 shows further improvement but persistent multiple brain lesion and no new lesion was seen, patient on his own decided not to continue with immunotherapy rather follow-up with radiation oncology History of chronic back pain MRI scan of the lumbar spine ordered by radiation oncology done on January 31, 2020 showed no evidence of osseous metastatic disease. At that time it was concluded his back pain was most likely due to grade 1 anterolisthesis of L5 resulting in moderate bilateral foraminal stenosis at L5-S1 and mild foraminal stenosis at L3-L4. Follow-up CT PET scan done in July 22, 2020 showed minimal inflammatory activity in the right upper lobe pulmonary nodule, consistent with sterilization of malignancy. Resolution of activity in the unifocal hepatic metastasis consistent with sterilization of malignancy. Resolution of right axillary lymph node. Follow-up CT scan of chest abdomen done on October 19, 2020 showed no evidence of new or progressive disease in the chest and abdomen. No adenopathy in the chest or abdomen. No suspicious hepatic lesions. Grade 1 anterolisthesis L5 on S1 with spondylosis his follow-up CT scan of chest shows persistent abnormality in the right upper lobe but no change in solid nodule size, raised 10 x 8 mm compared to 11 x [address] scan of chest done on May 03, 2021, At this point we will continue to monitor and repeat his CT scan of chest, with and without contrast in 3 months. Plan: Discussed with patient regarding his labs white blood count 5.8 hemoglobin 13.4 hematocrit 40.4 platelets 205,000 CMP within normal limits and follow-up CT scan of the chest which was done on August 22, 2021 findings showed not significant increase in size but does appear more consolidated and spiculated and normally 10 x 8 mm, chronic emphysema, no lymphadenopathy, cardiomegaly Clinically, patient doing well with no new signs symptom suggestive of disease progression, his lab work-up is within normal range, his follow-up CT scan of chest shows persistent abnormality in the right upper lobe but no change in solid nodule size, raised 10 x 8 mm compared to 11 x [address] scan of chest done on May 03, 2021, At this point we will continue to monitor and repeat his CT scan of chest, with and without contrast in 3 months. As for his chronic back pain is concerned, patient is being evaluated by orthopedics, patient was advised to discuss with his physician regarding his pain management and patient said he will call his orthopedic physician on Friday, in the meantime is requesting stronger pain medication for the weekend, will give him prescription for hydrocodone 7.5 mg, he will take 1 to 2 tablet 6 to 8-hour as needed and then he will call his physician on Friday for his chronic back pain management. Patient was advised to quit smoking and was offered any assistance he may need He return to clinic in 3 months with CBC, CMP and CT scan of chest Signed By: Ky Perez M.D. <<Signature on File>>
== END 2021-08-24 09:01 | disposition home or self-care (01) ==
LOC: ONCMED 08-27 10:48
PROVIDERS: PCP Nurse Practitioner; Visit Provider Internal Medicine Hematology & Oncology
DX: Z08 Encounter for follow-up examination after completed treatment for malignant neoplasm (principal); Z85.72 Personal history of non-Hodgkin lymphomas; J43.9 Emphysema, unspecified; F17.210 Nicotine dependence, cigarettes, uncomplicated; R97.20 Elevated prostate specific antigen [PSA]; I10 Essential (primary) hypertension; I25.2 Old myocardial infarction; I51.7 Cardiomegaly; Z79.891 Long term (current) use of opiate analgesic; Z79.899 Other long term (current) drug therapy; Z92.3 Personal history of irradiation
CPT/HCPCS: 99214

== ENCOUNTER 2021-09-06 07:05 | Outpatient (CLI) | payer MEDICARE, MEDICAID, SELFPAY ==
--- NOTE | 2021-09-06 07:45 | USCV_ITS ---
Jean He Age: 71 Gender: M : 1950 Exam Date: 09/06/2021 07:19 Ordering Phys: Dusty Jara M.D ([email or web address]) Technologist: [place] [facility] [place]: chest pain BP: 135 / 75 HR: 62 Rhythm: Sinus Technical Quality: Adequate MEASUREMENTS (Male / Female) Normal Values 2D ECHO LV Diastolic Diameter PLAX 4.3 cm 4.2 - 5.9 / 3.9 - 5.3 cm LV Systolic Diameter PLAX 2.7 cm IVS Diastolic Thickness 0.9 cm 0.6 - 1.0 / 0.6 - 0.9 cm IVS Systolic Thickness 1.6 cm LVPW Diastolic Thickness 0.9 cm 0.6 - 1.0 / 0.6 - 0.9 cm LVPW Systolic Thickness 1.4 cm LVOT Diameter 2.0 cm LV Ejection Fraction 2D Teich 66.0 % LV Ejection Fraction MOD 2C 55.6 % LV Ejection Fraction 2C AL 55.6 % LA Diameter 2.3 cm Aorta at Sinotubular Diameter 2.5 cm M-MODE Aortic Annulus Diameter 3.3 cm LA Ao Ratio MM 0.6 MV E Point Septal Separation 0.8 cm DOPPLER AV Peak Velocity 115.3 cm/s LVOT Peak Velocity 74.0 cm/s AV Area Cont Eq vti 1.7 cm squared AV Area Cont Eq pk 2.1 cm squared MV Area PHT 3.5 cm squared Mitral E to A Ratio 1.2 MV E' Velocity 35.5 cm/s Mitral E to MV E' Ratio 5.6 Mitral E to LV E' Lateral Ratio 5.4 Mitral E to LV E' Septal Ratio 5.7 TR Peak Velocity 170.0 cm/s TR Peak Gradient 11.6 mmHg Right Atrial Pressure 3.0 mmHg Pulmonary Artery Systolic Pressu 14.6 mmHg FINDINGS Left Ventricle Normal left ventricular size. LV systolic function is normal with EF of 55-60%. No regional wall motion abnormalities. Normal diastolic filling pattern. Right Ventricle The right ventricle is normal in size and function. Right Atrium The right atrium is normal in size. Left Atrium The left atrium is normal in size. Mitral Valve Structurally normal mitral valve without significant stenosis or prolapse. There is no mitral regurgitation. Aortic Valve Not well visualized. No significant stenosis. There is no aortic regurgitation. Tricuspid Valve Structurally normal tricuspid valve without significant stenosis or regurgitation. Insufficient TR jet to calculate RVSP Pulmonic Valve Not well visualized Pericardium Normal pericardium without effusion. Aorta Normal ascending aorta dimension. CONCLUSIONS Limited quality echocardiogram because of poor ultrasonic windows LV systolic function is normal with EF of 55-60% Diastolic function is normal Valves not well visualized but no gross abnormalities No comparison studies are available Dusty Jara MD (Electronically Signed) Final Date: 14 September 2021 13:38 S
== END 2021-09-06 07:06 | disposition home or self-care (01) ==
LOC: RAD 07:06
PROVIDERS: PCP Nurse Practitioner; Visit Provider Internal Medicine
DX: R06.02 Shortness of breath (principal); R07.9 Chest pain, unspecified
CPT/HCPCS: 93306

== ENCOUNTER 2021-09-21 08:37 | Outpatient (CLI) | payer MEDICARE, MEDICAID, SELFPAY | END 2021-09-21 08:38 | disposition home or self-care (01) | PROVIDERS: PCP Nurse Practitioner; Visit Provider Internal Medicine Hematology & Oncology | DX: Z45.2 Encounter for adjustment and management of vascular access device (principal) | CPT/HCPCS: 96523 ==

== ENCOUNTER 2021-10-26 10:22 | Oncology outpatient (recurring) (ONCR) | payer MEDICARE, MEDICAID, SELFPAY ==
[2021-10-26 10:35] VITALS: BP 133/71; PULSE 64; RESP 16; TEMP 36.8; O2SAT 99
== END 2021-11-13 23:59 | disposition home or self-care (01) ==
PROVIDERS: PCP Nurse Practitioner; Visit Provider Internal Medicine Hematology & Oncology
DX: Z45.2 Encounter for adjustment and management of vascular access device (principal)
CPT/HCPCS: 96523

== ENCOUNTER → 2022-02-01 11:24 | Outpatient (BNVA) | payer MEDICARE, MEDICAID, SELFPAY | PROVIDERS: PCP Nurse Practitioner; Visit Provider Internal Medicine | DX: I95.9 Hypotension, unspecified (principal); I25.10 Atherosclerotic heart disease of native coronary artery without angina pectoris; I10 Essential (primary) hypertension; J44.9 Chronic obstructive pulmonary disease, unspecified; E78.2 Mixed hyperlipidemia; F17.210 Nicotine dependence, cigarettes, uncomplicated | CPT/HCPCS: 99214 ==

== ENCOUNTER 2022-02-22 12:52 | Inpatient (IN) | payer MEDICARE, MEDICAID, SELFPAY ==
[2022-02-22] VITALS (7 sets, daily range): BP systolic 124–178; BP diastolic 78–102; PULSE 100–110; RESP 16–26; TEMP 37–37.7; O2SAT 93–94; BMI 19.8
--- NOTE | 2022-02-22 13:08 | ECG_ITS ---
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 Measurements Intervals Orange Rate: 112 P: 78 NH: 145 QRS: 76 QRSD: 129 T: 66 QT: 359 QTc: 490 Interpretive Statements SINUS TACHYCARDIA WITH OCCASIONAL SUPRAVENTRICULAR PREMATURE COMPLEXES POSSIBLE LEFT ATRIAL ENLARGEMENT [-0.1mV P-WAVE IN V1/V2] RIGHT BUNDLE BRANCH BLOCK [120+ ms QRS DURATION, UPRIGHT V1, 40+ ms S IN I/aVL/V4/V5/V6] Compared to ECG 06/06/2020 14:45:28 No significant changes Electronically Signed On 02-22-2022 14:23:19 CDT by Dusty Jara M.D. [email or web address]/[id number]
--- NOTE | 2022-02-22 14:58 | CT_ITS ---
WS: [id number] CT HEAD TECHNIQUE: Noncontrast CT of the head obtained from the skullbase to the vertex. CLINICAL INFORMATION: fall/ closed head injury COMPARISON: CT December 08, 2019 DLP: 1198.[address] scans at [facility] use at least one of these dose optimization techniques: automated e xposure control; mA and/or kV adjustment per patient size (includes targeted exams where dose is matc hed to clinical indication); or iterative reconstruction. FINDINGS: No evidence of intracranial hemorrhage. Sequelae of prior treated metastatic lesions in the RIGHT fro ntal lobe, and LEFT greater than RIGHT cerebellum with associated encephalomalacia and calcifications . Mild small vessel changes. Mild parenchymal volume loss. Paranasal sinusitis with air-fluid levels in the frontal sinuses and LEFT maxillary sinus. Completely opacified RIGHT maxillary sinus. Fluid within the RIGHT sphenoid sinus. Opacification LEFT mastoid t ip. Opacification RIGHT mastoid air cells. Fluid in the RIGHT middle ear. Intracranial vascular calci fication. CT/CT head wo con* [id number] IMPRESSION: 1. No evidence of intracranial hemorrhage 2. Sequelae of prior treated metastatic lesions in the RIGHT frontal lobe, and LEFT greater than RIGHT cerebellum with encephalomalacia and calcifications. M ild small vessel changes. Mild parenchymal volume loss. 3. Pansinusitis with air-fluid levels. 4. Complete opacification RIGHT mastoid air cells and RIGHT middle ear. Opacif ication LEFT mastoid tip. 5. No other significant findings.
--- NOTE | 2022-02-22 15:00 | ECG_ITS ---
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 Measurements Intervals Sharon Rate: 101 P: 62 KS: 156 QRS: 66 QRSD: 134 T: 54 QT: 373 QTc: 484 Interpretive Statements SINUS TACHYCARDIA RIGHT BUNDLE BRANCH BLOCK [120+ ms QRS DURATION, UPRIGHT V1, 40+ ms S IN I/aVL/V4/V5/V6] Compared to ECG 02/22/2022 13:08:35 No significant changes Electronically Signed On 02-24-2022 13:22:39 CDT by Dusty Jara M.D. [id number]
--- NOTE | 2022-02-22 15:11 | W.ED.FALL ---
HPI - Fall General: Chief Complaint: Fall Stated Complaint: Fall, cancer pt Time Seen by Provider: 02/22/22 14:50 Source: patient Mode of arrival: ambulatory History of Present Illness: 71-year-old male has a history of laryngeal cancer with metastasis. He fell last night around 5:00 he said he was on the floor for several hours he was too weak to get up stand and move around he eventually was able to get himself up and told the nurse she was on the floor for about 8 hours he told me that he got up off the floor around 8:00. He is not really sure if he is on blood thinners not he tells me is no longer being treated for his cancer but they are monitoring him for recurrence as it supposed to be in remission at this point he denies loss of consciousness. He did strike his head he states he was sitting on the edge of his bed and he fell forward. He has had multiple falls in the past he has some abrasions on the left caodaism and supraorbital ridge. MD complaint: fall Onset (ago): hour(s) Fall from: out of bed Fall witnessed: no Place fall occurred: home Loss of consciousness: None Prolonged down time: yes Symptoms prior to fall: none Location of injury: head Associated symptoms-after fall: Reports difficulty walking and weakness; Denies abdominal pain, chest pain, confusion, headache(s), hematuria, lightheadedness, neck pain, numbness, short of breath or vertigo Review of Systems Const: Denies: fever(s), chills, body aches, change in appetite, fatigue or malaise ENMT: Denies: throat pain, ear or mastoid pain, nasal discharge or nasal congestion Card: Denies: chest pain or lightheadedness Resp: Denies: dyspnea, productive cough or non-productive cough GI: Denies: abdominal pain : Denies: hematuria Musc: Denies: neck pain Skin/Breast: Denies: rash or pruritus Neuro: Reports: difficulty walking; Denies: headache(s), vertigo or confusion PFSH ED PFSH: Medical History Anxiety and depression Arthritis ASHD (arteriosclerotic heart disease) / [place] / R bundle branch block Colon polyps COPD (chronic obstructive pulmonary disease) Essential hypertension Facet arthropathy, lumbar Fall at home Hypophosphatemia Insomnia Lumbar disc disease with radiculopathy Lung cancer 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, right paratracheal, superior mediastinal, right suprahilar, right supraclavicular lymph nodes, single metastasis to liver and left frontal subcortical lesion Malignant neoplasm of upper lobe, right bronchus or lung (~10/28/18) Mixed hyperlipidemia Moderate malnutrition Physical deconditioning Pneumonia 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 Surgical History History of ankle surgery L fracture History of appendectomy 06/12/2020 History of bronchoscopy / Right neck mass biopsy History of colonoscopy 03/2018 -- polyps Hx of cataract surgery S/P hernia surgery right inguinal S/P PICC central line placement Port-A-Cath placement left subclavian vein Family History Father Lung disease Lung cancer Social History Smoking and tobacco status: current every day smoker cigarettes Packs smoked per day: 0.5 Years cigarettes smoked: 52 [ Other cigarette details: Used to smoke 2 to 3 packs a day at one point] Second hand smoke exposure: No Smoking risk assessment/counseling performed?: Yes Alcohol intake: current Alcohol intake frequency: few times a week Alcohol type: beer Desire information about alcohol rehabilitation?: No Counseling given: No Desire information about substance/drug rehabilitation?: No Counseling given: No Adopted: No Caregiver/support person: No Lives independently: Yes Housing: House Marital status: 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 History of recent travel: No Current gender identity: Male Physical Exam Const: GENERAL APPEARANCE: cooperative and comfortable ORIENTATION/CONSCIOUSNESS: Yes awake, Yes oriented to person, Yes oriented to place and Yes oriented to time HENMT: COMMON NORMALS: normocephalic, hearing grossly normal bilaterally, external ears normal, EAC's normal, TM's normal bilaterally, Normal nasal mucous membranes and turbinates present and oropharynx normal HEAD & SCALP: normocephalic NOSE: Normal nasal mucous membranes and turbinates present EXTERNAL EAR: Yes external ears normal EXTERNAL AUDITORY CANAL: EAC's normal TYMPANIC MEMBRANE: TM's normal bilaterally Eye: COMMON NORMALS: Equal, round and reactive pupils present, EOMs intact bilaterally, conjunctivae normal and no scleral icterus CONJUNCTIVA: Yes conjunctivae normal PUPIL: Yes Equal, round and reactive pupils present Neck/C-Spine: COMMON NORMALS: full ROM, no lymphadenopathy, supple and no JVD Lymph: LYMPHATIC: no lymphadenopathy noted and no lymphedema noted Resp: COMMON NORMALS: normal respiratory effort, No retractions, No use of accessory muscles and clear to auscultation bilaterally AUSCULTATION: clear to auscultation bilaterally Cardio: COMMON NORMALS: no JVD, regular rate, regular rhythm and No murmurs present (Cardio) RATE: regular rate RHYTHM: regular rhythm GI: COMMON NORMALS: Soft to palpation and No hepatosplenomegaly present AUSCULTATION: Yes normoactive bowel sounds PALPATION: Yes Soft to palpation, No Tenderness to palpation present (GI), No Guarding due to palpation present (GI) and Yes No hepatosplenomegaly present Extremity: COMMON NORMALS: normal to inspection, capillary refill normal, no clubbing, cyanosis or edema, no calf tenderness and no pedal edema Neuro: SENSORIUM/ORIENTATION: Yes oriented to person, Yes oriented to place and Yes oriented to time Skin: COMMON NORMALS: no rashes or lesions noted GENERAL SKIN EXAM: no rashes or lesions noted Course Vital Signs: Vital signs: Vital Signs Temperature 98.4 F 02/25/22 07:54 Pulse Rate 78 02/25/22 10:54 Respiratory Rate 16 02/25/22 10:54 Blood Pressure 152/97 02/25/22 07:54 Pulse Oximetry 95 02/25/22 10:54 Oxygen Delivery Me thod 02/25/22 08:04 MDM - Fall Medical Decision Making Admit start antibiotics concerning for COVID possible underlying recurrence of cancer discussed with hospitalist orders written Medical Records I reviewed the patient's medical records. Lab Data I reviewed the patient's lab results. : 02/24/22 04:58 02/24/22 04:[address] 02/22/22 14:58 IMPRESSION: 1. No evidence of intracranial hemorrhage 2. Sequelae of prior treated metastatic lesions in the RIGHT frontal lobe, and LEFT greater than RIGHT cerebellum with encephalomalacia and calcifications. Mild small vessel changes. Mild parenchymal volume loss. 3. Pansinusitis with air-fluid levels. 4. Complete opacification RIGHT mastoid air cells and RIGHT middle ear. Opacification LEFT mastoid tip. 5. No other significant findings. Cervical Spine X-Ray 02/22/22 17:42 IMPRESSION: 1. The cervical spine is visualized to the mid C7 vertebral body level on the lateral image. There is no acute fracture in the visualized cervical spine, however injury in the lower cervical spine and cervicothoracic junction cannot be ruled out. Further evaluation with CT scan of the cervical spine is recommended if there is continuing clinical concern for fracture. 2. Multilevel degenerative changes of varying severity in the visualized spine. 3. Incidental/nonacute findings are listed in the report. Chest X-Ray 02/22/22 17:48 IMPRESSION: 1. Interval development of ill-defined interstitial and alveolar opacities in the lateral right upper and right lower lobes and in the left lower lobe. Findings are suspicious for pneumonia, including atypical organisms. Recommend followup chest imaging to insure resolution of these findings. 2. Incidental/nonacute findings are listed in the report. Venous Duplex 02/22/22 20:48 IMPRESSION: 1. No evidence for deep venous thrombosis. 2. Atherosclerotic changes in the visualized arteries. Chest CTA 02/23/22 00:00 IMPRESSION: 1. Motion artifact compromises assessment. No main, central or lobar pulmonary embolus is seen. 2. Extensive airspace and ground-glass opacity in the peripheral right lung and left lower lobe concerning for pneumonia (including COVID 19 pneumonia). 3. Peribronchial wall thickening; query viral infection/bronchitis, chronic bronchitis and/or asthma. 4. New masslike opacity in the right upper lobe. As per Fleischner Society 2017 guidelines for follow-up and management of pulmonary nodules: For ALL patients, consider CT at 3 months, PET/CT or biopsy. 5. Moderate to advanced centrilobular and paraseptal emphysema. 6. Mediastinal and right hilar lymphadenopathy. Laboratory Results WBC 12.7 10^3/uL (4.0-10.0) H 02/22/22 16:16 RBC 4.16 10^6/uL (4.1-5.3) 02/22/22 16:16 Hgb 12.9 g/dL (11.7-16.6) 02/22/22 16:16 Hct 37.6 % (42.0-52.0) L 02/22/22 16:16 MCV 90.4 fl (80-94) 02/22/22 16:16 MCH 31.0 pg (28.0-34.0) 02/22/22 16:16 MCHC 34.3 g/dL (30.0-36.0) 02/22/22 16:16 RDW 14.5 % (12.1-15.1) 02/22/22 16:16 Plt Count 175 10^3/cmm (130-400) 02/22/22 16:16 MPV 9.8 fL (7.4-10.4) 02/22/22 16:16 Neut % (Auto) 57.0 % 02/22/22 16:16 Lymph % (Auto) 7.3 % 02/22/22 16:16 Thomas % (Auto) 27.8 % 02/22/22 16:16 Eos % (Auto) 0.0 % 02/22/22 16:16 Baso % (Auto) 0.2 % 02/22/22 16:16 Neut # (Auto) 7.25 10^3/uL (1.8-7.7) 02/22/22 16:16 Lymph # (Auto) 0.9 10^3/uL (0.8-4.8) 02/22/22 16:16 Thomas # (Auto) 3.5 10^3/uL (0.2-0.9) H 02/22/22 16:16 Eos # (Auto) 0.0 10^3/uL (0.0-0.8) 02/22/22 16:16 Baso # (Auto) 0.0 10^3/uL (0.0-0.1) 02/22/22 16:16 Nucleated RBC % (auto) 0 % 02/22/22 16:16 Nucleated RBCs # 0.0 /100WBC 02/22/22 16:16 D-Dimer 1.45 ug/mIFEU (0-0.59) H 02/22/22 16:16 Sodium 132 mmol/L (136-145) L 02/22/22 16:16 Potassium 3.1 mmol/L (3.5-5.1) L 02/22/22 16:16 Chloride 95 mmol/L (98-107) L 02/22/22 16:16 Carbon Dioxide 23 mmol/L (22-29) 02/22/22 16:16 Anion Gap 17.1 (5-19) 02/22/22 16:16 BUN 16 mg/dL (8-23) 02/22/22 16:16 Creatinine 0.5 mg/dL (0.7-1.2) L 02/22/22 16:16 GFR Calculation 164.4 mL/min (90-130) H 02/22/22 16:16 Glucose 96 mg/dL (65-115) 02/22/22 16:16 Calculated Osmolality 275 mOsm/kg (285-295) L 02/22/22 16:16 Calcium 8.6 mg/dL (8.5-10.5) 02/22/22 16:16 Total Bilirubin 0.6 mg/dL (0.15-1.2) 02/22/22 16:16 AST 86 U/L (0-40) H 02/22/22 16:16 ALT 40 U/L (0-41) 02/22/22 16:16 Alkaline Phosphatase 131 U/L (40-130) H 02/22/22 16:16 Creatine Kinase 1898 U/L (39-308) H* 02/22/22 16:16 NT-Pro-B Natriuret Pep 2856 pg/mL (0-125) H 02/22/22 16:16 Total Protein 6.1 g/dL (6.6-8.7) L 02/22/22 16:16 Albumin 3.1 g/dL (3.5-5.2) L 02/22/22 16:16 Globulin 3.0 g/dL (1.3-4.6) 02/22/22 16:16 Procalcitonin 2.68 ng/mL (0-0.5) H 02/22/22 16:16 Urine Color Yellow (Yellow) 02/22/22 18:08 Urine Appearance Clear (CLEAR) 02/22/22 18:08 Urine pH 8 (5-7) H 02/22/22 18:08 Ur Specific [place] 1.015 (1.005-1.030) 02/22/22 18:08 Urine Protein Neg (Negative) 02/22/22 18:08 Urine Glucose (UA) Norm (Normal) 02/22/22 18:08 Urine Ketones Negative (Negative) 02/22/22 18:08 Urine Blood 3+ (Negative) H 02/22/22 18:08 Urine Nitrate Negative (Negative) 02/22/22 18:08 Urine Bilirubin Neg (Negative) 02/22/22 18:08 Prot Sulfosalicylic Acd Positive (Negative) 02/22/22 18:08 Urine Urobilinogen Norm mg/dL (Negative) 02/22/22 18:08 Ur Leukocyte Esterase Negative (Negative) 02/22/22 18:08 Urine RBC 5-10 /hpf (0-2) H 02/22/22 18:08 Urine WBC 0-4 /hpf (0-5) H 02/22/22 18:08 Ur Squamous Epith Cells 0-4 /hpf (0-5) H 02/22/22 18:08 Amorphous Sediment Not Reportable 02/22/22 18:08 Urine Bacteria None /hpf (NONE) 02/22/22 18:08 Discharge Plan Discharge Patient Disposition: Admitted As Inpatient Admit Provider: Werner Anderson Clinical Impression: Brain metastasis, Lung cancer, Pneumonia Condition: Stable Coding Level of Care Code ED Character Actress for Chg Fwd Exam Comprehensive
[2022-02-22] MEDS: sodium chloride 0.9% 1,000 ML 999 ML IV (16:15)
[2022-02-22] MEDS: tetanus-dipt-pertussis 0.5 mL SDV IM (16:15)
[2022-02-22 16:24] LABS: Basophils % 0.2 %; Hematocrit 37.6 % (42.0-52.0); Hemoglobin 12.9 g/dL (11.7-16.6); Lymphocytes # 0.9 10^3/uL (0.8-4.8); Lymphocytes % 7.3 %; Mean Corpuscular HGB Conc 34.3 g/dL (30.0-36.0); Mean Corpuscular Volume 90.4 fl (80-94); Mean Platelet Volume 9.8 fL (7.4-10.4); Monocytes # 3.5 10^3/uL (0.2-0.9); Monocytes % 27.8 %; Neutrophils # 7.25 10^3/uL (1.8-7.7); Nucleated Red Blood Cells % 0 %; Platelet Count 175 10^3/cmm (130-400); Red Blood Count 4.16 10^6/uL (4.1-5.3); Red Cell Distribution Width 14.5 % (12.1-15.1); White Blood Count 12.7 10^3/uL (4.0-10.0)
[2022-02-22 16:49] LABS: Alanine Aminotransferase 40 U/L (0-41); Albumin Level 3.1 g/dL (3.5-5.2); Alkaline Phosphatase 131 U/L (40-130); Anion Gap 17.1 (5-19); Aspartate Amino Transferase 86 U/L (0-40); Blood Urea Nitrogen 16 mg/dL (8-23); Calcium 8.6 mg/dL (8.5-10.5); Carbon Dioxide 23 mmol/L (22-29); Chloride 95 mmol/L (98-107); Glomerular Filtration Rate 164.4 mL/min (90-130); Glucose 96 mg/dL (65-115); Osmolality Calculated 275 mOsm/kg (285-295); Potassium 3.1 mmol/L (3.5-5.1); Sodium 132 mmol/L (136-145); Total Bilirubin 0.6 mg/dL (0.15-1.2); Total Protein 6.1 g/dL (6.6-8.7)
[2022-02-22 16:59] LABS: Creatine Phosphokinase 1898 U/L (39-308)
--- NOTE | 2022-02-22 17:42 | XRR_ITS ---
PROCEDURE INFORMATION: Exam: XR Cervical Spine Exam date and time: 02/22/2022 5:54 PM Age: 71 years old Clinical indication: Injury or trauma; Fall; Blunt trauma TECHNIQUE: Imaging protocol: Radiologic exam of the cervical spine. Views: 2 or 3 views. COMPARISON: CT head wo con* [id number] 02/22/2022 3:09 PM FINDINGS: Bones/joints: The cervical spine is visualized to the mid C7 vertebral body level on the lateral image. There is no acute fracture in the visualized cervical spine, however injury in the lower cervical spine and cervicothoracic junction cannot be ruled out. Vertebral body height is maintained. No subluxation. Bones are diffusely osteopenic. Multilevel degenerative changes of varying severity in the visualized spine. Soft tissues: No prevertebral soft tissue swelling. No radiopaque foreign body. Dental: The patient is edentulous. Vasculature: Atherosclerotic changes in the visualized arteries. A left subclavian Port-A-Cath is partially visualized. XR/XR cervical spine 3V* [id number] IMPRESSION: 1. The cervical spine is visualized to the mid C7 vertebral body level on the lateral image. There is no acute fracture in the visualized cervical spine, however injury in the lower cervical spine and cervicothoracic junction cannot be ruled out. Further evaluation with CT scan of the cervical spine is recommended if there is continuing clinical concern for fracture. 2. Multilevel degenerative changes of varying severity in the visualized spine. 3. Incidental/nonacute findings are listed in the report.
[2022-02-22 17:43] LABS: Slide Review Slide Review Perform
--- NOTE | 2022-02-22 17:48 | XRR_ITS ---
PROCEDURE INFORMATION: Exam: XR Chest Exam date and time: 02/22/2022 5:54 PM Age: 71 years old Clinical indication: Cough and dyspnea; Additional info: Dyspnea/cough TECHNIQUE: Imaging protocol: Radiologic exam of the chest. Views: 1 view. COMPARISON: CT chest w con* [id number] 05/03/2021 11:58 AM FINDINGS: Tubes, catheters and devices: Left subclavian Port-A-Cath is stable in position with the tip in the superior vena cava. Lungs: Interval development of ill-defined interstitial and alveolar opacities in the lateral right upper and right lower lobes and in the left lower lobe. Stable emphysematous changes in the lungs. Pleural spaces: No pleural effusion. No pneumothorax. Heart/Mediastinum: Stable mild enlargement of the cardiac silhouette. Mediastinal contours are unremarkable. Bones/joints: Bones are diffusely osteopenic. Degenerative changes in the spine and shoulders. XR/XR chest 1V portable [id number] IMPRESSION: 1. Interval development of ill-defined interstitial and alveolar opacities in the lateral right upper and right lower lobes and in the left lower lobe. Findings are suspicious for pneumonia, including atypical organisms. Recommend followup chest imaging to insure resolution of these findings. 2. Incidental/nonacute findings are listed in the report.
[2022-02-22 18:27] LABS: Add Urine Microscopic? YES; Bilirubin Urine Neg (Negative); Blood Urine 3+ (Negative); Glucose Urine UA Norm (Normal); Ketones Urine Negative (Negative); Leukocyte Esterase Urine Negative (Negative); Nitrate Urine Negative (Negative); Protein Urine Neg (Negative); Specific Gravity, Urine 1.015 (1.005-1.030); Urine Appearance Clear (CLEAR); Urine Color Yellow (Yellow); Urobilinogen Urine Norm (Negative); pH Urine 8 (5-7)
[2022-02-22 18:28] LABS: Add Urine Culture? No; Squamous Epithelial Cell Urine 0-4 /hpf (0-5); Sulfosalicylic Acid Urine Positive (Negative); WBC Urine 0-4 /hpf (0-5)
--- NOTE | 2022-02-22 19:26 | PM.HP ---
Providers/Chief Complaint Primary Care Provider: Haley Sánchez, PRODUCT CONTROL AND LOGISTICS ANALYST-C Chief Complaint: Fall, cancer pt History of Present Illness Jean He is a 71 year old male who carries history of lung cancer/anaplastic small cell cancer with intracranial metastatic lesions, resolution of hepatic metastatic disease, has undergone chemo and radiation therapy, chronic back pain related to grade 1 anterolisthesis L5-S1 with spondylolysis, peripheral arterial disease, preserved ejection fraction follows up with Dr. Perez came to the hospital after an episode of fall at home. As per the oncology note Jean was able to carry daily activities however no exertional activities, patient is stating that he lives alone at home, he was watching television around 5 PM on when he tried to get up and get a glass of water at that point he felt extremely weak and fell on the floor he did notany chest pain or syncopal event, he was awake, he did not experience any urinary/bowel incontinence, tremors, nausea or vomiting. Patient is stating that he just could not get an of energy to get up on his own, it took him 6 hours to get to his test which was only 10 feet away to get his phone and call his friend. His friends came over and helped him to get in the bed. He is also endorsing dry heaves which started at least a week ago now has improved. No recent diarrhea or febrile events. He has been noticing headache and ear pain right greater than left describing his pain as achy in nature 5/10 intensity. ER work-up showed leukocytosis however he does not meet criteria for sepsis EKG showing sinus tachycardia with right bundle branch block I have requested D-dimer, started IV fluids 100 mL/h Recent echo was done on 09/06/2021 MRI spine 01/31/2020 did not show any metastatic disease however it showed grade 1 anterolisthesis of L5 resulting moderate bilateral foraminal stenosis at L5-S1 Chest x-ray showed diffuse opacities, cervical spine did not show acute fractures, Patient does not have any signs of spinal cord compression at the time of my evaluation He is awake and alert NIH 0 Is dehydrated, Right ear showing otitis media without any purulent drainage Review of Systems Const: Reports: chills, body aches, fatigue and malaise Eyes: Denies: change in vision ENMT: Reports: dry mouth and ear or mastoid pain Card: Denies: chest pain Resp: Denies: dyspnea GI: Reports: nausea : Denies: flank pain Musc: Reports: back pain Skin/Breast: Reports: lesions Neuro: Reports: headache(s) Psych: Denies: anxiety Endo: Denies: polyuria Abdirizak/Lymph: Denies: easy bruising All/Imm: Denies: urticaria Medications/Allergies Home Medications Medication Instructions Recorded Confirmed Last Taken Type melatonin 10 mg capsule 10 mg PO DAILY 08/25/19 02/01/22 Unknown History nitroglycerin 0.4 mg sublingual 0.4 mg sublingual Q5M PRN chest 02/01/20 02/01/22 Unknown Rx tablet (Nitrostat) pain 30 days #30 tabs omeprazole 40 mg capsule,delayed 40 mg PO DAILY 06/06/20 02/01/22 Unknown History release cholecalciferol (vitamin D3) 25 25 mcg PO DAILY 12/15/20 02/01/22 Unknown History mcg (1,000 unit) capsule carbamide peroxide 6.5 % ear drops 5 drp otic (ear) DAILY #15 mL 04/01/21 02/01/22 Unknown Rx (Debrox) isosorbide mononitrate 30 mg 30 mg PO DAILY 04/04/21 02/01/22 Unknown History tablet,extended release 24 hr metoprolol succinate 25 mg 25 mg PO DAILY 04/04/21 02/01/22 Unknown History tablet,extended release 24 hr lisinopril 10 mg tablet 10 mg PO DAILY #90 tabs 10/17/21 02/01/22 Unknown Rx benzonatate 200 mg capsule 200 mg PO BID PRN cough #30 caps 12/14/21 02/01/22 Unknown Rx albuterol sulfate 90 mcg/actuation 2 puff inhalation Q6H shortness of 02/15/22 Unknown Rx aerosol inhaler (Ventolin HFA) breath or wheezing #8.5 grams budesonide 160 mcg-glycopyr 9 2 inh inhalation BID #10.7 grams 02/15/22 Unknown Rx mcg-formot 4.8 mcg/actuation HFA inhaler (Breztri Aerosphere) citalopram 10 mg tablet (Celexa) 10 mg PO DAILY 30 days #30 tabs 02/15/22 Unknown Rx pravastatin 10 mg tablet 10 mg PO DAILY 30 days #30 tabs 02/15/22 Unknown Rx trazodone 100 mg tablet 100 mg PO .hs 30 days #30 tabs 02/15/22 Unknown Rx Allergies Allergy/AdvReac Type Severity Reaction Status Date / Time No Known Allergies Allergy Verified 02/01/22 11:40 PFSH Acute PFSH: Medical History Anxiety and depression Arthritis ASHD (arteriosclerotic heart disease) / [place] / R bundle branch block Colon polyps COPD (chronic obstructive pulmonary disease) Essential hypertension Insomnia Lung cancer 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, right paratracheal, superior mediastinal, right suprahilar, right supraclavicular lymph nodes, single metastasis to liver and left frontal subcortical lesion Mixed hyperlipidemia Surgical History History of ankle surgery L fracture History of appendectomy 06/12/2020 History of bronchoscopy / Right neck mass biopsy History of colonoscopy 03/2018 -- polyps Hx of cataract surgery S/P hernia surgery right inguinal S/P PICC central line placement Port-A-Cath placement left subclavian vein Family History Father Lung disease Lung cancer Social History Smoking and tobacco status: current every day smoker cigarettes Packs smoked per day: 0.5 Years cigarettes smoked: 52 [ Other cigarette details: Used to smoke 2 to 3 packs a day at one point] Second hand smoke exposure: No Smoking risk assessment/counseling performed?: Yes Alcohol intake: current Alcohol intake frequency: few times a week Alcohol type: beer Desire information about alcohol rehabilitation?: No Counseling given: No Desire information about substance/drug rehabilitation?: No Counseling given: No Adopted: No Caregiver/support person: No Lives independently: Yes Housing: House Marital status: History of recent travel: No Current gender identity: Male Vitals/I&O/Wt Last Vital Signs Temp 98.6 F 02/22/22 12:56 Pulse 107 H 02/22/22 12:56 Resp 16 02/22/22 12:56 BP 141/78 02/22/22 16:46 Pulse Ox 94 02/22/22 12:56 O2 Del Method 02/22/22 12:56 Weight last 48 hrs Weight 58.967 kg Physical Exam Narrative: Patient is awake and alert NIH 0 Dehydrated Malnourished Cachectic Complaining of right ear pain, right ear is showing otitis media No signs of perforation of tympanic membrane no purulent drainage S1, S2 sinus tachycardia Abdomen soft Bowel sound present Awake and alert Nonfocal neuro exam Currently on room air Extremely dehydrated and malnourished Unkept appearance No audible stridor or wheezing, doing well on room air Data : 02/22/22 16:16 02/22/22 16:16 Micro: Microbiology 02/22/22 18:40 Blood Culture - Preliminary Blood SPECIMEN COLLECTED 02/22/22 18:40 Blood Culture - Preliminary Blood SPECIMEN COLLECTED A&P Assessment and plan (1) Secondary and unspecified malignant neoplasm of intrathoracic lymph nodes: Status: Acute (2) Secondary malignant neoplasm of brain: Status: Acute (3) Malignant neoplasm of upper lobe, right bronchus or lung: Status: Acute (4) Essential hypertension: Status: Chronic (5) Facet arthropathy, lumbar: Status: Acute (6) Lumbar disc disease with radiculopathy: Status: Acute (7) COPD (chronic obstructive pulmonary disease): Status: Chronic (8) Fall at home: Status: Acute (9) Physical deconditioning: Status: Acute (10) Moderate malnutrition: Status: Acute Plan Physical deconditioning Hyponatremic, hypokalemic hypochloremic most likely related to poor p.o. intake Felll at home due to muscular deconditioning, patient is putting hands on his thighs to get up, significant proximal muscle weakness, check TSH Otitis media right ear Check orthostatics Patient is denying syncopal event He did not lose consciousness, no seizure-like activity or chest pain Recent echo showed preserved ejection fraction no signs of aortic stenosis I would not repeat echo at this point Check venous Doppler and CTA chest to rule out PE D-dimer 1.4 X-ray showing alveolar opacities, clinically he is dehydrated concern for right lower lobe pneumonia I will start him on cefepime and Zosyn for now which will also cover microorganisms for chronic sinusitis and on CT scan Right otitis media without perforation tympanic membrane purulent discharge, will give him topical eardrops as well Fluid hydration Rhabdomyolysis, continue IV fluid hydration, CPK in the morning No significant abnormality of creatinine place briones cath Procalcitonin is 2.6 Blood cultures to be taken Patient is not septic at the time of admission No acute signs of cauda equina Full code: Patient wants a trial of CPR or defibrillation and intubation however does not want to stay on mechanical ventilator for prolonged period of time DVT prophylaxis: Lovenox Cardiac diet Attestations Medical Necessity Statement*: Anticipating discharge within 48 hours might need senior care placement Time Spent in Patient Care: 40 Coding Level of Care Code Acute Director Client for Chg Fwd Diagnoses Secondary and unspecified malignant neoplasm of intrathoracic lymph nodes C77.1 Secondary malignant neoplasm of brain C79.31 Malignant neoplasm of upper lobe, right bronchus or lung C34.11 Essential hypertension I10 Facet arthropathy, lumbar M47.816 Lumbar disc disease with radiculopathy M51.16 COPD (chronic obstructive pulmonary disease) J44.9 Fall at home W19.XXXA; Y92.009 Physical deconditioning R53.81 Moderate malnutrition E44.0
[2022-02-22 19:58] LABS: D Dimer 1.45 ug/mIFEU (0-0.59)
[2022-02-22 20:10] LABS: Procalcitonin 2.68 ng/mL (0-0.5)
--- NOTE | 2022-02-22 20:48 | USR_ITS ---
PROCEDURE INFORMATION: Exam: US Duplex Lower Extremity Veins, Bilateral Exam date and time: 02/22/2022 9:05 PM Age: 71 years old Clinical indication: Swelling (edema) of limb; Lower extremity, bilateral TECHNIQUE: Imaging protocol: Real-time Duplex ultrasound of the bilateral extremities with 2-D ahumada scale, color Doppler flow and spectral waveform analysis with image documentation. Complete exam focused on the bilateral lower extremity veins. COMPARISON: CT chest abd pel w con* 09/10/2019 3:14 PM FINDINGS: Right deep veins: The common femoral, femoral, proximal profunda femoral, popliteal, posterior tibial, and peroneal veins are patent without thrombus. Normal compressibility and/or augmentation response. Right superficial veins: Saphenofemoral junction is patent without thrombus. Left deep veins: The common femoral, femoral, proximal profunda femoral, popliteal, posterior tibial, and peroneal veins are patent without thrombus. Normal compressibility and/or augmentation response. Left superficial veins: Saphenofemoral junction is patent without thrombus. Soft tissues: Unremarkable as visualized. Other findings: Atherosclerotic changes in the visualized arteries. US/[place] [id number] IMPRESSION: 1. No evidence for deep venous thrombosis. 2. Atherosclerotic changes in the visualized arteries.
[2022-02-22 21:29] LABS: NT Pro B Type Natriuretic Pept 2856 pg/mL (0-125)
[2022-02-22] MEDS: sodium chloride 0.9% 1,000 ML 100 ML IV (22:09)
[2022-02-22] MEDS: cefepime 1,000 MG in sodium chloride 0.9% (plus) 50 ML 100 MG IV (22:10)
[2022-02-22] MEDS: enoxaparin 40 mg/0.4 mL Syringe SUBCUT (22:12)
--- NOTE | 2022-02-22 22:30 | PC.NURSE ---
Rn attempted briones insertion with 16french catheter. After some manipulation was able to get urine return but when attempting to inflate the balloon the patient was complaining of pain. Was not able to place briones and following attempt the patient was having hematuria. The patient passed a few clots and is now having hematuria but is still able to urinate adequate amounts.
[2022-02-22] MEDS: lidocaine 1% 5 ML in potassium chloride premix 100 ML 25 ML IV (22:53)
[2022-02-23] VITALS (10 sets, daily range): BP systolic 123–167; BP diastolic 74–100; PULSE 70–105; RESP 16–19; TEMP 36.7–37.6; O2SAT 91–95
--- NOTE | 2022-02-23 | CTR_ITS ---
PROCEDURE INFORMATION: Exam: CTA Chest With Contrast Exam date and time: 02/23/2022 7:56 AM Age: 71 years old Clinical indication: Dyspnea and syncope. TECHNIQUE: Imaging protocol: Computed tomographic angiography of the chest with contrast. 3D rendering (Not supervised by radiologist): MIP and/or 3D reconstructed images were created by the technologist. Radiation optimization: All CT scans at this facility use at least one of these dose optimization techniques: automated exposure control; mA and/or kV adjustment per patient size (includes targeted exams where dose is matched to clinical indication); or iterative reconstruction. Contrast material: OMNI 350; Contrast volume: 84 ml; Contrast route: INTRAVENOUS (IV); COMPARISON: CT angio chest w abd pel w con 06/06/2020 2:11 PM RADIATION DOSE METRICS: Total DLP (mGy-cm): 266.9 FINDINGS: Pulmonary arteries: Motion artifact compromises assessment. No main, central or lobar pulmonary embolus is seen. Aorta: No thoracic aortic aneurysm. No thoracic aortic dissection is seen. Lungs: Moderate to advanced centrilobular and paraseptal emphysema. There is extensive airspace and ground-glass opacity in the peripheral right lung and left lower lobe concerning for pneumonia (including COVID 19 pneumonia). There is peribronchial wall thickening. A solid pulmonary nodule on the right measures 3.9 mm; similar to May 2020. Fleischner society guidelines have been satisfied. This nodule is likely benign. New masslike opacity in the right upper lobe measuring 1.3 x 1.6 cm. Pleural spaces: No pleural effusion. No pneumothorax. Heart/mediastinum: No pericardial effusion. Left port with tip in the SVC. Lymph nodes: A right hilar lymph node measures 1.5 x 1.6 cm. A subcarinal lymph node measures 1.0 x 1.5 cm. Diaphragm: No hiatal hernia. Bones/joints: No acute fracture is seen. Soft tissues: No significant subcutaneous soft tissue swelling is seen. CT/CT angio chest PE protcl [id number] IMPRESSION: 1. Motion artifact compromises assessment. No main, central or lobar pulmonary embolus is seen. 2. Extensive airspace and ground-glass opacity in the peripheral right lung and left lower lobe concerning for pneumonia (including COVID 19 pneumonia). 3. Peribronchial wall thickening; query viral infection/bronchitis, chronic bronchitis and/or asthma. 4. New masslike opacity in the right upper lobe. As per Fleischner Society 2017 guidelines for follow-up and management of pulmonary nodules: For ALL patients, consider CT at 3 months, PET/CT or biopsy. 5. Moderate to advanced centrilobular and paraseptal emphysema. 6. Mediastinal and right hilar lymphadenopathy.
[2022-02-23] MEDS: piperacillin-tazobactam 3.375 GM in sodium chloride 0.9% (plus) 50 ML IV ×4 (00:11→23:33)
[2022-02-23] MEDS: trazodone 100 mg Tablet PO ×2 (00:11→21:06)
--- NOTE | 2022-02-23 01:26 | PC.NURSE ---
Called and Spoke with regarding failed attempts at briones insertion and patient now has hematuria and unable to obtain CT Angio as were unable to get IV access and port is not able to be used as unable to descern if it is a power port. aware said ok to try again for IV acess and CT angio in the morning.
[2022-02-23 04:55] LABS: Basophils % 0.3 %; Hematocrit 33.9 % (42.0-52.0); Hemoglobin 11.4 g/dL (11.7-16.6); Lymphocytes # 0.7 10^3/uL (0.8-4.8); Lymphocytes % 5.6 %; Mean Corpuscular HGB Conc 33.6 g/dL (30.0-36.0); Mean Corpuscular Hemoglobin 30.1 pg (28.0-34.0); Mean Corpuscular Volume 89.4 fl (80-94); Mean Platelet Volume 9.7 fL (7.4-10.4); Monocytes # 3.1 10^3/uL (0.2-0.9); Monocytes % 25.8 %; Neutrophils # 7.24 10^3/uL (1.8-7.7); Nucleated Red Blood Cells % 0 %; Platelet Count 176 10^3/cmm (130-400); Red Blood Count 3.79 10^6/uL (4.1-5.3); Red Cell Distribution Width 14.5 % (12.1-15.1); White Blood Count 11.9 10^3/uL (4.0-10.0)
[2022-02-23 05:27] LABS: Alanine Aminotransferase 45 U/L (0-41); Albumin Level 2.6 g/dL (3.5-5.2); Alkaline Phosphatase 109 U/L (40-130); Anion Gap 16.3 (5-19); Aspartate Amino Transferase 81 U/L (0-40); Blood Urea Nitrogen 10 mg/dL (8-23); Calcium 7.9 mg/dL (8.5-10.5); Carbon Dioxide 22 mmol/L (22-29); Chloride 102 mmol/L (98-107); Globulin 2.6 g/dL (1.3-4.6); Glomerular Filtration Rate 164.4 mL/min (90-130); Glucose 91 mg/dL (65-115); Magnesium 1.8 mg/dL (1.7-2.3); Osmolality Calculated 283 mOsm/kg (285-295); Phosphorus 1.7 mg/dL (2.5-4.5); Potassium 3.3 mmol/L (3.5-5.1); Sodium 137 mmol/L (136-145); Total Bilirubin 0.7 mg/dL (0.15-1.2); Total Protein 5.2 g/dL (6.6-8.7)
[2022-02-23 05:33] LABS: Slide Review Slide Review Perform
[2022-02-23] MEDS: sodium chloride 0.9% 1,000 ML 100 ML IV ×2 (05:59→19:37)
[2022-02-23 06:24] LABS: Glucose Point of Care 101 mg/dL (70-110)
[2022-02-23] MEDS: iohexol 350 mg/mL 100 mL Btl IV (08:02)
[2022-02-23] MEDS: cefepime 1,000 MG in sodium chloride 0.9% (plus) 50 ML 100 MG IV (08:53)
[2022-02-23] MEDS: sennosides-docusate Tablet 1 TAB PO (08:57)
[2022-02-23] MEDS: isosorbide mononitrate ER 30 mg Tablet PO (08:57)
[2022-02-23] MEDS: pantoprazole DR 40 mg Tablet PO (08:57)
[2022-02-23 11:14] LABS: Glucose Point of Care 84 mg/dL (70-110)
--- NOTE | 2022-02-23 12:06 | PC.PHAR ---
Pt unable to verify medications - he states he has home health but was unable to verify which home health agency. Verified meds by last filled on ext med history and previous med list entered.
[2022-02-23 17:10] LABS: Glucose Point of Care 99 mg/dL (70-110)
--- NOTE | 2022-02-23 18:51 | PM.PN ---
Subjective Subjective: 71-year-old male admitted after fall and could not get up. 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 He has undergone chemo and radiation therapy and had cancer for 3-1/2 years. He continues to smoke 1-1/2 to 2 packs/day and tells me not to tell him to quit smoking because he has tried that. D-dimer was positive but CTA was negative for pulmonary embolism venous duplex also negative for clot Patient tells me he is stronger now that when was able to walk he would like to go home Vitals/I&O/Wt Last Vital Signs Temp 98.1 F 02/23/22 16:00 Pulse 75 02/23/22 16:10 Resp 17 02/23/22 16:00 BP 131/74 02/23/22 16:00 Pulse Ox 91 02/23/22 16:00 O2 Del Method 02/23/22 16:00 02/23/22 02/23/22 02/23/22 06:59 14:59 22:59 Intake Total 1538.333 / 2708.333 340 / 340 240 / 580 Output Total 50 / 250 750 / 750 325 / 1075 Balance 1488.333 / 2458.333 -410 / -410 -85 / -495 Weight last 48 hrs Weight 58.967 kg Physical Exam Narrative: General well-developed chronically ill-appearing male sleeping peacefully little bit hard to arouse but awakened and was appropriate CVRegular rate and rhythm Lungs clear to auscultation bilaterally Abdomen positive bowel sounds soft nontender Calves trace ankle edema Data : 02/23/22 04:35 02/23/22 04:35 Micro: Microbiology 02/22/22 18:40 Blood Culture - Preliminary Blood NEGATIVE TO DATE 02/22/22 18:40 Blood Culture - Preliminary Blood NEGATIVE TO DATE 02/22/22 21:15 MRSA Culture - Final Nose A&P Assessment and plan (1) Pneumonia: Continue with Zosyn potential discharge home on Augmentin Status: Acute (2) Moderate malnutrition: Encourage p.o. nutrition. We will replace K-Phos Status: Acute (3) Small cell carcinoma of lung: Chronic smoker and chronically on treatment with oncology Status: Acute (4) Hypophosphatemia: We will replace with IV K-Phos Status: Acute Attestations Medical Necessity Statement*: Monitor white count response and electrolyte response to therapy Time Spent in Patient Care: 40 minutes spent in evaluation and coordination of care for this patient today Coding Level of Care Code Acute Raimann Machine Operator for Kelle Fwandra History Detailed Exam Detailed Medical Decision Making High Complexity Diagnoses Pneumonia J18.9 Moderate malnutrition E44.0 Small cell carcinoma of lung C34.90 Hypophosphatemia E83.39
[2022-02-23 20:29] LABS: SARS Covid-2 Antigen Negative (Negative)
[2022-02-23 20:35] LABS: Glucose Point of Care 105 mg/dL (70-110)
[2022-02-23] MEDS: enoxaparin 40 mg/0.4 mL Syringe SUBCUT (21:07)
[2022-02-24] VITALS (11 sets, daily range): BP systolic 133–177; BP diastolic 73–86; PULSE 70–81; RESP 16–70; TEMP 36.4–37.6; O2SAT 92–96
[2022-02-24 05:17] LABS: Basophils % 0.2 %; Eosinophils % 0.2 %; Hematocrit 30.6 % (42.0-52.0); Hemoglobin 10.4 g/dL (11.7-16.6); Lymphocytes # 0.7 10^3/uL (0.8-4.8); Lymphocytes % 7.3 %; Mean Corpuscular Hemoglobin 30.7 pg (28.0-34.0); Mean Corpuscular Volume 90.3 fl (80-94); Mean Platelet Volume 9.9 fL (7.4-10.4); Monocytes # 2.2 10^3/uL (0.2-0.9); Monocytes % 24.3 %; Neutrophils # 5.25 10^3/uL (1.8-7.7); Neutrophils % 58.1 %; Nucleated Red Blood Cells % 0 %; Platelet Count 160 10^3/cmm (130-400); Red Blood Count 3.39 10^6/uL (4.1-5.3); Red Cell Distribution Width 14.6 % (12.1-15.1)
[2022-02-24] MEDS: piperacillin-tazobactam 3.375 GM in sodium chloride 0.9% (plus) 50 ML IV ×3 (05:45→23:47)
[2022-02-24] MEDS: sodium chloride 0.9% 1,000 ML 100 ML IV (05:46)
[2022-02-24 05:54] LABS: Alanine Aminotransferase 120 U/L (0-41); Albumin Level 2.5 g/dL (3.5-5.2); Alkaline Phosphatase 152 U/L (40-130); Anion Gap 13.3 (5-19); Aspartate Amino Transferase 189 U/L (0-40); Blood Urea Nitrogen 10 mg/dL (8-23); Calcium 7.4 mg/dL (8.5-10.5); Carbon Dioxide 22 mmol/L (22-29); Chloride 103 mmol/L (98-107); Globulin 2.4 g/dL (1.3-4.6); Glomerular Filtration Rate 164.4 mL/min (90-130); Glucose 87 mg/dL (65-115); Magnesium 1.8 mg/dL (1.7-2.3); Osmolality Calculated 278 mOsm/kg (285-295); Phosphorus 1.8 mg/dL (2.5-4.5); Potassium 3.3 mmol/L (3.5-5.1); Sodium 135 mmol/L (136-145); Total Bilirubin 0.8 mg/dL (0.15-1.2); Total Protein 4.9 g/dL (6.6-8.7)
[2022-02-24 06:06] LABS: Slide Review Slide Review Perform
[2022-02-24 06:33] LABS: Glucose Point of Care 94 mg/dL (70-110)
[2022-02-24] MEDS: isosorbide mononitrate ER 30 mg Tablet PO (08:52)
[2022-02-24] MEDS: calcium carb-vit d 600mg/400unit 1 Tablet 1 EACH PO ×2 (08:52→17:23)
[2022-02-24] MEDS: pantoprazole DR 40 mg Tablet PO (08:52)
[2022-02-24] MEDS: sennosides-docusate Tablet 1 TAB PO (08:52)
[2022-02-24 12:02] LABS: Glucose Point of Care 90 mg/dL (70-110)
--- NOTE | 2022-02-24 12:07 | P.PN_ITS ---
Subjective Subjective: 71-year-old male admitted after fall and could not get up. 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 He has undergone chemo and radiation therapy and had cancer for 3-1/2 years. He continues to smoke 1-1/2 to 2 packs/day and tells me not to tell him to quit smoking because he has tried that. D-dimer was positive but CTA was negative for pulmonary embolism venous duplex also negative for clot Patient tells me he is stronger now and would like to go home Looks like he did ambulate in the vega with therapy. I am concerned that his phosphorus is still 1.8 after 30 mmol for 1.7. That has not yet been replaced. He also does have pneumonia based on CT scan imaging Vitals/I&O/Wt Last Vital Signs Temp 98.6 F 02/24/22 11:16 Pulse 74 02/24/22 11:16 Resp 18 02/24/22 11:16 BP 151/79 02/24/22 11:16 Pulse Ox 92 02/24/22 11:16 O2 Del Method 02/24/22 11:16 02/23/22 02/24/22 02/24/22 22:59 06:59 14:59 Intake Total 1410 / 1750 1160 / 2910 530 / 530 Output Total 325 / 1075 900 / 1975 Balance 1085 / 675 260 / 935 530 / 530 Weight last 48 hrs Weight 58.967 kg Physical Exam Narrative: General well-developed chronically ill-appearing male sleeping peacefully little bit hard to arouse but awakened and was appropriate CVRegular rate and rhythm Lungs clear trace right basilar crackles Abdomen positive bowel sounds soft nontender Calves trace ankle edema Data : 02/24/22 04:58 02/24/22 04:58 Micro: Microbiology 02/22/22 18:40 Blood Culture - Preliminary Blood NEGATIVE TO DATE 02/22/22 18:40 Blood Culture - Preliminary Blood NEGATIVE TO DATE 02/22/22 21:15 MRSA Culture - Final Nose A&P Assessment and plan (1) Pneumonia: This is improved. Continue with his Zosyn. Cefepime was stopped last evening. I think the patient can go home on Augmentin if he continues to improve with mobility and strength Status: Acute (2) Moderate malnutrition: Encourage more p.o. intake. Replace phosphorus with another 30 mmol. Check lab at 1800 and call me if low below 2.5. Status: Acute (3) Small cell carcinoma of lung: Status: Acute (4) Hypophosphatemia: Status: Acute Plan Physical deconditioning Hyponatremic, hypokalemic hypochloremic most likely related to poor p.o. intake Felll at home due to muscular deconditioning, patient is putting hands on his thighs to get up, significant proximal muscle weakness, check TSH Otitis media right ear Check orthostatics Patient is denying syncopal event He did not lose consciousness, no seizure-like activity or chest pain Recent echo showed preserved ejection fraction no signs of aortic stenosis I would not repeat echo at this point Check venous Doppler and CTA chest to rule out PE D-dimer 1.4 X-ray showing alveolar opacities, clinically he is dehydrated concern for right lower lobe pneumonia I will start him on cefepime and Zosyn for now which will also cover microorganisms for chronic sinusitis and on CT scan Right otitis media without perforation tympanic membrane purulent discharge, will give him topical eardrops as well Fluid hydration Rhabdomyolysis, continue IV fluid hydration, CPK in the morning No significant abnormality of creatinine place briones cath Procalcitonin is 2.6 Blood cultures to be taken Patient is not septic at the time of admission No acute signs of cauda equina Full code: Patient wants a trial of CPR or defibrillation and intubation however does not want to stay on mechanical ventilator for prolonged period of time DVT prophylaxis: Lovenox Cardiac diet Attestations Medical Necessity Statement*: Will remain additional night for phosphorus replacement and continued IV antibiotics for pneumonia If has recurring pneumonia would evaluate swallow Time Spent in Patient Care: 35 minutes spent in evaluation and coordination of care for this patient toda Coding Level of Care Code Acute Dehydrogenation Supervisor for [facility] Fwd Diagnoses Pneumonia J18.9 Moderate malnutrition E44.0 Small cell carcinoma of lung C34.90 Hypophosphatemia E83.39
[2022-02-24] MEDS: guaiFENesin-dextromethorphan UDC 10 mL PO (14:57)
[2022-02-24 16:51] LABS: Glucose Point of Care 109 mg/dL (70-110)
[2022-02-24 18:59] LABS: Phosphorus 2.8 mg/dL (2.5-4.5)
[2022-02-24] MEDS: trazodone 100 mg Tablet PO (20:06)
[2022-02-24] MEDS: enoxaparin 40 mg/0.4 mL Syringe SUBCUT (20:06)
[2022-02-24 20:32] LABS: Glucose Point of Care 113 mg/dL (70-110)
[2022-02-25] MEDS: sodium chloride 0.9% 1,000 ML 100 ML IV (01:02)
[2022-02-25 04:00] VITALS: BP 141/85; PULSE 81; RESP 18; TEMP 36.9; O2SAT 92
[2022-02-25 04:32] VITALS: PULSE 74
[2022-02-25] MEDS: piperacillin-tazobactam 3.375 GM in sodium chloride 0.9% (plus) 50 ML IV (06:32)
[2022-02-25 06:35] LABS: Glucose Point of Care 101 mg/dL (70-110)
[2022-02-25 07:54] VITALS: BP 152/97; PULSE 80; RESP 16; TEMP 36.9; O2SAT 94
[2022-02-25 08:04] VITALS: PULSE 78; RESP 16; O2SAT 95
[2022-02-25] MEDS: sennosides-docusate Tablet 1 TAB PO (08:48)
[2022-02-25] MEDS: isosorbide mononitrate ER 30 mg Tablet PO (08:48)
[2022-02-25] MEDS: pantoprazole DR 40 mg Tablet PO (08:48)
[2022-02-25] MEDS: calcium carb-vit d 600mg/400unit 1 Tablet 1 EACH PO (08:48)
--- NOTE | 2022-02-25 09:54 | P.DS_ITS ---
Discharge Providers Date of Admission: 02/22/22 18:35 Date of Discharge: February 25, 2022 Attending Provider at Admission: Werner Anderson MD Attending Provider at Discharge: Cruz Ahmadi MD Primary Care Provider: CHRISTIAN Quintana Diagnoses at Discharge Discharge Diagnosis (1) Pneumonia: Status: Acute (2) Moderate malnutrition: Status: Acute (3) Small cell carcinoma of lung: Status: Acute (4) Hypophosphatemia: Status: Acute Reason for Visit Reason for Visit: Fall, cancer pt Hospital Course Hospital Course Jean He is a 71 year old male who carries history of lung cancer/anaplastic small cell cancer with intracranial metastatic lesions, resolution of hepatic metastatic disease, has undergone chemo and radiation therapy, chronic back pain related to grade 1 anterolisthesis L5-S1 with spondylolysis, peripheral arterial disease, preserved ejection fraction follows up with Dr. Perez came to the hospital after an episode of fall at home, Patient was admitted for the management of, fall likely secondary to physical deconditioning and generalized weakness, rhabdomyolysis, as well as pneumonia, patient was kept on IV antibiotics, IV fluids, blood cultures were negative at the time of discharge, MRSA culture was negative, patient was discharged on Augmentin p.o. twice daily for another 7 days To complete total 10-day course of antibiotics for pneumonia, during the hospital stay physical therapy was on board, has been discharged with walker. CTA chest done during the hospital stay was negative for, pulmonary embolism,Extensive airspace and ground-glass opacity in the peripheral right lung and left lower lobe concerning for pneumonia (including COVID 19 pneumonia).New masslike opacity in the right upper lobe. Repeat CT at 3 months, PET/CT or biopsy. Can be done as an outpatient by the oncologist or primary care physician. Lower extremity Doppler was negative for pulmonary embolism. CT head without contrast done during hospital was negative for any acute intracranial pathology, XR cervical spine: Showed no evident fracture was consistent with degenerative disease. Overall patient responded well to medical management and has been discharged home in stable condition. will continue to follow with his primary care physician as well as oncology as outpatient. Physical Exam Resp: COMMON NORMALS: normal respiratory effort, No retractions, No use of ac cessory muscles and clear to auscultation bilaterally EFFORT & INSPECTION: Yes symmetric chest movement AUSCULTATION: clear to auscultation bilaterally Cardio: COMMON NORMALS: regular rate, regular rhythm, S1 normal heart sound present, S2 normal heart sound present, No gallops present (Cardio), No murmurs present (Cardio), No rub (Cardio) and Peripheral pulses 2+ throughout RATE: regular rate RHYTHM: regular rhythm HEART SOUNDS: S1 normal heart sound present and S2 normal heart sound present PERIPHERAL PULSES: Peripheral pulses 2+ throughout GI: COMMON NORMALS: Normal to inspection, nondistended, normoactive bowel sounds present, Soft to palpation, non-tender, No hepatosplenomegaly present and no masses AUSCULTATION: Yes normoactive bowel sounds PALPATION: Yes Soft to palpation and Yes No hepatosplenomegaly present RECTAL EXAM: Yes deferred Extremity: COMMON NORMALS: no clubbing, cyanosis or edema and no pedal edema Discharge Data Studies Completed and Pending Completed Studies During Hospitalization Category Date Time Status CT angio chest PE protcl [id number] Stat Cat Scan 02/23/[address] head wo con* [id number] Stat Cat Scan 02/22/22 14:58 Completed XR cervical spine 3V* [id number] Stat Exams 02/22/22 17:42 Completed XR chest 1V portable [id number] Stat Exams 02/22/22 17:48 Completed US venous duplex lower extremity bilat [CV venous Ultrasound 02/22/22 20:48 [place] [id number]] Routine Pending at discharge Category Date Time Status Blood Culture Stat Lab 02/22/22 18:40 Results Radiology Impressions Head CT 02/22/22 14:58 IMPRESSION: 1. No evidence of intracranial hemorrhage 2. Sequelae of prior treated metastatic lesions in the RIGHT frontal lobe, and LEFT greater than RIGHT cerebellum with encephalomalacia and calcifications. Mild small vessel changes. Mild parenchymal volume loss. 3. Pansinusitis with air-fluid levels. 4. Complete opacification RIGHT mastoid air cells and RIGHT middle ear. Opacification LEFT mastoid tip. 5. No other significant findings. Cervical Spine X-Ray 02/22/22 17:42 IMPRESSION: 1. The cervical spine is visualized to the mid C7 vertebral body level on the lateral image. There is no acute fracture in the visualized cervical spine, however injury in the lower cervical spine and cervicothoracic junction cannot be ruled out. Further evaluation with CT scan of the cervical spine is recommended if there is continuing clinical concern for fracture. 2. Multilevel degenerative changes of varying severity in the visualized spine. 3. Incidental/nonacute findings are listed in the report. Chest X-Ray 02/22/22 17:48 IMPRESSION: 1. Interval development of ill-defined interstitial and alveolar opacities in the lateral right upper and right lower lobes and in the left lower lobe. Findings are suspicious for pneumonia, including atypical organisms. Recommend followup chest imaging to insure resolution of these findings. 2. Incidental/nonacute findings are listed in the report. Venous Duplex 02/22/22 20:48 IMPRESSION: 1. No evidence for deep venous thrombosis. 2. Atherosclerotic changes in the visualized arteries. Chest CTA 02/23/22 00:00 IMPRESSION: 1. Motion artifact compromises assessment. No main, central or lobar pulmonary embolus is seen. 2. Extensive airspace and ground-glass opacity in the peripheral right lung and left lower lobe concerning for pneumonia (including COVID 19 pneumonia). 3. Peribronchial wall thickening; query viral infection/bronchitis, chronic bronchitis and/or asthma. 4. New masslike opacity in the right upper lobe. As per Fleischner Society 2017 guidelines for follow-up and management of pulmonary nodules: For ALL patients, consider CT at 3 months, PET/CT or biopsy. 5. Moderate to advanced centrilobular and paraseptal emphysema. 6. Mediastinal and right hilar lymphadenopathy. Laboratory Results WBC 9.0 10^3/uL (4.0-10.0) 02/24/22 04:58 RBC 3.39 10^6/uL (4.1-5.3) L 02/24/22 04:58 Hgb 10.4 g/dL (11.7-16.6) L 02/24/22 04:58 Hct 30.6 % (42.0-52.0) L 02/24/22 04:58 MCV 90.3 fl (80-94) 02/24/22 04:58 MCH 30.7 pg (28.0-34.0) 02/24/22 04:58 MCHC 34.0 g/dL (30.0-36.0) 02/24/22 04:58 RDW 14.6 % (12.1-15.1) 02/24/22 04:58 Plt Count 160 10^3/cmm (130-400) 02/24/22 04:58 MPV 9.9 fL (7.4-10.4) 02/24/22 04:58 Neut % (Auto) 58.1 % 02/24/22 04:58 Lymph % (Auto) 7.3 % 02/24/22 04:58 Gilchrist % (Auto) 24.3 % 02/24/22 04:58 Eos % (Auto) 0.2 % 02/24/22 04:58 Baso % (Auto) 0.2 % 02/24/22 04:58 Neut # (Auto) 5.25 10^3/uL (1.8-7.7) 02/24/22 04:58 Lymph # (Auto) 0.7 10^3/uL (0.8-4.8) L 02/24/22 04:58 Gilchrist # (Auto) 2.2 10^3/uL (0.2-0.9) H 02/24/22 04:58 Eos # (Auto) 0.0 10^3/uL (0.0-0.8) 02/24/22 04:58 Baso # (Auto) 0.0 10^3/uL (0.0-0.1) 02/24/22 04:58 Nucleated RBC % (auto) 0 % 02/24/22 04:58 Nucleated RBCs # 0.0 /100WBC 02/24/22 04:58 D-Dimer 1.45 ug/mIFEU (0-0.59) H 02/22/22 16:16 Sodium 135 mmol/L (136-145) L 02/24/22 04:58 Potassium 3.3 mmol/L (3.5-5.1) L 02/24/22 04:58 Chloride 103 mmol/L (98-107) 02/24/22 04:58 Carbon Dioxide 22 mmol/L (22-29) 02/24/22 04:58 Anion Gap 13.3 (5-19) 02/24/22 04:58 BUN 10 mg/dL (8-23) 02/24/22 04:58 Creatinine 0.5 mg/dL (0.7-1.2) L 02/24/22 04:58 GFR Calculation 164.4 mL/min (90-130) H 02/24/22 04:58 Glucose 87 mg/dL (65-115) 02/24/22 04:58 POC Glucose 101 mg/dL (70-110) 02/25/22 06:24 Calculated Osmolality 278 mOsm/kg (285-295) L 02/24/22 04:58 Calcium 7.4 mg/dL (8.5-10.5) L 02/24/22 04:58 Phosphorus 2.8 mg/dL (2.5-4.5) D 02/24/22 18:31 Magnesium 1.8 mg/dL (1.7-2.3) 02/24/22 04:58 Total Bilirubin 0.8 mg/dL (0.15-1.2) 02/24/22 04:58 AST 189 U/L (0-40) H 02/24/22 04:58 ALT 120 U/L (0-41) H 02/24/22 04:58 Alkaline Phosphatase 152 U/L (40-130) H 02/24/22 04:58 Creatine Kinase 1898 U/L (39-308) H* 02/22/22 16:16 C-Reactive Protein 159.0 mg/L (0.0-4.9) H 02/23/22 04:35 NT-Pro-B Natriuret Pep 2856 pg/mL (0-125) H 02/22/22 16:16 Total Protein 4.9 g/dL (6.6-8.7) L 02/24/22 04:58 Albumin 2.5 g/dL (3.5-5.2) L 02/24/22 04:58 Globulin 2.4 g/dL (1.3-4.6) 02/24/22 04:58 Procalcitonin 2.68 ng/mL (0-0.5) H 02/22/22 16:16 Urine Color Yellow (Yellow) 02/22/22 18:08 Urine Appearance Clear (CLEAR) 02/22/22 18:08 Urine pH 8 (5-7) H 02/22/22 18:08 Ur Specific Hiller 1.015 (1.005-1.030) 02/22/22 18:08 Urine Protein Neg (Negative) 02/22/22 18:08 Urine Glucose (UA) Norm (Normal) 02/22/22 18:08 Urine Ketones Negative (Negative) 02/22/22 18:08 Urine Blood 3+ (Negative) H 02/22/22 18:08 Urine Nitrate Negative (Negative) 02/22/22 18:08 Urine Bilirubin Neg (Negative) 02/22/22 18:08 Prot Sulfosalicylic Acd Positive (Negative) 02/22/22 18:08 Urine Urobilinogen Norm mg/dL (Negative) 02/22/22 18:08 Ur Leukocyte Esterase Negative (Negative) 02/22/22 18:08 Urine RBC 5-10 /hpf (0-2) H 02/22/22 18:08 Urine WBC 0-4 /hpf (0-5) H 02/22/22 18:08 Ur Squamous Epith Cells 0-4 /hpf (0-5) H 02/22/22 18:08 Amorphous Sediment Not Reportable 02/22/22 18:08 Urine Bacteria None /hpf (NONE) 02/22/22 18:08 SARS-CoV-2 Ag (Rapid) Negative (Negative) 02/23/22 19:36 Vitals Last Vital Signs Temp 98.4 F 02/25/22 07:54 Pulse 78 02/25/22 08:04 Resp 16 02/25/22 08:04 BP 152/97 02/25/22 07:54 Pulse Ox 95 02/25/22 08:04 O2 Del Method 02/25/22 08:04 Discharge Plan Discharge Patient Disposition: Home Condition: Stable Prescriptions: New Augmentin 500-125 mg tablet 1 tab PO BID 7 Days Qty: 14 0RF Continued melatonin 10 mg capsule 10 mg PO BEDTIME nitroglycerin [Nitrostat] 0.4 mg tablet, sublingual 0.4 mg SUBLINGUAL Q5M PRN (Reason: chest pain) 30 Days Qty: 30 5RF carbamide peroxide [Debrox] 6.5 % drops 5 drp otic (ear) DAILY Qty: 15 0RF isosorbide mononitrate 30 mg tablet extended release 24 hr 30 mg PO DAILY metoprolol succinate 25 mg tablet extended release 24 hr 25 mg PO DAILY cholecalciferol (vitamin D3) 25 mcg (1,000 unit) capsule 25 mcg PO DAILY lisinopril 10 mg tablet 10 mg PO DAILY Qty: 90 1RF citalopram [Celexa] 10 mg tablet 10 mg PO DAILY 30 Days Qty: 30 0RF trazodone 100 mg tablet 100 mg PO .hs 30 Days Qty: 30 0RF pravastatin 10 mg tablet 10 mg PO DAILY 30 Days Qty: 30 0RF Breztri Aerosphere 160-9-4.8 mcg/actuation HFA aerosol inhaler 2 inh inhalation BID Qty: 10.7 0RF albuterol sulfate [Ventolin HFA] 90 mcg/actuation HFA aerosol inhaler 2 puff inhalation Q6H Qty: 8.5 0RF Rx Instructions: rescue inhaler omeprazole 40 mg capsule,delayed release(DR/EC) 40 mg PO DAILY Discontinued benzonatate 200 mg capsule 200 mg PO BID PRN (Reason: cough) Qty: 30 0RF Discharge Orders: Discharge Order (Routine); Ordered 02/25/22 Ordered By: Cruz Ahmadi Other Ambulatory Orders: DME: Asa (Order) Location: None Selected Ordered By: Cruz Ahmadi Referrals: Haley Sánchez FNP-C [Primary Care Provider] - 03/05/22 1:40 pm Patient Instructions: Amoxicillin/Clavulanate Potassium (By mouth), Pneumonitis (DC), Malnutrition (DC), Opioid Safety Discharge Attestations Time Spent in Discharge Care*: less than 30 min Quality Metrics Clinical Quality Measures [ No reported AMI, CVA or VTE this stay] Coding Level of Care Code Acute Chg FW DC note Diagnoses Pneumonia J18.9 Moderate malnutrition E44.0 Small cell carcinoma of lung C34.90 Hypophosphatemia E83.39
[2022-02-25 10:54] VITALS: PULSE 78; RESP 16; O2SAT 95
--- NOTE | 2022-02-25 10:59 | PC.SOCIAL ---
IMM Update pg 2 of IMM updated and reviewed w/ patient. Copy provided and Copy placed in chart dated and initialed.
--- NOTE | 2022-02-25 12:00 | PC.NURSE ---
This Rn has reviewed and agrees with All documentation by Lacey hernandez Student Nurse
--- NOTE | 2022-02-25 12:10 | PC.NURSE ---
Patient had left port accessed, upon discharge port was de-accessed. Aseptic technique was used, patient refused dressing. No hematoma or drainage noted. Patient education provided and left forearm IV has been removed as well. Intact with no issues. VS stable upon departure.
== END 2022-02-25 12:00 | disposition home health service (06) | DRG 194 ==
LOC: ER 15:27 → MEDSURG 19:49
PROVIDERS: Internal Medicine; Admitting Provider Student in an Organized Health Care Education/Training Program; Emergency Provider Family Medicine; PCP Nurse Practitioner; Visit Provider Internal Medicine
DX: J18.9 Pneumonia, unspecified organism (principal); E44.0 Moderate protein-calorie malnutrition; M62.82 Rhabdomyolysis; R53.1 Weakness; F17.210 Nicotine dependence, cigarettes, uncomplicated; S00.81XA Abrasion of other part of head, initial encounter; S00.212A Abrasion of left eyelid and periocular area, initial encounter; W06.XXXA Fall from bed, initial encounter; E86.0 Dehydration; Z92.3 Personal history of irradiation; Z92.21 Personal history of antineoplastic chemotherapy; E78.2 Mixed hyperlipidemia; I10 Essential (primary) hypertension; H66.91 Otitis media, unspecified, right ear; M47.816 Spondylosis without myelopathy or radiculopathy, lumbar region; J44.9 Chronic obstructive pulmonary disease, unspecified; R53.81 Other malaise; E83.39 Other disorders of phosphorus metabolism; Z85.118 Personal history of other malignant neoplasm of bronchus and lung
CPT/HCPCS: 36415; 36416; 36591; 70450; 71045; 71275; 72040; 80053; 81001; 82550; 82962; 83735; 83880; 84100; 84145; 85025; 85378; 86140; 87040; 87426; 87641; 90471; 90715; 93005; 93970; 94760; 96360; 96361; 96372; 97110; 97116; 97161; 97165; 99285; J0692; J1642; J1650; J2543; J3480; J7030; Q9967

== ENCOUNTER → 2022-03-19 13:58 | Outpatient (BNVA) | payer MEDICARE, MEDICAID, SELFPAY | PROVIDERS: PCP Nurse Practitioner; Visit Provider Nurse Practitioner | DX: H61.23 Impacted cerumen, bilateral (principal); R74.8 Abnormal levels of other serum enzymes | CPT/HCPCS: 80053; 85025 ==

== ENCOUNTER → 2022-03-20 14:08 | Outpatient (BNVA) | payer MEDICARE, MEDICAID, SELFPAY | PROVIDERS: PCP Nurse Practitioner; Visit Provider Nurse Practitioner | DX: M54.40 Lumbago with sciatica, unspecified side (principal) | CPT/HCPCS: 72100 ==

== ENCOUNTER 2022-07-20 13:44 | Emergency (ER) | payer MEDICARE, MEDICAID, SELFPAY ==
[2022-07-20 13:48] VITALS: BP 156/86; PULSE 63; RESP 16; TEMP 37.1; O2SAT 96; BMI 21.2
--- NOTE | 2022-07-20 13:49 | XRR_ITS ---
PROCEDURE INFORMATION: Exam: XR Right Shoulder Exam date and time: 07/20/2022 2:01 PM Age: 72 years old Clinical indication: Injury or trauma; Fall; Blunt trauma (contusions or hematomas); Shoulder; Injury details: Fell onto back, injurt to right scapula; Additional info: Fall/pain TECHNIQUE: Imaging protocol: Radiologic exam of the Right shoulder. Views: 2 or more views. COMPARISON: CR (CHEST, ) 02/22/2022 5:54 PM FINDINGS: Bones/joints: There is a transverse nondisplaced fracture of the scapula inferior to the glenoid. Humeral head shows a large bone spur on the inferior aspect. Soft tissues: There is soft tissue effusion present in the right axillary region. XR/XR shoulder RT min 2V* [id number] IMPRESSION: 1. Transverse nondisplaced fracture of the scapula inferior to the glenoid. 2. Soft tissue effusion is seen in the right axilla. 3. 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
--- NOTE | 2022-07-20 13:54 | ED_ITS ---
HPI - Extremity Problem General: Chief complaint: Extremity Injury, Upper Stated complaint: RIGHT SHOULDER PAIN S/P FALL Time Seen by Provider: 07/20/22 13:48 Source: patient Mode of arrival: ambulatory History of Present Illness: 72-year-old male presents emergency room via EMS after a fall at home. He was leaving his house because the water pipes had frozen and needed to get water he slipped and fell on the ice on the ground and landed on his right shoulder is complaining of pain. He arrives in a sling fashion by EMS no loss consciousness no other injuries besides the right shoulder MD Complaint: joint pain Onset (ago): minute(s) Pain Consistency: constant Location: right (shoulder) Quality: sharp Radiation: none Relieving factors: nothing Exacerbating factors: nothing Associated symptoms: Deny arthralgias, chest pain, fever(s), myalgias, rash or short of breath Review of Systems Const: Denies: fever(s) ENMT: Denies: throat pain, ear or mastoid pain, nasal discharge or nasal congestion Card: Denies: chest pain Resp: Denies: dyspnea, productive cough or non-productive cough GI: Denies: abdominal pain, nausea, vomiting, hematemesis, coffee ground emesis, diarrhea, constipation, bloating, hematochezia or melena : Denies: flank pain, dysuria, urinary frequency or urinary urgency Skin/Breast: Denies: rash PFSH ED PFSH: Medical History Anxiety and depression Arthritis ASHD (arteriosclerotic heart disease) / [place] / R bundle branch block Colon polyps COPD (chronic obstructive pulmonary disease) Essential hypertension Facet arthropathy, lumbar Fall at home Hypophosphatemia Insomnia Lumbar disc disease with radiculopathy Lung cancer 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, right paratracheal, superior mediastinal, right suprahilar, right supraclavicular lymph nodes, single metastasis to liver and left frontal subcortical lesion Malignant neoplasm of upper lobe, right bronchus or lung (~10/28/18) Mixed hyperlipidemia Moderate malnutrition Physical deconditioning Pneumonia 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 Surgical History History of ankle surgery L fracture History of appendectomy 06/12/2020 History of bronchoscopy / Right neck mass biopsy History of colonoscopy 03/2018 -- polyps Hx of cataract surgery S/P hernia surgery right inguinal S/P PICC central line placement Port-A-Cath placement left subclavian vein Family History Father Lung disease Lung cancer Social History Smoking and tobacco status: current every day smoker cigarettes Packs smoked per day: 0.5 Years cigarettes smoked: 52 [ Other cigarette details: Used to smoke 2 to 3 packs a day at one point] Second hand smoke exposure: No Smoking risk assessment/counseling performed?: Yes Alcohol intake: current Alcohol intake frequency: few times a week Alcohol type: beer Desire information about alcohol rehabilitation?: No Counseling given: No Desire information about substance/drug rehabilitation?: No Counseling given: No Adopted: No Caregiver/support person: No Lives independently: Yes Housing: House Marital status: 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 History of recent travel: No Current gender identity: Male Physical Exam Const: GENERAL APPEARANCE: cooperative and comfortable CASANDRA ENTATION/CONSCIOUSNESS: Yes awake, Yes oriented to person, Yes oriented to place and Yes oriented to time HENMT: COMMON NORMALS: normocephalic, atraumatic and hearing grossly normal bilaterally HEAD & SCALP: normocephalic and atraumatic Resp: COMMON NORMALS: normal respiratory effort, No retractions, No use of accessory muscles and clear to auscultation bilaterally AUSCULTATION: clear to auscultation bilaterally Cardio: COMMON NORMALS: regular rate, regular rhythm and No murmurs present (Cardio) RATE: regular rate RHYTHM: regular rhythm GI: COMMON NORMALS: Soft to palpation and No hepatosplenomegaly present AUSCULTATION: Yes normoactive bowel sounds PALPATION: Yes Soft to palpation, No Tenderness to palpation present (GI), No Guarding due to palpation present (GI) and Yes No hepatosplenomegaly present : COMMON NORMALS: Yes no CVA tenderness BLADDER/KIDNEY EXAM: Yes no CVA tenderness Back/Pelvis: COMMON NORMALS: no CVA tenderness Extremity: COMMON NORMALS: capillary refill normal, no clubbing, cyanosis or edema, no calf tenderness and no pedal edema OTHER: Pain with palpation of the right shoulder no obvious deformity or swelling ecchymosis or laceration Neuro: SENSORIUM/ORIENTATION: Yes oriented to person, Yes oriented to place and Yes oriented to time Skin: COMMON NORMALS: no rashes or lesions noted GENERAL SKIN EXAM: no rashes or lesions noted Course Vital Signs: Vital signs: Vital Signs Temperature 98.7 F 07/20/22 13:48 Pulse Rate 63 07/20/22 13:48 Respiratory Rate 16 07/20/22 13:48 Blood Pressure 156/86 07/20/22 13:48 Pulse Oximetry 96 07/20/22 13:48 Oxygen Delivery Me thod 07/20/22 13:48 MDM - Extremity (Nontraumatic) Medical Decision Making Fall with a right scapula fracture nondisplaced we will discharge home sling michael n medications follow-up with Ortho. Medical Records I reviewed the patient's medical records. Lab Data I reviewed the patient's lab results. Radiology Impressions Shoulder X-Ray 07/20/22 13:49 IMPRESSION: 1. Transverse nondisplaced fracture of the scapula inferior to the glenoid. 2. Soft tissue effusion is seen in the right axilla. 3. 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 Discharge Plan Discharge Patient Disposition: Home Clinical Impression: Fracture, scapula Condition: Stable Prescriptions: New hydrocodone-acetaminophen 5-325 mg tablet 1 tab PO Q6H PRN (Reason: pain) Qty: 20 0RF No Action melatonin 10 mg capsule 10 mg PO BEDTIME nitroglycerin [Nitrostat] 0.4 mg tablet, sublingual 0.4 mg SUBLINGUAL Q5M PRN (Reason: chest pain) 30 Days Qty: 30 5RF carbamide peroxide [Debrox] 6.5 % drops 5 drp otic (ear) DAILY Qty: 15 0RF isosorbide mononitrate 30 mg tablet extended release 24 hr 30 mg PO DAILY metoprolol succinate 25 mg tablet extended release 24 hr 25 mg PO DAILY cholecalciferol (vitamin D3) 25 mcg (1,000 unit) capsule 25 mcg PO DAILY albuterol sulfate [Ventolin HFA] 90 mcg/actuation HFA aerosol inhaler 2 puff inhalation Q6H Qty: 8.5 5RF Rx Instructions: rescue inhaler Breztri Aerosphere 160-9-4.8 mcg/actuation HFA aerosol inhaler 2 inh inhalation BID Qty: 10.7 5RF citalopram [Celexa] 10 mg tablet 10 mg PO DAILY 30 Days Qty: 30 5RF pravastatin 10 mg tablet 10 mg PO DAILY 30 Days Qty: 30 5RF trazodone 100 mg tablet 100 mg PO .hs 30 Days Qty: 30 5RF lisinopril 10 mg tablet 10 mg PO DAILY Qty: 90 1RF omeprazole 40 mg capsule,delayed release(DR/EC) 40 mg PO DAILY Discharge Orders: Discharge ED (Routine); Ordered 07/20/22 Ordered By: Nitesh Deal Referrals: Haley Sánchez, TANESHAC [Primary Care Provider] - Discharge Diet: Usual diet Discharge Activity: Limit activity as instructed Patient Instructions: Opioid Safety, Pain Management Activity Restrictions/Additional Instructions: You were seen today after a fall. You have a fracture of your right scapula. Usually these are treated by immobilization with a sling and monitoring over period of time. You are discharged home with pain medications and arm sling should not use here right arm at this time. Case management make arrangements for you to follow-up with orthopedics. Coding Level of Care Code ED Fuel Attendant for Kelle Maciel Exam Detailed
[2022-07-20] MEDS: HYDROcodone-acetaminophen 5-325 mg Tablet 2 TAB PO (14:17)
--- NOTE | 2022-07-22 11:00 | DCPLANNER ---
Addendum entered by Vikki Zhu 08/22/22 08:03: on site manager received the following message from the ortho clinic regarding follow up appointment: attempt made to contact patient - went straight to vm - left vm/mailed letter to contact our clinic to scheduled w/ dr cavanaugh - trying to get in this afternoon if patient calls back in time Original Note: on site manager had message to schedule a follow up appointment for patient with ortho. on site manager sent patients information to the front office staff at ortho. Patients information will be printed and reviewed. Clinic will call patient with appointment information.
== END 2022-07-20 14:58 | disposition home or self-care (01) ==
PROVIDERS: Emergency Provider Family Medicine; PCP Nurse Practitioner
DX: S42.191A Fracture of other part of scapula, right shoulder, initial encounter for closed fracture (principal); J44.9 Chronic obstructive pulmonary disease, unspecified; I10 Essential (primary) hypertension; E78.2 Mixed hyperlipidemia; Z85.118 Personal history of other malignant neoplasm of bronchus and lung; Z85.841 Personal history of malignant neoplasm of brain; F17.210 Nicotine dependence, cigarettes, uncomplicated; W00.0XXA Fall on same level due to ice and snow, initial encounter
CPT/HCPCS: 73030; 99283

== ENCOUNTER 2022-07-22 13:08 | Emergency (ER) | payer MEDICARE, MEDICAID, SELFPAY ==
--- NOTE | 2022-07-22 13:08 | ED_ITS ---
HPI - Altered Mental Status General: Chief Complaint: Fall Stated Complaint: AMS, FALL Time Seen by Provider: 07/22/22 13:08 History of Present Illness: Mr. He is a 72-year-old gentleman with history of COPD, hypertension, hyperlipidemia, lung cancer with metastases s/p radiation and chemo presenting to the emergency department for fall and possible altered mental status. Apparently he was diagnosed on 07/20 with scapular fracture after a fall. He reports yesterday falling due to slipping on ice and had immediate pain with head strike however pain is subsequently worsened. It is unclear other circumstances. Home health found him on the ground and was concerned about mental status change. Currently endorses sharp pain mostly on the left side. Improved with EMS fentanyl however at times still severe intermittent worsening. No other specific changes in health, exacerbating, or alleviating factors identified. 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, right paratracheal, superior mediastinal, right suprahilar, right supraclavicular lymph nodes, single metastasis to liver and left frontal subcortical lesion Malignant neoplasm of upper lobe, right bronchus or lung (~10/28/18) Mixed hyperlipidemia Moderate malnutrition Physical deconditioning Pneumonia 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 Surgical History History of ankle surgery L fracture History of appendectomy 06/12/2020 History of bronchoscopy / Right neck mass biopsy History of colonoscopy 03/2018 -- polyps Hx of cataract surgery S/P hernia surgery right inguinal S/P PICC central line placement Port-A-Cath placement left subclavian vein Family History Father Lung disease Lung cancer Social History Smoking and tobacco status: current every day smoker cigarettes Packs smoked per day: 0.5 Years cigarettes smoked: 52 [ Other cigarette details: Used to smoke 2 to 3 packs a day at one point] Second hand smoke exposure: No Smoking risk assessment/counseling performed?: Yes Alcohol intake: current Alcohol intake frequency: few times a week Alcohol type: beer Desire information about alcohol rehabilitation?: No Counseling given: No Desire information about substance/drug rehabilitation?: No Counseling given: No Adopted: No Caregiver/support person: No Lives independently: Yes Housing: House Marital status: 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 No otorrhea or rhinorrhea. Jaw alignment normal however patient reports right mandibular pain/instability feeling. Dentition baseline. No obvious bony step-offs. No septal hematoma. No evidence of ocular entrapment. Eye: COMMON NORMALS: conjunctivae normal CONJUNCTIVA: Yes conjunctivae normal SCLERA: sclerae normal Neck/C-Spine: COMMON NORMALS: supple GENERAL: Yes trachea midline CER VICAL SPINE: Yes collar present Chest: OTHER: Left chest wall tenderness palpation Resp: COMMON NORMALS: clear to auscultation bilaterally EFFORT & INSPECTION: Yes able to speak in complete sentences AUSCULTATION: clear to auscultation bilaterally Cardio: COMMON NORMALS: regular rate and regular rhythm RATE: regular rate RHYTHM: regular rhythm GI: COMMON NORMALS: Soft to palpation PALPATION: Yes Soft to palpation, Yes Tenderness to palpation present (GI) (Mild left-sided), No Guarding due to palpation present (GI) and No Rigid due to palpation Extremity: NARRATIVE EXTREMITY EXAM: Distal CMS intact x4 extremities GENERAL: Yes normal exam except as noted and No edema Neuro: COMMON NORMALS: moves all extremities SENSORIUM/ORIENTATION: Yes alert and No Orientation impaired Psych: COMMON NORMALS: mental status grossly normal and Normal thought process present THOUGHT PROCESS: Normal thought process present Course Vital Signs: Vital signs: Vital Signs Temperature 97.6 F 07/22/22 13:22 Pulse Rate 93 07/22/22 17:07 Respiratory Rate 16 07/22/22 13:22 Blood Pressure 190/151 07/22/22 17:07 Pulse Oximetry 98 07/22/22 17:07 Oxygen Delivery Me thod 07/22/22 16:12 MDM - Altered Mental Status Medical Decision Making 72-year-old gentleman presenting to the emergency department with multiple falls and mental status change. No focal neurologic deficits on clinical exam. Head to toe exam performed and as noted above. A broad differential considered and testing ordered as appropriate based on clinical likelihood and morbidity/mortality associated conditions. EKG's demonstrates sinus rhythm with right bundle branch block, normal axis, no STEMI. Labs notable for mild leukocytosis which is likely reactive, normal hemoglobin and platelet count. Mild hyponatremia and evidence of intravascular dehydration on metabolic panel. CK is mildly elevated. No evidence of urinary tract infection, hematuria present. CT imaging notable for old findings on head CT without acute traumatic injury, cervical spine and face imaging are negative. CT imaging chest abdomen pelvis with multiple injuries including multiple contiguous rib fractures, splenic laceration without active hemorrhage, thoracic compression fractures. During ED course patient treated with IV fluids. Given multiple contiguous rib fractures as well as splenic laceration the patient requires inpatient management and as we do not have a trauma service at our facility patient requires transfer for trauma management. The results of ED evaluation were discussed with the patient including plan for transfer due to requirement for level of care not available if discharged to prevent significant worsening/deterioration. Patient agreeable with plan. Patient excepted by Dr. He of the trauma service at [facility] in [place] as an ER to ER transfer. Patient transferred via EMS in satisfactory condition. Medical Records I reviewed the patient's medical records. Lab Data I reviewed the patient's lab results. 07/22/22 13:50 07/22/22 13:50 Radiology Impressions Chest/Abdomen/Pelvis CT 07/22/22 13:29 IMPRESSION: 1. Comminuted fracture involving the RIGHT scapula described above. 2. Multiple left-sided rib fractures described above with associated small LEFT pleural effusion. Fractures involve the 6th and 8th through 11th ribs. 3. No pneumothorax. 4. Compression fracture with anterior wedging involving the T5 vertebral body. Loss of approximately 20% vertebral body height. No retropulsion. Mild compression superior endplate T2. 5. Suspected small splenic laceration adjacent to the posterior rib fractures. No perisplenic hematoma or active extravasation. 6. 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 Associated bladder outlet obstruction. Notified Nico Gonzales MD at 07/22/2022 3:[address] 07/22/22 13:29 IMPRESSION: No acute facial fractures. Head CT 07/22/22 13:29 IMPRESSION: 1. No evidence of intracranial hemorrhage or mass effect. 2. Prior treated metastatic lesions in the RIGHT frontal lobe, LEFT greater than RIGHT cerebellum with insufflation calcifications. This is unchanged. 3. Mild small vessel changes. Mild parenchymal volume loss. 4. No acute intracranial findings. Cervical Spine CT 07/22/22 14:24 IMPRESSION: 1. No evidence of acute fracture or dislocation. 2. Moderate spondylitic changes described above. Laboratory Results WBC 12.3 10^3/uL (4.0-10.0) H 07/22/22 13:50 RBC 5.08 10^6/uL (4.1-5.3) 07/22/22 13:50 Hgb 15.7 g/dL (11.7-16.6) 07/22/22 13:50 Hct 46.8 % (42.0-52.0) 07/22/22 13:50 MCV 92.1 fl (80-94) 07/22/22 13:50 MCH 30.9 pg (28.0-34.0) 07/22/22 13:50 MCHC 33.5 g/dL (30.0-36.0) 07/22/22 13:50 RDW 13.1 % (12.1-15.1) 07/22/22 13:50 Plt Count 184 10^3/cmm (130-400) 07/22/22 13:50 MPV 10.4 fL (7.4-10.4) 07/22/22 13:50 Neut % (Auto) 58.6 % 07/22/22 13:50 Lymph % (Auto) 7.6 % 07/22/22 13:50 [place] % (Auto) 30.5 % 07/22/22 13:50 Eos % (Auto) 0.7 % 07/22/22 13:50 Baso % (Auto) 0.2 % 07/22/22 13:50 Neut # (Auto) 7.21 10^3/uL (1.8-7.7) 07/22/22 13:50 Lymph # (Auto) 0.9 10^3/uL (0.8-4.8) 07/22/22 13:50 [place] # (Auto) 3.7 10^3/uL (0.2-0.9) H 07/22/22 13:50 Eos # (Auto) 0.1 10^3/uL (0.0-0.8) 07/22/22 13:50 Baso # (Auto) 0.0 10^3/uL (0.0-0.1) 07/22/22 13:50 Nucleated RBC % (auto) 0 % 07/22/22 13:50 Nucleated RBCs # 0.0 /100WBC 07/22/22 13:50 Sodium 131 mmol/L (136-145) L 07/22/22 13:50 Potassium 4.6 mmol/L (3.5-5.1) 07/22/22 13:50 Chloride 93 mmol/L (98-107) L 07/22/22 13:50 Carbon Dioxide 25 mmol/L (22-29) 07/22/22 13:50 Anion Gap 17.6 (5-19) 07/22/22 13:50 BUN 9 mg/dL (8-23) 07/22/22 13:50 Creatinine 0.5 mg/dL (0.7-1.2) L 07/22/22 13:50 GFR Calculation Not Reportable 07/22/22 13:50 Glucose 96 mg/dL (65-115) 07/22/22 13:50 POC Glucose 107 mg/dL (70-110) 07/22/22 13:54 Calculated Osmolality 271 mOsm/kg (285-295) L 07/22/22 13:50 Calcium 10.4 mg/dL (8.5-10.5) 07/22/22 13:50 Total Bilirubin 1.2 mg/dL (0.15-1.2) 07/22/22 13:50 AST 21 U/L (0-40) 07/22/22 13:50 ALT 13 U/L (0-41) 07/22/22 13:50 Alkaline Phosphatase 73 U/L (40-130) 07/22/22 13:50 Creatine Kinase 564 U/L (39-308) H* 07/22/22 13:50 Total Protein 7.8 g/dL (6.6-8.7) 07/22/22 13:50 Albumin 5.1 g/dL (3.5-5.2) 07/22/22 13:50 Globulin 2.7 g/dL (1.3-4.6) 07/22/22 13:50 TSH 2.11 uIU/mL (0.27-4.20) 07/22/22 13:50 Urine Color Yellow (Yellow) 07/22/22 14:40 Urine Appearance Clear (CLEAR) 07/22/22 14:40 Urine pH 7 (5-7) 07/22/22 14:40 Ur Specific Shannon 1.010 (1.005-1.030) 07/22/22 14:40 Urine Protein 2+ (Negative) H 07/22/22 14:40 Urine Glucose (UA) Norm (Normal) 07/22/22 14:40 Urine Ketones 2+ (Negative) H 07/22/22 14:40 Urine Blood 2+ (Negative) H 07/22/22 14:40 Urine Nitrate Negative (Negative) 07/22/22 14:40 Urine Bilirubin Neg (Negative) 07/22/22 14:40 Urine Urobilinogen 1 mg/dL (Negative) H 07/22/22 14:40 Ur Leukocyte Esterase Negative (Negative) 07/22/22 14:40 Urine RBC 0-4 /hpf (0-2) H 07/22/22 14:40 Urine WBC Rare /hpf (0-5) 07/22/22 14:40 Ur Squamous Epith Cells Rare /hpf (0-5) 07/22/22 14:40 Amorphous Sediment Not Reportable 07/22/22 14:40 Urine Bacteria None /hpf (NONE) 07/22/22 14:40 Urine Mucus 2+ /hpf 07/22/22 14:40 Critical Care Time Critical Care Time: Critical Care Time: Yes Total Critical Care Time: 35 Attestation: Due to a high probability of clinically significant, possibly life threatening deterioration, the patient required my highest level of attention and preparedness to intervene emergently and I personally spent this critical care time directly and personally managing the patient. This critical care time included obtaining a history; examining the patient; pulse oximetry; ordering and review of laboratory and imaging studies; arranging urgent treatment with development of a management plan; evaluation of patient's response to treatment; frequent reassessment; and, discussions with other providers as applicable. It was exclusive of separately billable procedures. Primary system involved is trauma Discharge Plan Discharge Patient Disposition: Xfer Short-Term Hosp Clinical Impression: Splenic laceration, Closed fracture of right scapula, Multiple fractures of ribs of left side, Closed wedge compression fracture of T5 vertebra, Compression fracture of T2 vertebra, Recurrent falls Condition: Stable Referrals: Haley Sánchez FNP-C [Primary Care Provider] - Coding Level of Care Code ED Patient Access Coordinator for Kelle Maciel
--- NOTE | 2022-07-22 13:18 | ECG_ITS ---
[facility] Test Date: 2022-07-22 Pat Name: Jean He Department: Room: Gender: Male Smoke Control Supervisor: : 1950 Requested By: Nico Gonzales Order Number: [id number] Tucker MD: Fabiana Irby M.D. Measurements Intervals [place] Rate: 90 P: 83 UT: 159 QRS: 78 QRSD: 138 T: 64 QT: 377 QTc: 462 Interpretive Statements SINUS RHYTHM RIGHT BUNDLE BRANCH BLOCK [120+ ms QRS DURATION, UPRIGHT V1, 40+ ms S IN I/aVL/V4/V5/V6] INTERPRETATION BASED ON A DEFAULT AGE OF 40 YEARS Compared to ECG 02/22/2022 21:42:27 Sinus tachycardia no longer present Electronically Signed On 07-22-2022 20:37:06 CONTINUOUS IMPROVEMENT LEAD by Fabiana Irby M.D. [email or web address]
[2022-07-22 13:22] VITALS: BP 182/110; PULSE 95; RESP 16; TEMP 36.4; O2SAT 98
--- NOTE | 2022-07-22 13:29 | CT_ITS ---
WS: [id number] CT CHEST, ABDOMEN, AND PELVIS TECHNIQUE: Contrast-enhanced CT of the chest, abdomen, and pelvis with coronal and sagittal reformatt ed images. CLINICAL INFORMATION: fall, head strike, ams, cp and l flank pain COMPARISON: None. DLP: 671.[address] scans at [facility] use at least one of these dose optimization techniques: automated e xposure control; mA and/or kV adjustment per patient size (includes targeted exams where dose is matc hed to clinical indication); or iterative reconstruction. CT CHEST: Comminuted fracture of the spine and body RIGHT scapula with associated soft tissue edema. This does not involve the glenoid. Additional compression fracture involving the superior endplate at T5 with a nterior wedging. No retropulsion. Approximately 20% loss vertebral body height. Mild compression supe rior endplate at T2. No visualized RIGHT rib fractures. Chronic emphysematous changes. Bulla formation in the lung apices . Stable opacity in the RIGHT upper lobe nodular opacity posteriorly compatible with known neoplasm. This measures approximately 15 mm. Tiny LEFT pleural effusion. Multiple slightly displaced left-sided rib fractures with associated smal l amount of pleural fluid/blood products. Rib fractures involving the 8th, 9th, 10th and 11th ribs po steriorly. Additional fracture involving the posterior lateral 6th rib. CT ABDOMEN AND PELVIS: Diffuse fatty infiltration of the liver. Normal portal vein and splenic vein. Normal spleen. Small es ophageal hiatal hernia. Tiny hepatic cysts. No evidence of hepatic laceration. Fatty atrophy of the p ancreas. Splenic artery calcification. Suspected tiny laceration in the spleen posterior medially adj acent to the rib fractures. No evidence of active hemorrhage. Adrenal glands are normal. Normal renal parenchymal enhancement. RIGHT renal cortical atrophy. Normal caliber abdominal aorta. Aortic calcification. High-grade stenosis RIGHT common iliac artery origin. Enhancing enlarged prostate suspicious for neoplasia measuring 5.6 cm. Evidence of bladder outlet obs truction. Chronic spondylolysis L5-S1 with grade 1 anterolisthesis. Avascular necrosis LEFT femoral h ead. No femoral collapse. No acute appearing lumbar spine fractures. No free fluid in the pelvis. CT/CT chest abdpel w/*[id number] IMPRESSION: 1. Comminuted fracture involving the RIGHT scapula described above. 2. Multiple left-sided rib fractures described above with associated small LEF T pleural effusion. Fractures involve the 6th and 8th through 11th ribs. 3. No pneumothorax. 4. Compression fracture with anterior wedging involving the T5 vertebral body. Loss of approximately 20% vertebral body height. No retropulsion. Mild ej poncho superior endplate T2. 5. Suspected small splenic laceration adjacent to the posterior rib fractures. No perisplenic hematoma or active extravasation. 6. 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 Associated bladder outlet obstruction. Notified Nico Gonzales MD at 07/22/2022 3:00 PM.
--- NOTE | 2022-07-22 13:29 | CT_ITS ---
WS: [id number] CT FACIAL BONES TECHNIQUE: Noncontrast facial bones with coronal and sagittal reformatted images. CLINICAL INFORMATION: fall, head strike, ams, right mandibular pain COMPARISON: None. DLP: 1230.[address] scans at [facility] use at least one of these dose optimization techniques: automated e xposure control; mA and/or kV adjustment per patient size (includes targeted exams where dose is matc hed to clinical indication); or iterative reconstruction. FINDINGS: Paranasal sinuses are well aerated. Partial opacification of the RIGHT mastoid air cells and RIGHT mi ddle ear. Intracranial vascular calcification. Normal lamina papyracea. Anterior nasal bones are norm al. Normal zygoma. Normal pterygoid plates. Mandible is normal in appearance. Normal RIGHT mandible. No evidence of mandibular fracture dislocation. Lateral orbits are normal in appearance. CT/CT facial bones wo con* [id number] IMPRESSION: No acute facial fractures.
--- NOTE | 2022-07-22 13:29 | CT_ITS ---
WS: [id number] CT HEAD TECHNIQUE: Noncontrast CT of the head obtained from the skullbase to the vertex. CLINICAL INFORMATION: fall, head strike, ams COMPARISON: CT February 22, 2022 DLP: 1230.[address] scans at [facility] use at least one of these dose optimization techniques: automated e xposure control; mA and/or kV adjustment per patient size (includes targeted exams where dose is matc hed to clinical indication); or iterative reconstruction. FINDINGS: No evidence of intracranial hemorrhage or mass effect. Ventricular system and basal cisterns are galaviz nt. Mild small vessel changes with mild parenchymal volume loss. No extra-axial fluid collections. Se quelae of prior treated metastatic lesions in the RIGHT frontal lobe, and LEFT greater than RIGHT cer ebellum with encephalomalacia and calcifications. Mild small vessel changes. Mild parenchymal volume loss. Vascular calcification. Paranasal sinuses are well aerated. Chronic opacification RIGHT mastoid air cells and RIGHT middle ea r. LEFT mastoid air cells are better aerated. Normal posterior nasopharynx. Normal parapharyngeal fat . CT/CT head wo con* [id number] IMPRESSION: 1. No evidence of intracranial hemorrhage or mass effect. 2. Prior treated metastatic lesions in the RIGHT frontal lobe, LEFT greater th an RIGHT cerebellum with insufflation calcifications. This is unchanged. 3. Mild small vessel changes. Mild parenchymal volume loss. 4. No acute intracranial findings.
[2022-07-22] MEDS: iohexol 350 mg/mL 500 mL Btl (per mL) IV (13:56)
[2022-07-22 13:57] LABS: Glucose Point of Care 107 mg/dL (70-110)
[2022-07-22 14:03] LABS: Basophils % 0.2 %; Eosinophils # 0.1 10^3/uL (0.0-0.8); Eosinophils % 0.7 %; Hematocrit 46.8 % (42.0-52.0); Hemoglobin 15.7 g/dL (11.7-16.6); Lymphocytes # 0.9 10^3/uL (0.8-4.8); Lymphocytes % 7.6 %; Mean Corpuscular HGB Conc 33.5 g/dL (30.0-36.0); Mean Corpuscular Hemoglobin 30.9 pg (28.0-34.0); Mean Corpuscular Volume 92.1 fl (80-94); Mean Platelet Volume 10.4 fL (7.4-10.4); Monocytes # 3.7 10^3/uL (0.2-0.9); Monocytes % 30.5 %; Neutrophils # 7.21 10^3/uL (1.8-7.7); Neutrophils % 58.6 %; Nucleated Red Blood Cells % 0 %; Platelet Count 184 10^3/cmm (130-400); Red Blood Count 5.08 10^6/uL (4.1-5.3); Red Cell Distribution Width 13.1 % (12.1-15.1); White Blood Count 12.3 10^3/uL (4.0-10.0)
--- NOTE | 2022-07-22 14:24 | CT_ITS ---
WS: [id number] CT CERVICAL TRAUMA TECHNIQUE: Noncontrast CT of the cervical spine with coronal and sagittal reformatted images. CLINICAL INFORMATION: fall, ams COMPARISON: None. DLP: 153.[address] scans at [facility] [place] use at least one of these dose optimization techniques: automated e xposure control; mA and/or kV adjustment per patient size (includes targeted exams where dose is matc hed to clinical indication); or iterative reconstruction. FINDINGS: Straightening of the normal cervical lordosis. Moderate spondylitic changes cervical spine. Disc spac e narrowing worse at C3-C4, C4-C5, C5-C6 with osteophytic ridging. Small disc osteophyte protrusions with mild central canal stenosis C3-C4, moderate C4-C5, moderate C5-C6, and moderate C6-C7. Multileve l bony foraminal narrowing. Normal C1-C2 articulation. Dens is normal in appearance. Normal occipital condyles. Normal C1 ring. No evidence of acute fracture or dislocation. Moderate carotid bulb calcification. Normal prevertebral soft tissues. Bulla formation in the lung apices. Opacification RIGHT mastoid air cells and middle ear. CT/CT cervical spin wo con* [id number] IMPRESSION: 1. No evidence of acute fracture or dislocation. 2. Moderate spondylitic changes described above.
[2022-07-22 14:31] LABS: Alanine Aminotransferase 13 U/L (0-41); Albumin Level 5.1 g/dL (3.5-5.2); Alkaline Phosphatase 73 U/L (40-130); Anion Gap 17.6 (5-19); Aspartate Amino Transferase 21 U/L (0-40); Blood Urea Nitrogen 9 mg/dL (8-23); Calcium 10.4 mg/dL (8.5-10.5); Carbon Dioxide 25 mmol/L (22-29); Chloride 93 mmol/L (98-107); Globulin 2.7 g/dL (1.3-4.6); Glucose 96 mg/dL (65-115); Osmolality Calculated 271 mOsm/kg (285-295); Potassium 4.6 mmol/L (3.5-5.1); Sodium 131 mmol/L (136-145); Thyroid Stimulating Hormone 2.11 uIU/mL (0.27-4.20); Total Bilirubin 1.2 mg/dL (0.15-1.2); Total Protein 7.8 g/dL (6.6-8.7)
[2022-07-22 14:33] LABS: Creatinine Clr Calc Pharmacy 77.4175
[2022-07-22 14:34] LABS: Creatine Phosphokinase 564 U/L (39-308)
[2022-07-22] MEDS: sodium chloride 0.9% 1,000 ML 999 ML IV (14:45)
[2022-07-22 14:51] LABS: Add Urine Microscopic? YES; Bilirubin Urine Neg (Negative); Blood Urine 2+ (Negative); Glucose Urine UA Norm (Normal); Ketones Urine 2+ (Negative); Leukocyte Esterase Urine Negative (Negative); Nitrate Urine Negative (Negative); Protein Urine 2+ (Negative); Urine Appearance Clear (CLEAR); Urine Color Yellow (Yellow); Urobilinogen Urine 1 mg/dL (Negative); pH Urine 7 (5-7)
[2022-07-22 14:59] LABS: RBC Urine 0-4 /hpf (0-2)
[2022-07-22 15:00] LABS: Add Urine Culture? No; Mucus Urine 2+ /hpf; Squamous Epithelial Cell Urine RARE /hpf (0-5); WBC Urine RARE /hpf (0-5)
[2022-07-22 15:02] VITALS: BP 182/112; PULSE 98
[2022-07-22 16:12] VITALS: BP 190/151; PULSE 93; O2SAT 98
--- NOTE | 2022-07-22 16:12 | PC.NURSE ---
Pt BP was elevated, no complaints, not in distress. Notified
[2022-07-22 17:07] VITALS: BP 190/151; PULSE 93; O2SAT 98
== END 2022-07-22 17:10 | disposition short-term general hospital (02) ==
PROVIDERS: Emergency Provider Emergency Medicine; PCP Nurse Practitioner
DX: S22.42XA Multiple fractures of ribs, left side, initial encounter for closed fracture (principal); S22.050A Wedge compression fracture of T5-T6 vertebra, initial encounter for closed fracture; S22.020A Wedge compression fracture of second thoracic vertebra, initial encounter for closed fracture; S42.191A Fracture of other part of scapula, right shoulder, initial encounter for closed fracture; S36.039A Unspecified laceration of spleen, initial encounter; R29.6 Repeated falls; W00.0XXA Fall on same level due to ice and snow, initial encounter; J44.9 Chronic obstructive pulmonary disease, unspecified; I10 Essential (primary) hypertension; E78.2 Mixed hyperlipidemia; Z85.118 Personal history of other malignant neoplasm of bronchus and lung; Z85.841 Personal history of malignant neoplasm of brain; Z85.89 Personal history of malignant neoplasm of other organs and systems; F17.210 Nicotine dependence, cigarettes, uncomplicated; Z92.21 Personal history of antineoplastic chemotherapy; Z92.3 Personal history of irradiation
CPT/HCPCS: 36415; 36416; 70450; 70486; 71260; 72125; 74177; 80053; 81001; 82550; 82962; 84443; 85025; 93005; 99285; J7030; Q9967

== ENCOUNTER 2022-09-09 10:58 | Emergency (ER) | payer MEDICARE, MEDICAID, SELFPAY ==
[2022-09-09] VITALS (8 sets, daily range): BP systolic 163–188; BP diastolic 90–135; PULSE 78–87; TEMP 36.4; O2SAT 95–100; BMI 21.2
--- NOTE | 2022-09-09 11:31 | ECG_ITS ---
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 Measurements Intervals Bryant Rate: 81 P: 61 MN: 166 QRS: 68 QRSD: 142 T: 58 QT: 387 QTc: 450 Interpretive Statements SINUS RHYTHM RIGHT BUNDLE BRANCH BLOCK [120+ ms QRS DURATION, UPRIGHT V1, 40+ ms S IN I/aVL/V4/V5/V6] Compared to ECG 07/22/2022 13:18:48 No significant changes Electronically Signed On 09-09-2022 19:29:30 CDT by Dusty Jara M.D. [id number]
--- NOTE | 2022-09-09 11:31 | CTR_ITS ---
PROCEDURE INFORMATION: Exam: CT Head Without Contrast Exam date and time: 09/09/2022 11:48 AM Age: 72 years old Clinical indication: Altered mental status/memory loss; Patient HX: HX of brain, throat, and lung cancer TECHNIQUE: Imaging protocol: Computed tomography of the head without contrast. Radiation optimization: All CT scans at this facility use at least one of these dose optimization techniques: automated exposure control; mA and/or kV adjustment per patient size (includes targeted exams where dose is matched to clinical indication); or iterative reconstruction. REPORTING DATA: Count of CT and Cardiac NM exams in prior 12 months: This patient has received 6 known CTs and 0 known cardiac nuclear medicine studies in the 12 months prior to the current study. To me the the the lungs a a are a a are a multi a a 1 of the a 1 directed away no the questionable are ileo new facet air next his COMPARISON: CT head wo con* [id number] 07/22/2022 2:03 PM RADIATION DOSE METRICS: Total DLP (mGy-cm): 1068 FINDINGS: Brain: There is subarachnoid hemorrhage present in the midline extending into the left cerebellar hemisphere. This finding was not seen on prior examination There is diffuse lucency surrounding the cerebellar hemispheres consistent with microangiopathic white matter ischemic disease. There is an area of encephalomalacia adjacent to the frontal horn of the right lateral ventricle this may represent an old infarction No mass effect. Prominent cortical sulci is seen consistent with cerebral volume loss An area of encephalomalacia is present in the left cerebellar hemisphere measuring 24.7 mm x 12.6 mm this finding was present on prior examination and appears similar Cerebral ventricles: Moderate ventriculomegaly. Paranasal sinuses: Visualized sinuses are unremarkable. No fluid levels. Mastoid air cells: Visualized mastoid air cells are well aerated. Bones/joints: Unremarkable. No acute fracture. Soft tissues: Unremarkable. CT/CT head wo con* [id number] IMPRESSION: 1. Subarachnoid hemorrhage in the midline brain and the left cerebellar area. 2. Stable encephalomalacia left cerebellar hemisphere 3. 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 4. Cerebral volume loss and ventriculomegaly appropriate for age. 5. Negative for intracranial mass 6. Periventricular microvascular ischemic white matter disease
--- NOTE | 2022-09-09 11:31 | XRR_ITS ---
PROCEDURE INFORMATION: Exam: XR Chest Exam date and time: 09/09/2022 11:44 AM Age: 72 years old Clinical indication: Other: Altered mental status TECHNIQUE: Imaging protocol: Radiologic exam of the chest. Views: 1 view. COMPARISON: CT chest abdpel w/*[id number] 07/22/2022 2:13 PM FINDINGS: Lungs: Unremarkable. No consolidation. Pleural spaces: Unremarkable. No pleural effusion. No pneumothorax. Heart/Mediastinum: Unremarkable. No cardiomegaly. Bones/joints: Unremarkable. There is a left central line extending into the SVC. XR/XR chest 1V portable [id number] IMPRESSION: No acute findings. Left central line in the SVC.
--- NOTE | 2022-09-09 11:33 | ED_ITS ---
HPI - Altered Mental Status General: Chief Complaint: Altered Mental Status Stated Complaint: CONFUSION/ MUSCLE RIGIDITY/ FALL Time Seen by Provider: 09/09/22 11:00 History of Present Illness: Patient presents by EMS from [facility] with complaints of increasing altered mental status and falls over the last couple days. Patient is alert and oriented x2, patient had a fall this morning that resulted in abrasion to his left forehead and left outer forearm. Patient was given 5 mg of Haldol at the [facility] that he became agitated and complaining of muscle cramps. Patient was having visual hallucinations. complaint: altered mental status Onset (ago): day(s) (Couple days ago) Timing confirmed by: caregiver Severity: moderate Consistency of symptoms: Getting Worse Context: trauma (Patient has had several recent falls) Associated symptoms: Reports visual hallucinations Treatments prior to arrival: other (5 mg Haldol IM per [facility]) Review of Systems General: Reports: ROS unobtainable due to mental status Psych: Reports: visual hallucinations PFS ED PFSH: Medical History Anxiety and depression Arthritis ASHD (arteriosclerotic heart disease) / TX / R bundle branch block Colon polyps COPD (chronic obstructive pulmonary disease) Essential hypertension Facet arthropathy, lumbar Fall at home Hypophosphatemia Insomnia Lumbar disc disease with radiculopathy Lung cancer 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, right paratracheal, superior mediastinal, right suprahilar, right supraclavicular lymph nodes, single metastasis to liver and left frontal subcortical lesion Malignant neoplasm of upper lobe, right bronchus or lung (~10/28/18) Mixed hyperlipidemia Moderate malnutrition Physical deconditioning Pneumonia 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 Surgical History History of ankle surgery L fracture History of appendectomy 06/12/2020 History of bronchoscopy / Right neck mass biopsy History of colonoscopy 03/2018 -- polyps Hx of cataract surgery S/P hernia surgery right inguinal S/P PICC central line placement Port-A-Cath placement left subclavian vein Family History Father Lung disease Lung cancer Social History Smoking and tobacco status: current every day smoker cigarettes Packs smoked per day: 0.5 Years cigarettes smoked: 52 [ Other cigarette details: Used to smo ke 2 to 3 packs a day at one point] Second hand smoke exposure: No Smoking risk assessment/counseling performed?: Yes Alcohol intake: current Alcohol intake frequency: few times a week Alcohol type: beer Desire information about alcohol rehabilitation?: No Counseling given: No Desire information about substance/drug rehabilitation?: No Counseling given: No Adopted: No Caregiver/support person: No Lives independently: Yes Housing: House Marital status: 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 Current gender identity: Male Physical Exam Const: COMMON NORMALS: no acute distress, average body habitus, alert and well nourished ORIENTATION/CONSCIOUSNESS: Yes awake, Yes oriented to person and Yes oriented to place HENMT: COMMON NORMALS: normocephalic, hearing grossly normal bilaterally and moist oral mucous membranes HEAD & SCALP: normocephalic and abrasion (Left anterior scalp) Eye: COMMON NORMALS: Equal, round and reactive pupils present, EOMs intact bilaterally, conjunctivae normal and no scleral icterus CONJUNCTIVA: Yes conjunctivae normal PUPIL: Yes Equal, round and reactive pupils present Neck/C-Spine: COMMON NORMALS: full ROM, no lymphadenopathy, supple, no meningeal signs, no JVD and Thyroid normal THYROID: Thyroid normal Lymph: LYMPHATIC: no lymphadenopathy noted and no lymphedema noted Chest: COMMONS NORMALS: normal inspection of the chest and normal palpation of entire chest wall Resp: COMMON NORMALS: normal respiratory effort, No retractions, No use of accessory muscles and clear to auscultation bilaterally AUSCULTATION: clear to auscultation bilaterally Cardio: COMMON NORMALS: no JVD, regular rate, regular rhythm, S1 normal heart sound present, S2 normal heart sound present and No gallops present (Cardio) RATE: regular rate RHYTHM: regular rhythm HEART SOUNDS: S1 normal heart sound present and S2 normal heart sound present GI: COMMON NORMALS: Normal to inspection, nondistended, normoactive bowel sounds present, Soft to palpation, non-tender, No hepatosplenomegaly present and no masses PALPATION: Yes Soft to palpation and Yes No hepatosplenomegaly present : COMMON NORMALS: Yes no CVA tenderness BLADDER/KIDNEY EXAM: Yes no CVA tenderness Back/Pelvis: COMMON NORMALS: no CVA tenderness, thoracic and lumbar spine normal to inspection, no thoracic nor lumbar tenderness and thoraco-lumbar ROM normal Neuro: SENSORIUM/ORIENTATION: Yes alert, Yes oriented to person and Yes oriented to place MENINGEAL SIGNS: Yes no meningeal signs Psych: COMMON NORMALS: speech normal APPEARANCE: Yes grossly normal ATTITUDE: Yes calm ACTIVITY/MOTOR BEHAVIOR: Yes fidgeting SPEECH: Yes normal speech MOOD & AFFECT: Yes euthymic mood THOUGHT PROCESS: confused THOUGHT CONTENT: No Suicidality present and No Homicidality present MEMORY/COGNITION: Yes memory grossly impaired and Yes cognition grossly impaired INSIGHT: questionable JUDGEMENT: questionable Skin: NARRATIVE SKIN EXAM: Abrasion to the top of the left scalp and skin tear with Steri-Strips in place on the left forearm Course Vital Signs: Vital signs: Vital Signs Temperature 97.5 F L 09/09/22 11:15 Pulse Rate 87 09/09/22 12:24 Blood Pressure 163/135 09/09/22 12:24 Pulse Oximetry 97 09/09/22 12:24 Oxygen Delivery Me thod 09/09/22 12:24 MDM - Altered Mental Status Medical Decision Making Patient was brought in by EMS from [facility] with complaints of altered mental status and multiple falls over the last couple days. Patient is alert and oriented x2. Patient is having hallucinations and was given Haldol prior to arrival. Lab work EKG and head CT are in process of being obtained. Radiologist called back on the head CT and said the patient had a subarachnoid hemorrhage that extended midline all the way to the cerebellar region. This was thought probable due to trauma. [facility] in [facility] was called, the coordinator talk to Dr. Rutherfrod neurology who thought since this was trauma it should be an ER to ER transfer. ER was called Dr. Clemente ER physician Myself. He accepted the patient in transfer. Differential Diagnosis Likely altered mental status, delirium and dementia Lab Data Radiology Impressions Chest X-Ray 09/09/22 11:31 IMPRESSION: No acute findings. Left central line in the SVC. Head CT 09/09/22 11:31 IMPRESSION: 1. Subarachnoid hemorrhage in the midline brain and the left cerebellar area. 2. Stable encephalomalacia left cerebellar hemisphere 3. 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 4. Cerebral volume loss and ventriculomegaly appropriate for age. 5. Negative for intracranial mass 6. Periventricular microvascular ischemic white matter disease ADDENDUM: 09/09/22 1229 Findings were discussed with Wse Palacios at 09/09/2022 12:27 PM CDT. Laboratory Results Urine Color Yellow (Yellow) 09/09/22 11:57 Urine Appearance Clear (CLEAR) 09/09/22 11:57 Urine pH 7 (5-7) 09/09/22 11:57 Ur Specific Convoy 1.010 (1.005-1.030) 09/09/22 11:57 Urine Protein Neg (Negative) 09/09/22 11:57 Urine Glucose (UA) Norm (Normal) 09/09/22 11:57 Urine Ketones Negative (Negative) 09/09/22 11:57 Urine Blood Neg (Negative) 09/09/22 11:57 Urine Nitrate Negative (Negative) 09/09/22 11:57 Urine Bilirubin Neg (Negative) 09/09/22 11:57 Urine Urobilinogen Norm mg/dL (Negative) 09/09/22 11:57 Ur Leukocyte Esterase Negative (Negative) 09/09/22 11:57 EKG Data EKG 1: I personally reviewed and interpreted this EKG as follows: EKG interpretation date: 09/09/22 EKG interpretation time: 11:41 Prior EKG tracings: not available for review Interpretation: EKG showed normal sinus rhythm at 81 bpm, right bundle branch block, HI interval 166, QRS duration 142, QT C of 424, no ST-T wave changes Discharge Plan Discharge Patient Disposition: Xfer Short-Term Hosp Clinical Impression: Subarachnoid hemorrhage, Altered mental status, Fall Condition: Stable Prescriptions: No Action Seroquel 25 mg Tablet 25 mg PO BEDTIME Tylenol 325 mg Tablet 650 mg PO Q6H PRN (Reason: Pain) lidocaine 5 % Adhesive Patch,Medicated 1 patch TOPICAL Q12H Rx Instructions: leave on most painful area for up to 12 hrs losartan 25 mg Tablet 25 mg PO DAILY Haldol 5 mg/mL Solution 5 mg IM ONCE PRN (Reason: Agitation) Rx Instructions: until symptoms of delerium controlled or stopped oxycodone 5 mg Tablet 5 mg PO Q8H PRN (Reason: Pain) Lexapro 10 mg Tablet 10 mg PO DAILY Referrals: Haley Sánchez, [facility] [Primary Care Provider] - Coding Level of Care Code ED Consumer Sales Representative for Kelle Maciel
[2022-09-09 11:59] LABS: Add Urine Microscopic? NO; Charge for UA Resulting for Rev
[2022-09-09 12:05] LABS: Bilirubin Urine Neg (Negative); Blood Urine Neg (Negative); Glucose Urine UA Norm (Normal); Ketones Urine Negative (Negative); Leukocyte Esterase Urine Negative (Negative); Nitrate Urine Negative (Negative); Protein Urine Neg (Negative); Urine Appearance Clear (CLEAR); Urine Color Yellow (Yellow); Urobilinogen Urine Norm (Negative); pH Urine 7 (5-7)
[2022-09-09] MEDS: labetalol 5 mg/mL SDV 20mL 10 MG IVP (14:13)
[2022-09-09 14:57] LABS: Basophils % 0.2 %; Eosinophils % 0.4 %; Hematocrit 44.9 % (42.0-52.0); Hemoglobin 14.5 g/dL (11.7-16.6); Mean Corpuscular HGB Conc 32.3 g/dL (30.0-36.0); Mean Corpuscular Volume 92.8 fl (80-94); Mean Platelet Volume 10.3 fL (7.4-10.4); Monocytes # 2.3 10^3/uL (0.2-0.9); Monocytes % 27.9 %; Neutrophils # 4.77 10^3/uL (1.8-7.7); Neutrophils % 57.6 %; Nucleated Red Blood Cells % 0 %; Platelet Count 236 10^3/cmm (130-400); Red Blood Count 4.84 10^6/uL (4.1-5.3); Red Cell Distribution Width 12.4 % (12.1-15.1); White Blood Count 8.3 10^3/uL (4.0-10.0)
[2022-09-09] MEDS: cloNIDine 0.1 mg Tablet 0.2 MG PO (15:08)
[2022-09-09 15:15] LABS: INR 0.93 (0.8-1.2)
[2022-09-09 15:27] LABS: Alanine Aminotransferase 16 U/L (0-41); Albumin Level 4.6 g/dL (3.5-5.2); Alkaline Phosphatase 85 U/L (40-130); Anion Gap 15.1 (5-19); Aspartate Amino Transferase 21 U/L (0-40); Blood Urea Nitrogen 9 mg/dL (8-23); Calcium 9.7 mg/dL (8.5-10.5); Carbon Dioxide 27 mmol/L (22-29); Chloride 102 mmol/L (98-107); Globulin 2.3 g/dL (1.3-4.6); Glucose 95 mg/dL (65-115); Magnesium 2.2 mg/dL (1.7-2.3); Osmolality Calculated 288 mOsm/kg (285-295); Phosphorus 3.3 mg/dL (2.5-4.5); Potassium 4.1 mmol/L (3.5-5.1); Sodium 140 mmol/L (136-145); Total Bilirubin 0.3 mg/dL (0.15-1.2); Total Protein 6.9 g/dL (6.6-8.7)
== END 2022-09-09 15:20 | disposition short-term general hospital (02) ==
PROVIDERS: Emergency Provider Emergency Medicine; PCP Nurse Practitioner
DX: I60.9 Nontraumatic subarachnoid hemorrhage, unspecified (principal); R41.82 Altered mental status, unspecified; F17.210 Nicotine dependence, cigarettes, uncomplicated; J44.9 Chronic obstructive pulmonary disease, unspecified; I10 Essential (primary) hypertension; Z85.118 Personal history of other malignant neoplasm of bronchus and lung; E78.2 Mixed hyperlipidemia; Z85.841 Personal history of malignant neoplasm of brain; Z85.72 Personal history of non-Hodgkin lymphomas; R29.6 Repeated falls; S00.81XA Abrasion of other part of head, initial encounter; S50.812A Abrasion of left forearm, initial encounter; W19.XXXA Unspecified fall, initial encounter
CPT/HCPCS: 36415; 70450; 71045; 80053; 81003; 83735; 84100; 85025; 85610; 93005; 96374; 99285; J3490

== ENCOUNTER 2022-09-16 14:59 | Emergency (ER) | payer MEDICARE, MEDICAID, SELFPAY ==
[2022-09-16] VITALS (31 sets, daily range): BP systolic 146–178; BP diastolic 99–127; PULSE 76–87; RESP 11–24; TEMP 36.8; O2SAT 83–100; BMI 20.3
--- NOTE | 2022-09-16 15:11 | CTR_ITS ---
PROCEDURE INFORMATION: Exam: CT Head Without Contrast Exam date and time: 09/16/2022 3:44 PM Age: 72 years old Clinical indication: Injury or trauma; Additional info: Fall closed head injury TECHNIQUE: Imaging protocol: Computed tomography of the head without contrast. REPORTING DATA: Count of CT and Cardiac NM exams in prior 12 months: This patient has received 7 known CTs and 0 known cardiac nuclear medicine studies in the 12 months prior to the current study. COMPARISON: CT head wo con* [id number] 09/09/2022 11:48 AM RADIATION DOSE METRICS: Total DLP (mGy-cm): 1132.68 FINDINGS: Brain: Interval, now subacute left posterior inferior cerebral MCA/MESS ATTENDANT CREW watershed infarction (series 3, image 24). Left posterior interhemispheric fissure and left tentorial subdural hematoma, stable-decreased. Dystrophic calcifications posterior left parietal lobe, inferior and superior right anterior frontal lobe, inferior right cerebellar hemisphere, stable. No subarachnoid hemorrhage identified. Chronic encephalomalacia anterior superior right frontal lobe, stable. Chronic superior lateral left cerebellar infarction. Moderate hypoattenuating foci are noted in the central cerebral, posterior superior periatrial and anterior lateral ventricular periventricular white matter bilaterally. No mass or acute cortical infarction identified. Ventricles: Prominence of the ventricular system and subarachnoid spaces is consistent with the patient's age of 72 years. Paranasal sinuses: Visualized sinuses are unremarkable. No fluid levels. Mastoid air cells: Right mastoid effusion, stable. Orbital cavities: Bilateral prior cataract surgery with lens replacements. Bones/joints: No acute abnormality. No acute fracture. Soft tissues: Unremarkable. Vasculature: Atherosclerotic calcifications are present involving the carotid artery siphons bilaterally. CT/CT head wo con* [id number] IMPRESSION: 1. Interval, now subacute left posterior inferior cerebral MCA/MESS ATTENDANT CREW watershed infarction. 2. Left posterior interhemispheric fissure and left tentorial subdural hematoma, stable-decreased. 3. Chronic superior lateral left cerebellar infarction. 4. Age appropriate supratentorial and infratentorial atrophy. 5. Moderate chronic white matter microvascular ischemic disease.
--- NOTE | 2022-09-16 15:36 | W.ED.FALL ---
HPI - Fall General: Chief Complaint: Fall Stated Complaint: FALL/ HEAD INJURY Time Seen by Provider: 09/16/22 15:08 Source: patient Mode of arrival: EMS History of Present Illness: 72-year-old male resident of the residential. He is complaining of right-sided head pain. He fallen a week ago and had his subdural hematoma cervical fracture. He was transferred to he was returned back to the residential in a [place] J collar he fell today and hit his head at the nurses station there was no loss of consciousness. He was attempting to stand when he fell. He is not able to contribute any meaningful history at this time. complaint: fall Onset (ago): minute(s) Fall from: standing Fall witnessed: yes, by living facility staff Place fall occurred: residential/SNF Loss of consciousness: None Length of LOC: second(s) Prolonged down time: no Symptoms prior to fall: none Context: history of frequent falls Location of injury: head Review of Systems General: Reports: ROS unobtainable due to mental status PFSH ED PFSH: Medical History Anxiety and depression Arthritis ASHD (arteriosclerotic heart disease) / [place] / R bundle branch block Colon polyps COPD (chronic obstructive pulmonary disease) Essential hypertension Facet arthropathy, lumbar Fall at home Hypophosphatemia Insomnia Lumbar disc disease with radiculopathy Lung cancer 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, right paratracheal, superior mediastinal, right suprahilar, right supraclavicular lymph nodes, single metastasis to liver and left frontal subcortical lesion Malignant neoplasm of upper lobe, right bronchus or lung (~10/28/18) Mixed hyperlipidemia Moderate malnutrition Physical deconditioning Pneumonia 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 Surgical History History of ankle surgery L fracture History of appendectomy 06/12/2020 History of bronchoscopy / Right neck mass biopsy History of colonoscopy 03/2018 -- polyps Hx of cataract surgery S/P hernia surgery right inguinal S/P PICC central line placement Port-A-Cath placement left subclavian vein Family History Father Lung disease Lung cancer Social History Smoking and tobacco status: current every day smoker cigarettes Packs smoked per day: 0.5 Years cigarettes smoked: 52 [ Other cigarette details: Used to smoke 2 to 3 packs a day at one point] Second hand smoke exposure: No Smoking risk assessment/counseling performed?: Yes Alcohol intake: current Alcohol intake frequency: few times a week Alcohol type: beer Desire information about alcohol rehabilitation?: No Counseling given: No Desire information about substance/drug rehabilitation?: No Counseling given: No Adopted: No Caregiver/support person: No Lives independently: Yes Housing: House Marital status: 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 Current gender identity: Male Physical Exam Const: GENERAL APPEARANCE: cooperative and comfortable ORIENTATION/CONSCIOUSNESS: Yes awake HENMT: COMMON NORMALS: normocephalic, atraumatic and hearing grossly normal bilaterally HEAD & SCALP: normocephalic and atraumatic Neck/C-Spine: OTHER: [place] J collar in place Resp: COMMON NORMALS: normal respiratory effort, No retractions, No use of accessory muscles and clear to auscultation bilaterally AUSCULTATION: clear to auscultation bilaterally Cardio: COMMON NORMALS: regular rate, regular rhythm and No murmurs present (Cardio) RATE: regular rate RHYTHM: regular rhythm GI: COMMON NORMALS: Soft to palpation and No hepatosplenomegaly present AUSCULTATION: Yes normoactive bowel sounds PALPATION: Yes Soft to palpation, No Tenderness to palpation present (GI), No Guarding due to palpation present (GI) and Yes No hepatosplenomegaly present Extremity: COMMON NORMALS: normal to inspection, capillary refill normal, no clubbing, cyanosis or edema, no calf tenderness and no pedal edema Skin: COMMON NORMALS: no rashes or lesions noted GENERAL SKIN EXAM: no rashes or lesions noted Procedures Laceration Laceration 1: Site: scalp (Right lateral occiput) Side (If applicable): right Size (cm): 5 Description: linear Depth: simple, single layer Skin layer closed with: other ([place]) Course Vital Signs: Vital signs: Vital Signs Temperature 98.3 F 09/16/22 15:02 Pulse Rate 81 04/03/23 17:55 Respiratory Rate 16 09/16/22 17:55 Blood Pressure 177/127 09/16/22 17:00 Pulse Oximetry 95 09/16/22 17:55 Oxygen Delivery Me thod 09/16/22 17:50 MDM - Fall Medical Decision Making Subdural hematoma has decreased in size. Subacute infarct. Patient does not show any new specific symptoms although is difficult to gauge because of his overall condition. He is in the area where he previously had a subarachnoid hemorrhage and subdural. He is several days out from this he is not a candidate for tPA or thrombectomy. No significant discernible deficits at this time. Discussed with Dr. Smith and reviewed the films of we did not feel this required an acute admission will refer to outpatient neurology. He is still wearing the [place] collar for stabilization from his C2 fracture he should continue that. He did have a small laceration to the lateral right occiput which is approximately 2 inches in length which was closed with 3 rizwan. [place] to be removed in 1 week. Medical Records I reviewed the patient's medical records. Lab Data I reviewed the patient's lab results. Radiology Impressions Head CT 09/16/22 15:11 IMPRESSION: 1. 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 2. Left posterior interhemispheric fissure and left tentorial subdural hematoma, stable-decreased. 3. Chronic superior lateral left cerebellar infarction. 4. Age appropriate supratentorial and infratentorial atrophy. 5. Moderate chronic white matter microvascular ischemic disease. Discharge Plan Discharge Patient Disposition: Home Clinical Impression: Fall, Laceration of scalp Condition: Stable Prescriptions: No Action Miralax 17 gram Powder In Packet 17 g PO DAILY melatonin 3 mg Tablet 3 mg PO QPM trazodone 100 mg tablet 100 mg PO BEDTIME quetiapine [Seroquel] 25 mg Tablet 25 mg PO TID acetaminophen [Tylenol] 325 mg Tablet 650 mg PO Q6H PRN (Reason: Pain) lidocaine 5 % Adhesive Patch,Medicated 1 patch TOPICAL Q12H Rx Instructions: leave on most painful area for up to 12 hrs losartan 25 mg Tablet 25 mg PO DAILY oxycodone 5 mg Tablet 5 mg PO Q8H PRN (Reason: Pain) escitalopram oxalate [Lexapro] 10 mg Tablet 10 mg PO DAILY Discharge Orders: Discharge ED (Routine); Ordered 09/16/22 Ordered By: Nitesh Deal Referrals: Haley Sánchez, PRODUCTION UNDERWRITER-C [Primary Care Provider] - Discharge Diet: Usual diet Discharge Activity: Resume usual activity Patient Instructions: Opioid Safety, Pain Management Activity Restrictions/Additional Instructions: You are seen today after a fall CT of the head showed a changes from your recent fall. there is also evidence of a recent stroke. Continute your same medicaitons. Case mnaagement will set up follow up with neurology. Remove rizwan in 7 to 10 days. Apply topical antibiotic ointment to wound until rizwan removed Coding Level of Care Code ED Vibration Technician for Kelle Maciel
== END 2022-09-16 18:52 | disposition home or self-care (01) ==
PROVIDERS: Emergency Provider Family Medicine; PCP Nurse Practitioner
DX: S01.01XA Laceration without foreign body of scalp, initial encounter (principal); F17.210 Nicotine dependence, cigarettes, uncomplicated; J44.9 Chronic obstructive pulmonary disease, unspecified; I10 Essential (primary) hypertension; Z85.118 Personal history of other malignant neoplasm of bronchus and lung; E78.2 Mixed hyperlipidemia; Z85.841 Personal history of malignant neoplasm of brain; Z85.72 Personal history of non-Hodgkin lymphomas; W19.XXXA Unspecified fall, initial encounter; Y92.128 Other place in nursing home as the place of occurrence of the external cause
CPT/HCPCS: 12002; 70450; 99284

== ENCOUNTER 2022-09-20 10:46 | Emergency (ER) | payer MEDICARE, MEDICAID, SELFPAY ==
[2022-09-20 10:48] VITALS: BP 218/119; PULSE 94; RESP 18; TEMP 36.7; O2SAT 97
--- NOTE | 2022-09-20 11:00 | W.ED.FALL ---
HPI - Fall General: Chief Complaint: Fall Stated Complaint: Fall Time Seen by Provider: 09/20/22 11:00 Limitations: altered mental status History of Present Illness: Mr He is a 72-year-old gentleman with complex past medical history including metastatic cancer, history of intracranial hemorrhage, history of presentation for frequent falls presenting to the emergency department for fall. Apparently he fell out of his wheelchair from care home report. Patient himself does not provide any meaningful history. 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, right paratracheal, superior mediastinal, right suprahilar, right supraclavicular lymph nodes, single metastasis to liver and left frontal subcortical lesion Malignant neoplasm of upper lobe, right bronchus or lung (~10/28/18) Mixed hyperlipidemia Moderate malnutrition Physical deconditioning Pneumonia 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 Surgical History History of ankle surgery L fracture History of appendectomy 06/12/2020 History of bronchoscopy / Right neck mass biopsy History of colonoscopy 03/2018 -- polyps Hx of cataract surgery S/P hernia surgery right inguinal S/P PICC central line placement Port-A-Cath placement left subclavian vein Family History Father Lung disease Lung cancer Social History Smoking and tobacco status: current every day smoker cigarettes Packs smoked per day: 0.5 Years cigarettes smoked: 52 [ Other cigarette details: Used to smoke 2 to 3 packs a day at one point] Second hand smoke exposure: No Smoking risk assessment/counseling performed?: Yes Alcohol intake: current Alcohol intake frequency: few times a week Alcohol type: beer Desire information about alcohol rehabilitation?: No Counseling given: No Desire information about substance/drug rehabilitation?: No Counseling given: No Adopted: No Caregiver/support person: No Lives independently: Yes Housing: House 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 No aaron signs or raccoon eyes. No otorrhea or rhinorrhea. Jaw alignment normal. Dentition baseline. No obvious bony step-offs. No septal hematoma. No evidence of ocular entrapment. Eye: COMMON NORMALS: conjunctivae normal CONJUNCTIVA: Yes conjunctivae normal SCLERA: sclerae normal Neck/C-Spine: COMMON NORMALS: supple GENERAL: Yes trachea midline Resp: COMMON NORMALS: clear to auscultation bilaterally EFFORT & INSPECTION: Yes able to speak in complete sentences AUSCULTATION: clear to auscultation bilaterally Cardio: COMMON NORMALS: regular rate and regular rhythm RATE: regular rate RHYTHM: regular rhythm GI: COMMON NORMALS: Soft to palpation PALPATION: Yes Soft to palpation and No Tenderness to palpation present (GI) Extremity: NARRATIVE EXTREMITY EXAM: No elicitable tenderness to palpation, CMS intact x4. GENERAL: Yes normal exam except as noted and No edema Neuro: COMMON NORMALS: moves all extremities SENSORIUM/ORIENTATION: Yes Orientation impaired Psych: MEMORY/COGNITION: Yes memory grossly impaired and Yes cognition grossly impaired Course Vital Signs: Vital signs: Vital Signs Temperature 98.1 F 09/20/22 10:48 Pulse Rate 94 09/20/22 12:33 Respiratory Rate 21 H 09/20/22 12:33 Blood Pressure 189/110 09/20/22 12:33 Pulse Oximetry 98 09/20/22 12:33 Oxygen Delivery Me thod Room Air 09/20/22 12:33 MDM - Fall Medical Decision Making 72-year-old gentleman with history of frequent falls, and prior traumatic injuries presenting to the emergency department for fall with perhaps change in mental status. The patient himself does not provide significant meaningful history. He is noted to be hypertensive. Laceration with bleeding controlled over the right eyebrow. No focal neurologic deficits appreciated. GCS 14. Patient sent for CT and CT end demonstrates intraventricular generalized subdural hemorrhage. Instructed nurse on head of bed elevation, Cardene ordered. Finalized radiology report notes near hemispheric left subdural hematoma up to 1.1 cm in thickness, probable new right frontotemporal subdural hematoma up to 5.5 mm in thickness, worsening subdural layering in the posterior aspect of the intracerebral falx up to 4.1 mm, there is also worsening layering blood in the left cerebral tentorium up to 6.4 mm. Left to right midline shift 4.[address] cervical spine with multiple old healing fractures. Abnormalities likely unrelated to trauma are noted. EKG notable for sinus rhythm with right bundle branch block, no STEMI. Patient is not on anticoagulation on medication list, no indication for reversal. Labs with leukocytosis which may be reactive, normal hemoglobin and platelet count. Metabolic panel with hyponatremia, renal function is preserved. Hyponatremia appears chronic for patient. Patient excepted by Dr. Austin at [facility] in [place] ER to ER transfer for trauma and neurosurgical evaluation. Given severity of CT findings patient requires expeditious transfer. Patient's blood pressure improved with Cardene, no focal neurologic deficits on reassessment. Patient remains critically ill and transferred left to the emergency department and critical but stable condition. Medical Records I reviewed the patient's medical records. Lab Data I reviewed the patient's lab results. 09/20/22 12:22 09/20/22 12:22 Radiology Impressions C[address]ical Spine [address] 09/20/22 11:05 IMPRESSION: 1. Mild acute compression fracture of T2. 2. No acute cervical fracture. 3. Moderate degenerative disc disease is seen in the cervical spine. 4. Please see dedicated CT chest for associated findings. Chest/Abdomen/Pelvis CT 09/20/22 11:05 IMPRESSION: 1. No sign of acute traumatic injury in the thorax. 2. Fluid distended upper esophagus and mildly diffusely thickened distal esophagus. Possible esophagitis or neoplasm. 3. Healing fractures of multiple ribs, right scapula, T2 and T5 vertebra. 4. Focal scarring in the right upper lobe is stable since 07/22/2022 but is more confluent and masslike than on 10/19/2020. Possible neoplasm. Correlate with prior PET-CT imaging and consider repeat PET-CT. IMPRESSION: 1. No sign of acute traumatic injury in the abdomen or pelvis. 2. 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 3. Thickening of the distal esophagus and gastric cardia. Possible neoplasm or inflammation. 4. 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 5. Markedly enlarged prostate and muscular hypertrophy of the bladder wall. 6. Incidental findings above. Head CT 09/20/22 11:05 IMPRESSION: 1. New near hemispheric left subdural hematoma measuring up to 1.1 cm in thickness. 2. Probable new right frontoparietal subdural hematoma measuring up to 5.5 mm in thickness. 3. Worsening subdural hemorrhage layering along the posterior aspect of the intercerebral falx measuring up to 4.1 mm. 4. Worsening subdural blood layering over the left cerebellar tentorium measuring up to 6.4 mm. 5. Dense linear material in the left sylvian fissure may reflect a thrombosed vessel or mild subarachnoid hemorrhage. 6. Left to right midline shift of approximately 4.7 mm. 7. Moderate small vessel ischemic disease of indeterminate age. ADDENDUM: 09/20/22 1233 Findings discussed with Nico Gonzales at 09/20/2022 12:31 PM CDT. Laboratory Results WBC 13.6 10^3/uL (4.0-10.0) H 09/20/22 12:22 RBC 4.56 10^6/uL (4.1-5.3) 09/20/22 12:22 Hgb 13.8 g/dL (11.7-16.6) 09/20/22 12:22 Hct 41.6 % (42.0-52.0) L 09/20/22 12:22 MCV 91.2 fl (80-94) 09/20/22 12:22 MCH 30.3 pg (28.0-34.0) 09/20/22 12:22 MCHC 33.2 g/dL (30.0-36.0) 09/20/22 12:22 RDW 11.9 % (12.1-15.1) L 09/20/22 12:22 Plt Count 211 10^3/cmm (130-400) 09/20/22 12:22 MPV 10.2 fL (7.4-10.4) 09/20/22 12: Neut % (Auto) 75.8 % 09/20/22 12:22 Lymph % (Auto) 6.5 % 09/20/22 12:22 [place] % (Auto) 11.2 % 09/20/22 12:22 Eos % (Auto) 0.3 % 09/20/22 12:22 Baso % (Auto) 0.1 % 09/20/22 12:22 Neut # (Auto) 10.27 10^3/uL (1.8-7.7) H 09/20/22 12:22 Lymph # (Auto) 0.9 10^3/uL (0.8-4.8) 09/20/22 12:22 [place] # (Auto) 1.5 10^3/uL (0.2-0.9) H 09/20/22 12:22 Eos # (Auto) 0.0 10^3/uL (0.0-0.8) 09/20/22 12: Baso # (Auto) 0.0 10^3/uL (0.0-0.1) 09/20/22 12:22 Nucleated RBC % (auto) 0 % 09/20/22 12: Nucleated RBCs # 0.0 /100WBC 09/20/22 12:22 Sodium 130 mmol/L (136-145) L 09/20/22 12:22 Potassium 3.7 mmol/L (3.5-5.1) 09/20/22 12:22 Chloride 96 mmol/L (98-107) L 09/20/22 12:22 Carbon Dioxide 21 mmol/L (22-29) L 09/20/22 12:22 Anion Gap 16.7 (5-19) 09/20/22 12:22 BUN 8 mg/dL (8-23) 09/20/22 12:22 Creatinine 0.6 mg/dL (0.7-1.2) L 09/20/22 12:22 GFR Calculation Not Reportable 09/20/22 12:22 Glucose 131 mg/dL (65-115) H 09/20/22 12:22 Calculated Osmolality 270 mOsm/kg (285-295) L 09/20/22 12:22 Calcium 8.8 mg/dL (8.5-10.5) 09/20/22 12:22 Critical Care Time Critical Care Time: Critical Care Time: Yes Total Critical Care Time: 35 Attestation: Due to a high probability of clinically significant, possibly life threatening deterioration, the patient required my highest level of attention and preparedness to intervene emergently and I personally spent this critical care time directly and personally managing the patient. This critical care time included obtaining a history; examining the patient; pulse oximetry; ordering and review of laboratory and imaging studies; arranging urgent treatment with development of a management plan; evaluation of patient's response to treatment; frequent reassessment; and, discussions with other providers as applicable. It was exclusive of separately billable procedures. Primary system involved is trauma Discharge Plan Discharge Patient Disposition: Transfer to ED Clinical Impression: Fall, Altered mental status, Head injury, Subdural hemorrhage Condition: Stable Prescriptions: No Action polyethylene glycol 3350 [Miralax] 17 gram Powder In Packet 17 g PO DAILY melatonin 3 mg Tablet 3 mg PO QPM trazodone 100 mg tablet 100 mg PO BEDTIME quetiapine [Seroquel] 25 mg Tablet 25 mg PO TID acetaminophen [Tylenol] 325 mg Tablet 650 mg PO Q6H PRN (Reason: Pain) lidocaine 5 % Adhesive Patch,Medicated 1 patch TOPICAL Q12H Rx Instructions: leave on most painful area for up to 12 hrs losartan 25 mg Tablet 25 mg PO DAILY oxycodone 5 mg Tablet 5 mg PO Q8H PRN (Reason: Pain) escitalopram oxalate [Lexapro] 10 mg Tablet 10 mg PO DAILY Referrals: Haley Sánchez, FIRE TRUCK DRIVER-C [Primary Care Provider] - Coding Level of Care Code ED Guard Dance Hall for Kelle Maciel
--- NOTE | 2022-09-20 11:05 | ECG_ITS ---
[facility] Test Date: 2022-09-20 Pat Name: Jean He Department: Room: Gender: Male Transportation Aid: : 1950 Requested By: Nico Gonzales Order Number: [id number] Caitlin MD: Noel Pena M.D. Measurements Intervals [place] Rate: 91 P: 133 [place]: 134 QRS: 137 QRSD: 141 T: 46 QT: 383 QTc: 472 Interpretive Statements SINUS RHYTHM POSSIBLE LEFT ATRIAL ENLARGEMENT [-0.1mV P-WAVE IN V1/V2] RIGHT BUNDLE BRANCH BLOCK [120+ ms QRS DURATION, UPRIGHT V1, 40+ ms S IN I/aVL/V4/V5/V6] LEFT POSTERIOR FASCICULAR BLOCK [QRS AXIS > 109, INFERIOR Q] Compared to ECG 09/09/2022 11:41:10 Left posterior fascicular block now present Electronically Signed On 09-20-2022 21:27:01 CDT by Noel Pena M.D. [id number]
--- NOTE | 2022-09-20 11:05 | CTR_ITS ---
PROCEDURE INFORMATION: Exam: CT Head Without Contrast Exam date and time: 09/20/2022 11:54 AM Age: 72 years old Clinical indication: Injury or trauma; Fall; Blunt trauma (contusions or hematomas) and laceration; Consciousness not specified; Without residual foreign body; Forehead; Additional info: Fall, AMS TECHNIQUE: Imaging protocol: Computed tomography of the head without contrast. Radiation optimization: All CT scans at this facility use at least one of these dose optimization techniques: automated exposure control; mA and/or kV adjustment per patient size (includes targeted exams where dose is matched to clinical indication); or iterative reconstruction. REPORTING DATA: Count of CT and Cardiac NM exams in prior 12 months: This patient has received 10 known CTs and 0 known cardiac nuclear medicine studies in the 12 months prior to the current study. COMPARISON: CT head wo con* [id number] 09/16/2022 3:44 PM RADIATION DOSE METRICS: Total DLP (mGy-cm): 1197.5 FINDINGS: Brain: New near hemispheric left subdural hematoma measuring up to 1.1 cm in thickness. Worsening subdural hemorrhage layering along the posterior aspect of the intercerebral falx measuring up to 4.1 mm. Probable new right frontoparietal subdural hematoma measuring up to 5.5 mm in thickness. Worsening subdural blood layering over the left cerebellar tentorium measuring up to 6.4 mm. Dense linear material in the left sylvian fissure may reflect a thrombosed vessel or mild subarachnoid hemorrhage. There is left to right midline shift of approximately 4.7 mm. There is moderate patchy subcortical and periventricular hypodensity, most commonly associated with small vessel ischemic disease of indeterminate age. Old left cerebellar infarct with associated encephalomalacia. Probable old right frontal infarct with associated encephalomalacia. Subacute appearing left occipital infarct. Cerebral ventricles: There is mild mass effect on the left lateral ventricle. Paranasal sinuses: The visualized paranasal sinuses are clear. Mastoid air cells: No mastoid effusion. Orbital cavities: The visualized orbits are unremarkable. Bones/joints: No acute fracture is seen. Soft tissues: Right parietal scalp laceration status post stapling. CT/CT head wo con* [id number] IMPRESSION: 1. New near hemispheric left subdural hematoma measuring up to 1.1 cm in thickness. 2. Probable new right frontoparietal subdural hematoma measuring up to 5.5 mm in thickness. 3. Worsening subdural hemorrhage layering along the posterior aspect of the intercerebral falx measuring up to 4.1 mm. 4. Worsening subdural blood layering over the left cerebellar tentorium measuring up to 6.4 mm. 5. Dense linear material in the left sylvian fissure may reflect a thrombosed vessel or mild subarachnoid hemorrhage. 6. Left to right midline shift of approximately 4.7 mm. 7. Moderate small vessel ischemic disease of indeterminate age.
--- NOTE | 2022-09-20 11:05 | CTR_ITS ---
PROCEDURE INFORMATION: Exam: CT Chest With Contrast; Diagnostic Exam date and time: 09/20/2022 12:00 PM Age: 72 years old Clinical indication: Injury or trauma; Fall; Generalized; Blunt trauma (contusions or hematomas); Additional info: Fall, AMS TECHNIQUE: Imaging protocol: Diagnostic computed tomography of the chest with contrast. Radiation optimization: All CT scans at this facility use at least one of these dose optimization techniques: automated exposure control; mA and/or kV adjustment per patient size (includes targeted exams where dose is matched to clinical indication); or iterative reconstruction. Contrast material: OMNI 350; Contrast volume: 100 ml; Contrast route: INTRAVENOUS (IV); REPORTING DATA: Count of CT and Cardiac NM exams in prior 12 months: This patient has received 10 known CTs and 0 known cardiac nuclear medicine studies in the 12 months prior to the current study. COMPARISON: 1. CT chest abdomen w con* 10/19/2020 2:[address] chest abdpel w/*[id number] 07/22/2022 2:13 PM RADIATION DOSE METRICS: Total DLP (mGy-cm): 817.85 FINDINGS: Limitations: Motion artifact limits assessment of bones in the upper thorax. Tubes, catheters and devices: There is a left chest port with the line tip appropriately positioned in the lower SVC near the cavoatrial junction. Lungs: There is mild paraseptal emphysema with bilateral apical bullae. There is focal right apical subpleural scarring, stable since 07/22/2022. The finding is more focal than on 10/19/2020. There is mild centrilobular emphysema, most apparent in the lower lungs. No pulmonary consolidation. Pleural spaces: There is no pleural effusion or pneumothorax. Heart: Heart size is normal. There is no pericardial effusion. Coronary arteries: There is moderate coronary artery calcification. Mediastinal space: There is mild circumferential thickening of the distal esophagus and fluid distention of the upper esophagus. Lymph nodes: There is no mediastinal or hilar lymphadenopathy. Vasculature: There is mild aortic atherosclerotic disease. The central pulmonary arteries are unremarkable. Bones/joints: There are multiple healing left posterior rib fractures. No acute fracture. There is a healing comminuted fracture of the right scapula. There is moderate degenerative disease at both shoulders. The left scapula and clavicle are poorly visualized due to motion artifact. There are healing mild superior endplate compression fractures at T2 and T5. No acute spinal fracture. The sternum is unremarkable. Soft tissues: The extrathoracic soft tissues are unremarkable. COMMENTS: In the absence of a history or active diagnosis of lung cancer, it is recommended that this patient with emphysema be evaluated for enrollment in a low dose CT lung cancer screening program. PROCEDURE INFORMATION: Exam: CT Abdomen And Pelvis With Contrast Exam date and time: 09/20/2022 12:00 PM Age: 72 years old Clinical indication: Injury or trauma; Fall; Generalized; Blunt trauma (contusions or hematomas); Additional info: Fall, AMS TECHNIQUE: Imaging protocol: Computed tomography of the abdomen and pelvis with contrast. Radiation optimization: All CT scans at this facility use at least one of these dose optimization techniques: automated exposure control; mA and/or kV adjustment per patient size (includes targeted exams where dose is matched to clinical indication); or iterative reconstruction. Contrast material: OMNI 350; Contrast volume: 100 ml; Contrast route: INTRAVENOUS (IV); REPORTING DATA: Count of CT and Cardiac NM exams in prior 12 months: This patient has received 10 known CTs and 0 known cardiac nuclear medicine studies in the 12 months prior to the current study. COMPARISON: 1. CT chest abdomen w con* 10/19/2020 2:[address] chest abdpel w/*[id number] 07/22/2022 2:13 PM RADIATION DOSE METRICS: Total DLP (mGy-cm): 817.85 FINDINGS: Mediastinal space: There is thickening of the distal esophagus and gastric cardia. Liver: The liver is normal. Gallbladder and bile ducts: The gallbladder is normal. There is no biliary dilation. Pancreas: There is mild atrophy of the pancreas. Spleen: The spleen is unremarkable. Adrenal glands: There is hypertrophy of the left adrenal gland. Kidneys and ureters: Deep scar in the upper pole of the right kidney is new since 10/19/2020 corresponding to a region of delayed enhancement on the prior exam, consistent with subsequent infarction and atrophy. Left kidney is unremarkable. There is no hydronephrosis or stones. Stomach and bowel: The stomach is decompressed, preventing meaningful evaluation of wall thickness. The small bowel is nondilated. There is mild sigmoid colonic diverticulosis without evidence of diverticulitis. Appendix: The appendix is not visible. Intraperitoneal space: There is no free air or significant intraperitoneal free fluid. Vasculature: There is moderate aortic atherosclerotic disease. 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 The portal, splenic and superior mesenteric veins are patent. Lymph nodes: There is no lymphadenopathy in the retroperitoneum, mesentery, pelvis or inguinal regions. Urinary bladder: The bladder wall is markedly diffusely thickened. Reproductive: There is marked enlargement of the prostate gland. Bones/joints: There are chronic bilateral L5 pars defects with grade 1 anterolisthesis of L5 on S1. There is a serpiginous band of sclerosis in the left femoral head consistent with avascular necrosis. There is no subchondral collapse. No acute spinal fracture. Soft tissues: The abdominal wall is intact. CT/CT chest abdpel w/*[id number] IMPRESSION: 1. No sign of acute traumatic injury in the thorax. 2. Fluid distended upper esophagus and mildly diffusely thickened distal esophagus. Possible esophagitis or neoplasm. 3. Healing fractures of multiple ribs, right scapula, T2 and T5 vertebra. 4. Focal scarring in the right upper lobe is stable since 07/22/2022 but is more confluent and masslike than on 10/19/2020. Possible neoplasm. Correlate with prior PET-CT imaging and consider repeat PET-CT. IMPRESSION: 1. No sign of acute traumatic injury in the abdomen or pelvis. 2. 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 3. Thickening of the distal esophagus and gastric cardia. Possible neoplasm or inflammation. 4. 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 5. Markedly enlarged prostate and muscular hypertrophy of the bladder wall. 6. Incidental findings above.
--- NOTE | 2022-09-20 11:05 | CTR_ITS ---
PROCEDURE INFORMATION: Exam: CT Cervical Spine Without Contrast Exam date and time: 09/20/2022 11:54 AM Age: 72 years old Clinical indication: Fall with blunt trauma. Altered mental status. TECHNIQUE: Imaging protocol: Computed tomography of the cervical spine without contrast. Radiation optimization: All CT scans at this facility use at least one of these dose optimization techniques: automated exposure control; mA and/or kV adjustment per patient size (includes targeted exams where dose is matched to clinical indication); or iterative reconstruction. REPORTING DATA: Count of CT and Cardiac NM exams in prior 12 months: This patient has received 10 known CTs and 0 known cardiac nuclear medicine studies in the 12 months prior to the current study. COMPARISON: CT cervical spin wo con* [id number] 07/22/2022 2:54 PM RADIATION DOSE METRICS: Total DLP (mGy-cm): 213.4 FINDINGS: Grade 1 retrolisthesis of C6. Grade 1 anterolisthesis of C7. No prevertebral soft tissue swelling is seen. Moderate degenerative disc disease is seen in the cervical spine Mild acute compression fracture of T2. The atlantoaxial interval and craniocervical junction are maintained. Small, scattered cervical lymph nodes are noted. CT/CT cervical spin wo con* [id number] IMPRESSION: 1. Mild acute compression fracture of T2. 2. No acute cervical fracture. 3. Moderate degenerative disc disease is seen in the cervical spine. 4. Please see dedicated CT chest for associated findings.
[2022-09-20 11:40] VITALS: O2SAT 97
[2022-09-20] MEDS: iohexol 350 mg/mL 500 mL Btl (per mL) IV (11:52)
[2022-09-20] MEDS: LORazepam 2 mg/mL INJ 1 mL 0.5 MG IVP (12:02)
[2022-09-20] MEDS: nicardipine 20 MG/200 ML PREMIX 50 MG IV (12:28)
[2022-09-20 12:30] LABS: Basophils % 0.1 %; Eosinophils % 0.3 %; Hematocrit 41.6 % (42.0-52.0); Hemoglobin 13.8 g/dL (11.7-16.6); Lymphocytes # 0.9 10^3/uL (0.8-4.8); Lymphocytes % 6.5 %; Mean Corpuscular HGB Conc 33.2 g/dL (30.0-36.0); Mean Corpuscular Hemoglobin 30.3 pg (28.0-34.0); Mean Corpuscular Volume 91.2 fl (80-94); Mean Platelet Volume 10.2 fL (7.4-10.4); Monocytes # 1.5 10^3/uL (0.2-0.9); Monocytes % 11.2 %; Neutrophils # 10.27 10^3/uL (1.8-7.7); Neutrophils % 75.8 %; Nucleated Red Blood Cells % 0 %; Platelet Count 211 10^3/cmm (130-400); Red Blood Count 4.56 10^6/uL (4.1-5.3); Red Cell Distribution Width 11.9 % (12.1-15.1); White Blood Count 13.6 10^3/uL (4.0-10.0)
[2022-09-20 12:33] VITALS: BP 189/110; PULSE 94; RESP 21; O2SAT 98
[2022-09-20 12:46] LABS: Blood Urea Nitrogen 8 mg/dL (8-23); Calcium 8.8 mg/dL (8.5-10.5); Carbon Dioxide 21 mmol/L (22-29); Chloride 96 mmol/L (98-107); Glucose 131 mg/dL (65-115); Osmolality Calculated 270 mOsm/kg (285-295); Sodium 130 mmol/L (136-145)
[2022-09-20 12:48] LABS: Anion Gap 16.7 (5-19); Potassium 3.7 mmol/L (3.5-5.1)
[2022-09-20 12:55] LABS: Slide Review Slide Review Perform
== END 2022-09-20 13:09 ==
PROVIDERS: Emergency Provider Emergency Medicine; PCP Nurse Practitioner
DX: S06.5XAA Traumatic subdural hemorrhage with loss of consciousness status unknown, initial encounter (principal); S01.111A Laceration without foreign body of right eyelid and periocular area, initial encounter; R41.82 Altered mental status, unspecified; F17.210 Nicotine dependence, cigarettes, uncomplicated; J44.9 Chronic obstructive pulmonary disease, unspecified; I10 Essential (primary) hypertension; Z85.118 Personal history of other malignant neoplasm of bronchus and lung; E78.2 Mixed hyperlipidemia; Z85.841 Personal history of malignant neoplasm of brain; I25.2 Old myocardial infarction; W05.0XXA Fall from non-moving wheelchair, initial encounter; Y92.129 Unspecified place in nursing home as the place of occurrence of the external cause
CPT/HCPCS: 36415; 70450; 71260; 72125; 74177; 80048; 85025; 93005; 96374; 96375; 99285; J2060; Q9967